=== PATIENT | female | born 1960 | race African-American/Black ===

== ENCOUNTER 2019-03-26 20:53 | Emergency (ER) | payer OTHER ==
[2019-03-26] MEDS ORDERED: Ketorolac Tromethamine 30 MG/ML VIAL ONE (22:38)
--- NOTE | 2019-03-26 23:10 | CT ---
CT head noncontrast HISTORY: Fall. Head injury. FINDINGS: There is no evidence of acute intracranial hemorrhage or infarct. The ventricles appear nor mal in size, shape and position. There is no mass effect or shift of midline structures. Visualized paranasal sinuses remain well-aerated. IMPRESSION: No acute intracranial abnormalities are demonstrated.
--- NOTE | 2019-03-26 23:12 | CT ---
CT cervical spine noncontrast HISTORY: Fall. Neck injury. FINDINGS: Reversal of the normal lordotic curvature. Disc space narrowing most pronounced at the C5-6 level. Osteophytosis throughout the vertebral bodies and facets. Cervicothoracic junction is intact. No acute fracture or dislocation. Thyroid gland is enlarged and very heterogeneous, including internal calcified patient with substernal extension of the enlarged left thyroid lobe. IMPRESSION: Degenerative changes of the cervical spine. No acute osseous abnormalities are demonstrat ed. Large thyroid goiter with substernal extension
--- NOTE | 2019-03-26 23:15 | CT ---
CT thoracic spine noncontrast HISTORY: Fall. Back injury. FINDINGS: There is minimal compression of the T5 superior endplate with some sclerotic component. No significant retropulsion. Other vertebral body heights and alignment are maintained. Mild osteophytosis. IMPRESSION: Minimal T5 superior endplate compression. Probably chronic. If needed, MRI could be used to evaluate for bone marrow edema. No unstable thoracic spine injury is apparent on CT.
--- NOTE | 2019-03-26 23:24 | RAD ---
Chest one view HISTORY: Fall. Chest injury. COMPARISON: 03/08/2009. FINDINGS: Cardiac silhouette is magnified and enlarged. Pulmonary vasculature remains slightly engorg ed. Mediastinum is midline. Rightward deviation of the upper trachea related to a large thyroid goiter. IMPRESSION: Borderline cardiomegaly. Chronic pulmonary vascular congestion.
--- NOTE | 2019-03-26 23:27 | RAD ---
Left elbow 4 views HISTORY: Left elbow injury. FINDINGS: Radiocapitellar alignment is maintained. Moderate osteophytosis. No acute fracture, disloca tion, or fluid distention of the joint capsule. IMPRESSION: Degenerative changes left elbow. No acute osseous abnormalities are demonstrated.
--- NOTE | 2019-03-26 23:28 | RAD ---
Left shoulder 3 views HISTORY: Fall. Left shoulder injury. FINDINGS: Acromioclavicular and glenohumeral alignment are maintained. No acute fracture, dislocation , or aggressive osseous erosions. IMPRESSION: No acute osseous abnormalities are demonstrated.
== END 2019-03-26 23:42 | disposition home or self-care (01) ==
LOC: ERS 20:53
DX: S06.9X9A Unspecified intracranial injury with loss of consciousness of unspecified duration, initial encounter (principal); M54.2 Cervicalgia; I11.0 Hypertensive heart disease with heart failure; I50.9 Heart failure, unspecified; E11.9 Type 2 diabetes mellitus without complications; E78.5 Hyperlipidemia, unspecified; F41.9 Anxiety disorder, unspecified; F32.9 Major depressive disorder, single episode, unspecified; F17.210 Nicotine dependence, cigarettes, uncomplicated; Z79.82 Long term (current) use of aspirin; Z79.899 Other long term (current) drug therapy; W17.89XA Other fall from one level to another, initial encounter
CPT/HCPCS: 70450; 71045; 72125; 72128; 96372; J1885

== ENCOUNTER 2019-07-29 23:58 | Emergency (ER) | payer OTHER ==
[2019-07-30 01:34] LABS: #Eosinphils 0.2 thou/uL (0.0-0.7); #Lymphocytes 2.2 thou/uL (1.20-3.40); #Monocytes 1.1 thou/uL (0.11-0.59); #Neutrophils 5.3 thou/uL (1.40-6.50); %Basophils 0.5 % (0.0-1.0); %Monocytes 12.5 % (0.0-10.0); Hemoglobin 12.5 g/dL (12.0-16.0); Mean Corpuscular Hemoglobin 28.6 pg (27.0-31.0); Mean Corpuscular Volume 92.2 fL (78.0-98.0); Mean Platelet Volume 8.5 fL (7.4-10.4); Platelet Count 170 thou/uL (130-400); RBC Distribution Width 14.3 % (11.5-14.5); Red Blood Cell (RBC) Count 4.38 mill/uL (4.20-5.40); White Blood Cell (WBC) Count 8.9 thou/uL (4.8-10.8)
[2019-07-30 01:54] LABS: Acetaminophen Less than 6.0 mcg/mL (10.0-30.0); Alcohol Less than 10 mg/dL (Less than 10); Salicylate Less than 8.0 mg/dL (15.0-30.0)
[2019-07-30 01:55] LABS: ALT (SGPT) 15 U/L (8-55); AST (SGOT) 16 U/L (5-34); Albumin 3.7 g/dL (3.5-5.0); Alkaline Phosphatase 114 U/L (40-110); Anion Gap 13 mmol/L (10-20); BUN (Urea Nitrogen) 20 mg/dL (9.8-20.1); Bilirubin, Total 0.3 mg/dL (0.2-1.2); Calc. Creatinine Clearance 0 mL/min (70-130); Calcium 9.8 mg/dL (7.8-10.44); Carbon Dioxide 27 mmol/L (22-29); Chloride 101 mmol/L (98-107); Estimated GFR-MDRD 76; Globulin 4.2 g/dL (2.4-3.5); Glucose 301 mg/dL (70-105); Protein, Total 7.9 g/dL (6.0-8.3); Sodium 137 mmol/L (136-145)
[2019-07-30] MEDS ORDERED: risperiDONE 1 MG TAB ONE (03:49)
[2019-07-30] MEDS ORDERED: Divalproex Sodium 250 MG (DR) TAB ONE (03:49)
[2019-07-30] MEDS ORDERED: Carvedilol 6.25 MG TAB PO SCH ×2 (04:00→17:00)
[2019-07-30 05:08] LABS: Amphetamine Not Detected (NotDetected); Barbiturates Screen Not Detected (NotDetected); Benzodiazepine Screen Not Detected (NotDetected); Cocaine Metabolite Screen Not Detected (NotDetected); Medtox Control Line Valid? VALID (VALID); Medtox Reader # READER 4; Methadone Not Detected (NotDetected); Methamphetamine Not Detected (NotDetected); Opiate Screen Not Detected (NotDetected); Oxycodone Screen Not Detected (NotDetected); Phencyclidine (PCP) Not Detected (NotDetected); THC/Cannabinoid Screen Not Detected (NotDetected); Tricyclic Screen Detected (NotDetected)
[2019-07-30] MEDS ORDERED: Haloperidol 5 MG TAB PO SCH (06:00)
== END 2019-07-30 14:30 ==
LOC: ERS 23:58
DX: F29 Unspecified psychosis not due to a substance or known physiological condition (principal); E11.9 Type 2 diabetes mellitus without complications; E78.5 Hyperlipidemia, unspecified; I11.0 Hypertensive heart disease with heart failure; I50.9 Heart failure, unspecified; F17.210 Nicotine dependence, cigarettes, uncomplicated; F41.9 Anxiety disorder, unspecified; F32.9 Major depressive disorder, single episode, unspecified; Z79.899 Other long term (current) drug therapy; Z79.891 Long term (current) use of opiate analgesic; Z79.51 Long term (current) use of inhaled steroids
CPT/HCPCS: 36415; 80053; 80306; 80307; 84443; 85025; 99285

== ENCOUNTER 2019-08-11 22:12 | Emergency (ER) | payer OTHER ==
[2019-08-11 23:39] LABS: #Basophils 0.1 thou/uL (0.0-0.2); #Eosinphils 0.1 thou/uL (0.0-0.7); #Lymphocytes 2.4 thou/uL (1.20-3.40); #Monocytes 1.2 thou/uL (0.11-0.59); %Basophils 0.9 % (0.0-1.0); %Eosinophils 0.8 % (0.0-10.0); %Lymphocytes 24.3 % (21.0-51.0); %Monocytes 12.2 % (0.0-10.0); %Neutrophils 61.8 % (42.0-75.0); Hemoglobin 13.4 g/dL (12.0-16.0); Mean Corpuscular Hemoglobin 30.7 pg (27.0-31.0); Mean Platelet Volume 7.5 fL (7.4-10.4); Platelet Count 249 thou/uL (130-400); Red Blood Cell (RBC) Count 4.38 mill/uL (4.20-5.40); White Blood Cell (WBC) Count 9.7 thou/uL (4.8-10.8)
[2019-08-11 23:46] LABS: BHCG - Serum Negative (NEGATIVE); Pregs Control Background? CLEAR/WHITE (CLR/WHITE); Pregs Control Bar Appear? YES (CONTROL BAR)
[2019-08-11 23:58] LABS: Acetaminophen Less than 6.0 mcg/mL (10.0-30.0); Alcohol Less than 10 mg/dL (Less than 10); Salicylate Less than 8.0 mg/dL (15.0-30.0)
[2019-08-12 00:01] LABS: ALT (SGPT) 10 U/L (8-55); AST (SGOT) 11 U/L (5-34); Albumin 3.6 g/dL (3.5-5.0); Alkaline Phosphatase 101 U/L (40-110); Anion Gap 15 mmol/L (10-20); BUN (Urea Nitrogen) 15 mg/dL (9.8-20.1); Bilirubin, Total 0.3 mg/dL (0.2-1.2); Calc. Creatinine Clearance 0 mL/min (70-130); Calcium 9.5 mg/dL (7.8-10.44); Carbon Dioxide 24 mmol/L (22-29); Chloride 103 mmol/L (98-107); Estimated GFR-MDRD 90; Globulin 4.4 g/dL (2.4-3.5); Glucose 313 mg/dL (70-105); Potassium 3.8 mmol/L (3.5-5.1); Sodium 138 mmol/L (136-145)
[2019-08-12] MEDS ORDERED: Acetaminophen 325 MG TAB ONE (01:59)
[2019-08-12] MEDS ORDERED: Acetaminophen 325 MG TAB PO SCH (02:00)
[2019-08-12] MEDS ORDERED: Insulin Glargine 15 UNITS in Pre-Filled Syringe 1 EACH SC SCH (02:00)
[2019-08-12 02:12] LABS: Bacteria/HPF None Seen HPF (None Seen); Bilirubin Negative (Negative); Blood, Urine Negative (Negative); Clarity Clear (Clear); Glucose, Urine (Dipstick) >=1000 mg/dL (Negative); Leukocyte 25 Leu/uL (Negative); Mucous/LPF Rare LPF (<2+); Nitrite Negative (Negative); Protein, Urine (Dipstick) 200 mg/dL (Neg-Trace); WBC/HPF 0-3 HPF (0-3)
[2019-08-12 02:15] LABS: Amphetamine Not Detected (NotDetected); Barbiturates Screen Not Detected (NotDetected); Benzodiazepine Screen Not Detected (NotDetected); Cocaine Metabolite Screen Not Detected (NotDetected); Medtox Control Line Valid? VALID (VALID); Medtox Reader # READER 1; Methadone Not Detected (NotDetected); Methamphetamine Not Detected (NotDetected); Opiate Screen Not Detected (NotDetected); Oxycodone Screen Not Detected (NotDetected); Phencyclidine (PCP) Not Detected (NotDetected); THC/Cannabinoid Screen Not Detected (NotDetected); Tricyclic Screen Not Detected (NotDetected)
[2019-08-12] MEDS ORDERED: Acetaminophen 500 MG TAB ONE (11:43)
== END 2019-08-12 13:58 ==
LOC: ERS 22:12
DX: R45.851 Suicidal ideations (principal); R44.1 Visual hallucinations; I11.0 Hypertensive heart disease with heart failure; I50.9 Heart failure, unspecified; E11.9 Type 2 diabetes mellitus without complications; F17.210 Nicotine dependence, cigarettes, uncomplicated
CPT/HCPCS: 36415; 36416; 80053; 80306; 80307; 81003; 81015; 84443; 84703; 85025; 99285; J1815

== ENCOUNTER 2019-08-28 20:53 | Emergency (ER) | payer OTHER ==
[2019-08-28 22:56] LABS: Hemoglobin 12.4 g/dL (12.0-16.0); Mean Corpuscular HGB CONC 33.2 g/dL (32.0-36.0); Mean Corpuscular Hemoglobin 31.9 pg (27.0-31.0); Mean Corpuscular Volume 96.1 fL (78.0-98.0); Mean Platelet Volume 8.4 fL (7.4-10.4); Platelet Count 148 thou/uL (130-400); RBC Distribution Width 15.3 % (11.5-14.5); Red Blood Cell (RBC) Count 3.87 mill/uL (4.20-5.40); White Blood Cell (WBC) Count 7.1 thou/uL (4.8-10.8)
[2019-08-28 23:14] LABS: ALT (SGPT) 9 U/L (8-55); AST (SGOT) 11 U/L (5-34); Albumin 3.2 g/dL (3.5-5.0); Alkaline Phosphatase 110 U/L (40-110); Anion Gap 11 mmol/L (10-20); BUN (Urea Nitrogen) 18 mg/dL (9.8-20.1); Band 3 % (5-11); Bilirubin, Total 0.2 mg/dL (0.2-1.2); Calc. Creatinine Clearance 0 mL/min (70-130); Calcium 9.1 mg/dL (7.8-10.44); Carbon Dioxide 27 mmol/L (22-29); Chloride 100 mmol/L (98-107); Eosinophils 2 % (0-10); Estimated GFR-MDRD 74; Globulin 3.9 g/dL (2.4-3.5); Glucose 495 mg/dL (70-105); Lymphocytes 33 % (21-51); MDiff Complete? YES; Monocytes 14 % (0-10); Neutrophil 48 % (42-75); Potassium 4.2 mmol/L (3.5-5.1); Protein, Total 7.1 g/dL (6.0-8.3); Sodium 134 mmol/L (136-145)
[2019-08-28 23:20] LABS: Acetaminophen Less than 6.0 mcg/mL (10.0-30.0); Alcohol Less than 10 mg/dL (Less than 10); Salicylate Less than 8.0 mg/dL (15.0-30.0)
[2019-08-29 01:08] LABS: Amphetamine Not Detected (NotDetected); Barbiturates Screen Not Detected (NotDetected); Benzodiazepine Screen Not Detected (NotDetected); Cocaine Metabolite Screen Not Detected (NotDetected); Medtox Control Line Valid? VALID (VALID); Medtox Reader # READER 1; Methadone Not Detected (NotDetected); Methamphetamine Not Detected (NotDetected); Opiate Screen Not Detected (NotDetected); Oxycodone Screen Not Detected (NotDetected); Phencyclidine (PCP) Not Detected (NotDetected); THC/Cannabinoid Screen Not Detected (NotDetected); Tricyclic Screen Not Detected (NotDetected)
[2019-08-29] MEDS ORDERED: Divalproex Sodium DR 500 MG TAB PO SCH (05:15)
[2019-08-29] MEDS ORDERED: Carvedilol 6.25 MG TAB PO SCH (05:30)
[2019-08-29] MEDS ORDERED: Insulin Glargine 15 UNITS in Pre-Filled Syringe 1 EACH SC SCH (05:30)
[2019-08-29] MEDS ORDERED: risperiDONE 3 MG TAB PO SCH (05:30)
[2019-08-29] MEDS ORDERED: Acetaminophen 325 MG TAB ONE (10:48)
[2019-08-29] MEDS ORDERED: Insulin Regular 300 UNITS/3 ML VIAL ONE (10:48)
== END 2019-08-29 14:50 ==
LOC: ERS 20:53
DX: F23 Brief psychotic disorder (principal); E11.9 Type 2 diabetes mellitus without complications; I11.0 Hypertensive heart disease with heart failure; I50.9 Heart failure, unspecified; F41.9 Anxiety disorder, unspecified; F32.9 Major depressive disorder, single episode, unspecified; F17.210 Nicotine dependence, cigarettes, uncomplicated; Z79.899 Other long term (current) drug therapy; Z79.4 Long term (current) use of insulin; Z79.51 Long term (current) use of inhaled steroids
CPT/HCPCS: 36415; 36416; 80053; 80306; 80307; 84443; 85025; 99285; J1815

== ENCOUNTER 2019-10-25 00:33 | Emergency (ER) | payer OTHER ==
[2019-10-25 01:20] LABS: #Lymphocytes 1.8 thou/uL (1.20-3.40); #Monocytes 0.5 thou/uL (0.11-0.59); #Neutrophils 4.3 thou/uL (1.40-6.50); %Basophils 0.5 % (0.0-1.0); %Eosinophils 0.7 % (0.0-10.0); %Lymphocytes 26.5 % (21.0-51.0); %Monocytes 7.9 % (0.0-10.0); %Neutrophils 64.5 % (42.0-75.0); Hemoglobin 13.1 g/dL (12.0-16.0); Mean Corpuscular HGB CONC 33.4 g/dL (32.0-36.0); Mean Corpuscular Hemoglobin 31.1 pg (27.0-31.0); Mean Corpuscular Volume 93.1 fL (78.0-98.0); Mean Platelet Volume 8.3 fL (7.4-10.4); Platelet Count 264 thou/uL (130-400); RBC Distribution Width 12.4 % (11.5-14.5); White Blood Cell (WBC) Count 6.7 thou/uL (4.8-10.8)
[2019-10-25 01:40] LABS: Acetaminophen Less than 6.0 mcg/mL (10.0-30.0); Alcohol Less than 10 mg/dL (Less than 10); Salicylate Less than 8.0 mg/dL (15.0-30.0)
[2019-10-25 01:41] LABS: ALT (SGPT) 24 U/L (8-55); AST (SGOT) 21 U/L (5-34); Albumin 3.9 g/dL (3.5-5.0); Alkaline Phosphatase 167 U/L (40-110); Anion Gap 14 mmol/L (10-20); BUN (Urea Nitrogen) 18 mg/dL (9.8-20.1); Bilirubin, Total 0.3 mg/dL (0.2-1.2); CK (CPK) 255 U/L (29-168); Calc. Creatinine Clearance 0 mL/min (70-130); Calcium 9.7 mg/dL (7.8-10.44); Carbon Dioxide 25 mmol/L (22-29); Chloride 102 mmol/L (98-107); Estimated GFR-MDRD 71; Globulin 4.1 g/dL (2.4-3.5); Glucose 342 mg/dL (70-105); Potassium 3.8 mmol/L (3.5-5.1); Sodium 137 mmol/L (136-145)
[2019-10-25 02:14] LABS: Bilirubin Negative (Negative); Blood, Urine Negative (Negative); Clarity Clear (Clear); Glucose, Urine (Dipstick) 200 mg/dL (Negative); Leukocyte Negative Leu/uL (Negative); Nitrite Negative (Negative); Protein, Urine (Dipstick) 20 mg/dL (Neg-Trace); Urobilinogen Normal mg/dL (Less than 2)
[2019-10-25 02:29] LABS: Amphetamine Not Detected (NotDetected); Barbiturates Screen Not Detected (NotDetected); Benzodiazepine Screen Not Detected (NotDetected); Cocaine Metabolite Screen Not Detected (NotDetected); Medtox Control Line Valid? VALID (VALID); Medtox Reader # READER 4; Methadone Not Detected (NotDetected); Methamphetamine Not Detected (NotDetected); Opiate Screen Not Detected (NotDetected); Oxycodone Screen Not Detected (NotDetected); Phencyclidine (PCP) Not Detected (NotDetected); THC/Cannabinoid Screen Not Detected (NotDetected); Tricyclic Screen Not Detected (NotDetected)
[2019-10-25] MEDS ORDERED: Acetaminophen 500 MG TAB ONE ×3 (04:18→22:02)
[2019-10-25] MEDS ORDERED: Nicotine 14 MG PATCH ONE (06:24)
[2019-10-25] MEDS ORDERED: chlorproMAZINE HCl 25 MG TAB PO SCH (07:30)
[2019-10-25] MEDS ORDERED: metFORMIN 500 MG TAB PO SCH (08:00)
--- NOTE | 2019-10-25 08:07 | RAD ---
EXAM: CHEST ONE VIEW HISTORY: Cough. COMPARISON: 03/26/2019 FINDINGS: Cardiac silhouette is magnified by projection but stable in size. Pulmonary vasculature is within nor mal limits. There is subsegmental atelectasis seen in the region of the lingula. No consolidation or pleural fluid is seen. Vascular calcifications are seen in the thoracic aorta. No other interval c hange. IMPRESSION: 1. No acute cardiopulmonary process. 2. Subsegmental atelectasis in the lingula.
[2019-10-25 08:17] LABS: CKMB 2.5 ng/mL (0-6.6)
[2019-10-25] MEDS ORDERED: Haloperidol 1 MG TAB ONE (08:49)
[2019-10-25] MEDS ORDERED: Furosemide 40 MG TAB ONE (08:49)
[2019-10-25] MEDS ORDERED: Benztropine 1 MG TAB PO SCH (09:00)
[2019-10-25] MEDS ORDERED: Haloperidol 5 MG TAB PO SCH (09:00)
[2019-10-25] MEDS ORDERED: Potassium Chloride 20 MEQ TAB PO SCH (09:00)
[2019-10-25] MEDS ORDERED: lamoTRIgine 100 MG TAB PO SCH (09:00)
[2019-10-25] MEDS ORDERED: Insulin Glargine 15 UNITS in Pre-Filled Syringe 1 EACH SC SCH (09:00)
[2019-10-25] MEDS ORDERED: Potassium Chloride 20 MEQ TAB ONE (10:31)
[2019-10-25 10:36] LABS: Troponin I 0.022 ng/mL (< 0.028)
[2019-10-25] MEDS ORDERED: Insulin Regular 300 UNITS/3 ML VIAL ONE (13:51)
[2019-10-25] MEDS ORDERED: Zolpidem Tartrate 5 MG TAB PO SCH (21:00)
[2019-10-26] MEDS ORDERED: Furosemide 20 MG TAB PO SCH (09:00)
== END 2019-10-25 02:05 ==
LOC: ERS 00:33
DX: R45.850 Homicidal ideations (principal); F41.9 Anxiety disorder, unspecified; F32.9 Major depressive disorder, single episode, unspecified; F17.210 Nicotine dependence, cigarettes, uncomplicated; I11.0 Hypertensive heart disease with heart failure; I50.9 Heart failure, unspecified; E78.5 Hyperlipidemia, unspecified; E11.9 Type 2 diabetes mellitus without complications; Z79.899 Other long term (current) drug therapy; Z79.4 Long term (current) use of insulin
CPT/HCPCS: 36415; 36416; 71045; 80053; 80306; 80307; 81003; 82550; 82553; 84443; 84484; 85025; 93005; J1815; Q0161

== ENCOUNTER 2020-03-10 09:37 | Outpatient (CLI) | payer OTHER ==
--- NOTE | 2020-03-10 10:38 | MMO ---
Bilateral MAMMO Bilat Screen DDI. CLINICAL HISTORY: Patient is 59 years old and is seen for screening. The patient has no family history of breast cancer. The patient has no personal history of cancer. VIEWS: The views performed were: bilateral craniocaudal and bilateral mediolateral oblique. FILMS COMPARED: The present examination has been compared to prior imaging studies performed at [facility] on 05/19/2000 and 01/30/2007, and at [facility] on 04/16/2008. This study has been interpreted with the assistance of computer-aided detection. MAMMOGRAM FINDINGS: The breasts are heterogeneously dense, which could obscure a lesion on mammography. There are no suspicious masses, suspicious calcifications, or new areas of architectural distortion. IMPRESSION: THERE IS NO MAMMOGRAPHIC EVIDENCE OF MALIGNANCY. A ROUTINE FOLLOW-UP MAMMOGRAM IN 1 YEAR IS RECOMMENDED. ACR BI-RADS Category 1 - Negative MAMMOGRAPHY NOTE: 1. A negative mammogram report should not delay a biopsy if a dominant of clinically suspicious mass is present. 2. Approximately 10% to 15% of breast cancers are not detected by mammography. 3. Adenosis and dense breasts may obscure an underlying neoplasm. Reported by: CORY CRAFT MD Electonically Signed: [id number]
== END 2020-03-10 09:38 | disposition home or self-care (01) ==
LOC: BICMAMMO 09:37
PROVIDERS: ATTEND Family Medicine
DX: Z12.31 Encounter for screening mammogram for malignant neoplasm of breast (principal)
CPT/HCPCS: 77067

== ENCOUNTER 2020-04-27 01:08 | Emergency (ER) | payer OTHER ==
[2020-04-27 01:49] LABS: #Lymphocytes 1.6 thou/uL (1.20-3.40); #Monocytes 0.7 thou/uL (0.11-0.59); #Neutrophils 2.5 thou/uL (1.40-6.50); %Basophils 0.7 % (0.0-1.0); %Eosinophils 0.7 % (0.0-10.0); %Lymphocytes 33.2 % (21.0-51.0); %Monocytes 14.5 % (0.0-10.0); %Neutrophils 50.9 % (42.0-75.0); Hemoglobin 10.3 g/dL (12.0-16.0); Mean Corpuscular HGB CONC 33.8 g/dL (32.0-36.0); Mean Corpuscular Hemoglobin 31.9 pg (27.0-31.0); Mean Corpuscular Volume 94.6 fL (78.0-98.0); Mean Platelet Volume 5.8 fL (7.4-10.4); Platelet Count 497 thou/uL (130-400); RBC Distribution Width 12.9 % (11.5-14.5); Red Blood Cell (RBC) Count 3.23 mill/uL (4.20-5.40); White Blood Cell (WBC) Count 4.9 thou/uL (4.8-10.8)
[2020-04-27] MEDS ORDERED: Haloperidol Lactate 5 MG/ML VIAL ONE (01:54)
[2020-04-27 02:11] LABS: ALT (SGPT) 22 U/L (8-55); AST (SGOT) 24 U/L (5-34); Acetaminophen Less than 6.0 mcg/mL (10.0-30.0); Albumin 3.3 g/dL (3.5-5.0); Alcohol Less than 10 mg/dL (Less than 10); Alkaline Phosphatase 126 U/L (40-110); Anion Gap 13 mmol/L (10-20); BUN (Urea Nitrogen) 17 mg/dL (9.8-20.1); Bilirubin, Total Less than 0.2 mg/dL (0.2-1.2); Calc. Creatinine Clearance 0 mL/min (70-130); Calcium 9.4 mg/dL (7.8-10.44); Carbon Dioxide 25 mmol/L (22-29); Chloride 96 mmol/L (98-107); Estimated GFR-MDRD Greater than 90; Globulin 3.8 g/dL (2.4-3.5); Glucose 108 mg/dL (70-105); Potassium 4.6 mmol/L (3.5-5.1); Protein, Total 7.1 g/dL (6.0-8.3); Salicylate Less than 8.0 mg/dL (15.0-30.0); Sodium 129 mmol/L (136-145)
[2020-04-27 03:01] LABS: Bacteria/HPF None Seen HPF (None Seen); Bilirubin Negative (Negative); Blood, Urine Negative (Negative); Clarity Clear (Clear); Glucose, Urine (Dipstick) Normal (Negative); Ketone, Urine Negative (Negative); Leukocyte 250 Leu/uL (Negative); Nitrite Negative (Negative); Protein, Urine (Dipstick) 50 mg/dL (Neg-Trace); RBC/HPF 0-3 HPF (0-3); Specific Gravity, Urine 1.012 (1.002-1.036); Urobilinogen Normal mg/dL (Less than 2); WBC/HPF 0-3 HPF (0-3); pH, Urine 6.5 (5.0-9.0)
[2020-04-27 03:02] LABS: Amphetamine Not Detected (NotDetected); Barbiturates Screen Not Detected (NotDetected); Benzodiazepine Screen Not Detected (NotDetected); Cocaine Metabolite Screen Not Detected (NotDetected); Medtox Control Line Valid? VALID (VALID); Medtox Reader # READER 1; Methadone Not Detected (NotDetected); Methamphetamine Not Detected (NotDetected); Opiate Screen Not Detected (NotDetected); Oxycodone Screen Not Detected (NotDetected); Phencyclidine (PCP) Not Detected (NotDetected); THC/Cannabinoid Screen Not Detected (NotDetected); Tricyclic Screen Not Detected (NotDetected)
[2020-04-27] MEDS ORDERED: Furosemide 40 MG TAB ONE (14:00)
[2020-04-27] MEDS ORDERED: hydrOXYzine Pamoate 25 mg Capsule ONE (14:00)
[2020-04-27] MEDS ORDERED: Divalproex Sodium 250 MG (DR) TAB ONE (14:00)
== END 2020-04-27 14:21 ==
LOC: ERS 01:08
DX: F29 Unspecified psychosis not due to a substance or known physiological condition (principal); I11.0 Hypertensive heart disease with heart failure; I50.9 Heart failure, unspecified; E78.5 Hyperlipidemia, unspecified; E11.9 Type 2 diabetes mellitus without complications; F41.9 Anxiety disorder, unspecified; F32.9 Major depressive disorder, single episode, unspecified; F17.210 Nicotine dependence, cigarettes, uncomplicated; Z79.84 Long term (current) use of oral hypoglycemic drugs; Z79.899 Other long term (current) drug therapy
CPT/HCPCS: 36415; 80053; 80306; 80307; 81003; 81015; 85025; 99285; J1630; Q0177

== ENCOUNTER 2020-06-04 14:14 | Emergency (ER) | payer OTHER ==
[2020-06-04] MEDS ORDERED: Haloperidol Lactate 5 MG/ML VIAL ONE (14:24)
[2020-06-04] MEDS ORDERED: Lorazepam 2 MG/ML VIAL ONE (14:24)
[2020-06-04 15:20] LABS: #Eosinphils 0.1 thou/uL (0.0-0.7); #Lymphocytes 2.2 thou/uL (1.20-3.40); #Monocytes 0.5 thou/uL (0.11-0.59); #Neutrophils 2.3 thou/uL (1.40-6.50); %Basophils 0.1 % (0.0-1.0); %Eosinophils 2.1 % (0.0-10.0); %Neutrophils 44.8 % (42.0-75.0); Hemoglobin 11.3 g/dL (12.0-16.0); Mean Corpuscular HGB CONC 33.1 g/dL (32.0-36.0); Mean Corpuscular Hemoglobin 30.8 pg (27.0-31.0); Mean Platelet Volume 7.7 fL (7.4-10.4); Platelet Count 260 thou/uL (130-400); RBC Distribution Width 13.4 % (11.5-14.5); Red Blood Cell (RBC) Count 3.66 mill/uL (4.20-5.40); White Blood Cell (WBC) Count 5.1 thou/uL (4.8-10.8)
[2020-06-04 15:40] LABS: Acetaminophen Less than 6.0 mcg/mL (10.0-30.0); Alcohol Less than 10 mg/dL (Less than 10); Salicylate Less than 8.0 mg/dL (15.0-30.0)
[2020-06-04 15:41] LABS: ALT (SGPT) 12 U/L (8-55); AST (SGOT) 17 U/L (5-34); Albumin 3.6 g/dL (3.5-5.0); Alkaline Phosphatase 66 U/L (40-110); Anion Gap 10 mmol/L (10-20); BUN (Urea Nitrogen) 22 mg/dL (9.8-20.1); Bilirubin, Total 0.3 mg/dL (0.2-1.2); CK (CPK) 336 U/L (29-168); Calc. Creatinine Clearance 0 mL/min (70-130); Calcium 8.9 mg/dL (7.8-10.44); Carbon Dioxide 32 mmol/L (22-29); Chloride 95 mmol/L (98-107); Estimated GFR-MDRD 72; Globulin 3.9 g/dL (2.4-3.5); Glucose 164 mg/dL (70-105); Potassium 3.6 mmol/L (3.5-5.1); Protein, Total 7.5 g/dL (6.0-8.3); Sodium 133 mmol/L (136-145)
[2020-06-04 16:19] LABS: Bacteria/HPF None Seen HPF (None Seen); Bilirubin Negative (Negative); Blood, Urine Negative (Negative); Clarity Clear (Clear); Glucose, Urine (Dipstick) Normal (Negative); Ketone, Urine Negative (Negative); Leukocyte 25 Leu/uL (Negative); Nitrite Negative (Negative); Protein, Urine (Dipstick) Negative (Neg-Trace); RBC/HPF 0-3 HPF (0-3); Specific Gravity, Urine 1.009 (1.002-1.036); Squamous Epithelial 0-3 HPF (0-3); Urobilinogen Normal mg/dL (Less than 2); WBC/HPF 0-3 HPF (0-3)
[2020-06-04 16:26] LABS: Amphetamine Not Detected (NotDetected); Barbiturates Screen Not Detected (NotDetected); Benzodiazepine Screen Not Detected (NotDetected); Cocaine Metabolite Screen Not Detected (NotDetected); Medtox Control Line Valid? VALID (VALID); Medtox Reader # READER 1; Methadone Not Detected (NotDetected); Methamphetamine Not Detected (NotDetected); Opiate Screen Not Detected (NotDetected); Oxycodone Screen Not Detected (NotDetected); Phencyclidine (PCP) Not Detected (NotDetected); THC/Cannabinoid Screen Not Detected (NotDetected); Tricyclic Screen Not Detected (NotDetected)
[2020-06-04 23:38] LABS: SARS-CoV-2 NAA Rapid Test Not Detected (NotDetected)
[2020-06-05] MEDS ORDERED: Haloperidol Lactate 5 MG/ML VIAL ONE ×2 (05:40→06:09)
[2020-06-05] MEDS ORDERED: Haloperidol 1 MG TAB ONE (07:41)
[2020-06-05] MEDS ORDERED: Divalproex Sodium 250 MG (DR) TAB ONE (07:41)
[2020-06-05] MEDS ORDERED: Furosemide 40 MG TAB ONE (07:41)
[2020-06-05] MEDS ORDERED: Haloperidol 5 MG TAB PO SCH (09:00)
== END 2020-06-05 11:31 ==
LOC: ERS 14:14
DX: F29 Unspecified psychosis not due to a substance or known physiological condition (principal); I11.0 Hypertensive heart disease with heart failure; I50.9 Heart failure, unspecified; E11.9 Type 2 diabetes mellitus without complications; E78.5 Hyperlipidemia, unspecified; F41.9 Anxiety disorder, unspecified; F32.9 Major depressive disorder, single episode, unspecified; F20.9 Schizophrenia, unspecified; F17.210 Nicotine dependence, cigarettes, uncomplicated; Z79.84 Long term (current) use of oral hypoglycemic drugs; Z79.899 Other long term (current) drug therapy
CPT/HCPCS: 36415; 51701; 80053; 80306; 80307; 81003; 81015; 82550; 84443; 85025; 93005; 96372; J1630; J2060; U0002

== ENCOUNTER 2020-08-22 19:36 | Inpatient (IN) | payer OTHER ==
[~2020-08-22 19:36] MED LIST: Atropine Sulfate 1 mg/10 ml Syringe ONE; Calcium Chloride 1 GM/10 ML Abboject SYRINGE ONE; DOPamine/D5W 400 mg/250 ml PREMIX ONE; EPINEPHrine 1 MG/10 ML Abboject SYRINGE ONE; Naloxone HCl 0.4 mg/ml Vial ONE
[2020-08-22] MEDS ORDERED: Atropine Sulfate 1 mg/10 ml Syringe ONE (19:56)
[2020-08-22] MEDS ORDERED: EPINEPHrine 1 MG/ML AMP ONE (20:03)
[2020-08-22] MEDS ORDERED: Rocuronium Bromide 10 MG/ML (10ML VIAL) ONE (20:15)
[2020-08-22] MEDS ORDERED: Ketamine 50 MG/ML (10ML VIAL) ONE (20:16)
[2020-08-22] MEDS ORDERED: Fentanyl 100 MCG/2 ML VIAL ONE ×2 (20:25→20:35)
[2020-08-22] MEDS ORDERED: fentaNYL Citrate/PF 2,000 MCG in Sodium Chloride 0.9% 60 ML IV SCH (20:30)
[2020-08-22 20:38] LABS: #Eosinphils 0.1 thou/uL (0.0-0.7); #Lymphocytes 1.1 thou/uL (1.20-3.40); #Monocytes 0.6 thou/uL (0.11-0.59); #Neutrophils 6.7 thou/uL (1.40-6.50); %Basophils 0.1 % (0.0-1.0); %Eosinophils 1.1 % (0.0-10.0); %Lymphocytes 13.3 % (21.0-51.0); %Monocytes 7.1 % (0.0-10.0); %Neutrophils 78.4 % (42.0-75.0); Hemoglobin 9.6 g/dL (12.0-16.0); Mean Corpuscular HGB CONC 32.1 g/dL (32.0-36.0); Mean Corpuscular Hemoglobin 30.7 pg (27.0-31.0); Mean Corpuscular Volume 95.6 fL (78.0-98.0); Mean Platelet Volume 7.3 fL (7.4-10.4); Platelet Count 184 thou/uL (130-400); RBC Distribution Width 13.3 % (11.5-14.5); Red Blood Cell (RBC) Count 3.13 mill/uL (4.20-5.40); White Blood Cell (WBC) Count 8.5 thou/uL (4.8-10.8)
[2020-08-22 20:45] LABS: INR-International Normal Ratio 1.1; PTT 28.5 sec (22.9-36.1); Prothrombin Time 14.2 sec (12.0-14.7)
--- NOTE | 2020-08-22 20:48 | RAD ---
CHEST ONE VIEW: 08/22/20 COMPARISON: 10/25/19 HISTORY: Not provided. FINDINGS: Nasogastric rube extends beyond the diaphragm. Distal tip is not seen. Endotracheal tube terminates a t the right mainstem bronchus. There is cardiomegaly. Scattered interstitial and alveolar opacities. No pneumothorax on the supine projection. IMPRESSION: 1. Endotracheal tube as above. Repositioning is recommended. 2. Diffuse interstitial and alveolar opacities. Correlate for COVID pneumonia. Results of the study discussed with Dr. Mojica 08/22/20 at 8:35 p.m. Code CR POS: PPP
[2020-08-22 20:55] LABS: ALT (SGPT) 24 U/L (8-55); AST (SGOT) 20 U/L (5-34); Albumin 2.8 g/dL (3.5-5.0); Alkaline Phosphatase 142 U/L (40-110); Anion Gap 14 mmol/L (10-20); BUN (Urea Nitrogen) 46 mg/dL (9.8-20.1); Bilirubin, Total 0.2 mg/dL (0.2-1.2); Calc. Creatinine Clearance 0 mL/min (70-130); Calcium 8.9 mg/dL (7.8-10.44); Carbon Dioxide 24 mmol/L (22-29); Chloride 103 mmol/L (98-107); Globulin 4.5 g/dL (2.4-3.5); Glucose 184 mg/dL (70-105); Potassium 3.7 mmol/L (3.5-5.1); Protein, Total 7.3 g/dL (6.0-8.3); Sodium 137 mmol/L (136-145)
[2020-08-22 20:57] LABS: Acetaminophen Less than 6.0 mcg/mL (10.0-30.0); Alcohol Less than 10 mg/dL (Less than 10); Salicylate Less than 8.0 mg/dL (15.0-30.0)
[2020-08-22 21:18] LABS: CKMB 2.8 ng/mL (0-6.6)
[2020-08-22 22:22] LABS: Bacteria/HPF 4+ HPF (None Seen); Bilirubin Negative (Negative); Blood, Urine Trace (Negative); Clarity Turbid (Clear); Glucose, Urine (Dipstick) Normal (Negative); Ketone, Urine Negative (Negative); Leukocyte 500 Leu/uL (Negative); Nitrite Negative (Negative); Protein, Urine (Dipstick) 300 mg/dL (Neg-Trace); Specific Gravity, Urine 1.025 (1.002-1.036); Squamous Epithelial 21-50 HPF (0-3); Urobilinogen Normal mg/dL (Less than 2); WBC/HPF 21-50 HPF (0-3); pH, Urine 6.5 (5.0-9.0)
--- NOTE | 2020-08-22 22:24 | CT ---
Head CT without contrast 08/22/2020: COMPARISON: 03/26/2019 HISTORY: Altered mental status TECHNIQUE: Axial CT imaging at 5 mm intervals from vertex through skull base without contrast FINDINGS: The visualized paranasal sinuses and mastoid air cells appear well-aerated. No displaced ca lvarial fracture, intracranial hemorrhage, midline shift, or mass effect. IMPRESSION: No acute findings.
[2020-08-22 22:29] LABS: Amphetamine Not Detected (NotDetected); Barbiturates Screen Not Detected (NotDetected); Benzodiazepine Screen Detected (NotDetected); Cocaine Metabolite Screen Not Detected (NotDetected); Medtox Control Line Valid? VALID (VALID); Medtox Reader # READER 4; Methadone Not Detected (NotDetected); Methamphetamine Not Detected (NotDetected); Opiate Screen Not Detected (NotDetected); Oxycodone Screen Not Detected (NotDetected); Phencyclidine (PCP) Not Detected (NotDetected); THC/Cannabinoid Screen Not Detected (NotDetected); Tricyclic Screen Detected (NotDetected)
[2020-08-22 22:46] LABS: SARS-CoV-2 NAA Rapid Test DETECTED (NotDetected)
[2020-08-22] MEDS ORDERED: Acetaminophen 325 MG Suppository PR PRN (23:01)
[2020-08-22] MEDS ORDERED: Ventilator Sedation Protocol 1 EACH FS ONE (23:06)
[2020-08-22 23:39] LABS: #Eosinphils 0.1 thou/uL (0.0-0.7); #Neutrophils 8.9 thou/uL (1.40-6.50); %Basophils 0.2 % (0.0-1.0); %Eosinophils 0.7 % (0.0-10.0); %Lymphocytes 8.7 % (21.0-51.0); %Monocytes 8.7 % (0.0-10.0); %Neutrophils 81.7 % (42.0-75.0); Hemoglobin 9.9 g/dL (12.0-16.0); Mean Corpuscular HGB CONC 32.1 g/dL (32.0-36.0); Mean Corpuscular Hemoglobin 30.3 pg (27.0-31.0); Mean Corpuscular Volume 94.4 fL (78.0-98.0); Platelet Count 215 thou/uL (130-400); RBC Distribution Width 13.5 % (11.5-14.5); Red Blood Cell (RBC) Count 3.27 mill/uL (4.20-5.40); White Blood Cell (WBC) Count 10.9 thou/uL (4.8-10.8)
[2020-08-22] MEDS ORDERED: Propofol 1,000 MG/100 ML VIAL IV ONE (23:40)
--- NOTE | 2020-08-22 23:42 | RAD ---
Portable frontal chest radiograph: 08/22/2020 COMPARISON: 08/22/2020 HISTORY: Evaluate lines and tubes FINDINGS: The endotracheal tube has been retracted when compared to the prior exam. Nasogastric tube extends into the upper abdomen. The endotracheal tube is in proper position. Extensive interstitial and alveolar opacity noted bilaterally, left greater than right, not significa ntly changed. IMPRESSION: The endotracheal tube has been retracted, now terminating at the level the clavicular hea ds. There is extensive interstitial and alveolar opacity bilaterally, similar when compared to the prior examination, suspicious for possible Covid pneumonia. Pulmonary edema and aspiration are possib ilities as well.
[2020-08-22] MEDS ORDERED: Propofol BOLUS 1,000 MG/100 ML VIAL IV PRN (23:45)
[2020-08-22] MEDS ORDERED: Fentanyl BOLUS 250 ML IVPB PRN (23:45)
[2020-08-22] MEDS ORDERED: DISCONTINUE PREVIOUS NARCOTIC PAIN MEDICATIONS AND BENZODIAZEPINES FS SCH (23:45)
[2020-08-22] MEDS ORDERED: Morphine 2 MG/ML VIAL SLOW IVP PRN (23:45)
[2020-08-22 23:59] LABS: ALT (SGPT) 28 U/L (8-55); AST (SGOT) 28 U/L (5-34); Albumin 2.9 g/dL (3.5-5.0); Alkaline Phosphatase 159 U/L (40-110); Anion Gap 10 mmol/L (10-20); BUN (Urea Nitrogen) 46 mg/dL (9.8-20.1); Bilirubin, Total 0.3 mg/dL (0.2-1.2); Calc. Creatinine Clearance 0 mL/min (70-130); Calcium 9.7 mg/dL (7.8-10.44); Carbon Dioxide 27 mmol/L (22-29); Chloride 105 mmol/L (98-107); Globulin 4.9 g/dL (2.4-3.5); Glucose 120 mg/dL (70-105); Potassium 3.4 mmol/L (3.5-5.1); Protein, Total 7.8 g/dL (6.0-8.3); Sodium 139 mmol/L (136-145)
[2020-08-23 00:03] LABS: Troponin I 0.106 ng/mL (< 0.028)
--- NOTE | 2020-08-23 00:18 | PDOC.BPN ---
- Brief Progress Note [id number] HP dictated
--- NOTE | 2020-08-23 00:58 | HP ---
CHIEF COMPLAINT: Altered mental status. HISTORY OF PRESENT ILLNESS: Ms. Blount is a 59-year-old female with past medical history of congestive heart failure, , hypertension, diabetes, among others, was brought from a longterm for altered mental status and bradycardia. The patient was found to be bradycardic, heart rate in the 30s. Also, she was found to be hypotensive with blood pressure 60/30. Workup in the emergency room including chest x-ray showed extensive bilateral infiltrates/opacities. COVID-19 test positive. Her urine drug screen was positive for benzos and tricyclics. The patient remains hypotensive in spite of IV fluid boluses. Central venous catheter was inserted in the emergency room and started on IV dopamine. The blood pressure improved. The heart rate improved. The rest of the lab work, the patient has potassium 3.4, BUN is 46, creatinine 1.5, glucose 120, WBC 10.9, hemoglobin 9.9, and platelets 215. Urine drug screen, positive for wbc's, but there were a lot of squamous cells. CT of the brain, no acute findings. Troponin 0.037. The patient was intubated in the emergency room for decreased level of consciousness. The patient is being admitted to the CCU for further management. PAST MEDICAL HISTORY: As mentioned above in history of present illness. PAST SURGICAL HISTORY: Unknown. SOCIAL HISTORY: Lives in a longterm? HOME MEDICATIONS: Unknown. ALLERGIES: UNKNOWN. REVIEW OF SYSTEMS: Unable to obtain due to the patient's underlying medical condition. PHYSICAL EXAMINATION: GENERAL: The patient is intubated and sedated. VITAL SIGNS: Blood pressure 164/85, pulse is 85, respiratory rate is 14, and temperature 97.3. HEAD AND NECK: Normocephalic. Neck is supple. CHEST: Coarse bilateral breath sounds. HEART: S1 and S2. Regular. ABDOMEN: Soft. Bowel sounds present. : Intubated, sedated. Unable to assess. EXTREMITIES: No clubbing or cyanosis. LABORATORY DATA: As mentioned above in the history of present illness. IMAGING STUDIES: As mentioned above in the history of present illness. ASSESSMENT: 1. Acute encephalopathy, metabolic. 2. Acute respiratory failure. 3. Pneumonia secondary to COVID-19 virus infection. 4. COVID-19 virus infection. 5. Bradycardia. 6. Hypotension. 7. Congestive heart failure, history. 8. Schizophrenia. 9. Diabetes mellitus, type 2. 10. History of hypertension. PLAN: 1. Admit to CCU. 2. Continue full ventilator support. 3. Keep n.p.o. 4. Continue with dopamine drip for bradycardia and hypotension. 5. Fuel Truck Driver was consulted by ED physician for evaluation and further recommendations. 6. Start the patient on IV dexamethasone. 7. Consult Pulmonary in a.m. for evaluation and further management. 8. Isolation precautions. 9. DVT prophylaxis as appropriate. 10. GI prophylaxis. 11. Expected length of stay, 2 midnights or more. 12. The patient's condition is critical. Job ID: [id number]
[2020-08-23] MEDS ORDERED: Vancomycin HCl 1.75 GM in Sodium Chloride 0.9% 500 ML IVPB SCH (01:15)
[2020-08-23] MEDS: Cefepime 2 GM in Sodium Chloride 0.9% 100 ML IVPB SCH ×2 (01:40→13:01)
[2020-08-23] MEDS ORDERED: DOPamine 400 MG/D5W 250 ML 250 ML IVPB SCH (01:45)
[2020-08-23 03:12] LABS: Troponin I 0.101 ng/mL (< 0.028)
[2020-08-23 03:22] LABS: ALT (SGPT) 27 U/L (8-55); AST (SGOT) 24 U/L (5-34); Albumin 2.8 g/dL (3.5-5.0); Alkaline Phosphatase 153 U/L (40-110); Anion Gap 10 mmol/L (10-20); BUN (Urea Nitrogen) 46 mg/dL (9.8-20.1); Bilirubin, Total 0.3 mg/dL (0.2-1.2); Calc. Creatinine Clearance 47 mL/min (70-130); Calcium 9.3 mg/dL (7.8-10.44); Carbon Dioxide 29 mmol/L (22-29); Chloride 103 mmol/L (98-107); Globulin 4.8 g/dL (2.4-3.5); Glucose 113 mg/dL (70-105); Potassium 3.5 mmol/L (3.5-5.1); Protein, Total 7.6 g/dL (6.0-8.3); Sodium 138 mmol/L (136-145)
[2020-08-23] MEDS ORDERED: FLU VACC QS2020-21(6MOS UP)/PF 60 MCG/0.5 ML SYRINGE IM ONE (09:00)
[2020-08-23] MEDS ORDERED: Famotidine/PF 20 mg/2ml Vial SLOW IVP SCH (09:00)
[2020-08-23] MEDS ORDERED: Dexamethasone 6 MG in Sodium Chloride 0.9% 50 ML IVPB SCH (09:00)
[2020-08-23] MEDS: Enoxaparin Sodium 40 MG/0.4 ML SYRINGE SC SCH (09:28)
[2020-08-23] MEDS: Propofol 1,000 MG/100 ML VIAL IV PRN (09:30)
[2020-08-23 11:10] LABS: Actual Bicarbonate (HCO3a) 29.4 mEq/L (22-28); Base Excess (BEa) 5.4 mEq/L (-2.0 to +3.0); CO2 Tension 40.9 mmHg (35.0-45.0); Calcium, Ionized (arterial) 1.28 mmol/L (1.12-1.30); Hemoglobin (Hb) 10.5 g/dL (12.0-16.0); O2 Tension (PaO2), arterial 98.3 mmHg (80.0-100.0); Potassium - ABG Lab 3.24 mmol/L (3.70-5.30); pH, Arterial 7.48 (7.35-7.45)
[2020-08-23 11:13] LABS: ALV-art Gradient 207.075 mmHg (0-20); Puncture Site RRA
[2020-08-23] MEDS: fentaNYL Citrate/PF 2,000 MCG in Sodium Chloride 0.9% 60 ML IV SCH (13:46)
[2020-08-23] MEDS ORDERED: REMDESIVIR (EUA) 200 MG in Sodium Chloride 0.9% 250 ML 210 ML IV SCH (14:00)
[2020-08-23] MEDS ORDERED: Dextrose 5% in Water 1,000 ML IV PRN (14:21)
[2020-08-23] MEDS ORDERED: Dextrose 50% Abboject 50 ML SYRINGE SLOW IVP PRN (14:21)
[2020-08-23] MEDS: Sodium Chloride 0.9% 1,000 ML IV SCH (14:30)
--- NOTE | 2020-08-23 14:36 | PDOC.HOSPP ---
- Subjective Encounter Date: 08/23/20 (f/u resp failure) Encounter Time: 14:33 Subjective: Pt remains intubated and sedated, on pressor support with dopamine. no events through today. - Objective Vital Signs & Weight: Vital Signs (12 hours) Temp Pulse Resp BP Pulse Ox 08/23/20 14:00 11 L 08/23/20 13:28 63 148/70 H 08/23/20 12:00 10 L 08/23/20 10:35 67 167/72 H 08/23/20 10:00 14 08/23/20 08:00 99.7 F H 70 14 100 08/23/20 06:00 14 08/23/20 04:21 73 153/69 H 08/23/20 04:00 97.2 F L 14 Weight Admit Weight 156 lb 1.396 oz Weight 156 lb 1.396 oz Most Recent Monitor Data Heart Rate from ECG 61 NIBP 126/60 NIBP BP-Mean 82 Respiration from ECG 10 SpO2 100 I&O: 08/22/20 08/23/20 08/24/20 06:59 06:59 06:59 Intake Total 1242.1 200 Output Total 320 445 Balance 922.1 -245 Result Diagrams: 08/22/20 23:15 08/23/20 02:12 Additional Labs: Accuchecks 08/22/20 19:54 POC Glucose 190 H EKG Reviewed by me: Yes (tele - sinus 60s) Hospitalist ROS - Medication Medications: Active Medications Generic Name Dose Route Start Last Admin Trade Name Freq PRN Reason Stop Dose Admin Enoxaparin Sodium 40 mg 08/23/20 09:00 08/23/20 09:28 Enoxaparin Sodium 40 Mg/0.4 Ml Syringe SC 40 mg 0900 KRYSTAL Administration Cefepime HCl 2 gm/ Sodium 100 mls @ 200 mls/hr 08/23/20 01:00 08/23/20 13:01 Chloride IVPB 100 mls 0100,1300 KRYSTAL Administration Fentanyl Citrate 2,000 mcg/ 100 mls @ 0 mls/hr 08/22/20 23:45 08/23/20 13:46 Sodium Chloride IV 09/21/20 23:45 100 mls INF KRYSTAL Administration Protocol Per Protocol Dopamine HCl/Dextrose 250 mls @ 0 mls/hr 08/23/20 01:45 08/23/20 09:29 Dopamine 400 Mg/D5w 250 Ml IVPB 250 mls INF KRYSTAL Administration Protocol As Directed Remdesivir 200 mg/ Sodium 250 mls @ 250 mls/hr 08/23/20 14:00 08/23/20 14:22 Chloride IV 08/23/20 18:00 250 mls NOW KRYSTAL Administration Propofol 1,000 mg 08/22/20 23:45 08/23/20 09:30 Propofol 1,000 Mg/100 Ml Vial IV 09/21/20 23:45 1,000 mg INF PRN Administration TO ACHIEVE GOAL RASS Protocol - Exam General Appearance: NAD Heart: RRR, no murmur Respiratory: no wheezes, no rales, no ronchi Respiratory - other findings: on vent with good air movement Gastrointestinal: soft, non-tender, non-distended, normal bowel sounds Extremities: no cyanosis, no clubbing, no edema Neurological - other findings: unable to assess - on vent and sedated/intubated Musculoskeletal - other findings: unable to assess - on vent and sedated/intubated Hosp A/P (1) Acute respiratory failure Code(s): J96.00 - ACUTE RESPIRATORY FAILURE, UNSP W HYPOXIA OR HYPERCAPNIA Status: Acute Qualifiers: Respiratory failure complication: hypoxia Qualified Code(s): J96.01 - Acute respiratory failure with hypoxia (2) Pneumonia due to COVID-19 virus Code(s): U07.1 - COVID-19; J12.89 - OTHER VIRAL PNEUMONIA Status: Acute (3) Bradycardia Code(s): R00.1 - BRADYCARDIA, UNSPECIFIED Status: Acute (4) Hypotension Status: Acute Qualifiers: Hypotension type: other hypotension type Qualified Code(s): I95.89 - Other hypotension (5) Schizophrenia Code(s): F20.9 - SCHIZOPHRENIA, UNSPECIFIED Status: Chronic Qualifiers: Schizophrenia type: unspecified Qualified Code(s): F20.9 - Schizophrenia, unspecified (6) Diabetes mellitus Code(s): E11.9 - TYPE 2 DIABETES MELLITUS WITHOUT COMPLICATIONS Status: Chronic Qualifiers: Diabetes mellitus type: type 2 Diabetes mellitus intermediate teacher insulin use: with intermediate teacher use (7) Acute kidney injury Code(s): N17.9 - ACUTE KIDNEY FAILURE, UNSPECIFIED Status: Acute (8) Hypertension Code(s): I10 - ESSENTIAL (PRIMARY) HYPERTENSION Status: Chronic Qualifiers: Hypertension type: essential hypertension Qualified Code(s): I10 - Essential (primary) hypertension (9) History of heart failure Code(s): Z86.79 - PERSONAL HISTORY OF OTHER DISEASES OF THE CIRCULATORY SYSTEM Status: Chronic - Plan Acute respiratory failure secondary to covid pneumonia - appreciate Pulm consult - on steroids, antibiotics - order for convalescent plasma Hypotension/bradycardia - on dopamine, wean as able UTI - on cefepime, follow cultures MEETA - likely multifactorial from hypotension, COVID, on ARB at home - start IVF - hold home losartan - monitor renal function DM2 - hold long-acting insulin for now (on home list) and monitor blood sugars - q6h FSG and ISS - nutrition consult for tube feeds Schizophrenia - hold home meds for now dvt prophy - lovenox gi prophy - famotidine code status - full pt is in critical condition. Reviewed plan of care with nursing staff
[2020-08-23] MEDS: Mometasone 200 MCG/Formoterol 5 MCG 120 PUFF INHALER INH SCH (19:46)
--- NOTE | 2020-08-23 19:56 | CON ---
DATE OF CONSULTATION: 08/23/2020 REASON FOR CONSULTATION: COVID-19. HISTORY OF PRESENT ILLNESS: A 59-year-old, who has a history of type 2 diabetes, hyperlipidemia, hypertension, seizure disorder, and bipolar disorder with psychosis, multiple prior admissions for psychiatric decompensation, suicidal and homicidal ideation as well as congestive heart failure, whose last admission was in June of this year, when she presented after having been found wandering on the road crossing traffic. She was in the process of being placed in the facility and she had been on furosemide, benztropine, hydrochlorothiazide, losartan, divalproex, hydroxyzine, Haldol, oxcarbazepine, and insulin. At this time, she was brought from the senior care, which she had been placed since June. She was found bradycardic with altered mental state and not a lot of history from the senior care provided. On arrival BP 96/38, pulse 53, respiratory rate 26, and saturations were 100 after intubation and vent. She did have a fever while in the emergency room. On the exam, the patient was barely responsive to noxious stimuli. Very shallow respirations. She is severely bradycardic and other findings on admission included white cell count 8.5, hemoglobin 9.6, MCV 95, and platelets 184 with 78% neutrophils. INR was 1.1. A pH of 7.48, pCO2 of 40, pO2 of 98, and inspired FiO2 was 50%. Chemistry with a sodium 139 and creatinine 1.86, which is higher than her baseline. Liver profile normal. Alkaline phosphatase 142, albumin 2.8, and globulin 4.5. Urinalysis with 500 leukocyte esterase and wbc 21 to 50 and SARS- CoV was detected. Toxicology with tricyclics, benzodiazepinics only. Initial films included a chest x-ray, which demonstrated NG tube, ET tube terminating at the right mainstem bronchus, cardiomegaly, interstitial and alveolar opacities. Second x- ray done about 3 hours after the first with ET tube retracted, extensive interstitial alveolar opacities bilaterally. PAST MEDICAL HISTORY: Includes type 2 diabetes, seizure activity, bipolar disorder with psychotic features, multiple admissions for management of decompensation of her psychiatric diagnosis, hypertension, and cardiomyopathy some form on Coreg and Lasix, but no echocardiogram on file at least in this hospital. PAST SURGICAL HISTORY: Hysterectomy and here, it is stated that she has some form of brain surgery. ALLERGIES: NONE. MEDICATIONS: Had been on; 1. Furosemide. 2. Benztropine. 3. Hydrochlorothiazide. 4. Losartan. 5. Divalproex. 6. Haldol. 7. Atorvastatin. 8. Metformin. 9. Oxcarbazepine. 10. Insulin. Right now, she is receiving; 1. Cefepime. 2. Decadron. 3. Dopamine. 4. Enoxaparin. 5. Insulin. 6. Lorazepam. 7. Mometasone. 8. Remdesivir. 9. Vancomycin. FAMILY HISTORY: Not available. SOCIAL HISTORY: Current smoker. She lives in a senior care. PHYSICAL EXAMINATION: VITAL SIGNS: T-max 99.3, BP 120/60, respiratory rate 16, O2 saturation 100, and heart rate 59. SKIN: Peripheral IV access. Del Angel catheter. The patient is sedated. No lymphadenopathy. HEENT: I could not test ocular movements. Pupils are constricted. LUNGS: Coarse breath sounds, but no crackles or wheezing. Symmetric distribution right and left hemithorax. HEART: S1 and S2. Regular rate. ABDOMEN: Slightly distended, but no guarding. No ascites. No organomegaly. EXTREMITIES: No edema. Pulses 1+ in dorsalis pedis. No motion was listed. LABORATORY DATA: The latest chemistry; sodium 138, creatinine down to 1.43, alkaline phosphatase down to 153, albumin is 2.8, and globulin 4.8. Urinalysis with 21 to 50 wbc's. SARS-CoV-2 detected. The other findings as noted above. ASSESSMENT: 1. Severe psychiatric illness with bipolar disorder with psychotic features, multiple admissions for suicidal/homicidal ideation. 2. Cardiomyopathy of unclear type on Coreg and diuretics previously. I do not have any echocardiogram on file. 3. Recently admitted to senior care and now has developed COVID infection and presented with altered mental state and respiratory failure and is currently intubated in the ICU, diffuse bilateral infiltrates. DISCUSSION: It is unclear the duration of illness is, but she has been started on remdesivir and remdesivir use in this situation is somewhat controversial, but it is in the guidelines and has FDA approval, although the extent of the benefit is unclear due to the limited enrollment of patients with this stage of illness in the clinical trial. She is on Decadron and part of her presentation might be associated with cardiac related issues with pulmonary edema. Ideally, one would like to have an echocardiogram to evaluate cardiac function and could evaluate brain natriuretic peptide to see home much of the component of her heart failure versus COVID would be present. Will follow up inflammatory markers on daily basis. Job ID: [id number] MTDD
--- NOTE | 2020-08-23 19:58 | CON ---
DATE OF CONSULTATION: 08/23/2020 REASON FOR CONSULTATION: Bradycardia. HISTORY OF PRESENT ILLNESS: Ms. Roxanne Blount is a 59-year-old woman, brought to the hospital with altered mental status, but found to be hypotensive and bradycardic last night. The patient has also been found to have severe COVID pneumonia. The patient lives in a [place] [facility] [place]. She was taking medications including Coreg 6.25 mg twice a day and clonidine from what I can tell from the note, she takes 0.3 mg in the morning and 0.2 in the evening. The patient is currently intubated and ventilated, unable to give any history now. REVIEW OF SYSTEMS: Not obtainable. PHYSICAL EXAMINATION: Not done directly due to COVID outbreak in order to try to reduce contact with patients unless essential. VITAL SIGNS: Currently, her blood pressure is 120/60, pulse is 70 and sinus. LABORATORY DATA: Chest x-ray reveals diffuse infiltrates compatible with extensive COVID pneumonia. Serology positive for COVID. ASSESSMENT: Severe bradycardia, probably multifactorial including clonidine and carvedilol. Multiple other psychiatric medicines on board as well in addition to COVID pneumonia. PLAN: The patient was taken off clonidine and carvedilol obviously. Also, we will order BNP in the morning. Job ID: [id number]
[2020-08-23] MEDS: Dexamethasone 6 MG in Sodium Chloride 0.9% 50 ML IVPB SCH (20:33)
[2020-08-23] MEDS: Famotidine/PF 20 mg/2ml Vial SLOW IVP SCH (20:33)
[2020-08-24] MEDS: Cefepime 2 GM in Sodium Chloride 0.9% 100 ML IVPB SCH ×2 (01:01→12:55)
[2020-08-24] MEDS: Propofol 1,000 MG/100 ML VIAL IV PRN ×2 (01:02→22:08)
[2020-08-24] MEDS: Sodium Chloride 0.9% 1,000 ML IV SCH ×2 (01:02→10:20)
[2020-08-24] MEDS ORDERED: Vancomycin 1 GM in Premix Bag 1 BAG IVPB SCH (02:00)
[2020-08-24 03:57] LABS: #Monocytes 0.6 thou/uL (0.11-0.59); #Neutrophils 9.2 thou/uL (1.40-6.50); %Eosinophils 0.2 % (0.0-10.0); %Lymphocytes 9.1 % (21.0-51.0); %Monocytes 5.3 % (0.0-10.0); %Neutrophils 85.3 % (42.0-75.0); Hemoglobin 9.3 g/dL (12.0-16.0); Mean Corpuscular HGB CONC 31.8 g/dL (32.0-36.0); Mean Corpuscular Hemoglobin 30.9 pg (27.0-31.0); Mean Platelet Volume 7.3 fL (7.4-10.4); Platelet Count 180 thou/uL (130-400); RBC Distribution Width 13.3 % (11.5-14.5); Red Blood Cell (RBC) Count 3.01 mill/uL (4.20-5.40); White Blood Cell (WBC) Count 10.8 thou/uL (4.8-10.8)
[2020-08-24 04:22] LABS: ALT (SGPT) 20 U/L (8-55); AST (SGOT) 13 U/L (5-34); Albumin 2.7 g/dL (3.5-5.0); Alkaline Phosphatase 148 U/L (40-110); Anion Gap 11 mmol/L (10-20); BUN (Urea Nitrogen) 51 mg/dL (9.8-20.1); Bilirubin, Direct 0.2 mg/dL (0.1-0.3); Bilirubin, Total 0.3 mg/dL (0.2-1.2); Calc. Creatinine Clearance 51 mL/min (70-130); Calcium 8.7 mg/dL (7.8-10.44); Carbon Dioxide 26 mmol/L (22-29); Chloride 106 mmol/L (98-107); Glucose 143 mg/dL (70-105); Potassium 3.6 mmol/L (3.5-5.1); Protein, Total 7.7 g/dL (6.0-8.3); Sodium 139 mmol/L (136-145)
[2020-08-24] MEDS: HumaLOG 300 UNITS/3 ML VIAL SC PRN ×2 (05:59→13:32)
[2020-08-24] MEDS: fentaNYL Citrate/PF 2,000 MCG in Sodium Chloride 0.9% 60 ML IV SCH (06:00)
--- NOTE | 2020-08-24 07:40 | PDOC.HOSPP ---
- Subjective Encounter Date: 08/24/20 (f/u acute resp failure) Encounter Time: 07:38 Subjective: No overnight events, pt remains intubated/sedated and on low rate dopamine gtt. - Objective Vital Signs & Weight: Vital Signs (12 hours) Temp Pulse Resp BP Pulse Ox 08/24/20 06:00 11 L 08/24/20 04:00 98.3 F 13 08/24/20 03:26 70 147/69 H 08/24/20 02:00 11 L 08/24/20 00:00 99.3 F 15 08/23/20 22:43 67 148/69 H 08/23/20 22:00 10 L 08/23/20 20:00 99.4 F 10 L 100 08/23/20 19:48 63 139/69 Weight Admit Weight 156 lb 1.396 oz Weight 168 lb 13.985 oz Most Recent Monitor Data Heart Rate from ECG 67 NIBP 151/75 NIBP BP-Mean 100 Respiration from ECG 10 SpO2 100 I&O: 08/23/20 08/24/20 08/25/20 06:59 06:59 06:59 Intake Total 1242.1 2840.5 Output Total 320 1000 Balance 922.1 1840.5 Result Diagrams: 08/24/20 03:30 08/24/20 03:30 Additional Labs: Accuchecks 08/24/20 08/23/20 08/23/20 05:46 23:35 18:22 POC Glucose 151 H 113 H 105 H EKG Reviewed by me: Yes (tele - sinus 50-60's) Hospitalist ROS - Medication Medications: Active Medications Generic Name Dose Route Start Last Admin Trade Name Freq PRN Reason Stop Dose Admin Enoxaparin Sodium 40 mg 08/23/20 09:00 08/23/20 09:28 Enoxaparin Sodium 40 Mg/0.4 Ml Syringe SC 40 mg 0900 KRYSTAL Administration Famotidine 20 mg 08/23/20 21:00 08/23/20 20:33 Famotidine/Pf 20 Mg/2ml Vial SLOW IVP 20 mg BID KRYSTAL Administration Vancomycin HCl 1 gm/ Device 200 mls @ 200 mls/hr 08/24/20 02:00 08/24/20 01:01 IVPB 200 mls 0200 KRYSTAL Administration Cefepime HCl 2 gm/ Sodium 100 mls @ 200 mls/hr 08/23/20 01:00 08/24/20 01:01 Chloride IVPB 100 mls 0100,1300 KRYSTAL Administration Fentanyl Citrate 2,000 mcg/ 100 mls @ 0 mls/hr 08/22/20 23:45 08/24/20 06:00 Sodium Chloride IV 09/21/20 23:45 100 mls INF KRYSTAL Administration Protocol Per Protocol Dopamine HCl/Dextrose 250 mls @ 0 mls/hr 08/23/20 01:45 08/23/20 09:29 Dopamine 400 Mg/D5w 250 Ml IVPB 250 mls INF KRYSTAL Administration Protocol As Directed Dexamethasone 6 mg/ Sodium 50.6 mls @ 100 mls/hr 08/23/20 21:00 08/23/20 20:33 Chloride IVPB 50.6 mls BID KRYSTAL Administration Sodium Chloride 1,000 mls @ 75 mls/hr 08/23/20 14:30 08/24/20 01:02 Normal Saline 0.9% IV 1,000 mls .[id number] KRYSTAL Administration Insulin Human Lispro 0 units 08/23/20 14:21 08/24/20 05:59 Humalog 300 Units/3 Ml Vial SC 2 unit .MILD SLIDING SCALE PRN Administration Mild Correctional Scale Mometasone Furoate/Formoterol Fumar 2 puff 08/23/20 18:30 08/23/20 19:46 Mometasone 200 Mcg/Formoterol 5 Mcg 120 Puff Inhaler INH 2 puff BID-RT KRYSTAL Administration Propofol 1,000 mg 08/22/20 23:45 08/24/20 01:02 Propofol 1,000 Mg/100 Ml Vial IV 09/21/20 23:45 1,000 mg INF PRN Administration TO ACHIEVE GOAL RASS Protocol - Exam General Appearance: NAD Heart: RRR, no murmur Respiratory: no wheezes, no rales, no ronchi Respiratory - other findings: decreased breath sounds throughout Gastrointestinal: soft, non-tender, non-distended, normal bowel sounds Extremities: no cyanosis, no clubbing, no edema Neurological - other findings: unable to assess - intubated Psychiatric - other findings: unable to assess - intubated Hosp A/P (1) Acute respiratory failure Code(s): J96.00 - ACUTE RESPIRATORY FAILURE, UNSP W HYPOXIA OR HYPERCAPNIA Status: Acute Qualifiers: Respiratory failure complication: hypoxia Qualified Code(s): J96.01 - Acute respiratory failure with hypoxia (2) Pneumonia due to COVID-19 virus Code(s): U07.1 - COVID-19; J12.89 - OTHER VIRAL PNEUMONIA Status: Acute (3) Bradycardia Code(s): R00.1 - BRADYCARDIA, UNSPECIFIED Status: Acute (4) Hypotension Status: Resolved Qualifiers: Hypotension type: other hypotension type Qualified Code(s): I95.89 - Other hypotension (5) Schizophrenia Code(s): F20.9 - SCHIZOPHRENIA, UNSPECIFIED Status: Chronic Qualifiers: Schizophrenia type: unspecified Qualified Code(s): F20.9 - Schizophrenia, unspecified (6) Diabetes mellitus Code(s): E11.9 - TYPE 2 DIABETES MELLITUS WITHOUT COMPLICATIONS Status: Chronic Qualifiers: Diabetes mellitus type: type 2 Diabetes mellitus fdc insulin use: with fdc use (7) Acute kidney injury Code(s): N17.9 - ACUTE KIDNEY FAILURE, UNSPECIFIED Status: Acute (8) Hypertension Code(s): I10 - ESSENTIAL (PRIMARY) HYPERTENSION Status: Chronic Qualifiers: Hypertension type: essential hypertension Qualified Code(s): I10 - Essential (primary) hypertension (9) History of heart failure Code(s): Z86.79 - PERSONAL HISTORY OF OTHER DISEASES OF THE CIRCULATORY SYSTEM Status: Chronic - Plan Acute respiratory failure secondary to covid pneumonia - appreciate Pulm & ID consults - on steroids, antibiotics - has received convalescent plasma and is on remdesivir - daily inflammatory markers Hypotension resolved, bradycardia improved - appreciate Cardiology consult - wean dopamine off - Elevated BNP today - may be a component of pulmonary edema - echo ordered UTI - on cefepime - reviewed chart and do not see a culture was ordered. MEETA - likely multifactorial from hypotension, COVID, on ARB at home - improved today - continue IV fluids DM2 - controlled - continue holding long-acting insulin (on home list) and monitor blood sugars - q6h FSG and ISS - tube feeds are running Schizophrenia - hold home meds for now - pt is on multiple medications which can affect her heart dvt prophy - lovenox gi prophy - famotidine code status - full pt is in critical condition. Reviewed plan of care with nursing staff
[2020-08-24] MEDS: Mometasone 200 MCG/Formoterol 5 MCG 120 PUFF INHALER INH SCH ×2 (07:43→19:48)
--- NOTE | 2020-08-24 08:01 | RAD ---
Chest one view HISTORY: Dyspnea. Intubated. Pneumonia. COMPARISON: 08/22/2020. FINDINGS: Cardiac silhouette is magnified and enlarged. Pulmonary vasculature remains engorged. Mediastinum is shifted rightward with patient rotation. Tip of the endotracheal catheter projects jus t above the level of the bibiana. Nasogastric tube descends to the stomach. Widespread interstitial and airspace opacity, fairly diffuse throughout each lung, similar in appeara nce to the prior study. No evidence of pneumothorax. IMPRESSION : Diffuse widespread infiltrate and other findings are stable.
[2020-08-24 08:09] LABS: Actual Bicarbonate (HCO3a) 26.1 mEq/L (22-28); Base Excess (BEa) 0.8 mEq/L (-2.0 to +3.0); CO2 Tension 45.3 mmHg (35.0-45.0); Calcium, Ionized (arterial) 1.23 mmol/L (1.12-1.30); Carboxyhemoglobin (COHb) 0.4 gm% (0.0-3.0); O2 Tension (PaO2), arterial 97.3 mmHg (80.0-100.0); Potassium - ABG Lab 3.39 mmol/L (3.70-5.30); pH, Arterial 7.38 (7.35-7.45)
[2020-08-24 08:23] LABS: Puncture Site RRA
[2020-08-24 08:24] LABS: ALV-art Gradient 131.275 mmHg (0-20)
[2020-08-24] MEDS: Dexamethasone 6 MG in Sodium Chloride 0.9% 50 ML IVPB SCH ×2 (08:35→21:32)
[2020-08-24] MEDS: Enoxaparin Sodium 40 MG/0.4 ML SYRINGE SC SCH ×2 (08:35→21:37)
[2020-08-24] MEDS: Famotidine/PF 20 mg/2ml Vial SLOW IVP SCH (08:38)
[2020-08-24] MEDS ORDERED: Furosemide 40 MG/4 ML VIAL SLOW IVP SCH (09:45)
--- NOTE | 2020-08-24 10:14 | PRG ---
DATE OF SERVICE: 08/24/2020 SUBJECTIVE: Ms. Blount is off the dopamine now. OBJECTIVE: VITAL SIGNS: Her blood pressure is 124/62, pulse 66, it is sinus on the monitor. Physical examination not done on this patient with COVID per protocol trying to minimize patient contacts and to essential only. IMAGING STUDIES: On her chest x-ray, she has diffuse widespread infiltrates, pulmonary cardiac silhouette magnified enlarged pulmonary vascular engorged. LABORATORY DATA: BNP is high at 523.9. ASSESSMENT: 1. Coronavirus disease pneumonia. 2. Bradycardia probably multifactorial including clonidine, beta-preet, and respiratory insufficiency that has currently resolved. 3. Congestive heart failure, probably diastolic. No echocardiogram is being done at this time unless absolutely essential in coronavirus disease patient to try to minimize contact with echocardiogram techs. PLAN: The plan will be to give her intravenous diuretics, potassium. Continue to monitor with COVID pneumonia. I would increase the enoxaparin to 40 mg at least twice a date as there is high risk of embolic events with this disorder. Prognosis remains guarded in this patient. Job ID: [id number]
--- NOTE | 2020-08-24 10:42 | CON ---
DATE OF CONSULTATION: HISTORY OF PRESENT ILLNESS: Roxanne Blount is a 59-year-old mentally challenged patient, who was brought in from a retirement with marked respiratory distress, encephalopathic. She is intubated, hypotensive. She was bradycardic, started on dopamine, is now in the ICU, intubated on the vent. About 2 months ago, she was roaming the roads at nighttime. She is a patient of [facility]. I spoke to several different people by phone today including a son-in-law and a retirement furniture duster, who do not know much about her medical history, but son-in-law states that she sees a local physician over here. PAST MEDICAL HISTORY: Pertinent for; 1. Congestive heart failure. 2. Diabetes. 3. Bipolar disorder. 4. Generalized seizure disorder. PAST SURGICAL HISTORY: Include; 1. Some kind of brain surgery. 2. Hysterectomy. 3. Tubal ligation. 4. Colonoscopy. 5. She had previous necrotizing issues. SOCIAL HISTORY: She smokes. No history of alcohol abuse or drug abuse. Apparently, the son-in-law says he is unclear about the medication she is taking, but from the previous medical records, we have a list of medicine that she was supposed to be taking, which included Lasix 20, benztropine 1 mg, hydrochlorothiazide, losartan 50, divalproex 500 mg 2 a day, hydroxyzine 50, atorvastatin 10, Haldol 10 mg, metformin 500, oxcarbazepine, insulin, ferrous sulfate. We are in the process of trying to get medical history and medication from the family. ALLERGIES: OTHERWISE UNKNOWN. PHYSICAL EXAMINATION: GENERAL: Intubated in the vent, sedated. VITAL SIGNS: Temperature was 99.7, pulse 67, blood pressure , on 30% sats are 100%, pulse 80. CHEST: Rhonchi and crackles. CARDIAC: Normal S1, S2. No gallops. ABDOMEN: No masses. LABORATORY DATA: White count 10,000, H and H of 9 and 30, platelet count 215. No gases are seen. One is being ordered. Creatinine 1.43, BUN 46. Her ammonia level . Thyroid function is normal. Liver function is normal. Drug screen shows tricyclics and benzos. Coronavirus test is positive, two months ago was negative. X-ray, diffuse respiratory failure combination of CHF and possibly imke positive pneumonia. ASSESSMENT: Bipolar disorder, renal failure, congestive heart failure, azotemia. PLAN: We will try and give convalescent plasma, remdesivir as per protocol. Continue steroids. Continue empiric antibiotics. Input from Cardiology. Prognosis is guarded. I spoke to the son-in-law, he wants everything to be done. We will notify Palliative Care in next 24 to 48 hours for further input from family members. This is a 45-minute critical care time. Job ID: [id number]
--- NOTE | 2020-08-24 11:18 | PRG ---
DATE OF SERVICE: SUBJECTIVE: Roxanne Blount remains intubated in the vent, sedated. OBJECTIVE: VITAL SIGNS: Pulse 56, sats 100%, blood pressure 140/80, respirations set at 10. Maximum temperature is 97.8. CHEST: No wheezing. No crackles. CARDIAC: Normal S1, S2. No gallops. ABDOMEN: No masses. LABORATORY DATA: White count 10,000, hemoglobin and hematocrit 9 and 29, platelet count 180. PO2 of 97, pCO2 of 40, pH 7.38, rate of 10, 40%, PEEP of 5. Creatinine is 1.34, BUN is 51, glucose is elevated. ASSESSMENT: Bipolar schizophrenic with mike positive pneumonia, respiratory failure. PLAN: She is polypharmacy for her bipolar disorder. We are unable to get any additional information. I called several people to assess list of medication, which she was started, most of it for a schizophrenic problem. At this stage, she is not weanable though her saturations are much improved. We will continue broad-spectrum antibiotics, remdesivir, convalescent plasma. One-half hour of critical care time. Job ID: [id number]
[2020-08-24] MEDS ORDERED: Potassium Chloride 40 MEQ in Premix Bag 1 BAG IVPB SCH (12:00)
[2020-08-24] MEDS ORDERED: Aripiprazole 10 MG TAB PO SCH (12:15)
[2020-08-24] MEDS ORDERED: Benztropine 1 MG TAB PO SCH (12:15)
[2020-08-24] MEDS ORDERED: risperiDONE 1 MG TAB PO SCH (12:15)
[2020-08-24] MEDS ORDERED: Divalproex Sodium DR 500 MG TAB PO SCH ×2 (12:15→21:00)
[2020-08-24] MEDS ORDERED: Valproate Sodium 250 mg/5 ml UD Cup PO SCH (12:30)
[2020-08-24] MEDS ORDERED: Lithium Carbonate 150 MG CAP PO SCH (12:45)
[2020-08-24] MEDS: REMDESIVIR (EUA) 100 MG in Sodium Chloride 0.9% 250 ML 230 ML IV SCH (14:27)
[2020-08-24] MEDS ORDERED: Haloperidol 5 MG TAB PO SCH (21:00)
[2020-08-24] MEDS: Aripiprazole 10 MG TAB PO SCH (21:31)
[2020-08-24] MEDS: Benztropine 1 MG TAB PO SCH (21:32)
[2020-08-24] MEDS: Lithium Carbonate 150 MG CAP PER TUBE SCH (21:37)
[2020-08-24] MEDS: risperiDONE 1 MG TAB PO SCH (21:38)
[2020-08-24] MEDS: Valproate Sodium 250 mg/5 ml UD Cup PO SCH (22:02)
[2020-08-25] MEDS: Cefepime 2 GM in Sodium Chloride 0.9% 100 ML IVPB SCH ×2 (01:02→20:21)
[2020-08-25] MEDS: Sodium Chloride 0.9% 1,000 ML IV SCH ×2 (04:10→22:41)
[2020-08-25 05:18] LABS: #Basophils 0.1 thou/uL (0.0-0.2); #Lymphocytes 0.9 thou/uL (1.20-3.40); #Monocytes 0.5 thou/uL (0.11-0.59); #Neutrophils 7.5 thou/uL (1.40-6.50); %Basophils 0.8 % (0.0-1.0); %Eosinophils 0.5 % (0.0-10.0); %Lymphocytes 9.6 % (21.0-51.0); %Monocytes 5.1 % (0.0-10.0); %Neutrophils 84.1 % (42.0-75.0); Hemoglobin 8.7 g/dL (12.0-16.0); Mean Corpuscular HGB CONC 30.8 g/dL (32.0-36.0); Mean Corpuscular Hemoglobin 29.7 pg (27.0-31.0); Mean Corpuscular Volume 96.3 fL (78.0-98.0); Mean Platelet Volume 7.5 fL (7.4-10.4); Platelet Count 177 thou/uL (130-400); RBC Distribution Width 13.5 % (11.5-14.5); Red Blood Cell (RBC) Count 2.94 mill/uL (4.20-5.40); White Blood Cell (WBC) Count 8.9 thou/uL (4.8-10.8)
[2020-08-25 05:47] LABS: ALT (SGPT) 18 U/L (8-55); AST (SGOT) 16 U/L (5-34); Albumin 2.4 g/dL (3.5-5.0); Alkaline Phosphatase 147 U/L (40-110); Anion Gap 6 mmol/L (10-20); BUN (Urea Nitrogen) 52 mg/dL (9.8-20.1); Bilirubin, Direct 0.1 mg/dL (0.1-0.3); Bilirubin, Total 0.2 mg/dL (0.2-1.2); Calc. Creatinine Clearance 61 mL/min (70-130); Calcium 8.6 mg/dL (7.8-10.44); Carbon Dioxide 29 mmol/L (22-29); Chloride 107 mmol/L (98-107); Glucose 200 mg/dL (70-105); Potassium 4.2 mmol/L (3.5-5.1); Protein, Total 7.2 g/dL (6.0-8.3); Sodium 138 mmol/L (136-145)
[2020-08-25] MEDS: HumaLOG 300 UNITS/3 ML VIAL SC PRN (06:33)
--- NOTE | 2020-08-25 07:27 | PDOC.HOSPP ---
- Subjective Encounter Date: 08/25/20 (f/u acute respiratory failure) Encounter Time: 07:25 Subjective: Pt remains intubated/sedated - she was admitted for acute resp failure secondary to covid, hypotension, bradycardia likely secondary to outpatient medications. no overnight events. tube feeds on hold as the recommended type is not available right now. - Objective Vital Signs & Weight: Vital Signs (12 hours) Temp Pulse Resp BP Pulse Ox 08/25/20 06:00 18 08/25/20 04:00 16 08/25/20 03:09 70 08/25/20 03:00 98.2 F 08/25/20 02:00 16 08/25/20 00:00 14 08/24/20 23:00 98.4 F 08/24/20 22:40 66 142/75 H 08/24/20 22:00 13 08/24/20 20:00 13 100 Weight Admit Weight 156 lb 1.396 oz Weight 170 lb 6.677 oz Most Recent Monitor Data Heart Rate from ECG 62 NIBP 133/72 NIBP BP-Mean 92 Respiration from ECG 11 SpO2 100 I&O: 08/24/20 08/25/20 08/26/20 06:59 06:59 06:59 Intake Total 2840.5 3494 Output Total 1000 1225 Balance 1840.5 2269 Result Diagrams: 08/25/20 04:30 08/25/20 04:30 Additional Labs: Accuchecks 08/24/20 08/24/20 22:12 18:00 POC Glucose 118 H 153 H EKG Reviewed by me: Yes (tele - sinus 60's, no alarms) Hospitalist ROS - Medication Medications: Active Medications Generic Name Dose Route Start Last Admin Trade Name Freq PRN Reason Stop Dose Admin Aripiprazole 10 mg 08/24/20 21:00 08/24/20 21:31 Aripiprazole 10 Mg Tab PO 10 mg BID KRYSTAL Administration Benztropine Mesylate 0.5 mg 08/24/20 21:00 08/24/20 21:32 Benztropine 1 Mg Tab PO 0.5 mg BID KRYSTAL Administration Enoxaparin Sodium 40 mg 08/24/20 21:00 08/24/20 21:37 Enoxaparin Sodium 40 Mg/0.4 Ml Syringe SC 40 mg 0900,2100 KRYSTAL Administration Cefepime HCl 2 gm/ Sodium 100 mls @ 200 mls/hr 08/23/20 01:00 08/25/20 01:02 Chloride IVPB 100 mls 0100,1300 KRYSTAL Administration Fentanyl Citrate 2,000 mcg/ 100 mls @ 0 mls/hr 08/22/20 23:45 08/24/20 06:00 Sodium Chloride IV 09/21/20 23:45 100 mls INF KRYSTAL Administration Protocol Per Protocol Dopamine HCl/Dextrose 250 mls @ 0 mls/hr 08/23/20 01:45 08/23/20 09:29 Dopamine 400 Mg/D5w 250 Ml IVPB 250 mls INF KRYSTAL Administration Protocol As Directed Dexamethasone 6 mg/ Sodium 50.6 mls @ 100 mls/hr 08/23/20 21:00 08/24/20 21:32 Chloride IVPB 50.6 mls BID KRYSTAL Administration Remdesivir 100 mg/ Sodium 250 mls @ 250 mls/hr 08/24/20 14:00 08/24/20 14:27 Chloride IV 08/27/20 14:59 250 mls Q24H KRYSTAL Administration Sodium Chloride 1,000 mls @ 50 mls/hr 08/24/20 09:43 08/25/20 04:10 Normal Saline 0.9% IV 1,000 mls .Q20H KRYSTAL Administration Insulin Human Lispro 0 units 08/23/20 14:21 08/25/20 06:33 Humalog 300 Units/3 Ml Vial SC 2 unit .MILD SLIDING SCALE PRN Administration Mild Correctional Scale [place] Carbonate 600 mg 08/24/20 21:00 08/24/20 21:37 [place] Carbonate 150 Mg Cap PER TUBE 600 mg TID KRYSTAL Administration Mometasone Furoate/Formoterol Fumar 2 puff 08/23/20 18:30 08/24/20 19:48 Mometasone 200 Mcg/Formoterol 5 Mcg 120 Puff Inhaler INH 2 puff BID-RT KRYSTAL Administration Propofol 1,000 mg 08/22/20 23:45 08/24/20 22:08 Propofol 1,000 Mg/100 Ml Vial IV 09/21/20 23:45 1,000 mg INF PRN Administration TO ACHIEVE GOAL RASS Protocol Quetiapine Fumarate 200 mg 08/24/20 21:00 08/24/20 22:01 Quetiapine Fumarate 200 Mg Tab PO 200 mg BID KRYSTAL Administration Risperidone 4 mg 08/24/20 21:00 08/24/20 21:38 Risperidone 1 Mg Tab PO 4 mg BID KRYSTAL Administration Valproic Acid 500 mg 08/24/20 21:00 08/24/20 22:02 Valproate Sodium 250 Mg/5 Ml Ud Cup PO 500 mg BID KRYSTAL Administration - Exam General Appearance: NAD Heart: RRR, no murmur Respiratory: no wheezes, no rales, no ronchi Gastrointestinal: soft, non-tender, non-distended Extremities: no cyanosis, no clubbing, no edema Neurological - other findings: unable to assess - intubated Psychiatric - other findings: unable to assess - intubated Hosp A/P (1) Acute respiratory failure Code(s): J96.00 - ACUTE RESPIRATORY FAILURE, UNSP W HYPOXIA OR HYPERCAPNIA Status: Acute Qualifiers: Respiratory failure complication: hypoxia Qualified Code(s): J96.01 - Acute respiratory failure with hypoxia (2) Pneumonia due to COVID-19 virus Code(s): U07.1 - COVID-19; J12.89 - OTHER VIRAL PNEUMONIA Status: Acute (3) Bradycardia Code(s): R00.1 - BRADYCARDIA, UNSPECIFIED Status: Acute (4) Hypotension Status: Resolved Qualifiers: Hypotension type: other hypotension type Qualified Code(s): I95.89 - Other hypotension (5) Schizophrenia Code(s): F20.9 - SCHIZOPHRENIA, UNSPECIFIED Status: Chronic Qualifiers: Schizophrenia type: unspecified Qualified Code(s): F20.9 - Schizophrenia, unspecified (6) Diabetes mellitus Code(s): E11.9 - TYPE 2 DIABETES MELLITUS WITHOUT COMPLICATIONS Status: Chronic Qualifiers: Diabetes mellitus type: type 2 Diabetes mellitus group home insulin use: with 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 terminal 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 (7) Acute kidney injury Code(s): N17.9 - ACUTE KIDNEY FAILURE, UNSPECIFIED Status: Acute (8) Hypertension Code(s): I10 - ESSENTIAL (PRIMARY) HYPERTENSION Status: Chronic Qualifiers: Hypertension type: essential hypertension Qualified Code(s): I10 - Essential (primary) hypertension (9) History of heart failure Code(s): Z86.79 - PERSONAL HISTORY OF OTHER DISEASES OF THE CIRCULATORY SYSTEM Status: Chronic - Plan Acute respiratory failure secondary to covid pneumonia - remains stable on ventilator - appreciate Pulm & ID consults - on steroids, antibiotics - has received convalescent plasma and is on remdesivir - daily inflammatory markers - resp cx shows MSSA - pt is on cefepime Hypotension resolved, bradycardia improved - appreciate Cardiology consult - dopamine weaned off yesterday - echo not available due to covid-positive status UTI - on cefepime - no culture Heart failure - appreciate Cardiology consult - on IV lasix. - given significant bradycardia and current pulse inthe 60's, no beta-preet. - due to MEETA, hold on hugo-i and arb MEETA - likely multifactorial from hypotension, COVID, on ARB at home - continues to improve. She is on low rate IVF and lasix DM2 - controlled - continue holding long-acting insulin (on home list) and monitor blood sugars - q6h FSG and ISS - tube feeds on hold Schizophrenia - some home meds resumed yesterday dvt prophy - lovenox gi prophy - famotidine code status - full
[2020-08-25] MEDS: Mometasone 200 MCG/Formoterol 5 MCG 120 PUFF INHALER INH SCH ×2 (07:52→19:21)
--- NOTE | 2020-08-25 08:14 | RAD ---
PORTABLE CHEST: INDICATION: CCU followup on ventilator. COMPARISON: 08/24/2020. FINDINGS: The patient is rotated, similar to yesterday. ET tube and NG tube unchanged. Bilateral effusions and hazy lower lung infiltrates and atelectasis s imilar to yesterday. No acute interval change. POS: AGW
[2020-08-25] MEDS: Enoxaparin Sodium 40 MG/0.4 ML SYRINGE SC SCH ×2 (09:11→20:22)
[2020-08-25] MEDS: Aripiprazole 10 MG TAB PO SCH ×2 (09:14→20:23)
[2020-08-25] MEDS: Benztropine 1 MG TAB PO SCH ×2 (09:14→20:23)
[2020-08-25] MEDS: Famotidine/PF 20 mg/2ml Vial SLOW IVP SCH (09:14)
[2020-08-25] MEDS: Furosemide 40 MG/4 ML VIAL SLOW IVP SCH (09:14)
[2020-08-25] MEDS: risperiDONE 1 MG TAB PO SCH ×2 (09:16→20:23)
[2020-08-25] MEDS: Valproate Sodium 250 mg/5 ml UD Cup PO SCH ×2 (09:17→20:21)
[2020-08-25] MEDS: Lithium Carbonate 150 MG CAP PER TUBE SCH ×3 (09:24→20:22)
[2020-08-25] MEDS: Dexamethasone 6 MG in Sodium Chloride 0.9% 50 ML IVPB SCH ×2 (09:42→22:36)
--- NOTE | 2020-08-25 09:50 | PRG ---
DATE OF SERVICE: 08/25/2020 SUBJECTIVE: Roxanne Blount remains intubated in the vent, sedated. She is schizophrenic with polypharmacy. OBJECTIVE: VITAL SIGNS: Temperature 97, pulse 61, blood pressure 143/70 on 40%, sats 100%, respiratory rate 18. I's and O's good. CHEST: Rhonchi, crackles. CARDIAC: Normal S1 and S2. No gallops. ABDOMEN: No masses. LABORATORY DATA: White count 8000, , platelet count is good. Electrolytes are normal. Creatinine is 1.22, BUN 52. ASSESSMENT AND PLAN: Respiratory failure, mike positive pneumonia, bipolar schizophrenic disorder, apparently congestive heart failure. It appears she maybe slightly on the dry side since her BUN and creatinine have been going up gradually. We will try and decrease sedation. Assess neurological status in the next 24 hours. She is no longer bradycardic. Continue remdesivir, convalescent plasma, Decadron, empiric antibiotics, which will be adjusted once we get all the sputum cultures back. One-half hour of critical time. Job ID: [id number]
[2020-08-25] MEDS: Propofol 1,000 MG/100 ML VIAL IV PRN ×2 (11:10→22:36)
--- NOTE | 2020-08-25 11:35 | PRG ---
DATE OF SERVICE: 08/25/2020 SUBJECTIVE: Ms. Blount remains intubated on the ventilator. OBJECTIVE: Blood pressure 140/70, pulse 62 with sinus on the monitor. Physical examination not performed today due to COVID protocols. Trying to reduce the contact as much as possible. LABORATORY DATA: Her creatinine at laboratory is 1.22, potassium is 4.2. Her response to the Lasix has been modest. ASSESSMENT: 1. COVID pneumonia. 2. Probably some element of diastolic heart failure. PLAN: 1. She is on a few daily furosemide. 2. Continue supportive care for COVID pneumonia. Job ID: [id number]
[2020-08-25] MEDS: REMDESIVIR (EUA) 100 MG in Sodium Chloride 0.9% 250 ML 230 ML IV SCH (14:50)
[2020-08-25] MEDS: Lorazepam 2 MG/ML VIAL SLOW IVP PRN (18:09)
[2020-08-26 04:29] LABS: #Lymphocytes 1.4 thou/uL (1.20-3.40); #Monocytes 0.7 thou/uL (0.11-0.59); #Neutrophils 10.9 thou/uL (1.40-6.50); %Basophils 0.1 % (0.0-1.0); %Eosinophils 0.3 % (0.0-10.0); %Lymphocytes 10.8 % (21.0-51.0); %Monocytes 5.6 % (0.0-10.0); %Neutrophils 83.3 % (42.0-75.0); Hemoglobin 9.7 g/dL (12.0-16.0); Mean Corpuscular HGB CONC 31.1 g/dL (32.0-36.0); Mean Corpuscular Hemoglobin 29.8 pg (27.0-31.0); Mean Platelet Volume 7.4 fL (7.4-10.4); Platelet Count 209 thou/uL (130-400); RBC Distribution Width 13.6 % (11.5-14.5); Red Blood Cell (RBC) Count 3.24 mill/uL (4.20-5.40); White Blood Cell (WBC) Count 13.1 thou/uL (4.8-10.8)
[2020-08-26 04:53] LABS: ALT (SGPT) 16 U/L (8-55); AST (SGOT) 11 U/L (5-34); Albumin 2.5 g/dL (3.5-5.0); Alkaline Phosphatase 150 U/L (40-110); Anion Gap 10 mmol/L (10-20); BUN (Urea Nitrogen) 52 mg/dL (9.8-20.1); Bilirubin, Direct 0.1 mg/dL (0.1-0.3); Bilirubin, Total Less than 0.2 mg/dL (0.2-1.2); Calc. Creatinine Clearance 69 mL/min (70-130); Calcium 8.8 mg/dL (7.8-10.44); Carbon Dioxide 27 mmol/L (22-29); Chloride 108 mmol/L (98-107); Glucose 178 mg/dL (70-105); Protein, Total 7.5 g/dL (6.0-8.3); Sodium 141 mmol/L (136-145)
[2020-08-26] MEDS: Mometasone 200 MCG/Formoterol 5 MCG 120 PUFF INHALER INH SCH ×2 (07:42→18:58)
--- NOTE | 2020-08-26 08:02 | RAD ---
EXAM: Portable chest PROVIDED CLINICAL HISTORY: Respiratory insufficiency COMPARISON: 08/25/2020 FINDINGS: Significant interval change with respect to the prior examination is not apparent. IMPRESSION: As above.
[2020-08-26] MEDS: Dexamethasone 6 MG in Sodium Chloride 0.9% 50 ML IVPB SCH ×2 (08:17→19:40)
[2020-08-26] MEDS: Propofol 1,000 MG/100 ML VIAL IV PRN (08:17)
[2020-08-26] MEDS: Valproate Sodium 250 mg/5 ml UD Cup PO SCH ×2 (08:17→19:40)
[2020-08-26] MEDS: Enoxaparin Sodium 40 MG/0.4 ML SYRINGE SC SCH ×2 (08:18→19:39)
[2020-08-26] MEDS: Furosemide 40 MG/4 ML VIAL SLOW IVP SCH (08:18)
[2020-08-26] MEDS: Famotidine/PF 20 mg/2ml Vial SLOW IVP SCH (08:18)
[2020-08-26] MEDS: Cefepime 2 GM in Sodium Chloride 0.9% 100 ML IVPB SCH ×2 (08:18→19:39)
[2020-08-26] MEDS: Aripiprazole 10 MG TAB PO SCH ×2 (08:19→19:40)
[2020-08-26] MEDS: Benztropine 1 MG TAB PO SCH ×2 (08:19→19:40)
[2020-08-26] MEDS: risperiDONE 1 MG TAB PO SCH ×2 (08:19→19:41)
[2020-08-26] MEDS: Lithium Carbonate 150 MG CAP PER TUBE SCH ×2 (08:20→15:10)
[2020-08-26 08:21] LABS: Actual Bicarbonate (HCO3a) 25.9 mEq/L (22-28); Base Excess (BEa) 1.3 mEq/L (-2.0 to +3.0); CO2 Tension 40.9 mmHg (35.0-45.0); Carboxyhemoglobin (COHb) 0.5 gm% (0.0-3.0); Hemoglobin (Hb) 12.7 g/dL (12.0-16.0); O2 Tension (PaO2), arterial 152.9 mmHg (80.0-100.0); Potassium - ABG Lab 4.04 mmol/L (3.70-5.30); pH, Arterial 7.42 (7.35-7.45)
[2020-08-26 08:34] LABS: Puncture Site LRA
[2020-08-26 08:35] LABS: ALV-art Gradient 81.175 mmHg (0-20)
--- NOTE | 2020-08-26 09:13 | PRG ---
DATE OF SERVICE: SUBJECTIVE: Roxanne Blount is a 59-year-old female, bipolar schizophrenic, who is oxygenating much better. She is sedated on Diprivan which she is going to withhold this morning. OBJECTIVE: VITAL SIGNS: Temperature 98, pulse 68, blood pressure 134/69, sats 100%, PEEP of 5, 40%. Is and Os are good. CHEST: No anterior rhonchi. CARDIAC: Normal S1, S2. No gallops. LABORATORY DATA: White count 13,000. Lytes are normal. BUN is 52, elevated. Creatinine is normal. pO2 was 152, pCO2 . ASSESSMENT: Respiratory failure, Smith positive pneumonia, congestive heart failure. PLAN: Continue antibiotics. Continue Decadron. Decrease sedation, try and wean as possible. She is on remdesivir, plasma. We will follow. One-half hour of critical time. Job ID: [id number]
[2020-08-26] MEDS: HumaLOG 300 UNITS/3 ML VIAL SC PRN (10:32)
--- NOTE | 2020-08-26 13:37 | PDOC.HOSPP ---
- Subjective Encounter Date: 08/26/20 Encounter Time: 11:00 Subjective: Patient currently intubated. - Objective Vital Signs & Weight: Vital Signs (12 hours) Temp Pulse Resp BP Pulse Ox 08/26/20 13:21 82 170/91 H 08/26/20 10:57 77 08/26/20 10:00 14 08/26/20 08:00 97.6 F 13 08/26/20 07:56 100 08/26/20 07:43 68 134/69 08/26/20 06:00 10 L 08/26/20 04:00 98.1 F 10 L 08/26/20 02:00 10 L Weight Admit Weight 156 lb 1.396 oz Weight 170 lb 6.677 oz Most Recent Monitor Data Heart Rate from ECG 84 NIBP 168/115 NIBP BP-Mean 132 Respiration from ECG 14 SpO2 100 I&O: 08/25/20 08/26/20 08/27/20 06:59 06:59 06:59 Intake Total 3494 2736.8 240 Output Total 1225 1410 710 Balance 2269 1326.8 -470 Result Diagrams: 08/26/20 03:40 08/26/20 03:40 Additional Labs: Accuchecks 08/26/20 08/25/20 08/25/20 10:26 23:13 17:07 POC Glucose 153 H 115 H 146 H 08/25/20 10:15 POC Glucose 122 H Hospitalist ROS - Review of Systems Other: Patient intubated - Medication Medications: Active Medications Generic Name Dose Route Start Last Admin Trade Name Freq PRN Reason Stop Dose Admin Aripiprazole 10 mg 08/24/20 21:00 08/26/20 08:19 Aripiprazole 10 Mg Tab PO 10 mg BID KRYSTAL Administration Benztropine Mesylate 0.5 mg 08/24/20 21:00 08/26/20 08:19 Benztropine 1 Mg Tab PO 0.5 mg BID KRYSTAL Administration Enoxaparin Sodium 40 mg 08/24/20 21:00 08/26/20 08:18 Enoxaparin Sodium 40 Mg/0.4 Ml Syringe SC 40 mg 0900,2100 KRYSTAL Administration Furosemide 40 mg 08/25/20 09:00 08/26/20 08:18 Furosemide 40 Mg/4 Ml Vial SLOW IVP 40 mg DAILY KRYSTAL Administration Fentanyl Citrate 2,000 mcg/ 100 mls @ 0 mls/hr 08/22/20 23:45 08/24/20 06:00 Sodium Chloride IV 09/21/20 23:45 100 mls INF KRYSTAL Administration Protocol Per Protocol Dopamine HCl/Dextrose 250 mls @ 0 mls/hr 08/23/20 01:45 08/23/20 09:29 Dopamine 400 Mg/D5w 250 Ml IVPB 250 mls INF KRYSTAL Administration Protocol As Directed Dexamethasone 6 mg/ Sodium 50.6 mls @ 100 mls/hr 08/23/20 21:00 08/26/20 0 8:17 Chloride IVPB 50.6 mls BID KRYSTAL Administration Remdesivir 100 mg/ Sodium 250 mls @ 250 mls/hr 08/24/20 14:00 08/25/20 14:50 Chloride IV 08/27/20 14:59 250 mls Q24H KRYSTAL Administration Sodium Chloride 1,000 mls @ 50 mls/hr 08/24/20 09:43 08/25/20 22:41 Normal Saline 0.9% IV 1,000 mls .Q20H KRYSTAL Administration Cefepime HCl 2 gm/ Sodium 100 mls @ 200 mls/hr 08/25/20 21:00 08/26/20 08:18 Chloride IVPB 100 mls 0900,2100 KRYSTAL Administration Insulin Human Lispro 0 units 08/23/20 14:21 08/26/20 10:32 Humalog 300 Units/3 Ml Vial SC 2 unit .MILD SLIDING SCALE PRN Administration Mild Correctional Scale [place] Carbonate 600 mg 08/24/20 21:00 08/26/20 08:20 [place] Carbonate 150 Mg Cap PER TUBE 600 mg TID KRYSTAL Administration Lorazepam 2 mg 08/22/20 23:45 08/25/20 18:09 Lorazepam 2 Mg/Ml Vial SLOW IVP 09/21/20 23:45 2 mg Q1H PRN Administration Breakthrough agitation Mometasone Furoate/Formoterol Fumar 2 puff 08/23/20 18:30 08/26/20 07:42 Mometasone 200 Mcg/Formoterol 5 Mcg 120 Puff Inhaler INH 2 puff BID-RT KRYSTAL Administration Propofol 1,000 mg 08/22/20 23:45 08/26/20 08:17 Propofol 1,000 Mg/100 Ml Vial IV 09/21/20 23:45 1,000 mg INF PRN Administration TO ACHIEVE GOAL RASS Protocol Quetiapine Fumarate 200 mg 08/24/20 21:00 08/26/20 08:20 Quetiapine Fumarate 200 Mg Tab PO 200 mg BID KRYSTAL Administration Risperidone 4 mg 08/24/20 21:00 08/26/20 08:19 Risperidone 1 Mg Tab PO 4 mg BID KRYSTAL Administration Valproic Acid 500 mg 08/24/20 21:00 08/26/20 08:17 Valproate Sodium 250 Mg/5 Ml Ud Cup PO 500 mg BID KRYSTAL Administration - Exam Neck: negative: supple, symmetric, no JVD, no thyromegaly, no lymphadenopathy, no carotid bruit, JVD Heart: negative: RRR, no murmur, no gallops, no rubs, normal peripheral pulses, irregular, diminshed peripheral pulses, murmur present, II/IV, III/IV Respiratory: negative: CTAB, no wheezes, no rales, no ronchi, normal chest expansion, no tachypnea, normal percussion, rales, rhonchi, tachypneic, wheezes Gastrointestinal: negative: soft, non-tender, non-distended, normal bowel sounds, no palpable masses, no hepatomegaly, no splenomegaly, no bruit, no guarding, no rigidity, tender to palpation, distended, diminished bowl sounds, voluntary guarding Hosp A/P (1) Acute respiratory failure Code(s): J96.00 - ACUTE RESPIRATORY FAILURE, UNSP W HYPOXIA OR HYPERCAPNIA Status: Acute Qualifiers: Respiratory failure complication: hypoxia Qualified Code(s): J96.01 - Acute respiratory failure with hypoxia (2) Bradycardia Code(s): R00.1 - BRADYCARDIA, UNSPECIFIED Status: Acute (3) Pneumonia due to COVID-19 virus Code(s): U07.1 - COVID-19; J12.89 - OTHER VIRAL PNEUMONIA Status: Acute (4) Diabetes mellitus Code(s): E11.9 - TYPE 2 DIABETES MELLITUS WITHOUT COMPLICATIONS Status: Chronic Qualifiers: Diabetes mellitus type: type 2 Diabetes mellitus terminal 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 insulin use: with fci use (5) Hypertension Code(s): I10 - ESSENTIAL (PRIMARY) HYPERTENSION Status: Chronic Qualifiers: Hypertension type: essential hypertension Qualified Code(s): I10 - Essential (primary) hypertension (6) Schizophrenia Code(s): F20.9 - SCHIZOPHRENIA, UNSPECIFIED Status: Chronic Qualifiers: Schizophrenia type: unspecified Qualified Code(s): F20.9 - Schizophrenia, unspecified (7) Hypotension Status: Resolved Qualifiers: Hypotension type: other hypotension type Qualified Code(s): I95.89 - Other hypotension - Plan Patient is a 59-year-old female past medical history of hypertension diabetes heart failure presents to the hospital with change in mental status. On admiss ion patient was noted to be bradycardic and hypotensive. Patient had bilateral infiltrates consistent with COVID-19 and the test was also positive. Patient was intubated and was transferred to the CCU for further management. Patient was noted to take carvedilol and clonidine which have been stopped. Her blood pressure and her heart rate currently are stabilized. Patient received remdesivir and convalescent plasma. She currently is on steroids. Patient has been taken off of sedation today. 08/26 patient currently off sedation we will continue to monitor we will add as needed blood pressure medications. Patient on steroids, antibiotics and Lasix. Patient also on DVT prophylaxis.
[2020-08-26] MEDS: REMDESIVIR (EUA) 100 MG in Sodium Chloride 0.9% 250 ML 230 ML IV SCH (14:48)
--- NOTE | 2020-08-26 16:49 | PRG ---
DATE OF SERVICE: 08/26/2020 SUBJECTIVE: The patient is intubated. Her vent settings are about the same. She is at 40% FiO2, same PEEP, O2 saturations are 100. Blood pressure and other vital signs are fairly stable. OBJECTIVE: LUNGS: With symmetric air entry. No crackles or wheezing. HEART: Not remarkable. ABDOMEN: Not distended. LABORATORY DATA: White cell count 13,000, hemoglobin 9.7, platelets 209. Creatinine 1.07. She had a repeat chest x-ray today and no significant changes were noted. She still has diffuse bilateral infiltrates, hazy lower lung infiltrates, atelectasis, bilateral effusions. She never had a CT of chest. It is hard to tell how much of this is the infiltrates or how much is the effusion. Transaminases normal. Ferritin 233. The CRP was 15 two days ago. Currently on cefepime, Decadron, and remdesivir. ASSESSMENT AND DISCUSSION: Severe psychiatric illness, bipolar disorder with psychotic features, multiple admissions with suicidal and homicidal ideation, cardiomyopathy of unclear etiology, COVID infection with altered mental state, respiratory failure, diffuse bilateral infiltrates. It is unclear how much of this presentation is due to cardiomyopathy, how much due to the pneumonia from SARS-CoV-2. The BNP was not very elevated, so there is a quite significant element of the diffuse alveolar damage caused by the virus. Job ID: [id number] MTDD
[2020-08-26] MEDS: Sodium Chloride 0.9% 1,000 ML IV SCH (18:11)
--- NOTE | 2020-08-26 21:55 | CON ---
DATE OF CONSULTATION: CONSULTING PHYSICIAN: Karishma Giron MD REQUESTING PHYSICIAN: Dr. Berry. REASON FOR CONSULTATION: [place] toxicity. IMPRESSION: 1. [place] toxicity. This is likely due to reduced GFR in the context of acute kidney injury hemodynamically mediated. 2. Cardiopulmonary failure in the context of COVID pneumonitis. 3. Cardiomyopathy. PLAN: 1. Gentle rehydration. 2. Hold diuretics. 3. Recheck the lithium level. If level continues to rise and the patient is not having significant urinary output, extracorporeal treatment in the of hemodialysis might become indicated. 4. Avoid potentially nephrotoxic agents. HISTORY: A 59-year-old female patient with significant psychiatric history, who presented here with altered mental status, hemodynamically unstable, noted to be hypotensive, got diagnosed with COVID pneumonitis, now intubated with cardiopulmonary failure. This is of an acute kidney injury as evidenced by elevated creatinine likely hemodynamically mediated. At this time of dictation, creatinine seems to be improving. However, evaluation of the patient's lithium level came back today at 2.9. The patient is on 600 mg of lithium b.i.d. As a result of this level, decision has been taken to involve Renal in the management of this case. The patient is intubated. Symptoms of lithium toxicity could not be elicited to confirm if this level is real. This level is going to be repeated. PAST MEDICAL HISTORY: Significant for bipolar disorder, hypertension, diabetes, congestive heart failure. MEDICATIONS: Reviewed and as documented on [facility]. SOCIAL HISTORY: The patient lives in a retirement. ALLERGIES: NONE KNOWN. REVIEW OF SYSTEMS: Could not be obtained given the fact this patient is intubated. LABORATORY INVESTIGATION: Significant for lithium of 2.956. White count of 13,000. Chemistry showed creatinine 1.07, BUN of 52. PHYSICAL EXAMINATION: GENERAL: The patient is found to be sedated and intubated. Noted with the following vital signs. VITAL SIGNS: Blood pressure 162/77, pulse of 88, respiratory rate of 17, O2 saturation of 100%. HEENT: Unremarkable. CARDIOVASCULAR SYSTEM: First and second heart sounds were heard. RESPIRATORY SYSTEM: Revealed vented sounds. DIGESTIVE SYSTEM: Revealed a benign abdomen. EXTREMITIES: No peripheral edema. SKIN: No new gross rash. LYMPHATICS: No peripheral lymphadenopathy. SUMMARY: A 59-year-old female patient with significant psychiatric history who is here on life support in the context of COVID pneumonitis, now with elevated lithium under therapeutic range. Thank you for this consultation. We will follow with you. Job ID: [id number]
[2020-08-26] MEDS ORDERED: hydrALAZINE 20 MG/ML VIAL SLOW IVP PRN (23:07)
[2020-08-27] MEDS: Lorazepam 2 MG/ML VIAL SLOW IVP PRN (01:50)
[2020-08-27 05:05] LABS: #Lymphocytes 1.2 thou/uL (1.20-3.40); #Monocytes 0.8 thou/uL (0.11-0.59); #Neutrophils 10.5 thou/uL (1.40-6.50); %Basophils 0.1 % (0.0-1.0); %Eosinophils 0.2 % (0.0-10.0); %Lymphocytes 9.9 % (21.0-51.0); %Monocytes 6.3 % (0.0-10.0); %Neutrophils 83.4 % (42.0-75.0); Hemoglobin 8.7 g/dL (12.0-16.0); Mean Corpuscular HGB CONC 31.3 g/dL (32.0-36.0); Mean Corpuscular Hemoglobin 30.1 pg (27.0-31.0); Mean Corpuscular Volume 96.2 fL (78.0-98.0); Mean Platelet Volume 7.3 fL (7.4-10.4); Platelet Count 208 thou/uL (130-400); RBC Distribution Width 13.6 % (11.5-14.5); Red Blood Cell (RBC) Count 2.89 mill/uL (4.20-5.40); White Blood Cell (WBC) Count 12.5 thou/uL (4.8-10.8)
[2020-08-27 05:31] LABS: ALT (SGPT) 11 U/L (8-55); AST (SGOT) 9 U/L (5-34); Albumin 2.2 g/dL (3.5-5.0); Alkaline Phosphatase 123 U/L (40-110); Anion Gap 6 mmol/L (10-20); BUN (Urea Nitrogen) 53 mg/dL (9.8-20.1); Bilirubin, Direct 0.1 mg/dL (0.1-0.3); Bilirubin, Total Less than 0.2 mg/dL (0.2-1.2); Calc. Creatinine Clearance 68 mL/min (70-130); Calcium 8.6 mg/dL (7.8-10.44); Carbon Dioxide 29 mmol/L (22-29); Chloride 110 mmol/L (98-107); Glucose 178 mg/dL (70-105); Potassium 3.7 mmol/L (3.5-5.1); Protein, Total 6.6 g/dL (6.0-8.3); Sodium 141 mmol/L (136-145)
[2020-08-27] MEDS: Mometasone 200 MCG/Formoterol 5 MCG 120 PUFF INHALER INH SCH ×2 (07:33→18:41)
--- NOTE | 2020-08-27 08:25 | PRG ---
DATE OF SERVICE: 08/27/2020 SUBJECTIVE: Ms. Blount remains intubated and ventilated. OBJECTIVE: Her blood pressure 140/70 and pulse is 80. Physical exam not done. The patient is COVID positive. LABORATORY DATA: Hemoglobin is 8.7. BUN is 53, creatinine 1.08. ASSESSMENT: 1. Bradycardia, resolved, probably mostly related to medications. 2. Congestive heart failure, unknown if systolic or diastolic right now due to COVID protocol, cannot have echocardiogram done. PLAN: 1. Repeat BNP tomorrow. 2. Start daily Lasix tomorrow. 3. Dr. Bone will be seeing the patient in the next few days. Job ID: [id number]
[2020-08-27] MEDS: Sodium Chloride 0.9% 1,000 ML IV SCH (08:31)
[2020-08-27] MEDS: risperiDONE 1 MG TAB PO SCH ×2 (08:34→22:47)
[2020-08-27] MEDS: Benztropine 1 MG TAB PO SCH ×2 (08:34→22:47)
[2020-08-27] MEDS: Aripiprazole 10 MG TAB PO SCH ×2 (08:34→22:47)
[2020-08-27] MEDS: Enoxaparin Sodium 40 MG/0.4 ML SYRINGE SC SCH (08:35)
[2020-08-27] MEDS: Furosemide 20 MG/2 ML VIAL SLOW IVP SCH (08:35)
[2020-08-27] MEDS: Cefepime 2 GM in Sodium Chloride 0.9% 100 ML IVPB SCH ×2 (08:35→20:02)
[2020-08-27] MEDS: Valproate Sodium 250 mg/5 ml UD Cup PO SCH (08:36)
[2020-08-27] MEDS ORDERED: Lithium Carbonate 150 MG CAP PER TUBE SCH (08:37)
[2020-08-27] MEDS ORDERED: DC Sedation Protocol FS ONE (08:51)
[2020-08-27] MEDS ORDERED: Famotidine 20 MG TAB PER TUBE SCH (09:00)
[2020-08-27] MEDS: Dexamethasone 6 MG in Sodium Chloride 0.9% 50 ML IVPB SCH ×2 (09:01→20:03)
[2020-08-27] MEDS: HumaLOG 300 UNITS/3 ML VIAL SC PRN ×2 (09:30→16:00)
--- NOTE | 2020-08-27 09:47 | PRG ---
DATE OF SERVICE: 08/27/2020 SUBJECTIVE: This morning, she is on no sedation, less agitated. OBJECTIVE: VITAL SIGNS: Pulse 67, saturations 100% on 40% , blood pressure 133/70. I's and O's have been positive. CHEST: No wheezing. No crackles. CARDIAC: Normal S1 and S2. ABDOMEN: No masses. LABORATORY DATA: D-dimer is 0.6. GFR is 63. Apparently, lithium level is slightly elevated. . X-ray still shows bilateral pulmonary infiltrates. ASSESSMENT AND PLAN: Respiratory failure, congestive heart failure, mike positive pneumonia, bipolar schizophrenia. She appears to be doing somewhat better. I am going to probably extubate today. Cut the dose of lithium down. Continue otherwise home medicine Decadron, empiric antibiotics, Pepcid, Lasix, remdesivir. One-half hour of critical care time. Job ID: [id number]
[2020-08-27] MEDS ORDERED: Heparin 10,000 UNITS/ 10 ML VIAL ONE (12:33)
--- NOTE | 2020-08-27 14:41 | PDOC.HOSPP ---
- Subjective Encounter Date: 08/27/20 Encounter Time: 10:30 Subjective: Patient extubated. - Objective Vital Signs & Weight: Vital Signs (12 hours) Temp Pulse Resp BP 08/27/20 08:00 16 08/27/20 07:33 67 08/27/20 06:00 15 08/27/20 05:00 98.1 F 08/27/20 04:00 14 08/27/20 02:59 74 132/63 Weight Admit Weight 156 lb 1.396 oz Weight 170 lb 6.677 oz Most Recent Monitor Data Heart Rate from ECG 85 NIBP 183/78 NIBP BP-Mean 113 Respiration from ECG 22 SpO2 100 I&O: 08/26/20 08/27/20 08/28/20 06:59 06:59 06:59 Intake Total 2736.8 2387.4 Output Total 1410 1322 Balance 1326.8 1065.4 Result Diagrams: 08/27/20 04:20 08/27/20 04:20 Additional Labs: Accuchecks 08/27/20 08/26/20 08/26/20 09:25 22:18 16:42 POC Glucose 163 H 142 H 140 H Hospitalist ROS - Review of Systems Other: pt extubated but does not follow commands - Medication Medications: Active Medications Generic Name Dose Route Start Last Admin Trade Name Juvenalq PRN Reason Stop Dose Admin Aripiprazole 10 mg 08/24/20 21:00 08/27/20 08:34 Aripiprazole 10 Mg Tab PO 10 mg BID KRYSTAL Administration Benztropine Mesylate 0.5 mg 08/24/20 21:00 08/27/20 08:34 Benztropine 1 Mg Tab PO 0.5 mg BID KRYSTAL Administration Enoxaparin Sodium 40 mg 08/24/20 21:00 08/27/20 08:35 Enoxaparin Sodium 40 Mg/0.4 Ml Syringe SC 40 mg 0900,2100 KRYSTAL Administration Famotidine 20 mg 08/27/20 09:00 08/27/20 08:35 Famotidine 20 Mg Tab PER TUBE 20 mg DAILY KRYSTAL Administration Furosemide 20 mg 08/27/20 09:00 08/27/20 08:35 Furosemide 20 Mg/2 Ml Vial SLOW IVP 20 mg DAILY KRYSTAL Administration Hydralazine HCl 10 mg 08/26/20 23:07 08/26/20 23:49 Hydralazine 20 Mg/Ml Vial SLOW IVP 10 mg Q4H PRN Administration SBP >=180 Dexamethasone 6 mg/ Sodium 50.6 mls @ 100 mls/hr 08/23/20 21:00 08/27/20 09:01 Chloride IVPB 50.6 mls BID KRYSTAL Administration Remdesivir 100 mg/ Sodium 250 mls @ 250 mls/hr 08/24/20 14:00 08/26/20 14:48 Chloride IV 08/27/20 14:59 250 mls Q24H KRYSTAL Administration Cefepime HCl 2 gm/ Sodium 100 mls @ 200 mls/hr 08/25/20 21:00 08/27/20 08:35 Chloride IVPB 100 mls 0900,2100 KRYSTAL Administration Sodium Chloride 1,000 mls @ 75 mls/hr 08/26/20 18:00 08/27/20 08:31 Normal Saline 0.9% IV 1,000 mls .[id number] KRYSTAL Administration Insulin Human Lispro 0 units 08/23/20 14:21 08/27/20 09:30 Humalog 300 Units/3 Ml Vial SC 2 unit .MILD SLIDING SCALE PRN Administration Mild Correctional Scale Mometasone Furoate/Formoterol Fumar 2 puff 08/23/20 18:30 08/27/20 07:33 Mometasone 200 Mcg/Formoterol 5 Mcg 120 Puff Inhaler INH 2 puff BID-RT KRYSTAL Administration Quetiapine Fumarate 200 mg 08/24/20 21:00 08/27/20 08:36 Quetiapine Fumarate 200 Mg Tab PO 200 mg BID KRYSTAL Administration Risperidone 4 mg 08/24/20 21:00 08/27/20 08:34 Risperidone 1 Mg Tab PO 4 mg BID KRYSTAL Administration Valproic Acid 500 mg 08/24/20 21:00 08/27/20 08:36 Valproate Sodium 250 Mg/5 Ml Ud Cup PO 500 mg BID KRYSTAL Administration - Exam General - other findings: pt not awake Heart: negative: RRR, no murmur, no gallops, no rubs, normal peripheral pulses, irregular, diminshed peripheral pulses, murmur present, II/IV, III/IV Respiratory: negative: CTAB, no wheezes, no rales, no ronchi, normal chest expansion, no tachypnea, normal percussion, rales, rhonchi, tachypneic, wheezes Gastrointestinal: negative: soft, non-tender, non-distended, normal bowel sounds, no palpable masses, no hepatomegaly, no splenomegaly, no bruit, no guarding, no rigidity, tender to palpation, distended, diminished bowl sounds, voluntary guarding Hosp A/P (1) Acute respiratory failure Code(s): J96.00 - ACUTE RESPIRATORY FAILURE, UNSP W HYPOXIA OR HYPERCAPNIA Status: Acute Qualifiers: Respiratory failure complication: hypoxia Qualified Code(s): J96.01 - Acute respiratory failure with hypoxia (2) Bradycardia Code(s): R00.1 - BRADYCARDIA, UNSPECIFIED Status: Acute (3) Pneumonia due to COVID-19 virus Code(s): U07.1 - COVID-19; J12.89 - OTHER VIRAL PNEUMONIA Status: Acute (4) Diabetes mellitus Code(s): E11.9 - TYPE 2 DIABETES MELLITUS WITHOUT COMPLICATIONS Status: Chronic Qualifiers: Diabetes mellitus type: type 2 Diabetes mellitus 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 continuous churn insulin use: with buttermaker continuous churn use (5) Hypertension Code(s): I10 - ESSENTIAL (PRIMARY) HYPERTENSION Status: Chronic Qualifiers: Hypertension type: essential hypertension Qualified Code(s): I10 - Essential (primary) hypertension (6) Schizophrenia Code(s): F20.9 - SCHIZOPHRENIA, UNSPECIFIED Status: Chronic Qualifiers: Schizophrenia type: unspecified Qualified Code(s): F20.9 - Schizophrenia, unspecified (7) Hypotension Status: Resolved Qualifiers: Hypotension type: other hypotension type Qualified Code(s): I95.89 - Other hypotension (8) [place] toxicity Code(s): T56.891A - TOXIC EFFECT OF OTH METALS, ACCIDENTAL (UNINTENTIONAL), INIT Status: Acute - Plan Patient is a 59-year-old female past medical history of hypertension diabetes heart failure presents to the hospital with change in mental status. On admission patient was noted to be bradycardic and hypotensive. Patient had bilateral infiltrates consistent with COVID-19 and the test was also positive. Patient was intubated and was transferred to the CCU for further management. Patient was noted to take carvedilol and clonidine which have been stopped. Her blood pressure and her heart rate currently are stabilized. Patient received remdesivir and convalescent plasma. She currently is on steroids. Patient has been taken off of sedation today. 08/26 patient currently off sedation we will continue to monitor we will add as needed blood pressure medications. Patient on steroids, antibiotics and Lasix. Patient also on DVT prophylaxis. 08/27 patient's lithium level significantly elevated will hold lithium for now spoke with nephrology for possible dialysis. Patient really not awake after extubation she has been off sedation last dose of benzodiazepine was at 2 AM on August 27. Spoke with the supervisor toy assembly who states that patient normally ambulates and talks however at times does not make sense. Patient recently got out of [facility] in [employer] she was there for 45 days. She has been in and out of multiple psych facilities. She is on multiple psych medications. The blood bank supervisor at the longterm stated that she just moved in to the longterm on August 20 she was doing well until August 30 when patient started acting strange staring and at this time patient was brought into the hospital and was found to be hypotensive and bradycardic. Patient is also on carvedilol and clonidine which have been discontinued however high doses of lithium can cause bradycardia, encephalopathy, seizure. I also spoke with neuro logy for possible EEG however given the fact that she has Covid and given the limitation of one machine and one tech no EEG will be performed secondary to patient being Covid positive. We will hold her Depakote for now since that can also cause SENIOR PROPERTY MANAGER depression. We will check a Depakote level. Her initially CT head was negative. Spoke with patient's daughter who has agreed for patient to get dialysis. Patient's daughter's name is Mar Blount phone number is [phone]. We will start patient on some prophylactic Keppra. Unclear if patient's change in mental status is due to underlying psych illness versus seizure versus lithium toxicity versus other.
[2020-08-27] MEDS: REMDESIVIR (EUA) 100 MG in Sodium Chloride 0.9% 250 ML 230 ML IV SCH (15:27)
[2020-08-27] MEDS ORDERED: levETIRAcetam in NS 1,500 MG in Premix Bag 1 BAG IVPB SCH (16:15)
--- NOTE | 2020-08-27 17:37 | PRG ---
DATE OF SERVICE: 08/27/2020 SUBJECTIVE: The patient was extubated. She is on 4 L, saturating at 100%. She is still obtunded and does not follow commands. OBJECTIVE: VITAL SIGNS: Afebrile, BP 160/80, heart rate 83, respiratory rate 22, and O2 saturation 100. LUNGS: Symmetric air entry. Somewhat coarse breath sounds. HEART: S1 and S2. Regular rate. ABDOMEN: Soft, not distended. Indwelling [place] catheter. I's and O's have been positive anywhere from a 1000 to 2200 over the past 3 days. LABORATORY DATA: Sodium 141 and creatinine 1.08. CRP is down to 4.78. Ferritin is down to 173. Last chest x-ray from yesterday shows hazy infiltrates bilaterally, no change. ASSESSMENT AND DISCUSSION: Severe psychiatric illness, bipolar disorder, multiple admissions, suicidal and homicidal ideation, cardiomyopathy of unclear etiology, COVID infection, altered mental state, respiratory failure, diffuse infiltrates with improvement sooner than what I expected. BNP in variable phase. On Decadron and cefepime. Job ID: [id number]
--- NOTE | 2020-08-27 18:06 | PRG ---
DATE OF SERVICE: 08/27/2020 SUBJECTIVE: The patient is seen and examined, status post extubation. Still very much out of it, not interacting, very somnolent, but responsive to pain. Noted with the following vital signs. OBJECTIVE: VITAL SIGNS: Blood pressure 168/86 with a pulse of 83, respiratory rate of 22, and O2 saturation of 100%. HEENT: Unremarkable. CARDIOVASCULAR SYSTEM: First and second heart sounds were heard. RESPIRATORY SYSTEM: Revealed some rales. DIGESTIVE SYSTEM: Revealed obese abdomen. EXTREMITIES: Showed some peripheral edema. SKIN: No new gross rash. LYMPHATICS: No peripheral lymphadenopathy. LABORATORY INVESTIGATION: Showed a hemoglobin of 8.7 with a white count of 2500. Chemistry showed a creatinine of 1.0 with BUN of 53. Toxicology revealed lithium level of 2.691. IMPRESSION: 1. Acute renal failure transient seems to be improving. 2. Cardiopulmonary failure status post extubation. 3. Congestive heart failure. 4. Hypervolemia. 5. [place] toxicity with possible neurologic consequences. PLAN: 1. The patient to continue with current renal supportive measures. 2. We will initiate dialysis at least long one station of dialysis to drop the level of the lithium and re-evaluate the mental status of this patient. We will also attempt to ultrafiltrate in this patient. 3. Discontinue current IV fluid. Job ID: [id number]
[2020-08-27] MEDS: Heparin 5,000 UNITS/ML VIAL SC SCH (20:02)
[2020-08-27] MEDS ORDERED: Lorazepam 2 MG/ML VIAL SLOW IVP PRN (23:23)
[2020-08-27 23:40] LABS: HBSAg Index 0.24 S/CO (0-0.99); Hep B Surf Ag Non-Reactive S/CO (NonReactive)
[2020-08-28 03:46] LABS: Actual Bicarbonate (HCO3a) 29.9 mEq/L (22-28); Base Excess (BEa) 5.5 mEq/L (-2.0 to +3.0); Calcium, Ionized (arterial) 1.13 mmol/L (1.12-1.30); Carboxyhemoglobin (COHb) 0.2 gm% (0.0-3.0); Hemoglobin (Hb) 10.3 g/dL (12.0-16.0); O2 Tension (PaO2), arterial 93.8 mmHg (80.0-100.0); Potassium - ABG Lab 3.68 mmol/L (3.70-5.30); pH, Arterial 7.46 (7.35-7.45)
[2020-08-28 03:49] LABS: Puncture Site RRA
[2020-08-28 04:08] LABS: #Lymphocytes 1.4 thou/uL (1.20-3.40); %Basophils 0.3 % (0.0-1.0); %Eosinophils 0.3 % (0.0-10.0); %Lymphocytes 8.7 % (21.0-51.0); %Monocytes 6.5 % (0.0-10.0); %Neutrophils 84.2 % (42.0-75.0); Hemoglobin 9.3 g/dL (12.0-16.0); Mean Corpuscular HGB CONC 30.8 g/dL (32.0-36.0); Mean Corpuscular Hemoglobin 29.6 pg (27.0-31.0); Mean Corpuscular Volume 96.1 fL (78.0-98.0); Platelet Count 235 thou/uL (130-400); RBC Distribution Width 13.5 % (11.5-14.5); Red Blood Cell (RBC) Count 3.13 mill/uL (4.20-5.40); White Blood Cell (WBC) Count 15.4 thou/uL (4.8-10.8)
[2020-08-28 04:52] LABS: ALT (SGPT) 11 U/L (8-55); AST (SGOT) 12 U/L (5-34); Albumin 2.4 g/dL (3.5-5.0); Alkaline Phosphatase 161 U/L (40-110); Anion Gap 12 mmol/L (10-20); BUN (Urea Nitrogen) 27 mg/dL (9.8-20.1); Bilirubin, Direct 0.2 mg/dL (0.1-0.3); Bilirubin, Total 0.3 mg/dL (0.2-1.2); Calc. Creatinine Clearance 92 mL/min (70-130); Carbon Dioxide 31 mmol/L (22-29); Chloride 99 mmol/L (98-107); Glucose 188 mg/dL (70-105); Potassium 3.6 mmol/L (3.5-5.1); Protein, Total 7.4 g/dL (6.0-8.3); Sodium 138 mmol/L (136-145)
[2020-08-28] MEDS: Cefepime 2 GM in Sodium Chloride 0.9% 100 ML IVPB SCH ×2 (08:04→21:38)
[2020-08-28] MEDS: Heparin 5,000 UNITS/ML VIAL SC SCH ×3 (08:04→21:37)
[2020-08-28] MEDS: Furosemide 20 MG/2 ML VIAL SLOW IVP SCH (08:05)
[2020-08-28] MEDS: Dexamethasone 6 MG in Sodium Chloride 0.9% 50 ML IVPB SCH ×2 (08:54→21:37)
[2020-08-28] MEDS ORDERED: levETIRAcetam in NS 1,000 MG in Premix Bag 1 BAG IVPB SCH (09:00)
[2020-08-28] MEDS: Famotidine 20 MG TAB PER TUBE SCH ×2 (09:10→21:37)
[2020-08-28] MEDS: Aripiprazole 10 MG TAB PO SCH ×2 (09:10→21:50)
[2020-08-28] MEDS: Benztropine 1 MG TAB PO SCH ×2 (09:10→21:50)
[2020-08-28] MEDS: risperiDONE 1 MG TAB PO SCH ×2 (09:10→21:50)
--- NOTE | 2020-08-28 09:51 | PRG ---
DATE OF SERVICE: 08/28/2020 SUBJECTIVE: This morning, she is in no distress, but clearly encephalopathic. OBJECTIVE: VITAL SIGNS: Temperature 97, saturations are 90% on 4 L, blood pressure 130/80, respirations 18. I's and O's have been positive. CHEST: Rhonchi, crackles. CARDIAC: Normal S1, S2. No gallops. ABDOMEN: No masses. LABORATORY DATA: PO2 is 98, pCO2 of 40, pH 7.46 on 3 L nasal O2. Creatinine and BUN normal. Bicarb is normal. White count 15,000, H and H 9 and 30. ASSESSMENT: Metabolic encephalopathy, severe bipolar disorder, mike positive pneumonia. PLAN: She is clearly not able to swallow. I think at this stage, try and put an NG tube down and to see if we can start some home medicine. She probably needs to stay in the ICU another 24 hours until she is more responsive. She is apparently dialyzed, it appears for elevated lithium levels. Avoid any sedation. Job ID: [id number]
--- NOTE | 2020-08-28 10:22 | RAD ---
PORTABLE CHEST 1 VIEW: DATE: 08/28/2020. TIME: 9:21 AM. HISTORY: Respiratory failure. FINDINGS/IMPRESSION: There has been interval removal of endotracheal and nasogastric tubes since the exam of 08/26/2020. The heart size is stable. There is consolidation in the right mid lung. NO pneumothoraces or large effusions are seen. POS: [facility]
[2020-08-28] MEDS: Mometasone 200 MCG/Formoterol 5 MCG 120 PUFF INHALER INH SCH ×2 (14:25→18:27)
--- NOTE | 2020-08-28 15:37 | PDOC.HOSPP ---
- Subjective Encounter Date: 08/28/20 Encounter Time: 09:45 Subjective: Patient still on nasal cannula does withdraw from pain. - Objective Vital Signs & Weight: Vital Signs (12 hours) Temp Pulse Pulse BP BP Pulse Ox Pulse Ox 08/28/20 12:00 97.8 F 08/28/20 11:31 76 88 168/85 H 163/81 H 78 L 08/28/20 08:00 97.6 F 100 08/28/20 04:00 97.2 F L 100 Weight Admit Weight 156 lb 1.396 oz Weight 173 lb 11.588 oz Most Recent Monitor Data Heart Rate from ECG 79 NIBP 160/70 NIBP BP-Mean 100 Respiration from ECG 20 SpO2 100 I&O: 08/27/20 08/28/20 08/29/20 06:59 06:59 06:59 Intake Total 2387.4 1211 250 Output Total 1322 1107 170 Balance 1065.4 104 80 Result Diagrams: 08/28/20 03:36 08/28/20 03:36 Additional Labs: Accuchecks 08/28/20 08/27/20 08/27/20 11:43 23:40 15:53 POC Glucose 128 H 136 H 153 H Hospitalist ROS - Review of Systems Other: Unable to obtain - Medication Medications: Active Medications Generic Name Dose Route Start Last Admin Trade Name Jonny PRN Reason Stop Dose Admin Aripiprazole 10 mg 08/24/20 21:00 08/28/20 09:10 Aripiprazole 10 Mg Tab PO Not Given BID KRYSTAL Benztropine Mesylate 0.5 mg 08/24/20 21:00 08/28/20 09:10 Benztropine 1 Mg Tab PO Not Given BID KRYSTAL Famotidine 20 mg 08/28/20 09:00 08/28/20 09:10 Famotidine 20 Mg Tab PER TUBE Not Given BID KRYSTAL Furosemide 20 mg 08/27/20 09:00 08/28/20 08:05 Furosemide 20 Mg/2 Ml Vial SLOW IVP 20 mg DAILY KRYSTAL Administration Heparin Sodium (Porcine) 5,000 units 08/27/20 21:00 08/28/20 08:04 Heparin 5,000 Units/Ml Vial SC 5,000 units TID KRYSTAL Administration Hydralazine HCl 10 mg 08/26/20 23:07 08/26/20 23:49 Hydralazine 20 Mg/Ml Vial SLOW IVP 10 mg Q4H PRN Administration SBP >=180 Dexamethasone 6 mg/ Sodium 50.6 mls @ 100 mls/hr 08/23/20 21:00 08/28/20 08:54 Chloride IVPB 50.6 mls BID KRYSTAL Administration Cefepime HCl 2 gm/ Sodium 100 mls @ 200 mls/hr 08/25/20 21:00 08/28/20 08:04 Chloride IVPB 100 mls 0900,2100 KRYSTAL Administration Levetiracetam 1,000 mg/ Device 100 mls @ 200 mls/hr 08/28/20 09:00 08/28/20 08:54 IVPB 100 mls BID KRYSTAL Administration Insulin Human Lispro 0 units 08/23/20 14:21 08/27/20 16:00 Humalog 300 Units/3 Ml Vial SC 2 unit .MILD SLIDING SCALE PRN Administration Mild Correctional Scale Mometasone Furoate/Formoterol Fumar 2 puff 08/23/20 18:30 08/28/20 14:25 Mometasone 200 Mcg/Formoterol 5 Mcg 120 Puff Inhaler INH Not Given BID-RT KRYSTAL Quetiapine Fumarate 200 mg 08/24/20 21:00 08/28/20 09:10 Quetiapine Fumarate 200 Mg Tab PO Not Given BID RKYSTAL Risperidone 4 mg 08/24/20 21:00 08/28/20 09:10 Risperidone 1 Mg Tab PO Not Given BID KRYSTAL Valproic Acid 500 mg 08/24/20 21:00 08/27/20 08:36 Valproate Sodium 250 Mg/5 Ml Ud Cup PO 500 mg BID KRYSTAL Administration - Exam Neck: negative: supple, symmetric, no JVD, no thyromegaly, no lymphadenopathy, no carotid bruit, JVD Heart: negative: RRR, no murmur, no gallops, no rubs, normal peripheral pulses, irregular, diminshed peripheral pulses, murmur present, II/IV, III/IV Respiratory: rhonchi Gastrointestinal: negative: soft, non-tender, non-distended, normal bowel sounds, no palpable masses, no hepatomegaly, no splenomegaly, no bruit, no guarding, no rigidity, tender to palpation, distended, diminished bowl sounds, voluntary guarding Extremities: 1+ LE edema Hosp A/P (1) Acute respiratory failure Code(s): J96.00 - ACUTE RESPIRATORY FAILURE, UNSP W HYPOXIA OR HYPERCAPNIA Status: Acute Qualifiers: Respiratory failure complication: hypoxia Qualified Code(s): J96.01 - Acute respiratory failure with hypoxia (2) Bradycardia Code(s): R00.1 - BRADYCARDIA, UNSPECIFIED Status: Acute (3) Pneumonia due to COVID-19 virus Code(s): U07.1 - COVID-19; J12.89 - OTHER VIRAL PNEUMONIA Status: Acute (4) Diabetes mellitus Code(s): E11.9 - TYPE 2 DIABETES MELLITUS WITHOUT COMPLICATIONS Status: Chronic Qualifiers: Diabetes mellitus type: type 2 Diabetes mellitus terminal operator insulin use: with terminal 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 (5) Hypertension Code(s): I10 - ESSENTIAL (PRIMARY) HYPERTENSION Status: Chronic Qualifiers: Hypertension type: essential hypertension Qualified Code(s): I10 - Essential (primary) hypertension (6) Schizophrenia Code(s): F20.9 - SCHIZOPHRENIA, UNSPECIFIED Status: Chronic Qualifiers: Schizophrenia type: unspecified Qualified Code(s): F20.9 - Schizophrenia, unspecified (7) Hypotension Status: Resolved Qualifiers: Hypotension type: other hypotension type Qualified Code(s): I95.89 - Other hypotension (8) [place] toxicity Code(s): T56.891A - TOXIC EFFECT OF OTH METALS, ACCIDENTAL (UNINTENTIONAL), INIT Status: Acute - Plan Patient is a 59-year-old female past medical history of hypertension diabetes heart failure presents to the hospital with change in mental status. On admission patient was noted to be bradycardic and hypotensive. Patient had bilateral infiltrates consistent with COVID-19 and the test was also positive. Patient was intubated and was transferred to the CCU for further management. Patient was noted to take carvedilol and clonidine which have been stopped. Her blood pressure and her heart rate currently are stabilized. Patient received remdesivir and convalescent plasma. She currently is on steroids. Patient has been taken off of sedation today. 08/26 patient currently off sedation we will continue to monitor we will add as needed blood pressure medications. Patient on steroids, antibiotics and Lasix. Patient also on DVT prophylaxis. 08/27 patient's lithium level significantly elevated will hold lithium for now spoke with nephrology for possible dialysis. Patient really not awake after extubation she has been off sedation last dose of benzodiazepine was at 2 AM on August 27. Spoke with the ranch hand supervisor who states that patient normally ambulates and talks however at times does not make sense. Patient recently got out of [facility] in [place] she was there for 45 days. She has been in and out of multiple psych facilities. She is on multiple psych medications. The supervisor kosher dietary service at the sn[facility] stated that she just moved in to the [facility] on August 20 she was doing well until August 30 when patient started acting strange staring and at this time patient was brought into the hospital and was found to be hypotensive and bradycardic. Patient is also on carvedilol and clonidine which have been discontinued however high doses of lithium can cause bradycardia, encephalopathy, seizure. I also spoke with neurology for possible EEG however given the fact that she has Covid and given the limitation of one machine and one tech no EEG will be performed secondary to patient being Covid positive. We will hold her Depakote for now since that can also cause DIRECTOR BIOSTATISTICS depression. We will check a Depakote level. Her initially CT head was negative. Spoke with patient's daughter who has agreed for patient to get dialysis. Patient's daughter's name is Mar Blount phone number is [phone]. We will start patient on some prophylactic Keppra. Unclear if patient's change in mental status is due to underlying psych illness versus seizure versus lithium toxicity versus other. 08/28 patient was dialyzed yesterday x1. [place] level improved today. Compared to yesterday she does withdraw on pain stimulation which is better than yesterday. She still does not follow commands. NG tube placed for feedings. Significant rhonchi noted however her sats are 100%. I will also continue the Keppra for now. We will hold her psych medications for now.
--- NOTE | 2020-08-28 19:23 | PRG ---
DATE OF SERVICE: 08/28/2020 SUBJECTIVE: The patient is seen, still somewhat somnolent, but is responsive to pain with the following vital signs. OBJECTIVE: VITAL SIGNS: Heart rate of 75, blood pressure 160/71, respiratory rate of 21, and O2 saturation of 100%. HEENT: Unremarkable. CARDIOVASCULAR SYSTEM: First and second heart sounds were heard. RESPIRATORY SYSTEM: Clear to auscultation. DIGESTIVE SYSTEM: Revealed an obese abdomen. EXTREMITIES: No significant peripheral edema. LABORATORY INVESTIGATION: Significant for lithium level down to 1.36. IMPRESSION: 1. [place] toxicity, status post hemodialysis last night. 2. Mental status change, query cause. This is possible toxic metabolic encephalopathy plus or minus COVID encephalopathy. 3. Cardiopulmonary failure, status post mechanical ventilation. PLAN: 1. There is no indication for renal replacement therapy in terms of hemodialysis today. 2. Continue to monitor this patient. 3. Further management to be dependent on the clinical course. Job ID: [id number]
[2020-08-28] MEDS: levETIRAcetam in NS 500 MG in Premix Bag 1 BAG IVPB SCH (21:39)
[2020-08-28] MEDS ORDERED: cloNIDine 0.1 MG TAB PO SCH (23:30)
[2020-08-29 04:34] LABS: #Eosinphils 0.1 thou/uL (0.0-0.7); #Lymphocytes 1.1 thou/uL (1.20-3.40); #Monocytes 0.8 thou/uL (0.11-0.59); #Neutrophils 9.2 thou/uL (1.40-6.50); %Basophils 0.1 % (0.0-1.0); %Eosinophils 0.9 % (0.0-10.0); %Lymphocytes 9.8 % (21.0-51.0); %Monocytes 6.9 % (0.0-10.0); %Neutrophils 82.2 % (42.0-75.0); Mean Corpuscular HGB CONC 31.9 g/dL (32.0-36.0); Mean Corpuscular Hemoglobin 29.8 pg (27.0-31.0); Mean Corpuscular Volume 93.6 fL (78.0-98.0); Mean Platelet Volume 6.8 fL (7.4-10.4); Platelet Count 251 thou/uL (130-400); RBC Distribution Width 13.4 % (11.5-14.5); Red Blood Cell (RBC) Count 3.01 mill/uL (4.20-5.40); White Blood Cell (WBC) Count 11.2 thou/uL (4.8-10.8)
[2020-08-29 05:04] LABS: ALT (SGPT) 13 U/L (8-55); AST (SGOT) 12 U/L (5-34); Albumin 2.5 g/dL (3.5-5.0); Alkaline Phosphatase 141 U/L (40-110); Anion Gap 9 mmol/L (10-20); BUN (Urea Nitrogen) 54 mg/dL (9.8-20.1); Bilirubin, Direct 0.2 mg/dL (0.1-0.3); Bilirubin, Total 0.2 mg/dL (0.2-1.2); Calc. Creatinine Clearance 53 mL/min (70-130); Carbon Dioxide 32 mmol/L (22-29); Chloride 101 mmol/L (98-107); Glucose 206 mg/dL (70-105); Potassium 3.8 mmol/L (3.5-5.1); Protein, Total 7.3 g/dL (6.0-8.3); Sodium 138 mmol/L (136-145)
[2020-08-29] MEDS: Heparin 5,000 UNITS/ML VIAL SC SCH ×3 (07:46→20:49)
[2020-08-29] MEDS: Furosemide 20 MG/2 ML VIAL SLOW IVP SCH (07:46)
[2020-08-29] MEDS: Aripiprazole 10 MG TAB PO SCH ×2 (07:47→20:50)
[2020-08-29] MEDS: Benztropine 1 MG TAB PO SCH ×2 (07:47→20:50)
[2020-08-29] MEDS: Famotidine 20 MG TAB PER TUBE SCH ×2 (07:47→20:50)
[2020-08-29] MEDS: risperiDONE 1 MG TAB PO SCH ×2 (07:47→20:50)
[2020-08-29] MEDS: levETIRAcetam in NS 500 MG in Premix Bag 1 BAG IVPB SCH ×2 (07:48→22:24)
[2020-08-29] MEDS: Cefepime 2 GM in Sodium Chloride 0.9% 100 ML IVPB SCH ×2 (07:48→20:52)
[2020-08-29] MEDS: Mometasone 200 MCG/Formoterol 5 MCG 120 PUFF INHALER INH SCH ×2 (08:16→18:27)
[2020-08-29] MEDS: Dexamethasone 6 MG in Sodium Chloride 0.9% 50 ML IVPB SCH ×2 (08:42→23:53)
--- NOTE | 2020-08-29 12:04 | PRG ---
DATE OF SERVICE: 08/29/2020 SUBJECTIVE: This patient remains encephalopathic on nasal cannula. OBJECTIVE: VITAL SIGNS: Temperature is 98.0, pulse 71, blood pressure 139/70, O2 saturation 99%. NEUROLOGICAL: She is obtunded, but moves all extremities when stimulated. HEENT: Unremarkable. NECK: No adenopathy or JVD. LUNGS: Clear. CARDIAC: S1 and S2. Regular. ABDOMEN: Soft. EXTREMITIES: No clubbing, cyanosis, but trace edema. LABORATORY DATA: Sodium 138, potassium 3.8, chloride 101, CO2 of 32, BUN 54, creatinine 1.4, glucose 206. White blood cell count 11.2, hematocrit 28.2, and platelet count 251. ASSESSMENT: 1. Coronavirus disease 2019 infection. 2. [place] toxicity. 3. Bipolar disorder. 4. Metabolic encephalopathy. PLAN: In my opinion, she can be transferred over to the [facility] for continue monitoring. She needs to start on tube feeds. Her lithium continues to be held. Job ID: [id number]
[2020-08-29] MEDS: Carvedilol 3.125 MG TAB PO SCH (16:27)
--- NOTE | 2020-08-29 16:52 | PDOC.HOSPP ---
- Subjective Encounter Date: 08/29/20 Encounter Time: 11:15 Subjective: Patient did partially open her eyes on sternal rub. - Objective Vital Signs & Weight: Vital Signs (12 hours) Pulse Ox 08/29/20 07:30 99 Weight Admit Weight 156 lb 1.396 oz Weight 171 lb 1.259 oz Most Recent Monitor Data Heart Rate from ECG 77 NIBP 170/74 NIBP BP-Mean 106 Respiration from ECG 18 SpO2 99 I&O: 08/28/20 08/29/20 08/30/20 06:59 06:59 06:59 Intake Total 1211 705 126 Output Total 1107 530 270 Balance 104 175 -144 Result Diagrams: 08/29/20 04:10 08/29/20 04:10 Additional Labs: Accuchecks 08/29/20 08/28/20 08/28/20 06:20 21:57 17:43 POC Glucose 190 H 144 H 167 H Hospitalist ROS - Review of Systems Other: Unable to obtain - Medication Medications: Active Medications Generic Name Dose Route Start Last Admin Trade Name Juvenalq PRN Reason Stop Dose Admin Aripiprazole 10 mg 08/24/20 21:00 08/29/20 07:47 Aripiprazole 10 Mg Tab PO 10 mg BID KRYSTAL Administration Benztropine Mesylate 0.5 mg 08/24/20 21:00 08/29/20 07:47 Benztropine 1 Mg Tab PO 0.5 mg BID KRYSTAL Administration Carvedilol 3.125 mg 08/29/20 17:00 08/29/20 16:27 Carvedilol 3.125 Mg Tab PO 3.125 mg BID- KRYSTAL Administration Famotidine 20 mg 08/28/20 09:00 08/29/20 07:47 Famotidine 20 Mg Tab PER TUBE 20 mg BID KRYSTAL Administration Heparin Sodium (Porcine) 5,000 units 08/27/20 21:00 08/29/20 16:26 Heparin 5,000 Units/Ml Vial SC 5,000 units TID KRYSTAL Administration Hydralazine HCl 10 mg 08/26/20 23:07 08/26/20 23:49 Hydralazine 20 Mg/Ml Vial SLOW IVP 10 mg Q4H PRN Administration SBP >=180 Dexamethasone 6 mg/ Sodium 50.6 mls @ 100 mls/hr 08/23/20 21:00 08/29/20 08:4 2 Chloride IVPB 50.6 mls BID KRYSTAL Administration Cefepime HCl 2 gm/ Sodium 100 mls @ 200 mls/hr 08/25/20 21:00 08/29/20 07:48 Chloride IVPB 100 mls 0900,2100 KRYSTAL Administration Levetiracetam 500 mg/ Device 100 mls @ 200 mls/hr 08/28/20 21:00 08/29/20 07:48 IVPB 100 mls BID KRYSTAL Administration Insulin Human Lispro 0 units 08/23/20 14:21 08/27/20 16:00 Humalog 300 Units/3 Ml Vial SC 2 unit .MILD SLIDING SCALE PRN Administration Mild Correctional Scale Mometasone Furoate/Formoterol Fumar 2 puff 08/23/20 18:30 08/29/20 08:16 Mometasone 200 Mcg/Formoterol 5 Mcg 120 Puff Inhaler INH Not Given BID-RT KRYSTAL Quetiapine Fumarate 200 mg 08/24/20 21:00 08/29/20 07:48 Quetiapine Fumarate 200 Mg Tab PO 200 mg BID KRYSTAL Administration Risperidone 4 mg 08/24/20 21:00 08/29/20 07:47 Risperidone 1 Mg Tab PO 4 mg BID KRYSTAL Administration Valproic Acid 500 mg 08/24/20 21:00 08/27/20 08:36 Valproate Sodium 250 Mg/5 Ml Ud Cup PO 500 mg BID KRYSTAL Administration - Exam Neck: negative: supple, symmetric, no JVD, no thyromegaly, no lymphadenopathy, no carotid bruit, JVD Heart: negative: RRR, no murmur, no gallops, no rubs, normal peripheral pulses, irregular, diminshed peripheral pulses, murmur present, II/IV, III/IV Respiratory: rhonchi Gastrointestinal: negative: soft, non-tender, non-distended, normal bowel sounds, no palpable masses, no hepatomegaly, no splenomegaly, no bruit, no guarding, no rigidity, tender to palpation, distended, diminished bowl sounds, voluntary guarding Hosp A/P (1) Acute respiratory failure Code(s): J96.00 - ACUTE RESPIRATORY FAILURE, UNSP W HYPOXIA OR HYPERCAPNIA Status: Acute Qualifiers: Respiratory failure complication: hypoxia Qualified Code(s): J96.01 - Acute respiratory failure with hypoxia (2) Bradycardia Code(s): R00.1 - BRADYCARDIA, UNSPECIFIED Status: Acute (3) Pneumonia due to COVID-19 virus Code(s): U07.1 - COVID-19; J12.89 - OTHER VIRAL PNEUMONIA Status: Acute (4) Diabetes mellitus Code(s): E11.9 - TYPE 2 DIABETES MELLITUS WITHOUT COMPLICATIONS Status: Chronic Qualifiers: Diabetes mellitus type: type 2 Diabetes mellitus custodial insulin use: with custodial use (5) Hypertension Code(s): I10 - ESSENTIAL (PRIMARY) HYPERTENSION Status: Chronic Qualifiers: Hypertension type: essential hypertension Qualified Code(s): I10 - Essential (primary) hypertension (6) Schizophrenia Code(s): F20.9 - SCHIZOPHRENIA, UNSPECIFIED Status: Chronic Qualifiers: Schizophrenia type: unspecified Qualified Code(s): F20.9 - Schizophrenia, unspecified (7) Hypotension Status: Resolved Qualifiers: Hypotension type: other hypotension type Qualified Code(s): I95.89 - Other hypotension (8) [place] toxicity Code(s): T56.891A - TOXIC EFFECT OF OTH METALS, ACCIDENTAL (UNINTENTIONAL), INIT Status: Acute - Plan Patient is a 59-year-old female past medical history of hypertension diabetes heart failure presents to the hospital with change in mental status. On admission patient was noted to be bradycardic and hypotensive. Patient had bilateral infiltrates consistent with COVID-19 and the test was also positive. Patient was intubated and was transferred to the CCU for further management. Patient was noted to take carvedilol and clonidine which have been stopped. Her blood pressure and her heart rate currently are stabilized. Patient received remdesivir and convalescent plasma. She currently is on steroids. Patient has been taken off of sedation today. 08/26 patient currently off sedation we will continue to monitor we will add as needed blood pressure medications. Patient on steroids, antibiotics and Lasix. Patient also on DVT prophylaxis. 08/27 patient's lithium level significantly elevated will hold lithium for now spoke with nephrology for possible dialysis. Patient really not awake after extubation she has been off sedation last dose of benzodiazepine was at 2 AM on August 27. Spoke with the group social worker who states that patient normally ambulates and talks however at times does not make sense. Patient recently got out of [facility] in [place] she was there for 45 days. She has been in and out of multiple psych facilities. She is on multiple psych medications. The supervisor seaming at the assisted stated that she just moved in to the assisted on August 20 she was doing well until August 30 when patient started acting strange staring and at this time patient was brought into the hospital and was found to be hypotensive and bradycardic. Patient is also on carvedilol and clonidine which have been discontinued however high doses of lithium can cause bradycardia, encephalopathy, seizure. I also spoke with neurology for possible EEG however given the fact that she has Covid and given the limitation of one machine and one tech no EEG will be performed secondary to patient being Covid positive. We will hold her Depakote for now since that can also cause INSPECTOR CANNED FOOD RECONDITIONING depression. We will check a Depakote level. Her initially CT head was negative. Spoke with patient's daughter who has agreed for patient to get dialysis. Patient's daughter's name is Mar Blount phone number is [phone]. We will start patient on some prophylactic Keppra. Unclear if patient's change in mental status is due to underlying psych illness versus seizure versus lithium toxicity versus other. 08/28 patient was dialyzed yesterday x1. [place] level improved today. Compared to yesterday she does withdraw on pain stimulation which is better than yesterday. She still does not follow commands. NG tube placed for feedings. Significant rhonchi noted however her sats are 100%. I will also continue the Keppra for now. We will hold her psych medications for now. 08/29 patient currently off sedation. Does move extremities on painful stimuli she did open her eyes [facility] on sternal rubbing. Currently has an NG tube for tube feedings. We will continue with Keppra. [place] level still high however better than before.
--- NOTE | 2020-08-29 17:21 | PRG ---
DATE OF SERVICE: 08/29/2020 SUBJECTIVE: The patient noted with the following vital signs. OBJECTIVE: VITAL SIGNS: Afebrile, pulse 71, blood pressure 139/70, respiratory rate 19, O2 saturation 99%. HEENT: Unremarkable. CARDIOVASCULAR SYSTEM: First and second heart sounds were heard. RESPIRATORY SYSTEM: Clear to auscultation. DIGESTIVE SYSTEM: Revealed an obese abdomen. EXTREMITIES: Showed no significant peripheral edema. SKIN: No new gross rash. LYMPHATICS: No peripheral lymphadenopathy IMPRESSION: 1. [place] toxicity, status post one session of dialysis. 2. Toxic metabolic encephalopathy. 3. Bipolar disorder. PLAN: 1. Re-evaluation of the patient's lithium level today showed slight rise over yesterday's lithium level signaling redistribution of the lithium. There is no emergent indication for dialysis today. We will likely give this patient one more session of dialysis, after which the patient will not require any further dialytic intervention in the management of this lithium toxicity. 2. The patient's lithium dosage is just being held. Job ID: [id number]
[2020-08-30 05:10] LABS: #Basophils 0.1 thou/uL (0.0-0.2); #Eosinphils 0.1 thou/uL (0.0-0.7); #Lymphocytes 1.1 thou/uL (1.20-3.40); %Basophils 0.8 % (0.0-1.0); %Eosinophils 0.6 % (0.0-10.0); %Lymphocytes 8.6 % (21.0-51.0); %Monocytes 8.2 % (0.0-10.0); %Neutrophils 81.8 % (42.0-75.0); Mean Corpuscular HGB CONC 31.6 g/dL (32.0-36.0); Mean Corpuscular Hemoglobin 29.7 pg (27.0-31.0); Mean Corpuscular Volume 93.9 fL (78.0-98.0); Mean Platelet Volume 7.1 fL (7.4-10.4); Platelet Count 285 thou/uL (130-400); RBC Distribution Width 13.2 % (11.5-14.5); Red Blood Cell (RBC) Count 3.03 mill/uL (4.20-5.40); White Blood Cell (WBC) Count 12.2 thou/uL (4.8-10.8)
[2020-08-30 05:38] LABS: Anion Gap 10 mmol/L (10-20); BUN (Urea Nitrogen) 69 mg/dL (9.8-20.1); Calc. Creatinine Clearance 48 mL/min (70-130); Calcium 9.1 mg/dL (7.8-10.44); Carbon Dioxide 30 mmol/L (22-29); Chloride 103 mmol/L (98-107); Glucose 211 mg/dL (70-105); Potassium 3.9 mmol/L (3.5-5.1); Sodium 139 mmol/L (136-145)
[2020-08-30 05:39] LABS: ALT (SGPT) 11 U/L (8-55); AST (SGOT) 14 U/L (5-34); Albumin 2.6 g/dL (3.5-5.0); Alkaline Phosphatase 130 U/L (40-110); Bilirubin, Direct 0.2 mg/dL (0.1-0.3); Bilirubin, Total 0.3 mg/dL (0.2-1.2); CRP (Inflammatory) 1.77 mg/dL (= or < 0.5); Protein, Total 7.6 g/dL (6.0-8.3)
--- NOTE | 2020-08-30 05:45 | OP ---
DATE OF PROCEDURE: 08/27/2020 PROCEDURE PERFORMED: Right femoral dialysis catheter placement. INDICATION: [place] toxicity. MEDICATION: 1% lidocaine. DETAILS OF PROCEDURE: After informed consent was obtained, patient was prepped and draped in a sterile fashion. The right Trialysis catheter was placed by replacing the right femoral central line over wire. After serial dilatation, catheter was secured and all the ports flushed very well. Insignificant blood loss, and no immediate postop complication. Line is ready for use for dialysis. Job ID: [id number]
[2020-08-30] MEDS: Mometasone 200 MCG/Formoterol 5 MCG 120 PUFF INHALER INH SCH ×2 (06:52→19:31)
[2020-08-30] MEDS: Carvedilol 3.125 MG TAB PO SCH ×2 (08:35→17:33)
[2020-08-30] MEDS: Aripiprazole 10 MG TAB PO SCH ×2 (08:35→21:00)
[2020-08-30] MEDS: Dexamethasone 6 MG in Sodium Chloride 0.9% 50 ML IVPB SCH ×2 (08:36→20:59)
[2020-08-30] MEDS: Famotidine 20 MG TAB PER TUBE SCH ×2 (08:36→21:01)
[2020-08-30] MEDS: risperiDONE 1 MG TAB PO SCH ×2 (08:36→21:00)
[2020-08-30] MEDS: levETIRAcetam in NS 500 MG in Premix Bag 1 BAG IVPB SCH ×2 (08:37→21:00)
[2020-08-30] MEDS: Heparin 5,000 UNITS/ML VIAL SC SCH ×3 (08:37→20:58)
[2020-08-30] MEDS: Cefepime 2 GM in Sodium Chloride 0.9% 100 ML IVPB SCH ×2 (08:37→20:59)
[2020-08-30] MEDS ORDERED: Heparin 10,000 UNITS/ 10 ML VIAL ONE (12:31)
--- NOTE | 2020-08-30 16:29 | PDOC.HOSPP ---
- Subjective Encounter Date: 08/30/20 Encounter Time: 11:55 Subjective: Patient up in bed more awake. - Objective Vital Signs & Weight: Vital Signs (12 hours) Temp Pulse Ox 08/30/20 11:30 97.8 F 08/30/20 08:45 100 08/30/20 08:40 97.5 F L Weight Admit Weight 156 lb 1.396 oz Weight 173 lb Most Recent Monitor Data Heart Rate from ECG 74 NIBP 179/88 NIBP BP-Mean 118 Respiration from ECG 23 SpO2 98 I&O: 08/29/20 08/30/20 08/31/20 06:59 06:59 06:59 Intake Total 705 661 Output Total 530 695 Balance 175 -34 Result Diagrams: 08/30/20 04:30 08/30/20 04:30 Additional Labs: Accuchecks 08/30/20 08/30/20 08/30/20 12:08 05:37 01:08 POC Glucose 151 H 204 H 170 H 08/29/20 18:21 POC Glucose 179 H Hospitalist ROS - Review of Systems Other: Unable to obtain - Medication Medications: Active Medications Generic Name Dose Route Start Last Admin Trade Name Freq PRN Reason Stop Dose Admin Aripiprazole 10 mg 08/24/20 21:00 08/30/20 08:35 Aripiprazole 10 Mg Tab PO 10 mg BID KRYSTAL Administration Benztropine Mesylate 0.5 mg 08/24/20 21:00 08/29/20 20:50 Benztropine 1 Mg Tab PO 0.5 mg BID KRYSTAL Administration Carvedilol 3.125 mg 08/29/20 17:00 08/30/20 08:35 Carvedilol 3.125 Mg Tab PO 3.125 mg BID- KRYSTAL Administration Famotidine 20 mg 08/28/20 09:00 08/30/20 08:36 Famotidine 20 Mg Tab PER TUBE 20 mg BID KRYSTAL Administration Heparin Sodium (Porcine) 5,000 units 08/27/20 21:00 08/30/20 16:05 Heparin 5,000 Units/Ml Vial SC Not Given TID KRYSTAL Hydralazine HCl 10 mg 08/26/20 23:07 08/26/20 23:49 Hydralazine 20 Mg/Ml Vial SLOW IVP 10 mg Q4H PRN Administration SBP >=180 Dexamethasone 6 mg/ Sodium 50.6 mls @ 100 mls/hr 08/23/20 21:00 08/30/20 08:36 Chloride IVPB 50.6 mls BID KRYSTAL Administration Cefepime HCl 2 gm/ Sodium 100 mls @ 200 mls/hr 08/25/20 21:00 08/30/20 08:37 Chloride IVPB 100 mls 0900,2100 KRYSTAL Administration Levetiracetam 500 mg/ Device 100 mls @ 200 mls/hr 08/28/20 21:00 08/30/20 08:37 IVPB 100 mls BID KRYSTAL Administration Insulin Human Lispro 0 units 08/23/20 14:21 08/27/20 16:00 Humalog 300 Units/3 Ml Vial SC 2 unit .MILD SLIDING SCALE PRN Administration Mild Correctional Scale Mometasone Furoate/Formoterol Fumar 2 puff 08/23/20 18:30 08/30/20 06:52 Mometasone 200 Mcg/Formoterol 5 Mcg 120 Puff Inhaler INH Not Given BID-RT KRYSTAL Quetiapine Fumarate 200 mg 08/24/20 21:00 08/30/20 09:29 Quetiapine Fumarate 200 Mg Tab PO 200 mg BID KRYSTAL Administration Risperidone 4 mg 08/24/20 21:00 08/30/20 08:36 Risperidone 1 Mg Tab PO 4 mg BID KRYTSAL Administration Valproic Acid 500 mg 08/24/20 21:00 08/27/20 08:36 Valproate Sodium 250 Mg/5 Ml Ud Cup PO 500 mg BID KRYSTAL Administration - Exam Heart: negative: RRR, no murmur, no gallops, no rubs, normal peripheral pulses, irregular, diminshed peripheral pulses, murmur present, II/IV, III/IV Respiratory: negative: CTAB, no wheezes, no rales, no ronchi, normal chest expansion, no tachypnea, normal percussion, rales, rhonchi, tachypneic, wheezes Gastrointestinal: negative: soft, non-tender, non-distended, normal bowel soun ds, no palpable masses, no hepatomegaly, no splenomegaly, no bruit, no guarding, no rigidity, tender to palpation, distended, diminished bowl sounds, voluntary guarding Extremities: 2+ LE edema Hosp A/P (1) Acute respiratory failure Code(s): J96.00 - ACUTE RESPIRATORY FAILURE, UNSP W HYPOXIA OR HYPERCAPNIA Status: Acute Qualifiers: Respiratory failure complication: hypoxia Qualified Code(s): J96.01 - Acute respiratory failure with hypoxia (2) Bradycardia Code(s): R00.1 - BRADYCARDIA, UNSPECIFIED Status: Acute (3) Pneumonia due to COVID-19 virus Code(s): U07.1 - COVID-19; J12.89 - OTHER VIRAL PNEUMONIA Status: Acute (4) Diabetes mellitus Code(s): E11.9 - TYPE 2 DIABETES MELLITUS WITHOUT COMPLICATIONS Status: Chronic Qualifiers: Diabetes mellitus type: type 2 Diabetes mellitus custodial insulin use: with supervisor intermediates use (5) Hypertension Code(s): I10 - ESSENTIAL (PRIMARY) HYPERTENSION Status: Chronic Qualifiers: Hypertension type: essential hypertension Qualified Code(s): I10 - Essential (primary) hypertension (6) Schizophrenia Code(s): F20.9 - SCHIZOPHRENIA, UNSPECIFIED Status: Chronic Qualifiers: Schizophrenia type: unspecified Qualified Code(s): F20.9 - Schizophrenia, unspecified (7) Hypotension Status: Resolved Qualifiers: Hypotension type: other hypotension type Qualified Code(s): I95.89 - Other hypotension (8) [place] toxicity Code(s): T56.891A - TOXIC EFFECT OF OTH METALS, ACCIDENTAL (UNINTENTIONAL), INIT Status: Acute - Plan Patient is a 59-year-old female past medical history of hypertension diabetes heart failure presents to the hospital with change in mental status. On admission patient was noted to be bradycardic and hypotensive. Patient had bilateral infiltrates consistent with COVID-19 and the test was also positive. Patient was intubated and was transferred to the CCU for further management. Patient was noted to take carvedilol and clonidine which have been stopped. Her blood pressure and her heart rate currently are stabilized. Patient received remdesivir and convalescent plasma. She currently is on steroids. Patient has been taken off of sedation today. 08/26 patient currently off sedation we will continue to monitor we will add as needed blood pressure medications. Patient on steroids, antibiotics and Lasix. Patient also on DVT prophylaxis. 08/27 patient's lithium level significantly elevated will hold lithium for now spoke with nephrology for possible dialysis. Patient really not awake after extubation she has been off sedation last dose of benzodiazepine was at 2 AM on August 27. Spoke with the [employer] soundings group leader who states that patient normally ambulates and talks however at times does not make sense. Patient recently got out of [facility] in [place] she was there for 45 days. She has been in and out of multiple psych facilities. She is on multiple psych medications. The supervisor coke handling at the shelter stated that she just moved in to the shelter on August 20 she was doing well until August 30 when patient started acting strange staring and at this time patient was brought into the hospital and was found to be hypotensive and bradycardic. Patient is also on carvedilol and clonidine which have been discontinued however high doses of lithium can cause bradycardia, encephalopathy, seizure. I also spoke with neurology for possible EEG however given the fact that she has Covid and given the limitation of one machine and one tech no EEG will be performed secondary to patient being Covid positive. We will hold her Depakote for now since that can also cause VICE PRESIDENT OF NEWS depression. We will check a Depakote level. Her initially CT head was negative. Spoke with patient's daughter who has agreed for patient to get dialysis. Patient's daughter's name is Mar Blount phone number is [phone]. We will start patient on some prophylactic Keppra. Unclear if patient's change in mental status is due to underlying psych illness versus seizure versus lithium toxicity versus other. 08/28 patient was dialyzed yesterday x1. [place] level improved today. Compared to yesterday she does withdraw on pain stimulation which is better than yesterday. She still does not follow commands. NG tube placed for feedings. Significant rhonchi noted however her sats are 100%. I will also continue the Keppra for now. We will hold her psych medications for now. 08/29 patient currently off sedation. Does move extremities on painful stimuli she did open her eyes senior care on sternal rubbing. Currently has an NG tube for tube feedings. We will continue with Keppra. [place] level still high however better than before. 08/30 patient to get 1 more dialysis session. She is more awake and tracking. We will start some of her antipsychotic medications. We will continue current antibiotics. Patient on DVT prophylaxis. Have asked the nurse to see if she can swallow.
--- NOTE | 2020-08-30 17:49 | PRG ---
DATE OF SERVICE: 08/30/2020 SUBJECTIVE: The patient was seen. Still very somnolent, noted with the following vital signs. OBJECTIVE: VITAL SIGNS: Blood pressure 178/71, pulse 74, respiratory rate 22, saturations of 100%. HEENT: Unremarkable. CARDIOVASCULAR: First and second heart sounds were heard. RESPIRATORY: Clear to auscultation. DIGESTIVE: Revealed a benign abdomen. Positive bowel sounds. EXTREMITIES: No peripheral edema. SKIN: No new gross rash. LABORATORY INVESTIGATION: Showed a creatinine of 1.56, BUN of 69. IMPRESSION: 1. Acute kidney injury. 2. [place] toxicity. 3. Significant psychiatric problems. PLAN: 1. The patient to be given a second session of dialysis today. Most likely this will be the last session of dialysis to address this patient's lithium toxicity as the to be fluctuating. 2. Renally dose all medications. 3. Further management will be dependent on the clinical course. Job ID: [id number]
[2020-08-30] MEDS: Valproate Sodium 250 mg/5 ml UD Cup PO SCH (21:00)
[2020-08-31 04:03] LABS: #Lymphocytes 1.7 thou/uL (1.20-3.40); #Neutrophils 10.4 thou/uL (1.40-6.50); %Basophils 0.1 % (0.0-1.0); %Eosinophils 0.4 % (0.0-10.0); %Lymphocytes 12.5 % (21.0-51.0); %Monocytes 7.9 % (0.0-10.0); %Neutrophils 79.2 % (42.0-75.0); Hemoglobin 9.4 g/dL (12.0-16.0); Mean Corpuscular HGB CONC 32.2 g/dL (32.0-36.0); Mean Corpuscular Hemoglobin 29.9 pg (27.0-31.0); Mean Corpuscular Volume 92.7 fL (78.0-98.0); Mean Platelet Volume 7.2 fL (7.4-10.4); Platelet Count 324 thou/uL (130-400); RBC Distribution Width 13.2 % (11.5-14.5); Red Blood Cell (RBC) Count 3.13 mill/uL (4.20-5.40); White Blood Cell (WBC) Count 13.2 thou/uL (4.8-10.8)
[2020-08-31 04:24] LABS: ALT (SGPT) 15 U/L (8-55); AST (SGOT) 18 U/L (5-34); Albumin 2.7 g/dL (3.5-5.0); Alkaline Phosphatase 144 U/L (40-110); Anion Gap 12 mmol/L (10-20); BUN (Urea Nitrogen) 40 mg/dL (9.8-20.1); Bilirubin, Direct 0.2 mg/dL (0.1-0.3); Bilirubin, Total 0.4 mg/dL (0.2-1.2); CRP (Inflammatory) 1.49 mg/dL (= or < 0.5); Calc. Creatinine Clearance 56 mL/min (70-130); Calcium 8.7 mg/dL (7.8-10.44); Carbon Dioxide 29 mmol/L (22-29); Chloride 99 mmol/L (98-107); Glucose 246 mg/dL (70-105); Potassium 3.9 mmol/L (3.5-5.1); Protein, Total 7.4 g/dL (6.0-8.3); Sodium 136 mmol/L (136-145)
[2020-08-31] MEDS: HumaLOG 300 UNITS/3 ML VIAL SC PRN (05:59)
[2020-08-31] MEDS: Mometasone 200 MCG/Formoterol 5 MCG 120 PUFF INHALER INH SCH ×2 (08:42→20:15)
[2020-08-31] MEDS: Carvedilol 3.125 MG TAB PO SCH ×2 (09:15→16:13)
[2020-08-31] MEDS: Dexamethasone 6 MG in Sodium Chloride 0.9% 50 ML IVPB SCH ×2 (09:15→20:25)
[2020-08-31] MEDS: Cefepime 2 GM in Sodium Chloride 0.9% 100 ML IVPB SCH ×2 (09:15→20:24)
[2020-08-31] MEDS: Aripiprazole 10 MG TAB PO SCH ×2 (09:15→20:23)
[2020-08-31] MEDS: Valproate Sodium 250 mg/5 ml UD Cup PO SCH ×2 (09:16→20:43)
[2020-08-31] MEDS: levETIRAcetam in NS 500 MG in Premix Bag 1 BAG IVPB SCH ×2 (09:16→20:26)
[2020-08-31] MEDS: risperiDONE 1 MG TAB PO SCH ×2 (09:16→20:24)
[2020-08-31] MEDS: Heparin 5,000 UNITS/ML VIAL SC SCH ×3 (09:16→20:26)
[2020-08-31] MEDS: Famotidine 20 MG TAB PER TUBE SCH ×2 (09:16→20:24)
--- NOTE | 2020-08-31 16:15 | PDOC.HOSPP ---
- Subjective Encounter Date: 08/31/20 Encounter Time: 17:05 Subjective: Patient up in bed more awake however cannot conversation. Patient does say few words at times. - Objective Vital Signs & Weight: Vital Signs (12 hours) Pulse Ox 08/31/20 04:29 100 Weight Admit Weight 156 lb 1.396 oz Weight 173 lb 11.588 oz Most Recent Monitor Data Heart Rate from ECG 70 NIBP 124/61 NIBP BP-Mean 82 Respiration from ECG 17 SpO2 100 I&O: 08/30/20 08/31/20 09/01/20 06:59 06:59 06:59 Intake Total 661 1020 90 Output Total 695 600 Balance -34 420 90 Result Diagrams: 08/31/20 03:30 08/31/20 03:30 Additional Labs: Accuchecks 08/31/20 08/30/20 00:16 17:56 POC Glucose 199 H 162 H Hospitalist ROS - Review of Systems Other: Unable to obtain - Medication Medications: Active Medications Generic Name Dose Route Start Last Admin Trade Name Freq PRN Reason Stop Dose Admin Aripiprazole 10 mg 08/24/20 21:00 08/31/20 09:15 Aripiprazole 10 Mg Tab PO 10 mg BID KRYSTAL Administration Benztropine Mesylate 0.5 mg 08/24/20 21:00 08/29/20 20:50 Benztropine 1 Mg Tab PO 0.5 mg BID KRYSTAL Administration Carvedilol 3.125 mg 08/29/20 17:00 08/31/20 16:13 Carvedilol 3.125 Mg Tab PO 3.125 mg BID-WM KRYSTAL Administration Famotidine 20 mg 08/28/20 09:00 08/31/20 09:16 Famotidine 20 Mg Tab PER TUBE 20 mg BID KRYSTAL Administration Heparin Sodium (Porcine) 5,000 units 08/27/20 21:00 08/31/20 15:16 Heparin 5,000 Units/Ml Vial SC 5,000 units TID KRYSTAL Administration Hydralazine HCl 10 mg 08/26/20 23:07 08/26/20 23:49 Hydralazine 20 Mg/Ml Vial SLOW IVP 10 mg Q4H PRN Administration SBP >=180 Dexamethasone 6 mg/ Sodium 50.6 mls @ 100 mls/hr 08/23/20 21:00 11/29/20 09:15 Chloride IVPB 50.6 mls BID KRYSTAL Administration Cefepime HCl 2 gm/ Sodium 100 mls @ 200 mls/hr 08/25/20 21:00 08/31/20 09:15 Chloride IVPB 100 mls 0900,2100 KRYSTAL Administration Levetiracetam 500 mg/ Device 100 mls @ 200 mls/hr 08/28/20 21:00 08/31/20 0 9:16 IVPB 100 mls BID KRYSTAL Administration Insulin Human Lispro 0 units 08/23/20 14:21 08/31/20 05:59 Humalog 300 Units/3 Ml Vial SC 3 unit .MILD SLIDING SCALE PRN Administration Mild Correctional Scale Mometasone Furoate/Formoterol Fumar 2 puff 08/23/20 18:30 08/31/20 08:42 Mometasone 200 Mcg/Formoterol 5 Mcg 120 Puff Inhaler INH Not Given BID-RT KRYSTAL Quetiapine Fumarate 200 mg 08/24/20 21:00 08/31/20 09:18 Quetiapine Fumarate 200 Mg Tab PO 200 mg BID KRYTSAL Administration Risperidone 4 mg 08/24/20 21:00 08/31/20 09:16 Risperidone 1 Mg Tab PO 4 mg BID KRYSTAL Administration Valproic Acid 500 mg 08/24/20 21:00 08/31/20 09:16 Valproate Sodium 250 Mg/5 Ml Ud Cup PO 500 mg BID KRYSTAL Administration - Exam Neck: negative: supple, symmetric, no JVD, no thyromegaly, no lymphadenopathy, no carotid bruit, JVD Heart: negative: RRR, no murmur, no gallops, no rubs, normal peripheral pulses, irregular, diminshed peripheral pulses, murmur present, II/IV, III/IV Respiratory: negative: CTAB, no wheezes, no rales, no ronchi, normal chest expansion, no tachypnea, normal percussion, rales, rhonchi, tachypneic, wheezes Gastrointestinal: negative: soft, non-tender, non-distended, normal bowel sounds, no palpable masses, no hepatomegaly, no splenomegaly, no bruit, no guarding, no rigidity, tender to palpation, distended, diminished bowl sounds, voluntary guarding Hosp A/P (1) Acute respiratory failure Code(s): J96.00 - ACUTE RESPIRATORY FAILURE, UNSP W HYPOXIA OR HYPERCAPNIA Status: Acute Qualifiers: Respiratory failure complication: hypoxia Qualified Code(s): J96.01 - Acute respiratory failure with hypoxia (2) Bradycardia Code(s): R00.1 - BRADYCARDIA, UNSPECIFIED Status: Acute (3) Pneumonia due to COVID-19 virus Code(s): U07.1 - COVID-19; J12.89 - OTHER VIRAL PNEUMONIA Status: Acute (4) Diabetes mellitus Code(s): E11.9 - TYPE 2 DIABETES MELLITUS WITHOUT COMPLICATIONS Status: Chronic Qualifiers: Diabetes mellitus type: type 2 Diabetes mellitus intermediate manager insulin use: with residential use (5) Hypertension Code(s): I10 - ESSENTIAL (PRIMARY) HYPERTENSION Status: Chronic Qualifiers: Hypertension type: essential hypertension Qualified Code(s): I10 - Essential (primary) hypertension (6) Schizophrenia Code(s): F20.9 - SCHIZOPHRENIA, UNSPECIFIED Status: Chronic Qualifiers: Schizophrenia type: unspecified Qualified Code(s): F20.9 - Schizophrenia, unspecified (7) Hypotension Status: Resolved Qualifiers: Hypotension type: other hypotension type Qualified Code(s): I95.89 - Other hypotension (8) [place] toxicity Code(s): T56.891A - TOXIC EFFECT OF OTH METALS, ACCIDENTAL (UNINTENTIONAL), INIT Status: Acute - Plan Patient is a 59-year-old female past medical history of hypertension diabetes heart failure presents to the hospital with change in mental status. On admission patient was noted to be bradycardic and hypotensive. Patient had bilateral infiltrates consistent with COVID-19 and the test was also positive. Patient was intubated and was transferred to the CCU for further management. Patient was noted to take carvedilol and clonidine which have been stopped. Her blood pressure and her heart rate currently are stabilized. Patient received remdesivir and convalescent plasma. She currently is on steroids. Patient has been taken off of sedation today. 08/26 patient currently off sedation we will continue to monitor we will add as needed blood pressure medications. Patient on steroids, antibiotics and Lasix. Patient also on DVT prophylaxis. 08/27 patient's lithium level significantly elevated will hold lithium for now spoke with nephrology for possible dialysis. Patient really not awake after extubation she has been off sedation last dose of benzodiazepine was at 2 AM on August 27. Spoke with the aquatics group fitness instructor who states that patient normally ambulates and talks however at times does not make sense. Patient recently got out of [facility] in [place] she was there for 45 days. She has been in and out of multiple psych facilities. She is on multiple psych medications. The sawing and assembly supervisor at the shelter stated that she just moved in to the shelter on August 20 she was doing well until August 30 when patient started acting strange staring and at this time patient was brought into the hospital and was found to be hypotensive and bradycardic. Patient is also on carvedilol and clonidine which have been discontinued however high doses of lithium can cause bradycardia, encephalopathy, seizure. I also spoke with neurology for possible EEG however given the fact that she has Covid and given the limitation of one machine and one tech no EEG will be performed secondary to patient being Covid positive. 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 We will check a Depakote level. Her initially CT head was negative. Spoke with patient's daughter who has agreed for patient to get dialysis. Patient's daughter's name is Mar Blount phone number is [phone]. We will start patient on some prophylactic Keppra. Unclear if patient's change in mental status is due to underlying psych illness versus seizure versus lithium toxicity versus other. 08/28 patient was dialyzed yesterday x1. [place] level improved today. C ompared to yesterday she does withdraw on pain stimulation which is better than yesterday. She still does not follow commands. NG tube placed for feedings. Significant rhonchi noted however her sats are 100%. I will also continue the Keppra for now. We will hold her psych medications for now. 08/29 patient currently off sedation. Does move extremities on painful stimuli she did open her eyes group home on sternal rubbing. Currently has an NG tube for tube feedings. We will continue with Keppra. [place] level still high however better than before. 08/30 patient to get 1 more dialysis session. She is more awake and tracking. We will start some of her antipsychotic medications. We will continue current antibiotics. Patient on DVT prophylaxis. Have asked the nurse to see if she ca n swallow. 08/31 patient more awake today. We will continue current antibiotics. Some of her antipsychotics have been started. We will continue DVT prophylaxis. Speech evaluated the patient put on the pured diet will reevaluate again tomorrow. Hopefully will be able to take the NG tube out soon.
--- NOTE | 2020-08-31 23:27 | PRG ---
DATE OF SERVICE: 08/31/2020 SUBJECTIVE: The patient is seen and examined, seems to be much more alert. Noted with the following vital signs. OBJECTIVE: VITAL SIGNS: Blood pressure 157/76, pulse of 80, respiratory rate of 26, O2 saturations 100%. HEENT: Unremarkable. CARDIOVASCULAR SYSTEM: First and second heart sounds are heard. RESPIRATORY SYSTEM: Clear to auscultation. DIGESTIVE SYSTEM: Revealed a benign abdomen with positive bowel sounds. EXTREMITIES: No peripheral edema. SKIN: No new gross rash. LYMPHATICS: No peripheral lymphadenopathy. IMPRESSION: 1. [place] toxicity. 2. Acute kidney injury. PLAN: 1. We will dialyze this patient . 2. Further management will be dependent on the clinical course. Job ID: [id number]
[2020-09-01] MEDS: HumaLOG 300 UNITS/3 ML VIAL SC PRN ×2 (00:18→05:43)
[2020-09-01 05:02] LABS: #Eosinphils 0.1 thou/uL (0.0-0.7); #Monocytes 1.6 thou/uL (0.11-0.59); #Neutrophils 9.6 thou/uL (1.40-6.50); %Basophils 0.3 % (0.0-1.0); %Eosinophils 0.4 % (0.0-10.0); %Lymphocytes 14.8 % (21.0-51.0); %Monocytes 12.2 % (0.0-10.0); %Neutrophils 72.2 % (42.0-75.0); Hemoglobin 9.2 g/dL (12.0-16.0); Mean Corpuscular HGB CONC 32.3 g/dL (32.0-36.0); Platelet Count 351 thou/uL (130-400); RBC Distribution Width 13.5 % (11.5-14.5); Red Blood Cell (RBC) Count 3.06 mill/uL (4.20-5.40); White Blood Cell (WBC) Count 13.3 thou/uL (4.8-10.8)
[2020-09-01 05:21] LABS: Anion Gap 10 mmol/L (10-20); BUN (Urea Nitrogen) 55 mg/dL (9.8-20.1); Calc. Creatinine Clearance 47 mL/min (70-130); Calcium 8.8 mg/dL (7.8-10.44); Carbon Dioxide 29 mmol/L (22-29); Chloride 102 mmol/L (98-107); Glucose 286 mg/dL (70-105); Sodium 137 mmol/L (136-145)
[2020-09-01] MEDS: Mometasone 200 MCG/Formoterol 5 MCG 120 PUFF INHALER INH SCH ×2 (05:54→20:03)
[2020-09-01 07:09] LABS: ALT (SGPT) 12 U/L (8-55); AST (SGOT) 14 U/L (5-34); Albumin 2.7 g/dL (3.5-5.0); Alkaline Phosphatase 156 U/L (40-110); Bilirubin, Direct 0.1 mg/dL (0.1-0.3); Bilirubin, Total 0.3 mg/dL (0.2-1.2); CRP (Inflammatory) 0.87 mg/dL (= or < 0.5); Protein, Total 7.4 g/dL (6.0-8.3)
[2020-09-01] MEDS: Aripiprazole 10 MG TAB PO SCH ×2 (08:58→21:43)
[2020-09-01] MEDS: Carvedilol 3.125 MG TAB PO SCH ×2 (08:58→18:26)
[2020-09-01] MEDS: risperiDONE 1 MG TAB PO SCH ×2 (08:58→21:43)
[2020-09-01] MEDS: Cefepime 2 GM in Sodium Chloride 0.9% 100 ML IVPB SCH ×2 (08:58→21:44)
[2020-09-01] MEDS: Famotidine 20 MG TAB PER TUBE SCH ×2 (08:58→21:43)
[2020-09-01] MEDS: levETIRAcetam in NS 500 MG in Premix Bag 1 BAG IVPB SCH ×2 (08:58→21:43)
[2020-09-01] MEDS: Dexamethasone 6 MG in Sodium Chloride 0.9% 50 ML IVPB SCH ×2 (08:59→21:44)
[2020-09-01] MEDS: Valproate Sodium 250 mg/5 ml UD Cup PO SCH ×2 (08:59→21:42)
[2020-09-01] MEDS: Heparin 5,000 UNITS/ML VIAL SC SCH ×3 (08:59→21:43)
--- NOTE | 2020-09-01 17:45 | PDOC.HOSPP ---
- Subjective Encounter Date: 09/01/20 Encounter Time: 11:15 Subjective: Patient up in bed more awake. However per nursing staff she is not swallowing pured food. She is able to tolerate pudding. Mentation continues to improve. Patient follows commands. - Objective Vital Signs & Weight: Vital Signs (12 hours) Temp Pulse Pulse BP BP Pulse Ox Pulse Ox 09/01/20 15:02 80 81 164/81 H 166/85 H 99 09/01/20 12:17 97 09/01/20 08:12 99.4 F Pulse Ox 09/01/20 15:02 98 09/01/20 12:17 09/01/20 08:12 Weight Admit Weight 156 lb 1.396 oz Weight 173 lb 11.588 oz Most Recent Monitor Data Heart Rate from ECG 78 NIBP 172/87 NIBP BP-Mean 115 Respiration from ECG 19 SpO2 97 I&O: 08/31/20 09/01/20 09/02/20 06:59 06:59 06:59 Intake Total 1020 1135 90 Output Total 600 850 Balance 420 285 90 Result Diagrams: 09/01/20 04:45 09/01/20 04:45 Additional Labs: Accuchecks 09/01/20 09/01/20 09/01/20 14:47 05:48 00:17 POC Glucose 262 H 291 H 323 H 08/31/20 08/31/20 08/29/20 17:56 05:54 12:39 POC Glucose 275 H 223 H 146 H Hospitalist ROS - Review of Systems Other: Unable to obtain - Medication Medications: Active Medications Generic Name Dose Route Start Last Admin Trade Name Jonny PRN Reason Stop Dose Admin Aripiprazole 10 mg 08/24/20 21:00 09/01/20 08:58 Aripiprazole 10 Mg Tab PO 10 mg BID KRYSTAL Administration Benztropine Mesylate 0.5 mg 08/24/20 21:00 08/29/20 20:50 Benztropine 1 Mg Tab PO 0.5 mg BID KRYSTAL Administration Carvedilol 3.125 mg 08/29/20 17:00 09/01/20 08:58 Carvedilol 3.125 Mg Tab PO 3.125 mg BID-WM KRYSTAL Administration Famotidine 20 mg 08/28/20 09:00 09/01/20 08:58 Famotidine 20 Mg Tab PER TUBE 20 mg BID KRYSTAL Administration Heparin Sodium (Porcine) 5,000 units 08/27/20 21:00 09/01/20 08:59 Heparin 5,000 Units/Ml Vial SC 5,000 units TID KRYSTAL Administration Hydralazine HCl 10 mg 08/26/20 23:07 08/26/20 23:49 Hydralazine 20 Mg/Ml Vial SLOW IVP 10 mg Q4H PRN Administration SBP >=180 Dexamethasone 6 mg/ Sodium 50.6 mls @ 100 mls/hr 08/23/20 21:00 09/01/20 08:59 Chloride IVPB 50.6 mls BID KRYSTAL Administration Cefepime HCl 2 gm/ Sodium 100 mls @ 200 mls/hr 08/25/20 21:00 09/01/20 08:58 Chloride IVPB 100 mls 0900,2100 KRYSTAL Administration Levetiracetam 500 mg/ Device 100 mls @ 200 mls/hr 08/28/20 21:00 09/01/20 08: 58 IVPB 100 mls BID KRYSTAL Administration Insulin Human Lispro 0 units 08/23/20 14:21 09/01/20 05:43 Humalog 300 Units/3 Ml Vial SC 4 unit .MILD SLIDING SCALE PRN Administration Mild Correctional Scale Mometasone Furoate/Formoterol Fumar 2 puff 08/23/20 18:30 09/01/20 05:54 Mometasone 200 Mcg/Formoterol 5 Mcg 120 Puff Inhaler INH Not Given BID-RT KRYSTAL Quetiapine Fumarate 200 mg 08/24/20 21:00 09/01/20 08:58 Quetiapine Fumarate 200 Mg Tab PO 200 mg BID KRYSTAL Administration Risperidone 4 mg 08/24/20 21:00 09/01/20 08:58 Risperidone 1 Mg Tab PO 4 mg BID KRYSTAL Administration Valproic Acid 500 mg 08/24/20 21:00 09/01/20 08:59 Valproate Sodium 250 Mg/5 Ml Ud Cup PO 500 mg BID KRYSTAL Administration - Exam Neck: negative: supple, symmetric, no JVD, no thyromegaly, no lymphadenopathy, no carotid bruit, JVD Heart: negative: RRR, no murmur, no gallops, no rubs, normal peripheral pulses, irregular, diminshed peripheral pulses, murmur present, II/IV, III/IV Respiratory: negative: CTAB, no wheezes, no rales, no ronchi, normal chest expansion, no tachypnea, normal percussion, rales, rhonchi, tachypneic, wheezes Gastrointestinal: negative: soft, non-tender, non-distended, normal bowel sounds, no palpable masses, no hepatomegaly, no splenomegaly, no bruit, no guarding, no rigidity, tender to palpation, distended, diminished bowl sounds, voluntary guarding Hosp A/P (1) Acute respiratory failure Code(s): J96.00 - ACUTE RESPIRATORY FAILURE, UNSP W HYPOXIA OR HYPERCAPNIA Status: Acute Qualifiers: Respiratory failure complication: hypoxia Qualified Code(s): J96.01 - Acute respiratory failure with hypoxia (2) Bradycardia Code(s): R00.1 - BRADYCARDIA, UNSPECIFIED Status: Acute (3) Pneumonia due to COVID-19 virus Code(s): U07.1 - COVID-19; J12.89 - OTHER VIRAL PNEUMONIA Status: Acute (4) Diabetes mellitus Code(s): E11.9 - TYPE 2 DIABETES MELLITUS WITHOUT COMPLICATIONS Status: Chronic Qualifiers: Diabetes mellitus type: type 2 Diabetes mellitus terminal make up operator insulin use: with intermediate use (5) Hypertension Code(s): I10 - ESSENTIAL (PRIMARY) HYPERTENSION Status: Chronic Qualifiers: Hypertension type: essential hypertension Qualified Code(s): I10 - Essential (primary) hypertension (6) Schizophrenia Code(s): F20.9 - SCHIZOPHRENIA, UNSPECIFIED Status: Chronic Qualifiers: Schizophrenia type: unspecified Qualified Code(s): F20.9 - Schizophrenia, unspecified (7) Hypotension Status: Resolved Qualifiers: Hypotension type: other hypotension type Qualified Code(s): I95.89 - Other hypotension (8) [place] toxicity Code(s): T56.891A - TOXIC EFFECT OF OTH METALS, ACCIDENTAL (UNINTENTIONAL), INIT Status: Acute - Plan Patient is a 59-year-old female past medical history of hypertension diabetes heart failure presents to the hospital with change in mental status. On admission patient was noted to be bradycardic and hypotensive. Patient had bilateral infiltrates consistent with COVID-19 and the test was also positive. Patient was intubated and was transferred to the CCU for further management. Patient was noted to take carvedilol and clonidine which have been stopped. Her blood pressure and her heart rate currently are stabilized. Patient received remdesivir and convalescent plasma. She currently is on steroids. Patient has been taken off of sedation today. 08/26 patient currently off sedation we will continue to monitor we will add as needed blood pressure medications. Patient on steroids, antibiotics and Lasix. Patient also on DVT prophylaxis. 08/27 patient's lithium level significantly elevated will hold lithium for now spoke with nephrology for possible dialysis. Patient really not awake after extubation she has been off sedation last dose of benzodiazepine was at 2 AM on August 27. Spoke with the district supervisor who states that patient normally ambulates and talks however at times does not make sense. Patient recently got out of [facility] in [place] she was there for 45 days. She has been in and out of multiple psych facilities. She is on multiple psych medications. The materials supervisor at the intermediate stated that she just moved in to the intermediate on August 20 she was doing well until August 30 when patient started acting strange staring and at this time patient was brought into the hospital and was found to be hypotensive and bradycardic. Patient is also on ca rvedilol and clonidine which have been discontinued however high doses of lithium can cause bradycardia, encephalopathy, seizure. I also spoke with neurology for possible EEG however given the fact that she has Covid and given the limitation of one machine and one tech no EEG will be performed secondary to patient being Covid positive. We will hold her Depakote for now since that can also cause HEAD OF HISTORY depression. We will check a Depakote level. Her initially CT head was negative. Spoke with patient's daughter who has agreed for patient to get dialysis. Patient's daughter's name is Mar Blount phone number is [phone]. We will start patient on some prophylactic Keppra. Unclear if patient's change in mental status is due to underlying psych illness versus seizure versus lithium toxicity versus other. 08/28 patient was dialyzed yesterday x1. [place] level improved today. Com pared to yesterday she does withdraw on pain stimulation which is better than yesterday. She still does not follow commands. NG tube placed for feedings. Significant rhonchi noted however her sats are 100%. I will also continue the Keppra for now. We will hold her psych medications for now. 08/29 patient currently off sedation. Does move extremities on painful stimuli she did open her eyes half-way on sternal rubbing. Currently has an NG tube for tube feedings. We will continue with Rohit. [place] level still high however better than before. 08/30 patient to get 1 more dialysis session. She is more awake and tracking. We will start some of her antipsychotic medications. We will continue current antibiotics. Patient on DVT prophylaxis. Have asked the nurse to see if she can swallow. 08/31 patient more awake today. We will continue current antibiotics. Some of her antipsychotics have been started. We will continue DVT prophylaxis. Speech evaluated the patient put on the pured diet will reevaluate again tomorrow. Hopefully will be able to take the NG tube out soon. 09/01 patient's mentation continues to improve. We will continue current antibiotics. Her lithium level has improved. We will continue DVT prophylaxis. Hopefully in the next 2448 hrs. patient will be able to tolerate oral and will remove the NG feeding. She is able to eat pudding. She did try to converse with me today.
--- NOTE | 2020-09-01 19:37 | PRG ---
DATE OF SERVICE: 09/01/2020 SUBJECTIVE: The patient noted with the following vital signs. OBJECTIVE: VITAL SIGNS: Blood pressure 161/87, pulse of 77, respiratory rate of 17, and O2 saturation of 97%. HEENT: Unremarkable. CARDIOVASCULAR SYSTEM: First and second heart sounds were heard. RESPIRATORY SYSTEM: Clear to auscultation. DIGESTIVE SYSTEM: Revealed a benign abdomen. EXTREMITIES: No peripheral edema. SKIN: No new gross rash. LYMPHATICS: No peripheral lymphadenopathy. LABORATORY INVESTIGATION: Showed a creatinine of 1.62 and BUN of 55. IMPRESSION: 1. [place] toxicity, which seems to have improved, status post initiation of some dialysis. 2. Acute kidney injury. PLAN: 1. No further indication for dialysis, therefore we will discontinue and remove this patient's dialysis catheter. 2. Further management to be dependent on the clinical course. Job ID: [id number]
[2020-09-02] MEDS: HumaLOG 300 UNITS/3 ML VIAL SC PRN ×3 (01:39→12:45)
[2020-09-02 03:59] LABS: #Basophils 0.1 thou/uL (0.0-0.2); #Lymphocytes 1.5 thou/uL (1.20-3.40); #Neutrophils 9.3 thou/uL (1.40-6.50); %Basophils 0.6 % (0.0-1.0); %Eosinophils 0.4 % (0.0-10.0); %Lymphocytes 12.8 % (21.0-51.0); %Monocytes 8.6 % (0.0-10.0); %Neutrophils 77.7 % (42.0-75.0); Hemoglobin 8.3 g/dL (12.0-16.0); Mean Corpuscular HGB CONC 31.7 g/dL (32.0-36.0); Mean Corpuscular Hemoglobin 29.4 pg (27.0-31.0); Mean Corpuscular Volume 92.7 fL (78.0-98.0); Mean Platelet Volume 7.4 fL (7.4-10.4); Platelet Count 311 thou/uL (130-400); RBC Distribution Width 13.7 % (11.5-14.5); Red Blood Cell (RBC) Count 2.83 mill/uL (4.20-5.40)
[2020-09-02 04:21] LABS: ALT (SGPT) 9 U/L (8-55); AST (SGOT) 11 U/L (5-34); Albumin 2.5 g/dL (3.5-5.0); Alkaline Phosphatase 138 U/L (40-110); Bilirubin, Direct 0.1 mg/dL (0.1-0.3); Bilirubin, Total 0.2 mg/dL (0.2-1.2); CRP (Inflammatory) Less than 0.50 mg/dL (= or < 0.5); Protein, Total 6.7 g/dL (6.0-8.3)
[2020-09-02 04:26] LABS: Anion Gap 11 mmol/L (10-20); BUN (Urea Nitrogen) 64 mg/dL (9.8-20.1); Calc. Creatinine Clearance 47 mL/min (70-130); Calcium 8.6 mg/dL (7.8-10.44); Carbon Dioxide 27 mmol/L (22-29); Chloride 105 mmol/L (98-107); Glucose 354 mg/dL (70-105); Potassium 4.1 mmol/L (3.5-5.1); Sodium 139 mmol/L (136-145)
[2020-09-02] MEDS: Mometasone 200 MCG/Formoterol 5 MCG 120 PUFF INHALER INH SCH ×2 (08:57→21:23)
[2020-09-02] MEDS: Carvedilol 3.125 MG TAB PO SCH ×2 (09:24→17:06)
[2020-09-02] MEDS: risperiDONE 1 MG TAB PO SCH ×2 (09:24→20:33)
[2020-09-02] MEDS: Benztropine 1 MG TAB PO SCH ×2 (09:24→20:34)
[2020-09-02] MEDS: Cefepime 2 GM in Sodium Chloride 0.9% 100 ML IVPB SCH ×2 (09:24→20:35)
[2020-09-02] MEDS: Valproate Sodium 250 mg/5 ml UD Cup PO SCH ×2 (09:24→20:36)
[2020-09-02] MEDS: Aripiprazole 10 MG TAB PO SCH ×2 (09:24→20:34)
[2020-09-02] MEDS: Dexamethasone 6 MG in Sodium Chloride 0.9% 50 ML IVPB SCH ×2 (09:24→20:35)
[2020-09-02] MEDS: Heparin 5,000 UNITS/ML VIAL SC SCH ×3 (09:25→20:37)
[2020-09-02] MEDS: Famotidine 20 MG TAB PER TUBE SCH (09:25)
[2020-09-02] MEDS: levETIRAcetam in NS 500 MG in Premix Bag 1 BAG IVPB SCH (11:20)
--- NOTE | 2020-09-02 15:00 | PDOC.HOSPP ---
- Subjective Encounter Date: 09/02/20 Encounter Time: 11:45 Subjective: Patient up in bed more awake follows commands - Objective Vital Signs & Weight: Vital Signs (12 hours) Temp Pulse Ox 09/02/20 10:56 100 09/02/20 08:00 97.9 F Weight Admit Weight 156 lb 1.396 oz Weight 167 lb 8.821 oz Most Recent Monitor Data Heart Rate from ECG 74 NIBP 155/86 NIBP BP-Mean 109 Respiration from ECG 16 SpO2 100 I&O: 09/01/20 09/02/20 09/03/20 06:59 06:59 06:59 Intake Total 1135 960 60 Output Total 850 1050 Balance 285 -90 60 Result Diagrams: 09/02/20 03:42 09/02/20 03:42 Additional Labs: Accuchecks 09/02/20 09/02/20 09/02/20 12:40 05:49 00:37 POC Glucose 275 H 339 H 301 H 09/01/20 14:47 POC Glucose 262 H Hospitalist ROS - Review of Systems Other: Unable to comprehend enough to tell me review of systems. - Medication Medications: Active Medications Generic Name Dose Route Start Last Admin Trade Name Freq PRN Reason Stop Dose Admin Aripiprazole 10 mg 08/24/20 21:00 09/02/20 09:24 Aripiprazole 10 Mg Tab PO 10 mg BID KRYSTAL Administration Benztropine Mesylate 0.5 mg 08/24/20 21:00 09/02/20 09:24 Benztropine 1 Mg Tab PO 0.5 mg BID KRYSTAL Administration Carvedilol 3.125 mg 08/29/20 17:00 09/02/20 09:24 Carvedilol 3.125 Mg Tab PO 3.125 mg BID-WM KRYSTAL Administration Heparin Sodium (Porcine) 5,000 units 08/27/20 21:00 09/02/20 09:25 Heparin 5,000 Units/Ml Vial SC 5,000 units TID KRYSTAL Administration Hydralazine HCl 10 mg 08/26/20 23:07 08/26/20 23:49 Hydralazine 20 Mg/Ml Vial SLOW IVP 10 mg Q4H PRN Administration SBP >=180 Dexamethasone 6 mg/ Sodium 50.6 mls @ 100 mls/hr 08/23/20 21:00 09/02/20 09:24 Chloride IVPB 50.6 mls BID KRYSTAL Administration Cefepime HCl 2 gm/ Sodium 100 mls @ 200 mls/hr 08/25/20 21:00 09/02/20 09:24 Chloride IVPB 100 mls 0900,2100 KRYSTAL Administration Levetiracetam 500 mg/ Device 100 mls @ 200 mls/hr 08/28/20 21:00 09/02/20 11:20 IVPB Not Given BID KRYSTAL Insulin Human Lispro 0 units 08/23/20 14:21 09/02/20 12:45 Humalog 300 Units/3 Ml Vial SC 4 unit .MILD SLIDING SCALE PRN Administration Mild Correctional Scale Insulin Human Lispro 0 units 08/23/20 14:21 09/02/20 01:39 Humalog 300 Units/3 Ml Vial SC 4 units .BEDTIME SLIDING SC PRN Administration Bedtime Correctional Scale Mometasone Furoate/Formoterol Fumar 2 puff 08/23/20 18:30 09/02/20 08:57 Mometasone 200 Mcg/Formoterol 5 Mcg 120 Puff Inhaler INH Not Given BID-RT KRYSTAL Quetiapine Fumarate 200 mg 08/24/20 21:00 09/02/20 09:25 Quetiapine Fumarate 200 Mg Tab PO 200 mg BID KRYSTAL Administration Risperidone 4 mg 08/24/20 21:00 09/02/20 09:24 Risperidone 1 Mg Tab PO 4 mg BID KRYSTAL Administration Valproic Acid 500 mg 08/24/20 21:00 09/02/20 09:24 Valproate Sodium 250 Mg/5 Ml Ud Cup PO 500 mg BID KRYSTAL Administration - Exam Neck: negative: supple, symmetric, no JVD, no thyromegaly, no lymphadenopathy, no carotid bruit, JVD Heart: negative: RRR, no murmur, no gallops, no rubs, normal peripheral pulses, irregular, diminshed peripheral pulses, murmur present, II/IV, III/IV Respiratory: rhonchi Gastrointestinal: negative: soft, non-tender, non-distended, normal bowel s ounds, no palpable masses, no hepatomegaly, no splenomegaly, no bruit, no guarding, no rigidity, tender to palpation, distended, diminished bowl sounds, voluntary guarding Hosp A/P (1) Acute respiratory failure Code(s): J96.00 - ACUTE RESPIRATORY FAILURE, UNSP W HYPOXIA OR HYPERCAPNIA Status: Acute Qualifiers: Respiratory failure complication: hypoxia Qualified Code(s): J96.01 - Acute respiratory failure with hypoxia (2) Bradycardia Code(s): R00.1 - BRADYCARDIA, UNSPECIFIED Status: Acute (3) Pneumonia due to COVID-19 virus Code(s): U07.1 - COVID-19; J12.89 - OTHER VIRAL PNEUMONIA Status: Acute (4) Diabetes mellitus Code(s): E11.9 - TYPE 2 DIABETES MELLITUS WITHOUT COMPLICATIONS Status: Chronic Qualifiers: Diabetes mellitus type: type 2 Diabetes mellitus snf insulin use: with exterminator helper termite use (5) Hypertension Code(s): I10 - ESSENTIAL (PRIMARY) HYPERTENSION Status: Chronic Qualifiers: Hypertension type: essential hypertension Qualified Code(s): I10 - Ess ential (primary) hypertension (6) Schizophrenia Code(s): F20.9 - SCHIZOPHRENIA, UNSPECIFIED Status: Chronic Qualifiers: Schizophrenia type: unspecified Qualified Code(s): F20.9 - Schizophrenia, unspecified (7) Hypotension Status: Resolved Qualifiers: Hypotension type: other hypotension type Qualified Code(s): I95.89 - Other hypotension (8) [place] toxicity Code(s): T56.891A - TOXIC EFFECT OF OTH METALS, ACCIDENTAL (UNINTENTIONAL), INIT Status: Acute - Plan Patient is a 59-year-old female past medical history of hypertension diabetes heart failure presents to the hospital with change in mental status. On admission patient was noted to be bradycardic and hypotensive. Patient had bilateral infiltrates consistent with COVID-19 and the test was also positive. Patient was intubated and was transferred to the CCU for further management. Patient was noted to take carvedilol and clonidine which have been stopped. Her blood pressure and her heart rate currently are stabilized. Patient received remdesivir and convalescent plasma. She currently is on steroids. Patient has been taken off of sedation today. 08/26 patient currently off sedation we will continue to monitor we will add as needed blood pressure medications. Patient on steroids, antibiotics and Lasix. Patient also on DVT prophylaxis. 08/27 patient's lithium level significantly elevated will hold lithium for now spoke with nephrology for possible dialysis. Patient really not awake after ex tubation she has been off sedation last dose of benzodiazepine was at 2 AM on August 27. Spoke with the engineering group manager who states that patient normally ambulates and talks however at times does not make sense. Patient recently got out of [facility] in [place] she was there for 45 days. She has been in and out of multiple psych facilities. She is on multiple psych medications. The tumbling and rolling supervisor at the skilled nursing stated that she just moved in to the skilled nursing on August 20 she was doing well until August 30 when patient started acting strange staring and at this time patient was brought into the hospital and was found to be hypotensive and bradycardic. Patient is also on carvedilol and clonidine which have been discontinued however high doses of lithium can cause bradycardia, encephalopathy, seizure. I also spoke with neurology for possible EEG however given the fact that she has Covid and given the limitation of one machine and one tech no EEG will be performed secondary to patient being Covid positive. We will hold her Depakote for now since that can also cause AEROSPACE STRESS ENGINEER depression. We will check a Depakote level. Her initially CT head was negative. Spoke with patient's daughter who has agreed for patient to get dialysis. Patient's daughter's name is Mar Blount phone number is [phone]. We will start patient on some prophylactic Keppra. Unclear if patient's change in mental status is due to underlying psych illness versus seizure versus lithium toxicity versus other. 08/28 patient was dialyzed yesterday x1. [place] level improved today. Compared to yesterday she does withdraw on pain stimulation which is better than yesterday. She still does not follow commands. NG tube placed for feedings. Significant rhonchi noted however her sats are 100%. I will also continue the Keppra for now. We will hold her psych medications for now. 08/29 patient currently off sedation. Does move extremities on painful stimuli she did open her eyes m[facility]p on sternal rubbing. Currently has an NG tube for tube feedings. We will continue with Keppra. [place] level still high however better than before. 08/30 patient to get 1 more dialysis session. She is more awake and tracking. We will start some of her antipsychotic medications. We will continue current antibiotics. Patient on DVT prophylaxis. Have asked the nurse to see if she can swallow. 08/31 patient more awake today. We will continue current antibiotics. Some of her antipsychotics have been started. We will continue DVT prophylaxis. Speech evaluated the patient put on the pured diet will reevaluate again tomorrow. Hopefully will be able to take the NG tube out soon. 09/01 patient's mentation continues to improve. We will continue current antibiotics. Her lithium level has improved. We will continue DVT prophylaxis. Hopefully in the next 2448 hrs. patient will be able to tolerate oral and will remove the NG feeding. She is able to eat pudding. She did try to converse with me today. 09/02 patient more awake we will start her on a pured diet will get up with physical therapy if she tolerates her dinner well will remove her NG tube. Mild MEETA we will continue to monitor. Patient started on antibiotics 1123 we will stop tomorrow. Culture from bronchoscopy indicated MSSA.
--- NOTE | 2020-09-02 17:02 | PRG ---
DATE OF SERVICE: 09/02/2020 OBJECTIVE: VITAL SIGNS: The patient noted with the following vital signs. Blood pressure 154/72, pulse of 83, respiratory rate of 18, O2 saturation 100%. HEENT: Unremarkable. CARDIOVASCULAR SYSTEM: First and second heart sounds were heard. RESPIRATORY SYSTEM: Clear to auscultation. DIGESTIVE SYSTEM: Revealed a benign abdomen. Positive bowel sounds. EXTREMITIES: No peripheral edema. SKIN: No new gross rash. LYMPHATICS: No peripheral lymphadenopathy. LABORATORY INVESTIGATION: Showed a hemoglobin of 8.3. Chemistry showed a creatinine of 1.61, BUN of 64. IMPRESSION: 1. [place] toxicity much improved, status post dialysis. 2. Acute kidney injury. PLAN: 1. Continue current renal supportive measures. 2. Further management to be dependent on the clinical course. Job ID: [id number]
[2020-09-03] MEDS: HumaLOG 300 UNITS/3 ML VIAL SC PRN ×4 (00:57→23:32)
[2020-09-03 04:08] LABS: #Lymphocytes 1.6 thou/uL (1.20-3.40); #Monocytes 0.9 thou/uL (0.11-0.59); #Neutrophils 9.4 thou/uL (1.40-6.50); %Basophils 0.2 % (0.0-1.0); %Eosinophils 0.4 % (0.0-10.0); %Lymphocytes 13.4 % (21.0-51.0); %Monocytes 7.4 % (0.0-10.0); %Neutrophils 78.6 % (42.0-75.0); Hemoglobin 7.4 g/dL (12.0-16.0); Mean Corpuscular HGB CONC 32.4 g/dL (32.0-36.0); Mean Corpuscular Hemoglobin 30.4 pg (27.0-31.0); Mean Corpuscular Volume 93.8 fL (78.0-98.0); Mean Platelet Volume 7.8 fL (7.4-10.4); Platelet Count 299 thou/uL (130-400); RBC Distribution Width 13.7 % (11.5-14.5); Red Blood Cell (RBC) Count 2.44 mill/uL (4.20-5.40)
[2020-09-03 04:30] LABS: ALT (SGPT) 9 U/L (8-55); AST (SGOT) 11 U/L (5-34); Albumin 2.5 g/dL (3.5-5.0); Alkaline Phosphatase 124 U/L (40-110); Anion Gap 9 mmol/L (10-20); BUN (Urea Nitrogen) 68 mg/dL (9.8-20.1); Bilirubin, Direct 0.1 mg/dL (0.1-0.3); Bilirubin, Total 0.2 mg/dL (0.2-1.2); CRP (Inflammatory) Less than 0.50 mg/dL (= or < 0.5); Calc. Creatinine Clearance 49 mL/min (70-130); Calcium 8.9 mg/dL (7.8-10.44); Carbon Dioxide 28 mmol/L (22-29); Chloride 109 mmol/L (98-107); Glucose 330 mg/dL (70-105); Potassium 4.4 mmol/L (3.5-5.1); Protein, Total 6.3 g/dL (6.0-8.3); Sodium 142 mmol/L (136-145)
[2020-09-03] MEDS: Mometasone 200 MCG/Formoterol 5 MCG 120 PUFF INHALER INH SCH ×2 (05:40→20:12)
[2020-09-03] MEDS: Aripiprazole 10 MG TAB PO SCH ×2 (09:06→20:15)
[2020-09-03] MEDS: Benztropine 1 MG TAB PO SCH ×2 (09:06→20:14)
[2020-09-03] MEDS: risperiDONE 1 MG TAB PO SCH ×2 (09:07→20:15)
[2020-09-03] MEDS: Carvedilol 3.125 MG TAB PO SCH ×2 (09:08→16:49)
[2020-09-03] MEDS: Famotidine 20 MG TAB PER TUBE SCH (09:08)
[2020-09-03] MEDS: Valproate Sodium 250 mg/5 ml UD Cup PO SCH ×2 (09:08→20:15)
[2020-09-03] MEDS: Dexamethasone 6 MG in Sodium Chloride 0.9% 50 ML IVPB SCH (09:08)
[2020-09-03] MEDS: Cefepime 2 GM in Sodium Chloride 0.9% 100 ML IVPB SCH (09:09)
[2020-09-03] MEDS: Heparin 5,000 UNITS/ML VIAL SC SCH ×3 (09:09→20:16)
[2020-09-03] MEDS ORDERED: Furosemide 20 MG/2 ML VIAL SLOW IVP SCH (09:30)
--- NOTE | 2020-09-03 09:40 | PRG ---
DATE OF SERVICE: SUBJECTIVE: Ms. Blount is resting comfortably. Her blood pressure is high, 165/70 and pulse is 62, is in the 50s earlier, the nurse tells me. OBJECTIVE: Physical examination not done. The patient is COVID positive. In an attempt to reduce contacts, the patient was not examined today. LABORATORY DATA: Hemoglobin is 7.4, hematocrit 22.9. Creatinine is stable at 1.48. ASSESSMENT: 1. COVID pneumonia. 2. Bradycardia, resolved. 3. Probably diastolic heart failure. Unfortunately, cannot get an echocardiogram. Currently, the protocol is not to do echos on COVID positive patients. PLAN: 1. We will give her single dose of furosemide 20 mg IV x1. 2. Consideration for chest x-ray tomorrow. Job ID: [id number]
--- NOTE | 2020-09-03 15:30 | PDOC.HOSPP ---
- Subjective Encounter Date: 09/03/20 Encounter Time: 11:15 Subjective: Patient up in bed more awake. We will also nurse to remove her NG tube. - Objective Vital Signs & Weight: Vital Signs (12 hours) Temp Pulse Ox 09/03/20 11:03 97.3 F L 09/03/20 08:00 97 F L 98 09/03/20 03:31 96 Weight Admit Weight 156 lb 1.396 oz Weight 171 lb 15.369 oz Most Recent Monitor Data Heart Rate from ECG 77 NIBP 170/79 NIBP BP-Mean 109 Respiration from ECG 15 SpO2 99 I&O: 09/02/20 09/03/20 09/04/20 06:59 06:59 06:59 Intake Total 960 290 Output Total 1050 1250 Balance -90 -960 Result Diagrams: 09/03/20 03:42 09/03/20 03:42 Additional Labs: Accuchecks 09/03/20 09/03/20 09/03/20 10:17 05:45 00:55 POC Glucose 158 H 226 H 332 H Hospitalist ROS - Review of Systems Respiratory: denies: cough, dry, shortness of breath, hemoptysis, SOB with excertion, pleuritic pain, sputum, wheezing, other Cardiovascular: denies: chest pain, palpitations, orthopnea, paroxysmal noc. dyspnea, edema, light headedness, other Gastrointestinal: denies: nausea, vomiting, abdominal pain, diarrhea, constipation, melena, hematochezia, other Genitourinary: denies: dysuria, frequency, incontinence, hematuria, retention, other - Medication Medications: Active Medications Generic Name Dose Route Start Last Admin Trade Name Juvenalq PRN Reason Stop Dose Admin Aripiprazole 10 mg 08/24/20 21:00 09/03/20 09:06 Aripiprazole 10 Mg Tab PO 10 mg BID KRYSTAL Administration Benztropine Mesylate 0.5 mg 08/24/20 21:00 09/03/20 09:06 Benztropine 1 Mg Tab PO 0.5 mg BID KRYSTAL Administration Carvedilol 3.125 mg 08/29/20 17:00 09/03/20 09:08 Carvedilol 3.125 Mg Tab PO 3.125 mg BID- KRYSTAL Administration Famotidine 20 mg 09/03/20 09:00 09/03/20 09:08 Famotidine 20 Mg Tab PER TUBE 20 mg DAILY KRYSTAL Administration Heparin Sodium (Porcine) 5,000 units 08/27/20 21:00 09/03/20 09:09 Heparin 5,000 Units/Ml Vial SC 5,000 units TID KRYSTAL Administration Hydralazine HCl 10 mg 08/26/20 23:07 08/26/20 23:49 Hydralazine 20 Mg/Ml Vial SLOW IVP 10 mg Q4H PRN Administration SBP >=180 Insulin Human Lispro 0 units 08/23/20 14:21 09/03/20 05:47 Humalog 300 Units/3 Ml Vial SC 3 unit .MILD SLIDING SCALE PRN Administration Mild Correctional Scale Insulin Human Lispro 0 units 08/23/20 14:21 09/03/20 00:57 Humalog 300 Units/3 Ml Vial SC 4 units .BEDTIME SLIDING SC PRN Administration Bedtime Correctional Scale Mometasone Furoate/Formoterol Fumar 2 puff 08/23/20 18:30 09/03/20 05:40 Mometasone 200 Mcg/Formoterol 5 Mcg 120 Puff Inhaler INH Not Given BID-RT KRYSTAL Quetiapine Fumarate 200 mg 08/24/20 21:00 09/03/20 09:08 Quetiapine Fumarate 200 Mg Tab PO 200 mg BID KRYSTAL Administration Risperidone 4 mg 08/24/20 21:00 09/03/20 09:07 Risperidone 1 Mg Tab PO 4 mg BID KRYSTAL Administration Valproic Acid 500 mg 08/24/20 21:00 09/03/20 09:08 Valproate Sodium 250 Mg/5 Ml Ud Cup PO 500 mg BID KRYSTAL Administration - Exam Neck: negative: supple, symmetric, no JVD, no thyromegaly, no lymphadenopathy, no carotid bruit, JVD Heart: negative: RRR, no murmur, no gallops, no rubs, normal peripheral pulses, irregular, diminshed peripheral pulses, murmur present, II/IV, III/IV Respiratory: rhonchi Gastrointestinal: negative: soft, non-tender, non-distended, normal bowel sounds, no palpable masses, no hepatomegaly, no splenomegaly, no bruit, no guarding, no rigidity, tender to palpation, distended, diminished bowl sounds, voluntary guarding Hosp A/P (1) Acute respiratory failure Code(s): J96.00 - ACUTE RESPIRATORY FAILURE, UNSP W HYPOXIA OR HYPERCAPNIA Status: Acute Qualifiers: Respiratory failure complication: hypoxia Qualified Code(s): J96.01 - Acute respiratory failure with hypoxia (2) Bradycardia Code(s): R00.1 - BRADYCARDIA, UNSPECIFIED Status: Acute (3) Pneumonia due to COVID-19 virus Code(s): U07.1 - COVID-19; J12.89 - OTHER VIRAL PNEUMONIA Status: Acute (4) Diabetes mellitus Code(s): E11.9 - TYPE 2 DIABETES MELLITUS WITHOUT COMPLICATIONS Status: Chronic Qualifiers: Diabetes mellitus type: type 2 Diabetes mellitus senior care insulin use: with ferry terminal agent use (5) Hypertension Code(s): I10 - ESSENTIAL (PRIMARY) HYPERTENSION Status: Chronic Qualifiers: Hypertension type: essential hypertension Qualified Code(s): I10 - Essential (primary) hypertension (6) Schizophrenia Code(s): F20.9 - SCHIZOPHRENIA, UNSPECIFIED Status: Chronic Qualifiers: Schizophrenia type: unspecified Qualified Code(s): F20.9 - Schizophrenia, unspecified (7) Hypotension Status: Resolved Qualifiers: Hypotension type: other hypotension type Qualified Code(s): I95.89 - Other hypotension (8) [place] toxicity Code(s): T56.891A - TOXIC EFFECT OF OTH METALS, ACCIDENTAL (UNINTENTIONAL), INIT Status: Acute - Plan Patient is a 59-year-old female past medical history of hypertension diabetes heart failure presents to the hospital with change in mental status. On admission patient was noted to be bradycardic and hypotensive. Patient had bilateral infiltrates consistent with COVID-19 and the test was also positive. Patient was intubated and was transferred to the CCU for further management. Patient was noted to take carvedilol and clonidine which have been stopped. Her blood pressure and her heart rate currently are stabilized. Patient received remdesivir and convalescent plasma. She currently is on steroids. Patient has been taken off of sedation today. 08/26 patient currently off sedation we will continue to monitor we will add as needed blood pressure medications. Patient on steroids, antibiotics and Lasix. Patient also on DVT prophylaxis. 08/27 patient's lithium level significantly elevated will hold lithium for now spoke with nephrology for possible dialysis. Patient really not awake after extubation she has been off sedation last dose of benzodiazepine was at 2 AM on August 27. Spoke with the social group worker who states that patient normally ambulates and talks however at times does not make sense. Patient recently got out of [facility] in [place] she was there for 45 days. She has been in and out of multiple psych facilities. She is on multiple psych medications. The computer analyst supervisor at the long-term stated that she just moved in to the long-term on August 20 she was doing well until August 30 when patient started acting strange staring and at this time patient was brought into the hospital and was found to be hypotensive and bradycardic. Patient is also on carvedilol and clonidine which have been discontinued however high doses of lithium can cause bradycardia, encephalopathy, seizure. I also spoke with neurology for possible EEG however given the fact that she has Covid and given the limitation of one machine and one tech no EEG will be performed secondary to patient being Covid positive. 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 We will check a Depakote level. Her initially CT head was negative. Spoke with patient's daughter who has agreed for patient to get dialysis. Patient's daughter's name is Mar Blount phone number is [phone]. We will start patient on some prophylactic Keppra. Unclear if patient's change in mental status is due to underlying psych illness versus seizure versus lithium toxicity versus other. 08/28 patient was dialyzed yesterday x1. [place] level improved today. Compared to yesterday she does withdraw on pain stimulation which is better than yesterday. She still does not follow commands. NG tube placed for feedings. Significant rhonchi noted however her sats are 100%. I will also continue the Keppra for now. We will hold her psych medications for now. 08/29 patient currently off sedation. Does move extremities on painful stimuli she did open her eyes nursing home on sternal rubbing. Currently has an NG tube for tube feedings. We will continue with Keppra. [place] level still high however better than before. 08/30 patient to get 1 more dialysis session. She is more awake and tracking. We will start some of her antipsychotic medications. We will continue current antibiotics. Patient on DVT prophylaxis. Have asked the nurse to see if she can swallow. 08/31 patient more awake today. We will continue current antibiotics. Some of her antipsychotics have been started. We will continue DVT prophylaxis. Speech evaluated the patient put on the pured diet will reevaluate again tomorrow. Hopefully will be able to take the NG tube out soon. 09/01 patient's mentation continues to improve. We will continue current antibiotics. Her lithium level has improved. We will continue DVT prophylaxis. Hopefully in the next 2448 hrs. patient will be able to tolerate oral and will remove the NG feeding. She is able to eat pudding. She did try to converse with me today. 09/02 patient more awake we will start her on a pured diet will get up with phys ical therapy if she tolerates her dinner well will remove her NG tube. Mild MEETA we will continue to monitor. Patient started on antibiotics 1123 we will stop tomorrow. Culture from bronchoscopy indicated MSSA. 09/03 patient tolerating her oral diet well will go ahead and remove the NG tube. Asked nursing staff to get her up in chair. Family updated on the phone. Antibiotics and steroids discontinued spent 10 days.
--- NOTE | 2020-09-03 18:32 | PRG ---
DATE OF SERVICE: 09/03/2020 OBJECTIVE: VITAL SIGNS: The patient noted with the following vital signs; blood pressure 172/92, pulse 87, respiratory rate 19, and O2 sat is 100%. HEENT: Unremarkable. CARDIOVASCULAR SYSTEM: First and second heart sounds were heard. RESPIRATORY SYSTEM: Clear to auscultation. DIGESTIVE SYSTEM: Revealed a benign abdomen. Positive bowel sounds. LABORATORY INVESTIGATION: Showed hemoglobin of 7.4. Chemistry showed a creatinine of 1.48, BUN of 68. IMPRESSION: 1. [place] toxicity, which has not improved, status post hemodialysis. 2. Acute kidney injury. PLAN: Continue current renal supportive measures. Job ID: [id number]
[2020-09-04 04:22] LABS: #Eosinphils 0.1 thou/uL (0.0-0.7); #Lymphocytes 2.8 thou/uL (1.20-3.40); #Monocytes 1.1 thou/uL (0.11-0.59); #Neutrophils 7.1 thou/uL (1.40-6.50); %Basophils 0.3 % (0.0-1.0); %Eosinophils 1.2 % (0.0-10.0); %Lymphocytes 24.9 % (21.0-51.0); %Monocytes 9.9 % (0.0-10.0); %Neutrophils 63.7 % (42.0-75.0); Hemoglobin 7.1 g/dL (12.0-16.0); Mean Corpuscular HGB CONC 32.9 g/dL (32.0-36.0); Mean Corpuscular Hemoglobin 30.8 pg (27.0-31.0); Mean Corpuscular Volume 93.5 fL (78.0-98.0); Mean Platelet Volume 8.2 fL (7.4-10.4); Platelet Count 297 thou/uL (130-400); RBC Distribution Width 14.2 % (11.5-14.5); White Blood Cell (WBC) Count 11.1 thou/uL (4.8-10.8)
[2020-09-04 04:42] LABS: ALT (SGPT) 10 U/L (8-55); AST (SGOT) 11 U/L (5-34); Albumin 2.5 g/dL (3.5-5.0); Alkaline Phosphatase 116 U/L (40-110); Anion Gap 8 mmol/L (10-20); BUN (Urea Nitrogen) 68 mg/dL (9.8-20.1); Bilirubin, Direct 0.1 mg/dL (0.1-0.3); Bilirubin, Total 0.2 mg/dL (0.2-1.2); CRP (Inflammatory) Less than 0.50 mg/dL (= or < 0.5); Calc. Creatinine Clearance 56 mL/min (70-130); Calcium 8.8 mg/dL (7.8-10.44); Carbon Dioxide 30 mmol/L (22-29); Chloride 110 mmol/L (98-107); Glucose 195 mg/dL (70-105); Potassium 4.2 mmol/L (3.5-5.1); Protein, Total 6.3 g/dL (6.0-8.3); Sodium 144 mmol/L (136-145)
[2020-09-04] MEDS: HumaLOG 300 UNITS/3 ML VIAL SC PRN ×3 (05:42→21:02)
[2020-09-04] MEDS: Mometasone 200 MCG/Formoterol 5 MCG 120 PUFF INHALER INH SCH ×2 (06:36→17:53)
--- NOTE | 2020-09-04 08:44 | RAD ---
PORTABLE CHEST: HISTORY: COVID pneumonia. COMPARISON: 08/28/2020. FINDINGS/IMPRESSION: Confluent consolidation in the right mid lung noted on the prior exam has significantly improved. Th ere is cardiomegaly and vascular congestion seen today. Some hazy interstitial densities are seen bi laterally which could represent hazy [id number] infiltrates and/or edema. No confluent consol idation or infiltrate seen on today's exam. POS: AGW
[2020-09-04] MEDS: Famotidine 20 MG TAB PER TUBE SCH (09:20)
[2020-09-04] MEDS: Benztropine 1 MG TAB PO SCH ×2 (09:20→20:31)
[2020-09-04] MEDS: Valproate Sodium 250 mg/5 ml UD Cup PO SCH ×2 (09:20→20:32)
[2020-09-04] MEDS: risperiDONE 1 MG TAB PO SCH ×2 (09:21→20:31)
[2020-09-04] MEDS: Carvedilol 3.125 MG TAB PO SCH ×2 (09:22→17:52)
[2020-09-04] MEDS: Aripiprazole 10 MG TAB PO SCH ×2 (09:22→20:31)
[2020-09-04] MEDS: Heparin 5,000 UNITS/ML VIAL SC SCH ×3 (09:22→20:31)
--- NOTE | 2020-09-04 16:02 | PDOC.HOSPP ---
- Subjective Encounter Date: 09/04/20 Encounter Time: 10:45 Subjective: Patient up in chair doing well no complaints. Able to answer questions. - Objective Vital Signs & Weight: Vital Signs (12 hours) Temp Pulse Ox 09/04/20 15:00 98.0 F 09/04/20 11:40 100 09/04/20 08:00 97.1 F L 98 Weight Admit Weight 156 lb 1.396 oz Weight 169 lb 12.095 oz Most Recent Monitor Data Heart Rate from ECG 90 NIBP 170/77 NIBP BP-Mean 108 Respiration from ECG 23 SpO2 100 I&O: 09/03/20 09/04/20 09/05/20 06:59 06:59 06:59 Intake Total 290 1040 750 Output Total 1250 1450 Balance -960 -410 750 Result Diagrams: 09/04/20 03:30 09/04/20 03:30 Additional Labs: Accuchecks 09/04/20 09/04/20 09/03/20 10:31 05:40 23:30 POC Glucose 147 H 169 H 241 H 09/03/20 16:59 POC Glucose 312 H Hospitalist ROS - Review of Systems Cardiovascular: denies: chest pain, palpitations, orthopnea, paroxysmal noc. dyspnea, edema, light headedness, other Gastrointestinal: denies: nausea, vomiting, abdominal pain, diarrhea, constipation, melena, hematochezia, other Genitourinary: denies: dysuria, frequency, incontinence, hematuria, retention, other - Medication Medications: Active Medications Generic Name Dose Route Start Last Admin Trade Name Freq PRN Reason Stop Dose Admin Aripiprazole 10 mg 08/24/20 21:00 09/04/20 09:22 Aripiprazole 10 Mg Tab PO 10 mg BID KRYSTAL Administration Benztropine Mesylate 0.5 mg 08/24/20 21:00 09/04/20 09:20 Benztropine 1 Mg Tab PO 0.5 mg BID KRYSTAL Administration Carvedilol 3.125 mg 08/29/20 17:00 09/04/20 09:22 Carvedilol 3.125 Mg Tab PO 3.125 mg BID-WM KRYSTAL Administration Famotidine 20 mg 09/03/20 09:00 09/04/20 09:20 Famotidine 20 Mg Tab PER TUBE 20 mg DAILY KRYSTAL Administration Heparin Sodium (Porcine) 5,000 units 08/27/20 21:00 09/04/20 14:21 Heparin 5,000 Units/Ml Vial SC 5,000 units TID KRYSTAL Administration Hydralazine HCl 10 mg 08/26/20 23:07 08/26/20 23:49 Hydralazine 20 Mg/Ml Vial SLOW IVP 10 mg Q4H PRN Administration SBP >=180 Insulin Human Lispro 0 units 08/23/20 14:21 09/04/20 05:42 Humalog 300 Units/3 Ml Vial SC 2 unit .MILD SLIDING SCALE PRN Administration Mild Correctional Scale Insulin Human Lispro 0 units 08/23/20 14:21 09/03/20 23:32 Humalog 300 Units/3 Ml Vial SC 2 units .BEDTIME SLIDING SC PRN Administration Bedtime Correctional Scale Mometasone Furoate/Formoterol Fumar 2 puff 08/23/20 18:30 09/04/20 06:36 Mometasone 200 Mcg/Formoterol 5 Mcg 120 Puff Inhaler INH Not Given BID-RT KRYSTAL Quetiapine Fumarate 200 mg 08/24/20 21:00 09/04/20 09:20 Quetiapine Fumarate 200 Mg Tab PO 200 mg BID KRYSTAL Administration Risperidone 4 mg 08/24/20 21:00 09/04/20 09:21 Risperidone 1 Mg Tab PO 4 mg BID KRYSTAL Administration Valproic Acid 500 mg 08/24/20 21:00 09/04/20 09:20 Valproate Sodium 250 Mg/5 Ml Ud Cup PO 500 mg BID KRYSTAL Administration - Exam Heart: negative: RRR, no murmur, no gallops, no rubs, normal peripheral pulses, irregular, diminshed peripheral pulses, murmur present, II/IV, III/IV Respiratory: negative: CTAB, no wheezes, no rales, no ronchi, normal chest expansion, no tachypnea, normal percussion, rales, rhonchi, tachypneic, wheezes Gastrointestinal: negative: soft, non-tender, non-distended, normal bowel sounds, no palpable masses, no hepatomegaly, no splenomegaly, no bruit, no guarding, no rigidity, tender to palpation, distended, diminished bowl sounds, voluntary guarding Extremities: 1+ LE edema Hosp A/P (1) Acute respiratory failure Code(s): J96.00 - ACUTE RESPIRATORY FAILURE, UNSP W HYPOXIA OR HYPERCAPNIA Status: Acute Qualifiers: Respiratory failure complication: hypoxia Qualified Code(s): J96.01 - Acute respiratory failure with hypoxia (2) Bradycardia Code(s): R00.1 - BRADYCARDIA, UNSPECIFIED Status: Acute (3) Pneumonia due to COVID-19 virus Code(s): U07.1 - COVID-19; J12.89 - OTHER VIRAL PNEUMONIA Status: Acute (4) Diabetes mellitus Code(s): E11.9 - TYPE 2 DIABETES MELLITUS WITHOUT COMPLICATIONS Status: Chronic Qualifiers: Diabetes mellitus type: type 2 Diabetes mellitus custodial insulin use: with custodial use (5) Hypertension Code(s): I10 - ESSENTIAL (PRIMARY) HYPERTENSION Status: Chronic Qualifiers: Hypertension type: essential hypertension Qualified Code(s): I10 - Essential (primary) hypertension (6) Schizophrenia Code(s): F20.9 - SCHIZOPHRENIA, UNSPECIFIED Status: Chronic Qualifiers: Schizophrenia type: unspecified Qualified Code(s): F20.9 - Schizophrenia, unspecified (7) Hypotension Status: Resolved Qualifiers: Hypotension type: other hypotension type Qualified Code(s): I95.89 - Other hypotension (8) [place] toxicity Code(s): T56.891A - TOXIC EFFECT OF OTH METALS, ACCIDENTAL (UNINTENTIONAL), INIT Status: Acute - Plan Patient is a 59-year-old female past medical history of hypertension diabetes heart failure presents to the hospital with change in mental status. On admission patient was noted to be bradycardic and hypotensive. Patient had bilateral infiltrates consistent with COVID-19 and the test was also positive. Patient was intubated and was transferred to the CCU for further management. Patient was noted to take carvedilol and clonidine which have been stopped. Her blood pressure and her heart rate currently are stabilized. Patient received remdesivir and convalescent plasma. She currently is on steroids. Patient has been taken off of sedation today. 08/26 patient currently off sedation we will continue to monitor we will add as needed blood pressure medications. Patient on steroids, antibiotics and Lasix. Patient also on DVT prophylaxis. 08/27 patient's lithium level significantly elevated will hold lithium for now spoke with nephrology for possible dialysis. Patient really not awake after extubation she has been off sedation last dose of benzodiazepine was at 2 AM on August 27. Spoke with the supervisor sandblaster who states that patient normally ambulates and talks however at times does not make sense. Patient recently got out of [facility] in [place] she was there for 45 days. She has been in and out of multiple psych facilities. She is on multiple psych medications. The shrink pit supervisor at the custodial stated that she just moved in to the custodial on August 20 she was doing well until August 30 when patient started acting strange staring and at this time patient was brought into the hospital and was found to be hypotensive and bradycardic. Patient is also on carvedilol and clonidine which have been discontinued however high doses of lithium can cause bradycardia, encephalopathy, seizure. I also spoke with neurology for possible EEG however given the fact that she has Covid and given the limitation of one machine and one tech no EEG will be performed secondary to patient being Covid positive. 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 We will check a Depakote level. Her initially CT head was negative. Spoke with patient's daughter who has agreed for patient to get dialysis. Patient's daughter's name is Mar Blount phone number is [phone]. We will start patient on some prophylactic Keppra. Unclear if patient's change in mental status is due to underlying psych illness versus seizure versus lithium toxicity versus other. 08/28 patient was dialyzed yesterday x1. [place] level improved today. Compared to yesterday she does withdraw on pain stimulation which is better than yesterday. She still does not follow commands. NG tube placed for feedings. Significant rhonchi noted however her sats are 100%. I will also continue the Keppra for now. We will hold her psych medications for now. 08/29 patient currently off sedation. Does move extremities on painful stimuli she did open her eyes fpc on sternal rubbing. Currently has an NG tube for tube feedings. We will continue with Keppra. [place] level still high however better than before. 08/30 patient to get 1 more dialysis session. She is more awake and tracking. We will start some of her antipsychotic medications. We will continue current antibiotics. Patient on DVT prophylaxis. Have asked the nurse to see if she can swallow. 08/31 patient more awake today. We will continue current antibiotics. Some of her antipsychotics have been started. We will continue DVT prophylaxis. Speech evaluated the patient put on the pured diet will reevaluate again tomorrow. Hopefully will be able to take the NG tube out soon. 09/01 patient's mentation continues to improve. We will continue current antibiotics. Her lithium level has improved. We will continue DVT prophylaxis. Hopefully in the next 2448 hrs. patient will be able to tolerate oral and will remove the NG feeding. She is able to eat pudding. She did try to converse with me today. 09/02 patient more awake we will start her on a pured diet will get up with physical therapy if she tolerates her dinner well will remove her NG tube. Mild MEETA we will continue to monitor. Patient started on antibiotics 1123 we will stop tomorrow. Culture from bronchoscopy indicated MSSA. 09/03 patient tolerating her oral diet well will go ahead and remove the NG tube. Asked nursing staff to get her up in chair. Family updated on the phone. Antibiotics and steroids discontinued spent 10 days. 09/04 patient up in chair eating today NG tube is out. Patient had a bowel movement yesterday. We will get case management consultation for placement.
--- NOTE | 2020-09-04 17:26 | PRG ---
DATE OF SERVICE: 09/04/2020 OBJECTIVE: VITAL SIGNS: The patient was noted with following vital signs; afebrile, temperature 98, blood pressure 170/77, pulse of 90, respiratory rate of 23, O2 saturation 100%. HEENT: Unremarkable. CARDIOVASCULAR SYSTEM: First and second heart sounds were heard. RESPIRATORY SYSTEM: Clear to auscultation. DIGESTIVE SYSTEM: Revealed a benign abdomen. EXTREMITIES: No peripheral edema. SKIN: No new gross rash. LYMPHATICS: No peripheral lymphadenopathy. LABORATORY INVESTIGATION: Showed a hemoglobin of 7.1. Chemistry showed a creatinine of 1.34, BUN of 68. IMPRESSION: 1. [place] toxicity, much improved status post hemodialysis. 2. Mental status change, seems to have improved. 3. Acute kidney injury. PLAN: Continue current renal supportive measures. Job ID: [id number]
[2020-09-05] MEDS: HumaLOG 300 UNITS/3 ML VIAL SC PRN ×3 (05:11→16:39)
[2020-09-05 06:36] LABS: #Basophils 0.1 thou/uL (0.0-0.2); #Eosinphils 0.2 thou/uL (0.0-0.7); #Lymphocytes 2.6 thou/uL (1.20-3.40); #Monocytes 0.9 thou/uL (0.11-0.59); #Neutrophils 6.3 thou/uL (1.40-6.50); %Basophils 0.6 % (0.0-1.0); %Lymphocytes 25.7 % (21.0-51.0); %Monocytes 9.3 % (0.0-10.0); %Neutrophils 62.5 % (42.0-75.0); Mean Corpuscular HGB CONC 31.4 g/dL (32.0-36.0); Mean Corpuscular Hemoglobin 29.8 pg (27.0-31.0); Mean Corpuscular Volume 94.9 fL (78.0-98.0); Platelet Count 369 thou/uL (130-400); RBC Distribution Width 14.2 % (11.5-14.5); Red Blood Cell (RBC) Count 2.68 mill/uL (4.20-5.40); White Blood Cell (WBC) Count 10.1 thou/uL (4.8-10.8)
[2020-09-05 06:55] LABS: ALT (SGPT) 12 U/L (8-55); AST (SGOT) 14 U/L (5-34); Albumin 2.6 g/dL (3.5-5.0); Alkaline Phosphatase 123 U/L (40-110); Anion Gap 12 mmol/L (10-20); BUN (Urea Nitrogen) 56 mg/dL (9.8-20.1); Bilirubin, Direct 0.1 mg/dL (0.1-0.3); Bilirubin, Total 0.3 mg/dL (0.2-1.2); CRP (Inflammatory) Less than 0.50 mg/dL (= or < 0.5); Calc. Creatinine Clearance 67 mL/min (70-130); Calcium 8.9 mg/dL (7.8-10.44); Carbon Dioxide 26 mmol/L (22-29); Chloride 108 mmol/L (98-107); Glucose 197 mg/dL (70-105); Protein, Total 6.7 g/dL (6.0-8.3); Sodium 142 mmol/L (136-145)
[2020-09-05] MEDS: Mometasone 200 MCG/Formoterol 5 MCG 120 PUFF INHALER INH SCH ×2 (07:20→16:16)
[2020-09-05] MEDS: Carvedilol 3.125 MG TAB PO SCH ×2 (08:45→16:15)
[2020-09-05] MEDS: Heparin 5,000 UNITS/ML VIAL SC SCH ×3 (08:45→20:08)
[2020-09-05] MEDS: Aripiprazole 10 MG TAB PO SCH ×2 (08:45→20:08)
[2020-09-05] MEDS: Famotidine 20 MG TAB PER TUBE SCH (08:45)
[2020-09-05] MEDS: risperiDONE 1 MG TAB PO SCH ×2 (08:45→20:09)
[2020-09-05] MEDS: Cholecalciferol (Vitamin D3) 400 UNITS TAB PO SCH (08:45)
[2020-09-05] MEDS: Valproate Sodium 250 mg/5 ml UD Cup PO SCH ×2 (08:45→20:07)
[2020-09-05] MEDS: Benztropine 1 MG TAB PO SCH ×2 (08:45→20:08)
[2020-09-05 13:27] VITALS: BMI 29.0
--- NOTE | 2020-09-05 17:33 | PRG ---
DATE OF SERVICE: 09/05/2020 OBJECTIVE: VITAL SIGNS: The patient, Roxanne Blount, noted with the following vital signs, afebrile, temperature 98.5, pulse 71, respiratory rate of 18, O2 saturation is 97%, and blood pressure . HEENT: Unremarkable. CARDIOVASCULAR SYSTEM: First and second heart sounds were heard. RESPIRATORY SYSTEM: Clear to auscultation. DIGESTIVE SYSTEM: Revealed a benign abdomen. EXTREMITIES: No peripheral edema. IMPRESSION: [place] toxicity, status post dialysis due to acute kidney injury. PLAN: 1. The patient seems to be doing well, status post being off lithium and hemodialyzed. 2. Renally dose all medications while avoiding potentially nephrotoxic agents. 3. Further management to be dependent on the clinical course. Job ID: [id number]
[2020-09-05] MEDS ORDERED: hydrALAZINE 20 MG/ML VIAL SLOW IVP SCH (21:45)
[2020-09-06] MEDS: Mometasone 200 MCG/Formoterol 5 MCG 120 PUFF INHALER INH SCH ×2 (05:49→16:55)
[2020-09-06 06:18] LABS: #Basophils 0.1 thou/uL (0.0-0.2); #Eosinphils 0.1 thou/uL (0.0-0.7); #Monocytes 0.9 thou/uL (0.11-0.59); #Neutrophils 6.3 thou/uL (1.40-6.50); %Basophils 0.9 % (0.0-1.0); %Eosinophils 1.3 % (0.0-10.0); %Lymphocytes 28.4 % (21.0-51.0); %Monocytes 8.6 % (0.0-10.0); %Neutrophils 60.8 % (42.0-75.0); Hemoglobin 8.1 g/dL (12.0-16.0); Mean Corpuscular HGB CONC 32.9 g/dL (32.0-36.0); Mean Corpuscular Volume 94.1 fL (78.0-98.0); Mean Platelet Volume 7.9 fL (7.4-10.4); Platelet Count 348 thou/uL (130-400); RBC Distribution Width 14.8 % (11.5-14.5); Red Blood Cell (RBC) Count 2.63 mill/uL (4.20-5.40); White Blood Cell (WBC) Count 10.4 thou/uL (4.8-10.8)
[2020-09-06 06:39] LABS: Anion Gap 11 mmol/L (10-20); BUN (Urea Nitrogen) 44 mg/dL (9.8-20.1); Calc. Creatinine Clearance 70 mL/min (70-130); Calcium 8.7 mg/dL (7.8-10.44); Carbon Dioxide 27 mmol/L (22-29); Chloride 106 mmol/L (98-107); Glucose 184 mg/dL (70-105); Potassium 3.8 mmol/L (3.5-5.1); Sodium 140 mmol/L (136-145)
[2020-09-06] MEDS: Valproate Sodium 250 mg/5 ml UD Cup PO SCH ×2 (09:18→21:11)
[2020-09-06] MEDS: Cholecalciferol (Vitamin D3) 400 UNITS TAB PO SCH (09:19)
[2020-09-06] MEDS: Benztropine 1 MG TAB PO SCH ×2 (09:19→21:10)
[2020-09-06] MEDS: risperiDONE 1 MG TAB PO SCH ×2 (09:19→21:10)
[2020-09-06] MEDS: Carvedilol 3.125 MG TAB PO SCH ×2 (09:19→15:57)
[2020-09-06] MEDS: Heparin 5,000 UNITS/ML VIAL SC SCH ×3 (09:20→21:10)
[2020-09-06] MEDS: Aripiprazole 10 MG TAB PO SCH ×2 (09:20→21:10)
[2020-09-06] MEDS: Famotidine 20 MG TAB PER TUBE SCH (09:20)
--- NOTE | 2020-09-06 09:21 | PDOC.HOSPP ---
- Subjective Encounter Date: 09/05/20 Encounter Time: 12:30 Subjective: pt up in chair more awake and follows commands. - Objective Vital Signs & Weight: Vital Signs (12 hours) Temp Pulse Resp BP BP Pulse Ox 09/06/20 07:59 99.0 F 82 20 171/68 H 99 09/06/20 04:21 97.8 F 78 18 166/69 H 95 09/06/20 00:40 98.6 F 83 18 135/76 95 09/05/20 22:04 58 L 174/130 H Weight Admit Weight 156 lb 1.396 oz Weight 177 lb 11.081 oz Most Recent Monitor Data Heart Rate from ECG 90 NIBP 170/77 NIBP BP-Mean 108 Respiration from ECG 23 SpO2 100 I&O: 09/05/20 09/06/20 09/07/20 06:59 06:59 06:59 Intake Total 1050 850 Output Total 850 900 Balance 200 -50 Result Diagrams: 09/06/20 06:07 09/06/20 06:07 Additional Labs: Accuchecks 09/06/20 09/05/20 09/05/20 03:52 20:21 16:24 POC Glucose 172 H 184 H 294 H 09/05/20 09/04/20 11:30 17:58 POC Glucose 227 H 280 H Hospitalist ROS - Review of Systems Cardiovascular: denies: chest pain, palpitations, orthopnea, paroxysmal noc. dyspnea, edema, light headedness, other Gastrointestinal: denies: nausea, vomiting, abdominal pain, diarrhea, constipation, melena, hematochezia, other Genitourinary: denies: dysuria, frequency, incontinence, hematuria, retention, other - Medication Medications: Active Medications Generic Name Dose Route Start Last Admin Trade Name Freq PRN Reason Stop Dose Admin Aripiprazole 10 mg 08/24/20 21:00 09/05/20 20:08 Aripiprazole 10 Mg Tab PO 10 mg BID KRYSTAL Administration Benztropine Mesylate 0.5 mg 08/24/20 21:00 09/05/20 20:08 Benztropine 1 Mg Tab PO 0.5 mg BID KRYSTAL Administration Carvedilol 3.125 mg 08/29/20 17:00 09/05/20 16:15 Carvedilol 3.125 Mg Tab PO 3.125 mg BID-WM KRYSTAL Administration Cholecalciferol 400 units 09/05/20 09:00 09/05/20 08:45 Cholecalciferol (Vitamin D3) 400 Units Tab PO 400 units DAILY KRYSTAL Administration Famotidine 20 mg 09/03/20 09:00 09/05/20 08:45 Famotidine 20 Mg Tab PER TUBE 20 mg DAILY KRYSTAL Administration Heparin Sodium (Porcine) 5,000 units 08/27/20 21:00 09/05/20 20:08 Heparin 5,000 Units/Ml Vial SC 5,000 units TID KRYSTAL Administration Hydralazine HCl 10 mg 08/26/20 23:07 08/26/20 23:49 Hydralazine 20 Mg/Ml Vial SLOW IVP 10 mg Q4H PRN Administration SBP >=180 Insulin Human Lispro 0 units 08/23/20 14:21 09/05/20 16:39 Humalog 300 Units/3 Ml Vial SC 4 unit .MILD SLIDING SCALE PRN Administration Mild Correctional Scale Insulin Human Lispro 0 units 08/23/20 14:21 09/04/20 21:02 Humalog 300 Units/3 Ml Vial SC 3 units .BEDTIME SLIDING SC PRN Administration Bedtime Correctional Scale Mometasone Furoate/Formoterol Fumar 2 puff 08/23/20 18:30 09/06/20 05:49 Mometasone 200 Mcg/Formoterol 5 Mcg 120 Puff Inhaler INH Not Given BID-RT KRYSTAL Quetiapine Fumarate 200 mg 08/24/20 21:00 09/05/20 20:09 Quetiapine Fumarate 200 Mg Tab PO 200 mg BID KRYSTAL Administration Risperidone 4 mg 08/24/20 21:00 09/05/20 20:09 Risperidone 1 Mg Tab PO 4 mg BID KRYSTAL Administration Valproic Acid 500 mg 08/24/20 21:00 09/05/20 20:07 Valproate Sodium 250 Mg/5 Ml Ud Cup PO 500 mg BID KRYSTAL Administration - Exam Neck: negative: supple, symmetric, no JVD, no thyromegaly, no lymphadenopathy, n o carotid bruit, JVD Heart: negative: RRR, no murmur, no gallops, no rubs, normal peripheral pulses, irregular, diminshed peripheral pulses, murmur present, II/IV, III/IV Respiratory: negative: CTAB, no wheezes, no rales, no ronchi, normal chest expa nsion, no tachypnea, normal percussion, rales, rhonchi, tachypneic, wheezes Gastrointestinal: negative: soft, non-tender, non-distended, normal bowel sounds, no palpable masses, no hepatomegaly, no splenomegaly, no bruit, no guarding, no rigidity, tender to palpation, distended, diminished bowl sounds, voluntary guarding Hosp A/P (1) Acute respiratory failure Code(s): J96.00 - ACUTE RESPIRATORY FAILURE, UNSP W HYPOXIA OR HYPERCAPNIA Status: Acute Qualifiers: Respiratory failure complication: hypoxia Qualified Code(s): J96.01 - Acute respiratory failure with hypoxia (2) Bradycardia Code(s): R00.1 - BRADYCARDIA, UNSPECIFIED Status: Acute (3) Pneumonia due to COVID-19 virus Code(s): U07.1 - COVID-19; J12.89 - OTHER VIRAL PNEUMONIA Status: Acute (4) Diabetes mellitus Code(s): E11.9 - TYPE 2 DIABETES MELLITUS WITHOUT COMPLICATIONS Status: Chronic Qualifiers: Diabetes mellitus type: type 2 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 insulin use: with penitentiary use (5) Hypertension Code(s): I10 - ESSENTIAL (PRIMARY) HYPERTENSION Status: Chronic Qualifiers: Hypertension type: essential hypertension Qualified Code(s): I10 - Essential (primary) hypertension (6) Schizophrenia Code(s): F20.9 - SCHIZOPHRENIA, UNSPECIFIED Status: Chronic Qualifiers: Schizophrenia type: unspecified Qualified Code(s): F20.9 - Schizophrenia, unspecified (7) Hypotension Status: Resolved Qualifiers: Hypotension type: other hypotension type Qualified Code(s): I95.89 - Other hypotension (8) [place] toxicity Code(s): T56.891A - TOXIC EFFECT OF OTH METALS, ACCIDENTAL (UNINTENTIONAL), INIT Status: Acute - Plan Patient is a 59-year-old female past medical history of hypertension diabetes heart failure presents to the hospital with change in mental status. On admission patient was noted to be bradycardic and hypotensive. Patient had bilateral infiltrates consistent with COVID-19 and the test was also positive. Patient was intubated and was transferred to the CCU for further management. Patient was noted to take carvedilol and clonidine which have been stopped. Her blood pressure and her heart rate currently are stabilized. Patient received remdesivir and convalescent plasma. She currently is on steroids. Patient has been taken off of sedation today. 08/26 patient currently off sedation we will continue to monitor we will add as needed blood pressure medications. Patient on steroids, antibiotics and Lasix. Patient also on DVT prophylaxis. 08/27 patient's lithium level significantly elevated will hold lithium for now spoke with nephrology for possible dialysis. Patient really not awake after extubation she has been off sedation last dose of benzodiazepine was at 2 AM on August 27. Spoke with the group exercise manager who states that patient normally ambulates and talks however at times does not make sense. Patient recently got out of [facility] in [place] she was there for 45 days. She has been in and out of multiple psych facilities. She is on multiple psych medications. The lift supervisor at the [facility] stated that she just moved in to the [facility] on August 20 she was doing well until August 30 when patient started acting strange staring and at this time patient was brought into the hospital and was found to be hypotensive and bradycardic. Patient is also on carvedilol and clonidine which have been discontinued however high doses of lithium can cause bradycardia, encephalopathy, seizure. I also spoke with neurology for possible EEG however given the fact that she has Covid and given the limitation of one machine and one tech no EEG will be performed secondary to patient being Covid positive. We will hold her Depakote for now since that can also cause [employer] depression. We will check a Depakote level. Her initially CT head was negative. Spoke with patient's daughter who has agreed for patient to get dialysis. Patient's daughter's name is Mar Blount phone number is [phone]. We will start patient on some prophylactic Keppra. Unclear if patient's change in mental status is due to underlying psych illness versus seizure versus lithium toxicity versus other. 08/28 patient was dialyzed yesterday x1. [place] level improved today. Compared to yesterday she does withdraw on pain stimulation which is better than yesterday. She still does not follow commands. NG tube placed for feedings. Significant rhonchi noted however her sats are 100%. I will also continue the Keppra for now. We will hold her psych medications for now. 08/29 patient currently off sedation. Does move extremities on painful stimuli she did open her eyes fpc on sternal rubbing. Currently has an NG tube for tube feedings. We will continue with Rohit. [place] level still high however better than before. 08/30 patient to get 1 more dialysis session. She is more awake and tracking. We will start some of her antipsychotic medications. We will continue current antibiotics. Patient on DVT prophylaxis. Have asked the nurse to see if she can swallow. 08/31 patient more awake today. We will continue current antibiotics. Some of her antipsychotics have been started. We will continue DVT prophylaxis. Speech evaluated the patient put on the pured diet will reevaluate again tomorrow. Hopefully will be able to take the NG tube out soon. 09/01 patient's mentation continues to improve. We will continue current antibiotics. Her lithium level has improved. We will continue DVT prophylaxis. Hopefully in the next 2448 hrs. patient will be able to tolerate oral and will remove the NG feeding. She is able to eat pudding. She did try to converse with me today. 09/02 patient more awake we will start her on a pured diet will get up with physical therapy if she tolerates her dinner well will remove her NG tube. Mild MEETA we will continue to monitor. Patient started on antibiotics 1123 we will stop tomorrow. Culture from bronchoscopy indicated MSSA. 09/03 patient tolerating her oral diet well will go ahead and remove the NG tube. Asked nursing staff to get her up in chair. Family updated on the phone. Antibiotics and steroids discontinued spent 10 days. 09/04 patient up in chair eating today NG tube is out. Patient had a bowel mov ement yesterday. We will get case management consultation for placement. 09/05 will discontinue cam cath. will ask nephro when to restart lithium. pt otherwise is doing well. possible discharge to snf.
[2020-09-06] MEDS: HumaLOG 300 UNITS/3 ML VIAL SC PRN ×3 (12:29→21:23)
--- NOTE | 2020-09-06 15:04 | EKG ---
Test Reason : Blood Pressure : / mmHG Vent. Rate : 041 BPM Atrial Rate : 041 BPM P-R Int : 000 ms QRS Dur : 094 ms QT Int : 528 ms P-R-T Axes : 000 023 025 degrees QTc Int : 435 ms Junctional bradycardia Abnormal ECG Confirmed by MARIELA ERVIN M.D. ([id number]), editorial writer JENNI SANTOS ([id number]) on 09/06/2020 3:03:47 PM Referred By: Confirmed By:MARIELA ERVIN M.D.
--- NOTE | 2020-09-06 16:44 | PDOC.HOSPP ---
- Subjective Encounter Date: 09/06/20 Encounter Time: 09:00 Subjective: F/u: COVID The patient is doing well. She has no cough or shortness of breath. SHe wants to go home, not to the skilled nursing. Per case management her benefits have been used up Patient states month is August, does not know the year or the president - Objective Vital Signs & Weight: Vital Signs (12 hours) Temp Pulse Resp BP Pulse Ox 09/06/20 16:00 98.5 F 67 20 147/58 H 100 09/06/20 11:57 98.5 F 67 20 151/64 H 91 L 09/06/20 07:59 99.0 F 82 20 171/68 H 99 Weight Admit Weight 156 lb 1.396 oz Weight 177 lb 11.081 oz Most Recent Monitor Data Heart Rate from ECG 90 NIBP 170/77 NIBP BP-Mean 108 Respiration from ECG 23 SpO2 100 I&O: 09/05/20 09/06/20 09/07/20 06:59 06:59 06:59 Intake Total 1050 850 Output Total 850 900 Balance 200 -50 Result Diagrams: 09/06/20 06:07 09/06/20 06:07 Additional Labs: Accuchecks 09/06/20 09/06/20 09/06/20 16:16 11:49 03:52 POC Glucose 186 H 259 H 172 H 09/05/20 20:21 POC Glucose 184 H Hospitalist ROS - Review of Systems Constitutional: denies: fever, chills - Medication Medications: Active Medications Generic Name Dose Route Start Last Admin Trade Name Freq PRN Reason Stop Dose Admin Aripiprazole 10 mg 08/24/20 21:00 09/06/20 09:20 Aripiprazole 10 Mg Tab PO 10 mg BID KRYSTAL Administration Benztropine Mesylate 0.5 mg 08/24/20 21:00 09/06/20 09:19 Benztropine 1 Mg Tab PO 0.5 mg BID KRYSTAL Administration Carvedilol 3.125 mg 08/29/20 17:00 09/06/20 15:57 Carvedilol 3.125 Mg Tab PO 3.125 mg BID-WM KRYSTAL Administration Cholecalciferol 400 units 09/05/20 09:00 09/06/20 09:19 Cholecalciferol (Vitamin D3) 400 Units Tab PO 400 units DAILY KRYSTAL Administration Famotidine 20 mg 09/03/20 09:00 09/06/20 09:20 Famotidine 20 Mg Tab PER TUBE 20 mg DAILY KRYSTAL Administration Heparin Sodium (Porcine) 5,000 units 08/27/20 21:00 09/06/20 15:57 Heparin 5,000 Units/Ml Vial SC 5,000 units TID KRYSTAL Administration Hydralazine HCl 10 mg 08/26/20 23:07 08/26/20 23:49 Hydralazine 20 Mg/Ml Vial SLOW IVP 10 mg Q4H PRN Administration SBP >=180 Insulin Human Lispro 0 units 08/23/20 14:21 09/06/20 12:29 Humalog 300 Units/3 Ml Vial SC 4 unit .MILD SLIDING SCALE PRN Administration Mild Correctional Scale Insulin Human Lispro 0 units 08/23/20 14:21 09/04/20 21:02 Humalog 300 Units/3 Ml Vial SC 3 units .BEDTIME SLIDING SC PRN Administration Bedtime Correctional Scale Mometasone Furoate/Formoterol Fumar 2 puff 08/23/20 18:30 09/06/20 05:49 Mometasone 200 Mcg/Formoterol 5 Mcg 120 Puff Inhaler INH Not Given BID-RT KRYSTAL Quetiapine Fumarate 200 mg 08/24/20 21:00 09/06/20 09:20 Quetiapine Fumarate 200 Mg Tab PO 200 mg BID KRYSTAL Administration Risperidone 4 mg 08/24/20 21:00 09/06/20 09:19 Risperidone 1 Mg Tab PO 4 mg BID KRYSTAL Administration Valproic Acid 500 mg 08/24/20 21:00 09/06/20 09:18 Valproate Sodium 250 Mg/5 Ml Ud Cup PO 500 mg BID KRYSTAL Administration - Exam General Appearance: NAD, awake alert Eye: PERRL, anicteric sclera ENT: normocephalic atraumatic, no oropharyngeal lesions Neck: no JVD Heart: RRR, no murmur, no gallops, no rubs Respiratory: CTAB, no wheezes, no rales, no ronchi Gastrointestinal: soft, non-tender, non-distended, normal bowel sounds Extremities: no cyanosis, no clubbing, no edema Skin: normal turgor, no lesions, no rashes Neurological: cranial nerve grossly intact, normal sensation to touch, no weakness Musculoskeletal: normal tone, normal strength, no muscle wasting Psychiatric: oriented to person Hosp A/P - Plan Chest X ray 09/04: confluent consolidation right lung significantly improved This is a 59 year old female with history of CHF< diabetes, hypertension who was brought in for bradycardia, hypotension and bilateral infiltrates. COVID pneumonia - on room air currently. Was intubated and now extubated - she is off steroids. Repeat chest X ray today shows mild bilateral infiltrates - will discontinue isolation - she is pending placement back to residential, but patient doesn't want to go home. Unable to get a hold of family. Case management consulted Bradycardia - resolved, off clonidine and coreg dose reduced Schizophrenia - continuea bilify Type II diabetes - continue sliding scale insulin, blood sugar 180 to 270 Acute metabolic encephalopathy - possibly from pneumonia versus bradycardiac - she is oriented to person only currently, this may be her baseline? Unable to get a hold of family
--- NOTE | 2020-09-06 17:05 | RAD ---
Exam: Chest one view HISTORY:COVID pneumonia Comparison: 09/04/2020 FINDINGS: Cardiac silhouette:Stable cardiac silhouette Aorta: Stable atherosclerosis Pulmonary vessels: Normal Costophrenic angles: Clear LUNGS: Stable interstitial and alveolar opacities Pneumothorax: None Osseous abnormalities: None IMPRESSION: No significant interval change.
[2020-09-07] MEDS: Mometasone 200 MCG/Formoterol 5 MCG 120 PUFF INHALER INH SCH ×2 (05:46→19:03)
[2020-09-07 06:25] LABS: #Basophils 0.1 thou/uL (0.0-0.2); #Eosinphils 0.1 thou/uL (0.0-0.7); #Lymphocytes 2.6 thou/uL (1.20-3.40); #Monocytes 0.7 thou/uL (0.11-0.59); #Neutrophils 5.2 thou/uL (1.40-6.50); %Basophils 0.6 % (0.0-1.0); %Eosinophils 1.7 % (0.0-10.0); %Lymphocytes 29.4 % (21.0-51.0); %Monocytes 7.9 % (0.0-10.0); %Neutrophils 60.3 % (42.0-75.0); Hemoglobin 7.7 g/dL (12.0-16.0); Mean Corpuscular HGB CONC 32.1 g/dL (32.0-36.0); Mean Corpuscular Hemoglobin 30.8 pg (27.0-31.0); Mean Platelet Volume 8.5 fL (7.4-10.4); Platelet Count 340 thou/uL (130-400); Red Blood Cell (RBC) Count 2.48 mill/uL (4.20-5.40); White Blood Cell (WBC) Count 8.7 thou/uL (4.8-10.8)
[2020-09-07] MEDS: HumaLOG 300 UNITS/3 ML VIAL SC PRN ×3 (06:25→16:14)
[2020-09-07 06:28] LABS: Anion Gap 12 mmol/L (10-20); BUN (Urea Nitrogen) 38 mg/dL (9.8-20.1); Calc. Creatinine Clearance 72 mL/min (70-130); Calcium 8.3 mg/dL (7.8-10.44); Carbon Dioxide 26 mmol/L (22-29); Chloride 106 mmol/L (98-107); Glucose 147 mg/dL (70-105); Potassium 3.9 mmol/L (3.5-5.1); Sodium 140 mmol/L (136-145)
[2020-09-07] MEDS: Famotidine 20 MG TAB PER TUBE SCH (09:57)
[2020-09-07] MEDS: Valproate Sodium 250 mg/5 ml UD Cup PO SCH ×2 (09:57→20:37)
[2020-09-07] MEDS: Carvedilol 3.125 MG TAB PO SCH ×2 (09:58→16:14)
[2020-09-07] MEDS: Benztropine 1 MG TAB PO SCH ×2 (09:58→20:36)
[2020-09-07] MEDS: Aripiprazole 10 MG TAB PO SCH ×2 (09:58→20:36)
[2020-09-07] MEDS: Heparin 5,000 UNITS/ML VIAL SC SCH ×3 (09:58→20:36)
[2020-09-07] MEDS: Cholecalciferol (Vitamin D3) 400 UNITS TAB PO SCH (09:58)
[2020-09-07] MEDS: risperiDONE 1 MG TAB PO SCH ×2 (09:58→20:36)
--- NOTE | 2020-09-07 14:36 | PDOC.HOSPP ---
- Subjective Encounter Date: 09/07/20 Encounter Time: 12:30 Subjective: F/u: COVID pneumonia The patient is doing well. She denies cough or shortness of breath. She is from a senior living. She states she wants to go home and asked me to call her son in law. Son in law states he wants her medicines sent to [facility], therefore prefers she be discharged tomorrow - Objective Vital Signs & Weight: Vital Signs (12 hours) Temp Pulse Resp BP Pulse Ox 09/07/20 10:50 97.3 F L 85 18 150/88 H 97 09/07/20 08:48 98.5 F 82 20 137/95 H 100 09/07/20 05:30 98.2 F 80 16 167/73 H Weight Admit Weight 156 lb 1.396 oz Weight 183 lb 11.2 oz Most Recent Monitor Data Heart Rate from ECG 90 NIBP 170/77 NIBP BP-Mean 108 Respiration from ECG 23 SpO2 100 I&O: 09/06/20 09/07/20 09/08/20 06:59 06:59 06:59 Intake Total 850 1160 Output Total 900 1280 Balance -50 -120 Result Diagrams: 09/07/20 05:24 09/07/20 05:24 Additional Labs: Accuchecks 09/07/20 09/07/20 09/06/20 10:44 06:16 21:21 POC Glucose 273 H 227 H 289 H 09/06/20 16:16 POC Glucose 186 H Hospitalist ROS - Review of Systems Constitutional: denies: fever, chills - Medication Medications: Active Medications Generic Name Dose Route Start Last Admin Trade Name Jonny PRN Reason Stop Dose Admin Aripiprazole 10 mg 08/24/20 21:00 09/07/20 09:58 Aripiprazole 10 Mg Tab PO 10 mg BID KRYSTAL Administration Benztropine Mesylate 0.5 mg 08/24/20 21:00 09/07/20 09:58 Benztropine 1 Mg Tab PO 0.5 mg BID KRYSTAL Administration Carvedilol 3.125 mg 08/29/20 17:00 09/07/20 09:58 Carvedilol 3.125 Mg Tab PO 3.125 mg BID- KRYSTAL Administration Cholecalciferol 400 units 09/05/20 09:00 12/06/20 09:58 Cholecalciferol (Vitamin D3) 400 Units Tab PO 400 units DAILY KRYSTAL Administration Famotidine 20 mg 09/03/20 09:00 09/07/20 09:57 Famotidine 20 Mg Tab PER TUBE 20 mg DAILY KRYSTAL Administration Heparin Sodium (Porcine) 5,000 units 08/27/20 21:00 09/07/20 09:58 Heparin 5,000 Units/Ml Vial SC 5,000 units TID KRYSTAL Administration Hydralazine HCl 10 mg 08/26/20 23:07 08/26/20 23:49 Hydralazine 20 Mg/Ml Vial SLOW IVP 10 mg Q4H PRN Administration SBP >=180 Insulin Human Lispro 0 units 08/23/20 14:21 09/07/20 12:48 Humalog 300 Units/3 Ml Vial SC 4 unit .MILD SLIDING SCALE PRN Administration Mild Correctional Scale Insulin Human Lispro 0 units 08/23/20 14:21 09/06/20 21:23 Humalog 300 Units/3 Ml Vial SC 3 units .BEDTIME SLIDING SC PRN Administration Bedtime Correctional Scale Mometasone Furoate/Formoterol Fumar 2 puff 08/23/20 18:30 09/07/20 05:46 Mometasone 200 Mcg/Formoterol 5 Mcg 120 Puff Inhaler INH Not Given BID-RT KRYSTAL Quetiapine Fumarate 200 mg 08/24/20 21:00 09/07/20 09:59 Quetiapine Fumarate 200 Mg Tab PO 200 mg BID KRYSTAL Administration Risperidone 4 mg 08/24/20 21:00 09/07/20 09:58 Risperidone 1 Mg Tab PO 4 mg BID KRYSTAL Administration Valproic Acid 500 mg 08/24/20 21:00 09/07/20 09:57 Valproate Sodium 250 Mg/5 Ml Ud Cup PO 500 mg BID KRYSTAL Administration - Exam General Appearance: NAD, awake alert Eye: PERRL, anicteric sclera ENT: normocephalic atraumatic, no oropharyngeal lesions Neck: no JVD Heart: RRR, no murmur, no gallops, no rubs Respiratory: CTAB, no wheezes, no rales, no ronchi Gastrointestinal: soft, non-tender, non-distended, normal bowel sounds Extremities: no cyanosis, no clubbing, no edema Skin: normal turgor, no lesions, no rashes Neurological: cranial nerve grossly intact, normal sensation to touch, no weakness Musculoskeletal: normal tone, normal strength, no muscle wasting Psychiatric: normal affect, normal behavior, A&O x 3 Hosp A/P - Plan Chest X ray 09/04: confluent consolidation right lung significantly improved This is a 59 year old female with history of CHF< diabetes, hypertension who was brought in for bradycardia, hypotension and bilateral infiltrates. COVID pneumonia - on room air currently. Was intubated and now extubated - she is off steroids. Repeat chest X ray 09/07 shows mild bilateral infiltrates. Isolation discontinued Bradycardia - resolved, off clonidine and coreg dose reduced Schizophrenia - continue abilify Type II diabetes - continue sliding scale insulin, blood sugar 180 to 270 - will resume home levemir 12 units qhs Acute metabolic encephalopathy - resolved, she is oriented times three Dispo: plan to d/c to senior living tomorrow
[2020-09-07] MEDS ORDERED: Aspirin 81 mg Enteric Coated Tablet PO SCH (14:45)
[2020-09-07] MEDS ORDERED: Losartan 25 MG TAB PO SCH (15:00)
[2020-09-07] MEDS: metFORMIN 500 MG TAB PO SCH (16:13)
--- NOTE | 2020-09-07 20:35 | PRG ---
DATE OF SERVICE: 09/07/2020 SUBJECTIVE: The patient noted with the following vital signs. OBJECTIVE: VITAL SIGNS: Afebrile, temperature 98.6, pulse 73, respiratory rate of 18, O2 saturation of 96%, and blood pressure 153/82. HEENT: Unremarkable. CARDIOVASCULAR SYSTEM: First and second heart sounds were heard. RESPIRATORY SYSTEM: Clear to auscultation. DIGESTIVE SYSTEM: Revealed a benign abdomen. Positive bowel sounds. EXTREMITIES: No peripheral edema. SKIN: No new gross rash. LYMPHATIC: No peripheral lymphadenopathy. LABORATORY INVESTIGATION: Showed hemoglobin of 7.7. Chemistry showed a creatinine 1.1 and BUN of 38. IMPRESSION: 1. [place] toxicity, status post hemodialysis. 2. Acute kidney injury, much improved. PLAN: 1. Continue current renal supportive measures. 2. Consider deescalating daily blood draws to avoid iatrogenic anemia and limit blood draws to as needed. 3. Further management to be dependent on the clinical course. Job ID: [id number]
[2020-09-07] MEDS ORDERED: Non-Formulary Item 1 EACH (Insulin Detemir [Levemir] 100 UNIT/ML Vial) SC SCH (21:00)
[2020-09-07] MEDS ORDERED: Insulin Glargine 12 UNITS in Pre-Filled Syringe 1 EACH SC SCH (21:00)
[2020-09-07] MEDS ORDERED: Atorvastatin Calcium 10 MG TAB PO SCH (21:00)
[2020-09-08 06:18] LABS: #Eosinphils 0.2 thou/uL (0.0-0.7); #Lymphocytes 2.3 thou/uL (1.20-3.40); #Monocytes 0.7 thou/uL (0.11-0.59); #Neutrophils 5.5 thou/uL (1.40-6.50); %Basophils 0.5 % (0.0-1.0); %Eosinophils 1.9 % (0.0-10.0); %Lymphocytes 26.4 % (21.0-51.0); %Monocytes 7.7 % (0.0-10.0); %Neutrophils 63.5 % (42.0-75.0); Mean Corpuscular HGB CONC 31.5 g/dL (32.0-36.0); Mean Corpuscular Hemoglobin 30.9 pg (27.0-31.0); Mean Platelet Volume 8.3 fL (7.4-10.4); Platelet Count 313 thou/uL (130-400); RBC Distribution Width 15.1 % (11.5-14.5); Red Blood Cell (RBC) Count 2.58 mill/uL (4.20-5.40); White Blood Cell (WBC) Count 8.7 thou/uL (4.8-10.8)
[2020-09-08 06:21] LABS: Anion Gap 12 mmol/L (10-20); BUN (Urea Nitrogen) 35 mg/dL (9.8-20.1); Calc. Creatinine Clearance 83 mL/min (70-130); Calcium 8.4 mg/dL (7.8-10.44); Carbon Dioxide 24 mmol/L (22-29); Chloride 107 mmol/L (98-107); Glucose 147 mg/dL (70-105); Potassium 4.1 mmol/L (3.5-5.1); Sodium 139 mmol/L (136-145)
[2020-09-08] MEDS: Mometasone 200 MCG/Formoterol 5 MCG 120 PUFF INHALER INH SCH (08:08)
[2020-09-08] MEDS ORDERED: Aspirin 81 mg Enteric Coated Tablet PO SCH (09:00)
[2020-09-08] MEDS: Famotidine 20 MG TAB PER TUBE SCH (09:00)
[2020-09-08] MEDS ORDERED: Losartan 25 MG TAB PO SCH (09:00)
[2020-09-08] MEDS: Benztropine 1 MG TAB PO SCH (09:00)
[2020-09-08] MEDS: Carvedilol 3.125 MG TAB PO SCH (09:01)
[2020-09-08] MEDS: Heparin 5,000 UNITS/ML VIAL SC SCH (09:01)
[2020-09-08] MEDS: Valproate Sodium 250 mg/5 ml UD Cup PO SCH (09:01)
[2020-09-08] MEDS: metFORMIN 500 MG TAB PO SCH (09:01)
[2020-09-08] MEDS: Aripiprazole 10 MG TAB PO SCH (09:01)
[2020-09-08] MEDS: Cholecalciferol (Vitamin D3) 400 UNITS TAB PO SCH (11:03)
[2020-09-08] MEDS: risperiDONE 1 MG TAB PO SCH (11:03)
[2020-09-08] MEDS: HumaLOG 300 UNITS/3 ML VIAL SC PRN (12:15)
[2020-09-08 12:24] VITALS: BP 162/70; TEMP 98.9
--- NOTE | 2020-09-08 19:28 | PDOC.DS.DS ---
Provider - Provider Date of Admission: 08/22/20 23:04 Date of Discharge: 09/08/20 Admitting Provider: Lizeth Lane MD Primary Care Physician: Unknown Course - Hospital Course Hospital Course: Discharge Diagnoses: 1. MEETA secondary to lithium toxicity 2. Hypotension/Bradycardia possibly secondary to clonidine versus lithium 3. Acute hypoxic respiratory failure secondary to COVID pneumonia 4. Acute metabolic encephalopathy secondary to lithium toxicity 5 . Schizophrenia Brief HPI: This is a 59 year old female with history of CHF, diabetes, hypertension who was brought in for bradycardia, hypotension. She was found to have a blood pressure of 60/30 and heart rate in the 30's. Her urine drug screen was positive for TCA and benzodiazepines . She was intubated in the ER due to depressed consciousness. Chest X ray showed bilateral infiltrates. She was admitted for further workup. HOSPITAL COURSE: 1. Acute kidney injury possibly secondary to lithium toxicity: the patient did present with creatinine of 1.86. THe patient did receive dialysis and her lithium levels were serially monitored. 2. Hypotension/bradycardia: the patient was originally in the ICU and required dopamine for bradycardia and hypotension. Her clonidine was discontinued and her coreg was decreased. She was weaned off pressors and transferred to the floor and did well. She had no further episodes of bradycardia or hypotension at the time of discharge. 3. Acute hypoxic respiratory failure possibly from COVID pneumonia: chest Xray on admission showed bilateral infiltrates and she was COVID + on 08/22. She was intubated 08/22 and extubated on 08/07. She did receive a course of remdesivir and convalescent plasma. She also received a course of steroids. Her isolation precautions were discontinued on 09/07. Her son was a four year old child and he was advised to not have the child visit until 09/12. She has been asymptomatic and has no cough, shortness of breath or chest pain and is on room air at the time of discharge. She should get a repeat chest Xray in 6 weeks. 4. Acute metabolic encephalopathy likely from lithium toxicity/benzo and TCA: the patient was confused initially after extubation. She was dialyzed when she was found to have lithium toxicity. Her mental status returned to normal at the time of discharge. CT scan of her head showed no acute abnormalities. 5. Schizophrenia: the patient was continued on abilify on discharge and depakote. Her lithium was discontinued. All of her medications were sent to [facility] pharmacy per request of son-in-law. Pertinent Studies: Chest X ray 08/22: diffuse interstitial and alveolar opacities Chest X ray 09/06: stable interstitial and alveolar opacities Resuscitation Status: 09/02/20 15:00 Resuscitation Status Routine Resuscitation Status: FULL: Full Resuscitation - Labs Lab Results: 09/08/20 05:43 09/08/20 05:43 Abnormal Lab Results - Last 48 hrs 09/07/20 05:24: BUN 38 H 09/07/20 05:24: RBC 2.48 L, Hgb 7.7 L, Hct 23.8 L, RDW 15.0 H, Monocytes # 0.7 H 09/08/20 05:43: BUN 35 H 09/08/20 05:43: RBC 2.58 L, Hgb 8.0 L, Hct 25.3 L, MCHC 31.5 L, RDW 15.1 H, Monocytes # 0.7 H Microbiology - Entire Visit 08/22/20 23:43 Venous blood - Left Arm Blood Culture - Final NO GROWTH IN 5 DAYS 08/22/20 23:15 Artery - Right Leg Blood Culture - Final NO GROWTH IN 5 DAYS 08/23/20 13:04 Sputum - Aspirate Respiratory Culture - Final Staphylococcus aureus - Physical Exam Vitals: Vital Signs (12 hours) Temp Pulse Resp BP Pulse Ox 09/08/20 12:24 98.9 F 81 16 162/70 H 98 09/08/20 11:46 179/79 H 09/08/20 10:58 185/83 H 09/08/20 09:25 95 09/08/20 07:29 98.6 F 92 22 H 165/83 H 97 Weight Admit Weight 156 lb 1.396 oz Weight 186 lb 8 oz Most Recent Monitor Data Heart Rate from ECG 90 NIBP 170/77 NIBP BP-Mean 108 Respiration from ECG 23 SpO2 100 Physical Exam: The patient was seen and examined on the day of discharge. General: patient alert, awake, oriented times three CV: RRR, no murmurs, rubs, gallops Lungs: CTAB Abdomen: +BS, soft, nontender, nondistended Extremities: no edema Psych: appears to have some tardive dyskinesia, mild speech impediment? Problem - Discharge Plan Plan of Treatment: Get a repeat chest Xray in 6 weeks to see if infiltrates have resolved. Consider an outpatient ECHO, which was not able to be done since the patient had COVID. [place] has been held on discharge, restart at psychiatry or PCP discretion . - Time spent with Patient (mins): 40 Plan - Discharge Medications Prescriptions: ARIPiprazole [Abilify] 10 mg PO BID #60 tablet Atorvastatin Calcium 10 mg PO QPM #30 tablet Benztropine [Cogentin] 0.5 mg PO BID #30 tab Carvedilol [Coreg] 3.125 mg PO BID-WM #60 tab metFORMIN [Glucophage] 500 mg PO BID-WM #60 tab Home Medications: Medication Instructions Recorded Confirmed Type ARIPiprazole [Abilify Maintena] 400 mg IM Q30D 08/23/20 08/23/20 History Aspirin [Ecotrin Low Strength] 81 mg PO DAILY 08/23/20 08/23/20 History Divalproex Sodium [Depakote] 500 mg PO BID 08/23/20 08/23/20 History Ferrous Sulfate 325 mg PO DAILY 08/23/20 08/23/20 History Haloperidol 15 mg PO BID 08/23/20 08/23/20 History HumaLOG [HumaLOG Vial] 2 - 10 units SC PRN PRN 08/23/20 08/23/20 History Insulin Detemir [Levemir] 12 unit SC HS 08/23/20 08/23/20 History Losartan [Cozaar] 50 mg PO DAILY 08/23/20 08/23/20 History Magnesium Oxide [Mag-Oxide] 400 mg PO DAILY 08/23/20 08/23/20 History Promethazine [Phenergan] 50 mg PO BID 08/23/20 08/23/20 History QUEtiapine Fumarate [SEROquel] 200 mg PO BID 08/23/20 08/23/20 History risperiDONE 4 mg PO BID 08/23/20 08/23/20 History ARIPiprazole [Abilify] 10 mg PO BID #60 tablet 09/07/20 Rx Atorvastatin Calcium 10 mg PO QPM #30 tablet 09/07/20 Rx Benztropine [Cogentin] 0.5 mg PO BID #30 tab 09/07/20 Rx Carvedilol [Coreg] 3.125 mg PO BID-WM #60 tab 09/07/20 Rx metFORMIN [Glucophage] 500 mg PO BID-WM #60 tab 09/07/20 Rx Allergies: No Known Drug Allergies Allergy (Unverified 07/30/19 03:54) - Discharge Instructions Discharge Instructions:: You were diagnosed with COVID. You were intubated and extubated. You had a low heart rate. Your clonidine was discontinued. Your coreg was reduced to 3.125 mg twice daily. Consider an outpatient ECHO. Follow up with your primary care doctor in a week. Activity:: Activity as Tolerated Nourishment:: Diabetic Diet - Follow up Plan Referrals: Karishma Giron MD [Active] - Magdiel Rebollar MD [Active] - Myles Paul MD [Active] - Unknown,Unknown [Primary Care Provider] - Jeffrey Reddy MD [Active] - Disposition: HOME Quality - Care Measures CORE MEASURES:: N/A
--- NOTE | 2020-09-10 03:28 | PQF ---
Dear : Chitra Díaz Date 09/10/2020 Please exercise your independent, professional judgment in responding to the clarification form. Clinical indicators are provided on the bottom of this form for your review Can you please further clarify the diagnosis of the patient? Please check appropriate box(es): [ ] Sepsis due to COVID Pneumonia [ ] Severe sepsis [ ] Septic shock [ X ] Localized infection without sepsis [ ] Other diagnosis please specify [ ] Unable to determine Physician Signature: Date/Time: For continuity of documentation, please document condition throughout progress notes and discharge summary. Thank You. To be completed by CDI/Coding staff for physician review: Present Clinical Indicators - Signs / Symptoms / Labs Results and Location in Medical Record [ x ] AMS ED Provider pg.1 [ x ] VS: BP 96/38, Pulse: 53, RR: 26, T: 97.5 ED Provider pg.1 [ x ] Encephalopathic ED Provider pg.2 [ x ] Hypotensive with BP of 60/30 H and P pg.1 [ x ] Acute respiratory failure, cardiogenic shock ED Provider pg.3 [ x ] Pneumonia 2/2 COVID 19 infection H and P pg.2 [ x ] Metabolic encephalopathy H and P pg.2 [ x ] Lactic acid: 2.9H Laboratory 08/22 [ x ] WBC: 8.5, 10.9HH, 10.8, 8.9, 13.1H, 12.5H, 15.4H, 11.2H, 12.H Laboratory [ x ] Respiratory culture: Staphylococcus aureus Microbiology 08/23 Present Risk Factors Results and Location in Medical Record [ x ] CHF H and P pg.1 [ x ] COVID Infection H and P pg.2 [ x ] 59 years oild H and P pg.1 [ x ] HTN H and P pg.1 [ x ] DM H and P pg.1 Present Treatments Results and Location in Medical Record [ x ] IV Fluids MAR [ x ] Vasopressors IV MAR [ x ] Infectious Consult 08/23 [ x ] Pulmonary Consult Dr. Chavez 08/24 [ x ] IV Antibiotics MAR [ x ] IV Remdesivir MAR [ x ] Mechanical ventilation ED Provider pg.3 CDS/Environmental Department Manager Signature: Peter Gamboa Phone #: ext [phone] Date 09/10/2020 This is a permanent part of the Medical Record [facility]
== END 2020-09-08 15:00 | disposition home or self-care (01) | DRG 207 ==
LOC: ERS 19:36 → CCU 23:04 → IMCU/EMU 08-29 13:11 → T4-A 09-04 14:43
PROVIDERS: ADMIT Internal Medicine; ATTEND Internal Medicine
PROC: 5A1955Z Respiratory Ventilation, Greater than 96 Consecutive Hours (ICD-10-PCS; principal; 2020-08-22)
PROC: 8E0ZXY6 Isolation (ICD-10-PCS; 2020-08-22)
PROC: 06HY33Z Insertion of Infusion Device into Lower Vein, Percutaneous Approach (ICD-10-PCS; 2020-08-22)
PROC: 0BH17EZ Insertion of Endotracheal Airway into Trachea, Via Natural or Artificial Opening (ICD-10-PCS; 2020-08-22)
PROC: 3E033XZ Introduction of Vasopressor into Peripheral Vein, Percutaneous Approach (ICD-10-PCS; 2020-08-22)
PROC: XW033E5 Introduction of Remdesivir Anti-infective into Peripheral Vein, Percutaneous Approach, New Technology Group 5 (ICD-10-PCS; 2020-08-23)
PROC: XW13325 Transfusion of Convalescent Plasma (Nonautologous) into Peripheral Vein, Percutaneous Approach, New Technology Group 5 (ICD-10-PCS; 2020-08-23)
PROC: 06HY33Z Insertion of Infusion Device into Lower Vein, Percutaneous Approach (ICD-10-PCS; 2020-08-27)
PROC: 5A1D70Z Performance of Urinary Filtration, Intermittent, Less than 6 Hours Per Day (ICD-10-PCS; 2020-08-27)
DX: U07.1 COVID-19 (principal); R57.0 Cardiogenic shock; J96.01 Acute respiratory failure with hypoxia; J12.89 Other viral pneumonia; G92 Toxic encephalopathy; N17.9 Acute kidney failure, unspecified; I42.9 Cardiomyopathy, unspecified; I50.32 Chronic diastolic (congestive) heart failure; N39.0 Urinary tract infection, site not specified; I11.0 Hypertensive heart disease with heart failure; E11.9 Type 2 diabetes mellitus without complications; F20.9 Schizophrenia, unspecified; R00.1 Bradycardia, unspecified; F31.9 Bipolar disorder, unspecified; F17.210 Nicotine dependence, cigarettes, uncomplicated; G40.909 Epilepsy, unspecified, not intractable, without status epilepticus; T43.595A Adverse effect of other antipsychotics and neuroleptics, initial encounter; Z78.1 Physical restraint status; Z90.710 Acquired absence of both cervix and uterus; Z79.4 Long term (current) use of insulin; Z98.51 Tubal ligation status; Z79.899 Other long term (current) drug therapy
CPT/HCPCS: 31500; 36415; 36416; 36430; 36556; 36600; 70450; 71045; 80048; 80053; 80076; 80164; 80178; 80306; 80307; 81003; 81015; 82140; 82553; 82728; 82805; 83605; 83880; 84443; 84484; 85025; 85379; 85610; 85730; 86140; 86141; 86850; 86900; 86901; 87040; 87070; 87077; 87186; 87205; 87340; 90935; 92953; 93005; 94002; 94003; 94760; 96365; 96366; 96367; 96368; 96375; 96376; 99292; G0257; J0171; J0360; J0461; J0692; J1100; J1265; J1644; J1650; J1815; J1940; J1953; J2060; J2310; J2704; J3010; J3370; J3480; J3490; J7030; J7050; P9017; S0028; U0002

== ENCOUNTER 2020-09-08 23:03 | Emergency (ER) | payer OTHER ==
[2020-09-08] MEDS ORDERED: Bacitracin 1 PK ONE (23:35)
== END 2020-09-08 23:50 | disposition home or self-care (01) ==
LOC: ERS 23:03
DX: S90.812A Abrasion, left foot, initial encounter (principal); S90.811A Abrasion, right foot, initial encounter; E11.9 Type 2 diabetes mellitus without complications; I10 Essential (primary) hypertension
CPT/HCPCS: 99281

== ENCOUNTER 2020-10-22 10:49 | Outpatient (CLI) | payer OTHER ==
--- NOTE | 2020-10-22 11:20 | RAD ---
EXAM: XR Chest Pa Lat STANDARD PROVIDED CLINICAL HISTORY: Covid pneumonia COMPARISON: 09/06/2020 FINDINGS: Cardiac silhouette remains enlarged. Atherosclerosis is noted involving the aortic arch. Prominence o f the pulmonary vasculature and pulmonary interstitium is redemonstrated. No focal consolidation, pleural fluid or pneumothorax apparent. IMPRESSION: Stable radiographic appearance of the chest.
== END 2020-10-22 10:50 | disposition home or self-care (01) ==
LOC: BICRAD 10:49
PROVIDERS: ATTEND Family Medicine
DX: U07.1 COVID-19 (principal)
CPT/HCPCS: 71046

== ENCOUNTER 2020-11-11 17:07 | Emergency (ER) | payer OTHER ==
[2020-11-11 17:45] LABS: Bilirubin Negative (Negative); Blood, Urine Trace (Negative); Clarity Clear (Clear); Glucose, Urine (Dipstick) Normal (Negative); Ketone, Urine Trace mg/dL (Negative); Leukocyte 500 Leu/uL (Negative); Nitrite Negative (Negative); Protein, Urine (Dipstick) 200 mg/dL (Neg-Trace); RBC/HPF 0-3 HPF (0-3); Specific Gravity, Urine 1.023 (1.002-1.036); Urobilinogen Normal mg/dL (Less than 2); pH, Urine 5.5 (5.0-9.0)
[2020-11-11 17:46] LABS: Bacteria/HPF 1+ HPF (None Seen)
[2020-11-11] MEDS ORDERED: Lorazepam 2 MG/ML VIAL ONE (18:08)
[2020-11-11 18:10] LABS: #Eosinphils 0.1 thou/uL (0.0-0.7); #Lymphocytes 2.2 thou/uL (1.20-3.40); #Monocytes 0.7 thou/uL (0.11-0.59); #Neutrophils 3.6 thou/uL (1.40-6.50); %Basophils 0.4 % (0.0-1.0); %Eosinophils 1.3 % (0.0-10.0); %Lymphocytes 33.6 % (21.0-51.0); %Monocytes 10.1 % (0.0-10.0); %Neutrophils 54.5 % (42.0-75.0); Hemoglobin 9.4 g/dL (12.0-16.0); Mean Corpuscular Hemoglobin 31.2 pg (27.0-31.0); Mean Corpuscular Volume 94.6 fL (78.0-98.0); Mean Platelet Volume 8.7 fL (7.4-10.4); Platelet Count 211 thou/uL (130-400); RBC Distribution Width 14.8 % (11.5-14.5); Red Blood Cell (RBC) Count 3.02 mill/uL (4.20-5.40); White Blood Cell (WBC) Count 6.6 thou/uL (4.8-10.8)
[2020-11-11 18:25] LABS: Amphetamine Not Detected (NotDetected); Barbiturates Screen Not Detected (NotDetected); Benzodiazepine Screen Not Detected (NotDetected); Cocaine Metabolite Screen Not Detected (NotDetected); Medtox Control Line Valid? VALID (VALID); Medtox Reader # READER 1; Methadone Not Detected (NotDetected); Methamphetamine Not Detected (NotDetected); Opiate Screen Not Detected (NotDetected); Oxycodone Screen Not Detected (NotDetected); Phencyclidine (PCP) Not Detected (NotDetected); THC/Cannabinoid Screen Not Detected (NotDetected); Tricyclic Screen Detected (NotDetected)
[2020-11-11 18:30] LABS: Acetaminophen Less than 6.0 mcg/mL (10.0-30.0); Alcohol Less than 10 mg/dL (Less than 10); CK (CPK) 88 U/L (29-168); Salicylate Less than 8.0 mg/dL (15.0-30.0)
[2020-11-11 18:31] LABS: ALT (SGPT) 21 U/L (8-55); AST (SGOT) 24 U/L (5-34); Albumin 3.6 g/dL (3.5-5.0); Alkaline Phosphatase 100 U/L (40-110); Anion Gap 12 mmol/L (10-20); BUN (Urea Nitrogen) 31 mg/dL (9.8-20.1); Bilirubin, Total 0.3 mg/dL (0.2-1.2); Calc. Creatinine Clearance 0 mL/min (70-130); Calcium 8.9 mg/dL (7.8-10.44); Carbon Dioxide 26 mmol/L (22-29); Chloride 104 mmol/L (98-107); Globulin 4.3 g/dL (2.4-3.5); Glucose 122 mg/dL (70-105); Protein, Total 7.9 g/dL (6.0-8.3); Sodium 138 mmol/L (136-145)
[2020-11-12] MEDS ORDERED: Cephalexin 250 MG CAP ONE (11:48)
== END 2020-11-12 12:30 ==
LOC: ERS 17:07
DX: R45.1 Restlessness and agitation (principal); N39.0 Urinary tract infection, site not specified; E11.9 Type 2 diabetes mellitus without complications; I10 Essential (primary) hypertension; E78.5 Hyperlipidemia, unspecified; Z79.899 Other long term (current) drug therapy
CPT/HCPCS: 36415; 36416; 80053; 80306; 80307; 81003; 81015; 82550; 84443; 85025; 93005; 96372; J2060

== ENCOUNTER 2020-11-16 20:45 | Inpatient (IN) | payer OTHER ==
[~2020-11-16 20:45] MED LIST changes: -Atropine Sulfate 1 mg/10 ml Syringe ONE; -Calcium Chloride 1 GM/10 ML Abboject SYRINGE ONE; -DOPamine/D5W 400 mg/250 ml PREMIX ONE; -EPINEPHrine 1 MG/10 ML Abboject SYRINGE ONE; +Iopamidol-370 76% 500 ML 1 ML ONE; -Naloxone HCl 0.4 mg/ml Vial ONE
[2020-11-16 21:25] LABS: #Monocytes 0.6 thou/uL (0.11-0.59); #Neutrophils 3.8 thou/uL (1.40-6.50); %Basophils 0.5 % (0.0-1.0); %Eosinophils 0.6 % (0.0-10.0); %Lymphocytes 31.5 % (21.0-51.0); %Monocytes 9.6 % (0.0-10.0); %Neutrophils 57.8 % (42.0-75.0); Hemoglobin 9.2 g/dL (12.0-16.0); Mean Corpuscular HGB CONC 34.1 g/dL (32.0-36.0); Mean Corpuscular Hemoglobin 32.7 pg (27.0-31.0); Mean Platelet Volume 7.7 fL (7.4-10.4); Platelet Count 229 thou/uL (130-400); RBC Distribution Width 15.2 % (11.5-14.5); Red Blood Cell (RBC) Count 2.82 mill/uL (4.20-5.40); White Blood Cell (WBC) Count 6.5 thou/uL (4.8-10.8)
--- NOTE | 2020-11-16 21:27 | RAD ---
SINGLE VIEW OF THE CHEST: Comparison: 09-06-2020 History: Unresponsive, altered mental status. FINDINGS: Single view of the chest shows an enlarged cardiomediastinal silhouette. Bilateral pulmonary vascular enlargement is seen. Fluffy opacities are seen in both hilar regions and lungs. No pleural effusion is seen. IMPRESSION: Findings are mostly consistent with congestive heart failure with volume overload. POS: EAA
[2020-11-16 21:44] LABS: Acetaminophen Less than 6.0 mcg/mL (10.0-30.0); Alcohol Less than 10 mg/dL (Less than 10); Salicylate Less than 8.0 mg/dL (15.0-30.0)
[2020-11-16 21:50] LABS: Albumin 3.3 g/dL (3.5-5.0)
[2020-11-16 21:51] LABS: Calcium 8.6 mg/dL (7.8-10.44); Chloride 102 mmol/L (98-107); Potassium 4.2 mmol/L (3.5-5.1); Sodium 137 mmol/L (136-145)
[2020-11-16 21:52] LABS: Glucose 160 mg/dL (70-105); Protein, Total 7.3 g/dL (6.0-8.3)
[2020-11-16 21:54] LABS: Anion Gap 12 mmol/L (10-20); Bilirubin, Total 0.3 mg/dL (0.2-1.2); Carbon Dioxide 27 mmol/L (22-29)
--- NOTE | 2020-11-16 21:54 | CT ---
CT BRAIN WITHOUT CONTRAST: Comparison: 08-22-2020 History: Loss of consciousness, altered mental status. Technique: Multiple contiguous axial images were obtained in a CT brain without contrast. FINDINGS: There are scattered hyperdensities in the subcortical and periventricular white matter, likely second hugo to small vessel ischemic disease. No large confluent infarction is seen. There is no evidence of hydrocephalus, intracranial hemorrhage or extraaxial fluid collections. The calvarium and overlying soft tissues are unremarkable. The visualized paranasal sinuses and masto id air cells are well aerated. IMPRESSION: No evidence of acute intracranial abnormality. POS: EAA
[2020-11-16 21:55] LABS: Alkaline Phosphatase 121 U/L (40-110); Calc. Creatinine Clearance 0 mL/min (70-130)
[2020-11-16 21:56] LABS: BUN (Urea Nitrogen) 31 mg/dL (9.8-20.1)
[2020-11-16 21:57] LABS: AST (SGOT) 27 U/L (5-34)
[2020-11-16 21:58] LABS: ALT (SGPT) 43 U/L (8-55); CK (CPK) 59 U/L (29-168); Lipase 19 U/L (8-78)
[2020-11-16] MEDS ORDERED: Aspirin Chewable 81 MG TAB ONE (22:22)
[2020-11-16] MEDS ORDERED: Furosemide 40 MG/4 ML VIAL ONE (22:22)
[2020-11-16] MEDS ORDERED: Nitroglycerin 2% Ointment 1 INCH/1 GM Packet ONE (22:22)
--- NOTE | 2020-11-16 22:28 | CT ---
CTA OF THE CHEST WITH CONTRAST: Date: 11/16/2020 COMPARISON: None. HISTORY: Elevated D-Dimer. Altered mental status and unresponsiveness. Hypoxia. TECHNIQUE: Multiple contiguous axial images were obtained in a CTA of the chest with contrast. 3D oblique MIP re formats and direct coronal reformats were performed. FINDINGS: Global cardiomegaly is seen. The pulmonary arteries are well opacified without filling defects to sug gest pulmonary emboli. There is a small pericardial effusion. Soft tissue density in a subcarinal loc ation could represent an enlarged subcarinal lymph node measuring 3.0 cm in size. Diffuse increased interstitial lung markings are present. These are more prominent in the upper lobes and are central. This may represent pulmonary edema. There are small bilateral pleural effusions. At electasis is seen in the lung bases. There is a calcified granuloma in the right upper lobe. The visualized subdiaphragmatic structures are unremarkable. Some of the contrast extends downward in to the liver suggesting right heart dysfunction. Diffuse soft tissue anasarca is seen in the chest wa ll soft tissues. Degenerative changes are seen in the spine. IMPRESSION: 1. Findings are most consistent with congestive heart failure with pulmonary edema and pleural effus ions. 2. No evidence of pulmonary thromboembolism. 3. Possible enlarged nonspecific subcarinal lymph node. POS: EAA
--- NOTE | 2020-11-16 22:49 | PDOC.HHP ---
Hospitalist KOBE AMS History of Present Illness: This is a 60-year-old female patient with a history of hypertension, diabetes bipolar disorder/schizophrenia and Covid pneumonia 2 months ago who was brought in to the ED on account of altered mental status. She was intubated on her last admission. Patient was noted to have become unresponsive by the family and EMS was activated. It appears she fell and hit her head. On arrival patient woke up after sternal rub however oxygen saturation was noted to be 82%. She was alert and oriented x4. She was started on 4 L oxygen which improved saturation to 94%When I talked to the patient he said she had a seizure but could not give any more details. She was still a bit confused. She denied any headache chest pain however had shortness of breath. On arrival she was alert with BP at 150/120, pulse 94, respiratory 20, temperature 98 and saturating 90% on room air. This improved to 95 on 2 L. Her labs showed hemoglobin of 9.2, WBC 6.5 and platelets 229. Sodium was 137, potassium 4.2 and creatinine 1.37 from a baseline of 1.21 5 days ago. Glucose was 160, alkaline phosphatase 121. Urinalysis showed elevated leukocyte esterases and few bacteria BNP was elevated at 2114 and troponin was 0.016. TSH was 0.53. Checks x-ray revealed congestive heart failure with volume overload, CT scan of the head showed no evidence of acute intracranial process and D-dimer was elevated at 1.92 and therefore had a CTA which showed pulmonary edema with no evidence of thromboembolism. Possibly enlarged nonspecific subcranial lymph node was noted. She received 40 mg Lasix, 324 mg aspirin and an inch of Nitro- Bid prior to hospitalist team been consulted for admission. Allergies/Adverse Reactions: Allergy/AdvReac Type Severity Reaction Status Date / Time No Known Drug Allergies Allergy Verified 11/17/20 17:58 Home Medications: Medication Instructions Recorded Confirmed Type ARIPiprazole [Abilify Maintena] 400 mg IM Q30D 08/23/20 08/23/20 History Aspirin [Ecotrin Low Strength] 81 mg PO DAILY 08/23/20 11/17/20 History Divalproex Sodium [Depakote] 500 mg PO BID 08/23/20 11/17/20 History Ferrous Sulfate 325 mg PO DAILY 08/23/20 11/17/20 History Haloperidol 10 mg PO BID 08/23/20 11/17/20 History HumaLOG [HumaLOG Vial] 2 - 10 units SC PRN PRN 08/23/20 08/23/20 History Insulin Detemir [Levemir] 12 unit SC HS 08/23/20 11/12/20 History Losartan [Cozaar] 50 mg PO DAILY 08/23/20 11/17/20 History Promethazine [Phenergan] 50 mg PO BID 08/23/20 11/17/20 History QUEtiapine Fumarate [SEROquel] 200 mg PO BID 08/23/20 11/17/20 History risperiDONE 4 mg PO BID 08/23/20 11/17/20 History ARIPiprazole [Abilify] 10 mg PO BID #60 tablet 09/07/20 11/17/20 Rx Atorvastatin Calcium 10 mg PO QPM #30 tablet 09/07/20 11/17/20 Rx Benztropine [Cogentin] 0.5 mg PO BID #30 tab 09/07/20 11/17/20 Rx Carvedilol [Coreg] 3.125 mg PO BID-WM #60 tab 09/07/20 11/17/20 Rx metFORMIN [Glucophage] 500 mg PO BID-WM #60 tab 09/07/20 11/17/20 Rx Past History: PMHx: PSHx: FHx: Social: Hospitalist HPI ROS Constitutional: reports: weakness, malaise. denies: fever, chills, sweats Respiratory: reports: shortness of breath, SOB with excertion. denies: cough, hemoptysis Cardiovascular: denies: chest pain, palpitations, orthopnea, paroxysmal noc. dyspnea Gastrointestinal: denies: nausea, vomiting, abdominal pain Musculoskeletal: denies: neck pain, shoulder pain, arm pain Neurological: denies: weakness, numbness, incoordination All other systems reviewed; all pertinent +/- noted in HPI/Subj Hospitalist Exam General Appearance: awake alert, ill appearing General - other findings: However slightly confused. Eye: PERRL, anicteric sclera ENT: normocephalic atraumatic Neck: supple, symmetric Heart: RRR, no murmur, no gallops, no rubs, normal peripheral pulses Respiratory: tachypneic Respiratory - other findings: Bilateral coarse breath sounds. Gastrointestinal: soft, non-distended, no palpable masses, no splenomegaly, tender to palpation (Mild generalized tenderness without rebound or guarding.) Extremities: no cyanosis, no clubbing, 1+ LE edema Neurological: cranial nerve grossly intact, no weakness Psychiatric: A&O x 3, flat affect Hospitalist Results Result Diagrams: 11/17/20 04:07 11/17/20 15:46 Lab results: Laboratory Last Values WBC 6.5 thou/uL (4.8-10.8) 11/16/20 21:16 RBC 2.82 mill/uL (4.20-5.40) L 11/16/20 21:16 Hgb 9.2 g/dL (12.0-16.0) L 11/16/20 21:16 Hct 27.1 % (36.0-47.0) L 11/16/20 21:16 MCV 96.0 fL (78.0-98.0) 11/16/20 21:16 MCH 32.7 pg (27.0-31.0) H 11/16/20 21:16 MCHC 34.1 g/dL (32.0-36.0) 11/16/20 21:16 RDW 15.2 % (11.5-14.5) H 11/16/20 21:16 Plt Count 229 thou/uL (130-400) 11/16/20 21:16 MPV 7.7 fL (7.4-10.4) 11/16/20 21:16 Neutrophils % 57.8 % (42.0-75.0) 11/16/20 21:16 Lymphocytes % 31.5 % (21.0-51.0) 11/16/20 21:16 Monocytes % 9.6 % (0.0-10.0) 11/16/20 21:16 Eosinophils % 0.6 % (0.0-10.0) 11/16/20 21:16 Basophils % 0.5 % (0.0-1.0) 11/16/20 21:16 Neutrophils # 3.8 thou/uL (1.40-6.50) 11/16/20 21:16 Lymphocytes # 2.0 thou/uL (1.20-3.40) 11/16/20 21:16 Monocytes # 0.6 thou/uL (0.11-0.59) H 11/16/20 21:16 Eosinophils # 0.0 thou/uL (0.0-0.7) 11/16/20 21:16 Basophils # 0.0 thou/uL (0.0-0.2) 11/16/20 21:16 D-Dimer 1.92 *mcg/mL (0.27-0.43) H 11/16/20 21:16 Sodium 137 mmol/L (136-145) 11/16/20 21:16 Potassium 4.2 mmol/L (3.5-5.1) 11/16/20 21:16 Chloride 102 mmol/L (98-107) 11/16/20 21:16 Carbon Dioxide 27 mmol/L (22-29) 11/16/20 21:16 Anion Gap 12 mmol/L (10-20) 11/16/20 21:16 BUN 31 mg/dL (9.8-20.1) H 11/16/20 21:16 Creatinine 1.37 mg/dL (0.6-1.1) H 11/16/20 21:16 Estimated GFR (MDRD) 48 11/16/20 21:16 Glucose 160 mg/dL (70-105) H 11/16/20 21:16 Calcium 8.6 mg/dL (7.8-10.44) 11/16/20 21:16 Total Bilirubin 0.3 mg/dL (0.2-1.2) 11/16/20 21:16 AST 27 U/L (5-34) 11/16/20 21:16 ALT 43 U/L (8-55) 11/16/20 21:16 Alkaline Phosphatase 121 U/L (40-110) H 11/16/20 21:16 Ammonia 45 umol/L (18-72) 11/16/20 21:16 Creatine Kinase 59 U/L (29-168) 11/16/20 21:16 Troponin I 0.016 ng/mL (< 0.028) 11/16/20 21:16 B-Natriuretic Peptide 2114.1 pg/mL (0-100) H 11/16/20 21:16 Serum Total Protein 7.3 g/dL (6.0-8.3) 11/16/20 21:16 Albumin 3.3 g/dL (3.5-5.0) L 11/16/20 21:16 Globulin 4.0 g/dL (2.4-3.5) H 11/16/20 21:16 Albumin/Globulin Ratio 0.8 g/dL (1.2-2.2) L 11/16/20 21:16 Lipase 19 U/L (8-78) 11/16/20 21:16 TSH 3rd Generation 0.5318 uIU/mL (0.35-4.94) 11/16/20 21:16 Salicylates Less than 8.0 mg/dL (15.0-30.0) L 11/16/20 21:16 Acetaminophen Less than 6.0 mcg/mL (10.0-30.0) L 11/16/20 21:16 Plasma Alcohol Less than 10 mg/dL (Less than 10) 11/16/20 21:16 Hospitalist H&P A/P Plan: This is a 60-year-old female patient with a history of bipolar disorder and schizophrenia, hypertension, diabetes mellitus and recent Covid infection presenting on account of altered mental status with volume overload concerning for acute heart failure exacerbation. CHF exacerbation. BNP is elevated and she has significant edema Does not appear to have a history of heart failure is not on diuretics This may be new onset We will check an echo in the morning Received diuresiswe will continue Input output monitoring Daily weights Low-sodium diet Possible cardiology consult in a.m. Acute encephalopathy Unclear etiologysepsis/seizures/possible intoxication. Urinalysis showed elevated leukocyte esterase however no leukocytosis Is unclear whether she has a history of seizure disordertried calling but could not get any family member to verify this. Monitor closely overnight Consider neuro evaluation in a.m for possible seizure Bipolar/schizophrenia Resume home meds once verified Urosepsis Elevated urine esterases. Possible cause of encephalopathy Follow-up on urine cultures Start on ceftriaxone Blood cultures. MEETA on CKD Possibly cardiorenal Diabetes Monitor BMP Normocytic anemia Unclear etiologyotherwise chronic Possible of renal origin Iron studies Monitor CBC Recent Covid infection We will continue monitoring. History of hypertension Monitor blood pressure Diabetes mellitus Correctional insulin Monitor glucose VT prophylaxisLovenox CODE STATUSfull code
[2020-11-16 23:10] LABS: Bilirubin Negative (Negative); Blood, Urine Negative (Negative); Clarity Clear (Clear); Glucose, Urine (Dipstick) Normal (Negative); Ketone, Urine Negative (Negative); Leukocyte 500 Leu/uL (Negative); Nitrite Negative (Negative); Protein, Urine (Dipstick) 70 mg/dL (Neg-Trace); Specific Gravity, Urine 1.025 (1.002-1.036); Squamous Epithelial 0-3 HPF (0-3); Urobilinogen Normal mg/dL (Less than 2); pH, Urine 5.5 (5.0-9.0)
[2020-11-16 23:12] LABS: Bacteria/HPF Rare-Few HPF (None Seen)
[2020-11-16 23:22] LABS: Amphetamine Not Detected (NotDetected); Barbiturates Screen Not Detected (NotDetected); Benzodiazepine Screen Not Detected (NotDetected); Cocaine Metabolite Screen Not Detected (NotDetected); Medtox Control Line Valid? VALID (VALID); Medtox Reader # READER 4; Methadone Not Detected (NotDetected); Methamphetamine Not Detected (NotDetected); Opiate Screen Not Detected (NotDetected); Oxycodone Screen Not Detected (NotDetected); Phencyclidine (PCP) Not Detected (NotDetected); THC/Cannabinoid Screen Not Detected (NotDetected); Tricyclic Screen Detected (NotDetected)
[2020-11-16] MEDS ORDERED: Ondansetron PF 4 MG/2 ML Vial IVP PRN (23:30)
[2020-11-16] MEDS ORDERED: Ondansetron ODT 4 MG TAB SL PRN (23:30)
[2020-11-16] MEDS ORDERED: cefTRIAXone\\ROCEPHIN 1 GM in Sodium Chloride 0.9% 100 ML IVPB SCH (23:45)
[2020-11-16] MEDS ORDERED: Dextrose 5% in Water 1,000 ML IV PRN (23:50)
[2020-11-16] MEDS ORDERED: Dextrose 50% Abboject 50 ML SYRINGE SLOW IVP PRN (23:50)
[2020-11-16] MEDS ORDERED: HumaLOG 300 UNITS/3 ML VIAL SC PRN (23:50)
[2020-11-17 01:14] VITALS: BMI 27.9
[2020-11-17 01:25] LABS: Troponin I 0.042 ng/mL (< 0.028)
[2020-11-17] MEDS ORDERED: Furosemide 40 MG/4 ML VIAL SLOW IVP SCH ×2 (06:00→09:45)
[2020-11-17] MEDS ORDERED: Nitroglycerin 2% Ointment 1 INCH/1 GM Packet TOP SCH (06:00)
[2020-11-17] MEDS ORDERED: Acetaminophen 325 MG TAB ONE (07:02)
[2020-11-17] MEDS ORDERED: Aspirin 325 MG TAB PO SCH (08:00)
[2020-11-17] MEDS ORDERED: Aspirin 325 MG TAB ONE (08:36)
[2020-11-17] MEDS ORDERED: Furosemide 40 MG/4 ML VIAL ONE ×2 (09:06→11:16)
[2020-11-17] MEDS ORDERED: Ondansetron PF 4 MG/2 ML Vial IVP PRN (09:40)
--- NOTE | 2020-11-17 10:00 | PDOC.HOSPP ---
- Subjective Encounter Date: 11/17/20 Encounter Time: 09:57 Subjective: No overnight events. Patient resting comfortably in chair. No respiratory distress. Reports nausea and abdominal pain. Denies vomiting, diarrhea, melena, hematochezia. Patient with flight of ideas during conversation. She is AOx3, but confused at times. She reports all over body pain. Denies SOB, chest pain. Chart and medications reviewed. - Objective Vital Signs & Weight: Vital Signs (12 hours) Temp Pulse Resp BP Pulse Ox 11/16/20 23:00 97.9 F 106 H 20 150/85 H 92 L Weight Weight 173 lb 1.6 oz Result Diagrams: 11/16/20 21:16 11/16/20 21:16 Hospitalist ROS - Review of Systems Constitutional: denies: fever, chills, sweats, weakness, malaise, other Eyes: denies: pain, vision change, conjunctivae inflammation, eyelid inflammation, redness, other ENT: denies: ear pain, ear discharge, nose pain, nose discharge, nose congestion, mouth pain, mouth swelling, throat pain, throat swelling, other Respiratory: denies: cough, dry, shortness of breath, hemoptysis, SOB with excertion, pleuritic pain, sputum, wheezing, other Cardiovascular: denies: chest pain, palpitations, orthopnea, paroxysmal noc. dy spnea, edema, light headedness, other Gastrointestinal: reports: nausea, abdominal pain. denies: vomiting, diarrhea, constipation, melena, hematochezia, other Genitourinary: denies: dysuria, frequency, incontinence, hematuria, retention, other Musculoskeletal: denies: neck pain, shoulder pain, arm pain, back pain, hand ivon n, leg pain, foot pain, other Skin: denies: rash, lesions, edgardo, bruising, other Neurological: denies: weakness, numbness, incoordination, change in speech, confusion, seizures, other Hospitalist Exam Vitals: Vital Signs (12 hours) Temp Pulse Resp BP Pulse Ox 11/16/20 23:00 97.9 F 106 H 20 150/85 H 92 L Weight Weight 173 lb 1.6 oz General Appearance: NAD, awake alert Eye: PERRL, anicteric sclera ENT: normocephalic atraumatic, no oropharyngeal lesions, moist mucosa Neck: supple, symmetric, no JVD, no thyromegaly, no lymphadenopathy, no carotid bruit Heart: RRR, no murmur, no gallops, no rubs, normal peripheral pulses Respiratory: CTAB, no wheezes, no rales, no ronchi, normal chest expansion, no tachypnea, normal percussion Gastrointestinal: soft, non-distended, normal bowel sounds, no palpable masses, no hepatomegaly, no splenomegaly, no bruit, tender to palpation Extremities: 2+ LE edema Skin: normal turgor, no lesions, no rashes Neurological: cranial nerve grossly intact, normal sensation to touch, no weakness, no focal deficits, no new deficit Musculoskeletal: normal tone, normal strength, no muscle wasting Psychiatric: normal affect, normal behavior, A&O x 3 Hosp A/P - Plan 60F with PMHx of T2DM, HTN, HLD, Bipolar disorder/Schizophrenia who was brought in by family for AMS after being found unresponsive to verbal stimuli found to have new onset CHF with exacerbation and AMS. Acute CHF exacerbation Pt p/w SOB requriring 2L NC. CXR showed pulmonary vascular congestion. BNP elevated to 2k. D-dimer elevated but CTA negative for PE but did also show vascular congestion. JVD on exam. No known hx of CHF, not on any home diuretic medications. Pt difficult historian. Plan -Continue IV lasix 40 mg BID -Echocardiogram -I/Os, daily weights -Heart failure consult Acute metabolic encephalopathy Pt pw AMS, unresponsive per family for unknown amount of time. Concern that she fell and hit her head. Records mention history of possible seizure disorder, but unable to confirm this. Tox screen negative. Hx of bipolar disorder/schizophrenia on multiple medications which is also likely contributing. Head CT negative. Neurologically intact on exam, but pt does endorse dizziness. Unable to assess cerebellar function since pt having difficulty following instructions. Pt AOx2 on exam this am with flight of ideas and confusion. Plan -MRI brain -q4h neuro checks -Echo, telemetry monitoring -TSH, Mg, Folate, Vitamin B12 -Neurology consult Abdominal Pain Pt reports nausea and abdominal pain. Difficult historian as patient reports pain all over her body. Her abdomen is TTP on exam, but she is TTP everywhere on her body. Will hold zofran given pt is on multiple QT prolonging medications and would want to avoid multiple seratonergic medications. Will obtain EKG to assess for QT interval. Will check KUB, lipase, and CMP. Plan -KUB -Lipase, CMP -Check EKG for QT interval Urinary tract infection UA with esterases. Started on ceftriaxone in ED. May be contributing to encephalopathic picture. Will continue and follow urine cx. Plan -Ceftriaxone -Follow urine culture Seizure disorder Records conflicting about hx of seizure disorder. Pt poor historian. On Depakote, but suspect likely for treatment of bipolar disorder. Plan -Check depakote level -Neurology consult for AMS as above Bipolar/Schizophrenia Resume home risperidone, seroquel, haldol, Depakote, and Abilify. Acute Kidney Injury BUN/Cr 31/1.37. Baseline Cr around 1. Likely component of cardiorenal. Will continue with diuresis and closely monitor kidney function. Type 2 Diabetes Mellitus Carb consistent diet. Hold home metformin in setting of MEETA. ISS, ACHS glucose checks. Hypertension Hold home Losartin in setting of MEETA. PRN hydralazine. Hyperlipidemia Continue home atorvastatin DVT prophylaxis- SQ heparin Full code
--- NOTE | 2020-11-17 11:40 | RAD ---
KUB: 11/17/2020 COMPARISON: None HISTORY: Pain FINDINGS: There is contrast media within the urinary bladder. Supine imaging limits assessment for fr ee intraperitoneal air and small bowel obstruction. There is lower lumbar spine degenerative change and there is bilateral sacroiliac joint degenerative change. There is patchy opacity in the lung bases, incompletely assessed on this exam. IMPRESSION: Nonobstructed bowel gas pattern.
[2020-11-17] MEDS ORDERED: Carvedilol 3.125 MG TAB ONE (13:54)
[2020-11-17] MEDS ORDERED: Heparin 5,000 UNITS/ML VIAL ONE (13:54)
[2020-11-17] MEDS ORDERED: Acetaminophen 325 MG TAB PO PRN (14:16)
[2020-11-17] MEDS: Cefepime 2 GM in Sodium Chloride 0.9% 100 ML IVPB SCH ×2 (14:53→14:55)
[2020-11-17] MEDS: Furosemide 40 MG/4 ML VIAL SLOW IVP SCH ×3 (14:53→14:54)
[2020-11-17] MEDS: Nitroglycerin 2% Ointment 1 INCH/1 GM Packet TOP SCH (14:53)
[2020-11-17] MEDS: Heparin 5,000 UNITS/ML VIAL SC SCH ×2 (14:54→21:03)
[2020-11-17 16:16] LABS: Anion Gap 15 mmol/L (10-20); BUN (Urea Nitrogen) 30 mg/dL (9.8-20.1); Calc. Creatinine Clearance 51 mL/min (70-130); Calcium 8.9 mg/dL (7.8-10.44); Carbon Dioxide 26 mmol/L (22-29); Chloride 99 mmol/L (98-107); Glucose 124 mg/dL (70-105); Magnesium 1.7 mg/dL (1.6-2.6); Potassium 4.1 mmol/L (3.5-5.1); Sodium 136 mmol/L (136-145)
[2020-11-17] MEDS ORDERED: Labetalol HCl 100 MG/20 ML VIAL SLOW IVP PRN (16:31)
--- NOTE | 2020-11-17 16:35 | CON ---
NEUROLOGY CONSULTATION DATE OF CONSULTATION: 11/17/2020 REASON FOR CONSULTATION: Altered mental status. HISTORY OF PRESENT ILLNESS: Ms. Blount is a 60-year-old female with medical history significant for hypertension, diabetes mellitus, bipolar disorder, schizophrenia, and COVID pneumonia 2 months ago, presented to the hospital with altered mental status. She was intubated during her last admission. The patient was noted to be unresponsive by family and they called EMS. It appears that she fell on the ground and hit her head and lost consciousness. She is at baseline alert and oriented x4. There was a concern about seizure, but no further details were available in the records. The patient is currently confused and is alert and oriented x1 and unable to provide the history. History is obtained from review of the medical records. Apparently, she is on Depakote but not sure for bipolar or seizure disorder.. ALLERGIES: NO KNOWN DRUG ALLERGIES HOME MEDICATIONS: 1. Abilify 400 mg IM q.30 days. 2. Aspirin 81 mg daily. 3. Depakote 500 mg p.o. b.i.d. 4. Ferrous sulfate 325 mg p.o. daily. 5. Haldol 10 mg p.o. b.i.d. 6. Humalog insulin 2 to 10 units subcutaneously p.r.n. 7. Insulin detemir 12 units subcutaneously at bedtime. 8. Cozaar 50 mg p.o. daily. 9. Magnesium oxide 10. Promethazine 50 mg p.o. b.i.d. 11. Seroquel 200 mg p.o. b.i.d. 12. Risperdal 4 mg p.o. b.i.d. 13. Abilify 10 mg p.o. b.i.d. 14. Atorvastatin calcium 10 mg p.o. q.p.m. 15. Cogentin 0.5 mg p.o. b.i.d. 16. Carvedilol (Coreg) 3.125 mg p.o. b.i.d. 17. Metformin 500 mg p.o. b.i.d. PAST MEDICAL HISTORY: Hypertension, diabetes, bipolar disorder, schizophrenia, COVID pneumonia 2 months ago, presumed seizure disorder. FAMILY HISTORY: No significant family history. PAST SURGICAL HISTORY: No significant past surgical history. SOCIAL HISTORY: The patient lives in a prison. There is no documented history of smoking, alcohol, or illegal drug use. REVIEW OF SYSTEMS: Unobtainable due to the patient's mental status. Vital Signs & Weight: Vital Signs (12 hours) Temp Pulse Resp BP Pulse Ox 11/16/20 23:00 97.9 F 106 H 20 150/85 H 92 L Weight Weight 173 lb 1.6 oz Vital Signs (12 hours) Temp Pulse Resp BP Pulse Ox 11/16/20 23:00 97.9 F 106 H 20 150/85 H 92 L Weight Weight 173 lb 1.6 oz PHYSICAL EXAMINATION: General Appearance: NAD, awake alert Eye: PERRL, anicteric sclera ENT: normocephalic atraumatic, no oropharyngeal lesions, moist mucosa Neck: supple, symmetric, no JVD, no thyromegaly, no lymphadenopathy, no carotid bruit Heart: RRR, no murmur, no gallops, no rubs, normal peripheral pulses Respiratory: CTAB, no wheezes, no rales, no ronchi, normal chest expansion, no tachypnea, normal percussion Gastrointestinal: soft, non-distended, normal bowel sounds, no palpable masses, no hepatomegaly, no splenomegaly, no bruit, tender to palpation Extremities: 2+ LE edema Skin: normal turgor, no lesions, no rashes Neurological: : Mental status, the patient is alert and oriented to person only. She follows commands appropriately. She is pleasantly confused. Cranial nerves 2 through 12 are intact. Motor, muscle tone and bulk are normal. Moving all 4 extremities equally and symmetrically. Sensory intact. Cerebellar, finger-nose testing intact. Gait deferred due to the patient's safety reasons. DATA REVIEWED: I reviewed the labs, which were significant for acute kidney injury with a BUN 31, creatinine of 1.37, and hyperglycemia of 160, and also anemia with hemoglobin of 9.2 and hematocrit of 27.1. ASSESSMENT AND PLAN: Ms. Roxanne Blount is a 60-year-old female with medical history significant for bipolar disorder, schizophrenia, hypertension, diabetes mellitus, and recent COVID infection, consulted for altered mental status. Altered mental status seem to be multifactorial secondary to metabolic/infectious etiology; However, intracranial process could not be completely ruled. There is also concern about seizure activity. Per nursing staff, there has been some mention of remote history of seizures. The patient is already on Depakote 500 mg p.o. b.i.d., not sure whether this is for mood stabilization or seizure disorder. Check Depakote level to see if she further needs adjustment of Depakote. MRI of the brain to rule out acute intracranial process and EEG to evaluate for seizure activity. Observe seizure precautions. Ativan 2 mg IV for seizure greater than 2 minutes. Neuro checks every 4 hours. Continue home medications. Continue medical management per primary team. We will continue to follow. Plan discussed with the nursing staff. Thank you for the consult. Job ID: [id number] MARIAH
[2020-11-17] MEDS ORDERED: metFORMIN 500 MG TAB PO SCH (17:00)
[2020-11-17] MEDS ORDERED: Carvedilol 3.125 MG TAB PO SCH (17:00)
[2020-11-17 17:01] LABS: Anion Gap 14 mmol/L (10-20); BUN (Urea Nitrogen) 32 mg/dL (9.8-20.1); Calc. Creatinine Clearance 56 mL/min (70-130); Calcium 8.7 mg/dL (7.8-10.44); Carbon Dioxide 25 mmol/L (22-29); Chloride 102 mmol/L (98-107); Glucose 87 mg/dL (70-105); Sodium 137 mmol/L (136-145)
[2020-11-17 17:37] LABS: #Basophils 0.1 thou/uL (0.0-0.2); #Eosinphils 0.1 thou/uL (0.0-0.7); #Lymphocytes 2.5 thou/uL (1.20-3.40); #Monocytes 0.8 thou/uL (0.11-0.59); #Neutrophils 2.5 thou/uL (1.40-6.50); %Basophils 0.9 % (0.0-1.0); %Eosinophils 1.8 % (0.0-10.0); %Monocytes 12.8 % (0.0-10.0); %Neutrophils 42.5 % (42.0-75.0); Hemoglobin 8.5 g/dL (12.0-16.0); Mean Corpuscular HGB CONC 31.4 g/dL (32.0-36.0); Mean Corpuscular Hemoglobin 29.9 pg (27.0-31.0); Mean Corpuscular Volume 95.3 fL (78.0-98.0); Mean Platelet Volume 7.8 fL (7.4-10.4); Platelet Count 231 thou/uL (130-400); RBC Distribution Width 15.4 % (11.5-14.5); Red Blood Cell (RBC) Count 2.85 mill/uL (4.20-5.40); White Blood Cell (WBC) Count 5.8 thou/uL (4.8-10.8)
--- NOTE | 2020-11-17 17:55 | CON ---
DATE OF CONSULTATION: HISTORY OF PRESENT ILLNESS: Roxanne Blount is a 60-year-old black female, who was initially evaluated by Dr. Reddy in August of 2020. She was brought to the hospital with altered mental status and found to be hypotensive and bradycardic. She also had severe COVID pneumonia and required intubation. She was on carvedilol 6.25 b.i.d. and clonidine 0.3 mg in the morning and 0.2 mg in the evening. Those medications were discontinued and apparently, her bradycardia resolved. She now is brought to the hospital by EMS after she was unresponsive to her family. Oxygen saturation was 82%. She denies any chest discomfort or shortness of breath. She does state that she has had peripheral edema for many years. The patient thinks that she had a seizure. PAST MEDICAL HISTORY: Hypertension, diabetes, bipolar disorder, schizophrenia COVID pneumonia 2 months ago. HOME MEDICATIONS: 1. Abilify 10 mg b.i.d. 2. Aspirin 81 daily. 3. Atorvastatin 10 mg q.p.m. 4. Cogentin 0.5 mg b.i.d. 5. Carvedilol 3.125 b.i.d. 6. Depakote 500 mg b.i.d. 7. Ferrous sulfate 325 daily. 8. Allopurinol 10 mg b.i.d. 9. Insulin. 10. Losartan 50 mg daily. 11. Metformin 500 mg b.i.d. 12. Phenergan p.r.n. 13. Risperidone 4 mg b.i.d. 14. Seroquel 200 mg b.i.d. ALLERGIES: NONE. PHYSICAL EXAMINATION: VITAL SIGNS: Blood pressure 165/101, pulse of 85. HEENT: PERRL. NECK: Supple. CHEST: Clear. CARDIAC: S1 and S2 normal without any S3, S4, or murmurs. ABDOMEN: Normal bowel sounds without tenderness or organomegaly. EXTREMITIES: Revealed 1+ pretibial edema. LABORATORY DATA: EKG revealed sinus tachycardia, nonspecific T wave changes. Brain CT revealed no acute abnormality. Chest CTA revealed no evidence of pulmonary thromboembolism. Cardiomegaly was present. Small pericardial effusion. There are increased interstitial lung markings which felt to possibly be due to pulmonary edema. Hemoglobin 9.2, hematocrit 27.1, white count 6500, platelets 229,000. Sodium 136, potassium 4.1, chloride 99, carbon dioxide 26, BUN 30, and creatinine 1.45. Troponin I 0.042. TSH is normal. BNP 2114.1. Urine drug screen was negative except for tricyclics. IMPRESSION: 1. Mental status changes of uncertain etiology. The patient thinks she may have had a seizure. 2. Some degree of congestive heart failure. During her previous admission, Dr. Reddy thought she may have had evidence for diastolic heart failure, although she has never had an echocardiogram because of COVID during the last admission. Her BNP is significantly elevated and she does have peripheral edema. 3. Bipolar disorder/schizophrenia. 4. Chronic kidney disease. 5. Hypertension. 6. Diabetes. PLAN: The patient continue to be diuresed. Echocardiogram has been performed, but at this time could not be reviewed due to the echo computer system malfunctioning. Job ID: [id number] MTDD
[2020-11-17 19:03] LABS: ALT (SGPT) 39 U/L (8-55); AST (SGOT) 28 U/L (5-34); Albumin 3.3 g/dL (3.5-5.0); Alkaline Phosphatase 116 U/L (40-110); Anion Gap 16 mmol/L (10-20); BUN (Urea Nitrogen) 31 mg/dL (9.8-20.1); Bilirubin, Total 0.3 mg/dL (0.2-1.2); Calc. Creatinine Clearance 51 mL/min (70-130); Calcium 8.8 mg/dL (7.8-10.44); Carbon Dioxide 24 mmol/L (22-29); Chloride 100 mmol/L (98-107); Globulin 4.5 g/dL (2.4-3.5); Glucose 136 mg/dL (70-105); Potassium 4.3 mmol/L (3.5-5.1); Protein, Total 7.8 g/dL (6.0-8.3); Sodium 136 mmol/L (136-145)
[2020-11-17 20:24] LABS: Troponin I 0.026 ng/mL (< 0.028)
[2020-11-17] MEDS: Benztropine 1 MG TAB PO SCH (20:59)
[2020-11-17] MEDS: Atorvastatin Calcium 10 MG TAB PO SCH (20:59)
[2020-11-17] MEDS ORDERED: Isosorbide Dinitrate 5 MG TAB PO SCH (21:00)
[2020-11-17] MEDS: Promethazine 25 MG TAB PO SCH (21:02)
[2020-11-17] MEDS: risperiDONE 1 MG TAB PO SCH (21:03)
[2020-11-17] MEDS: hydrALAZINE 25 MG TAB PO SCH (21:03)
[2020-11-17] MEDS: Haloperidol 5 MG TAB PO SCH (21:03)
[2020-11-17] MEDS: Aripiprazole 10 MG TAB PO SCH (21:05)
[2020-11-17] MEDS: Divalproex Sodium DR 500 MG TAB PO SCH (21:06)
[2020-11-18] MEDS: Cefepime 2 GM in Sodium Chloride 0.9% 100 ML IVPB SCH ×3 (00:48→23:49)
[2020-11-18] MEDS: hydrALAZINE 25 MG TAB PO SCH (05:54)
[2020-11-18] MEDS: Furosemide 40 MG/4 ML VIAL SLOW IVP SCH ×2 (05:55→06:11)
--- NOTE | 2020-11-18 06:40 | CON ---
DATE OF CONSULTATION: 11/17/2020 REASON FOR CONSULTATION: Management of acute on probably chronic heart failure. HISTORY OF PRESENT ILLNESS: Ms. Roxanne Blount is a 60-year-old lady with known schizophrenia and bipolar disorder, [facility]. She was discharged from psychiatric hospital early August 2020. After she returned to [facility], she had a bout of psychosis where she would pace back and forth, repeating the same phrases incessantly, hallucinate, and did not sleep. She was admitted to the hospital in late August 2020. At that time, she was found to have coronavirus. She was treated for coronavirus, was sent back to the [facility]. From that point on until recently, Ms. Roxanne Blount was doing well at the [facility]. She was able to follow direction, behave, and can take care of herself. About a week ago, she went into another episode of psychosis. She started to walking back and forth. She started to hallucinate. She was talking to people that were not there. Three days before the event, she was pacing back and forth, without sleep. It was reported that she was agitated for about 3 days. Then on the afternoon of November 16, she developed what the staff describe as seizure like events and then she seemed to be losing consciousness and then fell. It is unknown how long that she was down. From that point on, she was transported to [place] for care. CT scan of the head did not show any acute stroke or bleed. CT angiogram did not show pulmonary embolus, but rather is suggestive of finding consistent with congestive heart failure. Most of this history was given by her care provider at her [facility]. The care provider name is Ms. Marylu Ulloa, who can be reached at [phone]. It was reported that Ms. Blount has been difficult to deal with. At times, she has had altered mental status. It was also reported she has been throwing food. When I walked in the room, she was mildly agitated. She said she is hungry, but that we would not give her any food. She requests chicken soup and ice cream. She was semi-cooperative throughout most of my history and physical. She is not completely clear about the event that brought her here. She seemed to recall of falling down and staying on the floor. PAST MEDICAL HISTORY: 1. Hypertension. 2. Diabetes. 3. Coronavirus in August 2020. 4. Schizophrenia. 5. Bipolar disorder. 6. Looking at her serial chest x-rays since August, she has cardiomegaly back then. She likely had heart failure with reduced ejection fraction for a significant amount of time. SOCIAL HISTORY: She is active cigarette smoker. She does not use any alcohol. She does not use any illicit drugs. Currently, she is managed at a [facility] setting. FAMILY HISTORY: Was not be able to be obtained because the patient is uncooperative at this point. This will need to be re-asked with her daughter. Her daughter's name is Mar Blount. Her phone #[phone]. However, when I tried to call, there was no answer and the mailbox was full. REVIEW OF SYSTEMS: GENERAL: She says she is feeling fine currently. HEENT: She has not complained change in vision, hearing, or swallowing. PULMONARY: She is bit short of breath. CARDIAC: She does not have any complaints. GI: She says she is hungry, but then she says she has abdominal pain. : She seemed to be able to urinate on her own. MUSCULOSKELETAL: She is not complaining of muscle or joint pain. INTEGUMENT: She has not complained of new skin breakdown. NEUROLOGIC: There are no focal deficits or weaknesses. MEDICATIONS: 1. Aripiprazole, which is Abilify 10 mg b.i.d. 2. Aspirin 325 mg daily. 3. Aspirin 81 mg daily. 4. Atorvastatin 10 mg at night. 5. Cogentin 0.5 mg b.i.d. 6. Carvedilol 3.125 mg b.i.d. 7. Cefepime 2 g IV b.i.d. 8. Depakote 500 mg b.i.d. 9. Ferrous sulfate 325 mg daily. 10. Furosemide 40 mg IV b.i.d. 11. Haloperidol 10 mg p.o. b.i.d. 12. Heparin 5000 units subcutaneous three times a day. 13. Insulin sliding scale. 14. Phenergan 50 mg p.o. b.i.d. 15. Seroquel 200 mg p.o. b.i.d. 16. Risperidone 4 mg p.o. b.i.d. PHYSICAL EXAMINATION: Telemetry was reviewed. She is in sinus tachycardia. However, there is a significant amount of atrial arrhythmia. These arrhythmia being frequently occurring PACs and other times it looks like slight multifocal atrial tachycardia, but mostly in sinus tachycardia. She seems to have significant amount of hypertension and heart rate between 103 to 106. Her systolic blood pressure ranged between 150 to 182 with diastolic pressure between 70 and 85. GENERAL: She is agitated and non-focus, waving her arms sometimes. She will answer question somewhat and follow directions somewhat. HEENT: Show EOMI. Oropharynx has moist mucosa. NECK: Her JVP is about 13 cm. PULMONARY: She has bilateral crackles from lower half of the lungs. It sounds a combination of pulmonary edema. There is also fibrotic component consistent with past history of pneumonitis. CARDIAC: Tachycardic, sometimes slow down. It is irregular. There is 3/6 holosystolic murmur at the apex with radiation to the left axilla. There is also 2/6 holosystolic murmur at the left upper sternal border, so consequently she has tricuspid regurgitation and mitral regurgitation. ABDOMEN: Mildly distended and there is discomfort. EXTREMITIES: She has 0.5 cm pitting edema from feet on towards knee. LABORATORY DATA: White cell count 6.5, hemoglobin 9.2, platelet count 229. Her chemistry from last night was sodium 137, potassium 4.2, bicarb 27, BUN 31, creatinine 1.37. There is no magnesium. Her TSH is 0.5318. Her troponin I started at 0.016 with a slight elevation up to 0.042. An echocardiogram done on November 17, 2020. I saw it on the machine. 1. Her ventricle is dilated. LVIDD is 5.8 cm. 2. She had beat-to beat variations. Her LVEF ranged between 25% to 30% depending on a regular beat or a PAC beat, so I would say the average LVEF is about 30%. 3. She has moderate mitral regurgitation. 4. She has diastolic dysfunction as shown by slow E prime. 5. She has moderate to severely dilated right ventricle. 6. She has eccentric moderate tricuspid regurgitation. The tricuspid gradient is about 40 mmHg, so her PA pressure is between 50 to 55 mmHg. Consequently, she does have a right ventricular failure along with left ventricular failure. Her chest x-ray was also reviewed. It showed cardiomegaly and mild pulmonary edema. ASSESSMENT: 60-year-old lady has complex picture of her current status that is contributed by [id number] heart failure and her psychologic disorders. By looking at her past chest x-rays in 2020, the heart failure is not new. She has heart failure with reduced ejection fraction with combined systolic and diastolic dysfunctions. She also has right ventricular dysfunction. She likely to reside in [place] [employer] stage C and also [place] Heart Association class III heart failure with reduced ejection fraction. The cause of her heart failure is unclear at this point. It could be tachycardia this is given her relatively fast heart rate at admission and being on so many psychiatric medications that can cause arrhythmia. Coronary artery disease is possible given her diabetes and hypertension. However, she is not in any mental state to undergo coronary angiogram. Thus at this point, combination of rate and rhythm control should hep. Improving her severe hypertension should also improve her cardiac status. If that does not work well, we may have to go on to brief inotropic therapy. Given her mental status, I prefer not to start inotropic therapy if possible. Please see the following for my recommendations. RECOMMENDATIONS: 1. Discontinue carvedilol 3.125 mg bid. 2. Replace with Toprol-XL 12.5 mg p.o. q.12 hours; may titrate up in near future 3. Start hydralazine 25 mg p.o. q.8 hours. 4. Start isosorbide dinitrate 10 mg p.o. q.12 hours. 5. Agree with Lasix 40 mg IV b.i.d. for now. We will follow up the labs. 6. She will need to have a BMP and magnesium. We will also need to follow up labs daily. If her severe systolic blood pressure goes above 185, please use labetalol 20 mg IV q.4 hours p.r.n. It will be ideal to start Entresto on her. However, I will wait until the labs come back to ensure her renal function is intact before we start Entresto. It has been a pleasure taking care of Ms. Roxanne Blount. If you have any questions, please give me a call. The total visitation time is 80 minutes today. That included performing history and physical, calling multiple people including her salt maker at [facility] to obtain accurate history, reading echocardiogram and reading chest x-ray. Job ID: [id number] F [facility] [id number]
[2020-11-18] MEDS ORDERED: Losartan 25 MG TAB PO SCH (09:00)
[2020-11-18] MEDS: Benztropine 1 MG TAB PO SCH ×2 (09:16→20:58)
[2020-11-18] MEDS: risperiDONE 1 MG TAB PO SCH ×2 (09:17→20:55)
[2020-11-18] MEDS: Promethazine 25 MG TAB PO SCH ×2 (09:17→20:56)
[2020-11-18] MEDS: Haloperidol 5 MG TAB PO SCH ×2 (09:17→20:56)
[2020-11-18] MEDS: Aspirin 81 mg Enteric Coated Tablet PO SCH (09:17)
[2020-11-18] MEDS: Ferrous Sulfate 325 MG TAB PO SCH (09:18)
[2020-11-18] MEDS: Divalproex Sodium DR 500 MG TAB PO SCH ×2 (09:18→20:56)
[2020-11-18] MEDS: Aripiprazole 10 MG TAB PO SCH ×2 (09:18→20:56)
[2020-11-18] MEDS: Heparin 5,000 UNITS/ML VIAL SC SCH ×3 (09:19→20:57)
[2020-11-18] MEDS: Potassium Chloride 10 MEQ TAB PO SCH (09:23)
[2020-11-18] MEDS: Torsemide 20 MG TAB PO SCH (09:23)
--- NOTE | 2020-11-18 10:34 | PRG ---
DATE OF SERVICE: 11/18/2020 SERVICE: Advanced Heart Failure Transplant Cardiology Consult Service. SUBJECTIVE: Ms. Blount seems to be doing better today. She is more cooperative. She is attempting eating breakfast. She says she feels fine and wants to go home. She said that she does not have any breathing difficulties. REVIEW OF SYSTEMS: GENERAL: There is no fever, chills, or productive cough. PULMONARY: See HPI. CARDIAC: There is no chest pains, palpitations, or syncope. GI: She is hungry and eating. : She is able to urinate on her own. MUSCULOSKELETAL: She is not complaining of muscle or joint pains. INTEGUMENT: There is no new skin breakdown. NEUROLOGIC: There is no complaint of new focal deficits or weaknesses. CURRENT MEDICATIONS: Include: 1. Abilify 10 mg b.i.d. 2. Aspirin 81 mg daily. 3. Atorvastatin at 10 mg at bedtime. 4. Cogentin 0.5 mg b.i.d. 5. Cefepime is still being given at 2 g IV. 6. Divalproex 500 mg b.i.d. 7. Lasix 40 mg IV b.i.d. 8. Haloperidol 10 mg p.o. b.i.d. 9. Heparin 5000 units three times a day. 10. Hydralazine 25 mg q.8 hours. 11. Sliding-scale insulin. 12. Isosorbide dinitrate 10 mg q.12 hours. 13. Labetalol 10 mg IV q.4 hours p.r.n. for systolic blood pressure greater than 185. 14. Toprol-XL 12.5 mg p.o. q.12 hours. 15. Phenergan 50 mg b.i.d. Her telemetry is reviewed. With initiation of Toprol-XL 12.5 mg, it has slowed down her heart rate down to the mid to high 80s when she is keeping her monitor on. It shows she has more predominance of sinus rhythm, so this is helping. However, she still has atrial arrhythmias. OBJECTIVE: VITAL SIGNS: Her vital signs are better, but still a bit high. Her systolic blood pressure ranged between 143 to 165, her diastolic blood pressure ranged from 72 to 101. This is not ideal, but better than what it was. GENERAL: She is more cooperative today, will answer questions and follow directions but voicing that she wants to go home. HEENT: Show EOMI. Oropharynx is benign with moist mucosa. NECK: JVP is about 11 cm. PULMONARY: Her lungs are better sounding today. There are diminished breath sounds at bases. However, the distinct crackles are now gone. CARDIAC: Regular with some irregularities. There is 2/6 holosystolic murmur at the left upper sternal border and 2/6 holosystolic murmur at the apex. ABDOMEN: Soft, nontender. Positive bowel sounds. EXTREMITIES: There is 0.5 cm pitting edema from feet about a third of the way up to her knees, so her edema has significantly decreased. LABORATORY DATA: There are no new laboratory values. The last set of lab values was yesterday afternoon, it show white cell count 5.8, hemoglobin 8.5, platelets at 231. Chemistry; sodium 136, potassium 4.1, BUN of 30, and creatinine 1.45, so this is stable even with IV diuretics. ASSESSMENT: 60-year-old lady most likely has psychosis that caused the hospital admission. Three days of walking around, agitated, not sleeping triggered the eventual unresponsiveness. Echocardiogram showed EF about 30% and dilated heart. She does have cardiomyopathy, likely due to tachycardia, but she is not a candidate for any type of advanced heart failure therapy. With her mental status, she is not suitable for coronary angiogram nor a device. At this point, it is best that we provide her with a set of medications that will maximize her potential of regaining her heart function. It is not the principal cause of her admission. Please see the following for my recommendations. RECOMMENDATIONS: 1. Increase Toprol-XL to 25 mg p.o. q.12 hours. 2. Discontinue hydralazine. 3. Discontinue isosorbide dinitrate. 4. Start Entresto at 24/26 mg p.o. q.12 hours. In one day if her blood pressure is acceptable, we will go up to 49/51 combination. 5. Discontinue IV Lasix. 6. Start torsemide 20 mg p.o. daily. 7. Start K-Dur at 10 mEq p.o. daily. 8. Please do stat labs of BNP and magnesium. It is hoped twice a day regimen of Toprol-XL and Entresto, and once a day torsemide and possibly spironolactone in the future will improve her heart function. Such a regimen is easy to take in a [place] [facility] setting. It has been a pleasure taking care of Ms. Blount. If you have any questions, please give me a call. Total visitation time is 40 minutes today. Job ID: [id number] MTDD
[2020-11-18 11:02] LABS: Anion Gap 13 mmol/L (10-20); BUN (Urea Nitrogen) 30 mg/dL (9.8-20.1); Calc. Creatinine Clearance 52 mL/min (70-130); Calcium 8.1 mg/dL (7.8-10.44); Carbon Dioxide 28 mmol/L (22-29); Chloride 99 mmol/L (98-107); Glucose 142 mg/dL (70-105); Magnesium 1.8 mg/dL (1.6-2.6); Potassium 4.4 mmol/L (3.5-5.1); Sodium 136 mmol/L (136-145)
--- NOTE | 2020-11-18 14:48 | PDOC.HOSPP ---
- Subjective Encounter Date: 11/18/20 Encounter Time: 14:46 Subjective: Ms. Blount is a 60-year-old female who was apparently sent into the hospital due to altered mental status. She has a known underlying psychiatric history including bipolar and schizophrenia. She was diagnosed with congestive heart failure on admission. There is also a remote history of seizure and she was already seen by neurology on this admission. The patient takes Depakote. It is unclear if she takes Depakote due to her psychiatric illness above from prior seizure episode. Patient was unable to provide any meaningful history when I visited with her. - Objective Vital Signs & Weight: Vital Signs (12 hours) Temp Pulse Resp BP Pulse Ox 11/18/20 08:00 97.6 F 85 15 149/67 H 92 L 11/18/20 05:54 77 11/18/20 03:32 97.9 F 77 16 165/72 H 94 L Weight Weight 173 lb 1.6 oz Result Diagrams: 11/17/20 04:07 11/18/20 10:15 Additional Labs: Accuchecks 11/18/20 11/18/20 11/17/20 10:39 05:56 20:25 POC Glucose 143 H 113 H 196 H 11/17/20 16:54 POC Glucose 120 H Radiology Reviewed by me: Yes EKG Reviewed by me: Yes Hospitalist ROS - Review of Systems ROS unobtainable: due to mental status Constitutional: reports: weakness, malaise Gastrointestinal: reports: nausea Neurological: reports: weakness, confusion - Medication Medications: Active Medications Generic Name Dose Route Start Last Admin Trade Name Freq PRN Reason Stop Dose Admin Acetaminophen 650 mg 11/17/20 14:16 11/18/20 05:53 Acetaminophen 325 Mg Tab PO 650 mg Q6H PRN Administration Headache/Fever or Pain Aripiprazole 10 mg 11/17/20 21:00 11/18/20 09:18 Aripiprazole 10 Mg Tab PO 10 mg BID KRYSTAL Administration Aspirin 325 mg 11/17/20 08:00 11/17/20 14:54 Aspirin 325 Mg Tab PO 11/17/20 10:10 Not Given [facility] Aspirin 81 mg 11/18/20 09:00 11/18/20 09:17 Aspirin 81 Mg Enteric Coated Tablet PO 81 mg DAILY KRYSTAL Administration Atorvastatin Calcium 10 mg 11/17/20 21:00 11/17/20 20:59 Atorvastatin Calcium 10 Mg Tab PO 10 mg QPM KRYSTAL Administration Benztropine Mesylate 0.5 mg 11/17/20 21:00 11/18/20 09:16 Benztropine 1 Mg Tab PO 0.5 mg BID KRYSTAL Administration Divalproex Sodium 500 mg 11/17/20 21:00 11/18/20 09:[address] 500 Mg Tab PO 500 mg BID KRYSTAL Administration Ferrous Sulfate 325 mg 11/18/20 08:00 11/18/20 09:18 Ferrous Sulfate 325 Mg Tab PO 325 mg QAM-WM KRYSTAL Administration Haloperidol 10 mg 11/17/20 21:00 11/18/20 09:17 Haloperidol 5 Mg Tab PO 10 mg BID KRYSTAL Administration Heparin Sodium (Porcine) 5,000 units 11/17/20 15:00 11/18/20 09:19 Heparin 5,000 Units/Ml Vial SC 5,000 units TID KRYSTAL Administration Cefepime HCl 2 gm/ Sodium 100 mls @ 200 mls/hr 11/16/20 23:59 11/18/20 12:29 Chloride IVPB 100 mls 1200,2359 KRYSTAL Administration Metoprolol Succinate 25 mg 11/18/20 09:00 11/18/20 09:18 Metoprolol Succinate Xl 25 Mg Tab PO 25 mg Q12HR KRYSTAL Administration Nitroglycerin 1 inch 11/17/20 04:00 11/17/20 14:53 Nitroglycerin 2% Ointment 1 Inch/1 Gm Packet TOP 11/17/20 10:10 Not Given 0400,1000,1600,2200 [facility] Potassium Chloride 10 meq 11/18/20 09:00 11/18/20 09:23 Potassium Chloride 10 Meq Tab PO 10 meq DAILY KRYSTAL Administration Promethazine HCl 50 mg 11/17/20 21:00 11/18/20 09:17 Promethazine 25 Mg Tab PO 50 mg BID KRYSTAL Administration Quetiapine Fumarate 200 mg 11/17/20 21:00 11/18/20 09:19 Quetiapine Fumarate 200 Mg Tab PO 200 mg BID KRYSTAL Administration Risperidone 4 mg 11/17/20 21:00 11/18/20 09:17 Risperidone 1 Mg Tab PO 4 mg BID KRYSTAL Administration Sacubitril/Valsartan 1 tab 11/18/20 09:00 11/18/20 09:19 Sacubitril 24mg/Valsartan 26mg Tab PO 1 tab DAILY KRYSTAL Administration Torsemide 20 mg 11/18/20 09:00 11/18/20 09:23 Torsemide 20 Mg Tab PO 20 mg DAILY KRYSTAL Administration Hospitalist Exam Vitals: Vital Signs (12 hours) Temp Pulse Resp BP Pulse Ox 11/18/20 08:00 97.6 F 85 15 149/67 H 92 L 11/18/20 05:54 77 11/18/20 03:32 97.9 F 77 16 165/72 H 94 L Weight Weight 173 lb 1.6 oz General Appearance: ill appearing Eye: PERRL, anicteric sclera ENT: normocephalic atraumatic, no oropharyngeal lesions Neck: supple, symmetric, no JVD, no thyromegaly Heart: RRR, no murmur, no gallops Respiratory: CTAB, no wheezes, no rales, no ronchi Gastrointestinal: soft, non-tender, non-distended, normal bowel sounds Neurological: cranial nerve grossly intact Psychiatric: not oriented Psychiatric - other findings: agitated Hosp A/P - Plan #1. Acute metabolic encephalopathy. Concern for seizures. The patient is already on Depakote. We appreciate neurologist evaluation. 2. Acute combined systolic and diastolic congestive heart failure. She is responding to her diuretics. We will continue the rest of her medicines including torsemide and Entresto. Echocardiogram report reviewed. We appreciate cardiology's recommendations. 3. Schizophrenia/bipolar. Continue routine home medications.
--- NOTE | 2020-11-18 15:25 | PDOC.NEUPN ---
- Subjective Encounter Date: 11/18/20 Subjective: Patient is sitting up in bed and is oriented to person only. She is pleasantly confused at baseline - Objective Vital Signs & Weight: Vital Signs (12 hours) Temp Pulse Resp BP Pulse Ox 11/18/20 08:00 97.6 F 85 15 149/67 H 92 L 11/18/20 05:54 77 11/18/20 03:32 97.9 F 77 16 165/72 H 94 L Weight Weight 173 lb 1.6 oz Result Diagrams: 11/17/20 04:07 11/18/20 10:15 Additional Labs: Accuchecks 11/18/20 11/18/20 11/17/20 10:39 05:56 20:25 POC Glucose 143 H 113 H 196 H 11/17/20 16:54 POC Glucose 120 H Radiology Reviewed by me: Yes EKG Reviewed by me: Yes ROS - Review of Systems ROS unobtainable: due to mental status - Medication Medications: Active Medications Generic Name Dose Route Start Last Admin Trade Name Freq PRN Reason Stop Dose Admin Acetaminophen 650 mg 11/17/20 14:16 11/18/20 05:53 Acetaminophen 325 Mg Tab PO 650 mg Q6H PRN Administration Headache/Fever or Pain Aripiprazole 10 mg 11/17/20 21:00 11/18/20 09:18 Aripiprazole 10 Mg Tab PO 10 mg BID KRYSTAL Administration Aspirin 325 mg 11/17/20 08:00 11/17/20 14:54 Aspirin 325 Mg Tab PO 11/17/20 10:10 Not Given [facility] Aspirin 81 mg 11/18/20 09:00 11/18/20 09:17 Aspirin 81 Mg Enteric Coated Tablet PO 81 mg DAILY KRYSTAL Administration Atorvastatin Calcium 10 mg 11/17/20 21:00 11/17/20 20:59 Atorvastatin Calcium 10 Mg Tab PO 10 mg QPM KRYSTAL Administration Benztropine Mesylate 0.5 mg 11/17/20 21:00 11/18/20 09:16 Benztropine 1 Mg Tab PO 0.5 mg BID KRYSTAL Administration Divalproex Sodium 500 mg 11/17/20 21:00 11/18/20 09:[address] 500 Mg Tab PO 500 mg BID KRYSTAL Administration Ferrous Sulfate 325 mg 11/18/20 08:00 11/18/20 09:18 Ferrous Sulfate 325 Mg Tab PO 325 mg QAM-WM KRYSTAL Administration Haloperidol 10 mg 11/17/20 21:00 11/18/20 09:17 Haloperidol 5 Mg Tab PO 10 mg BID KYRSTAL Administration Heparin Sodium (Porcine) 5,000 units 11/17/20 15:00 11/18/20 15:21 Heparin 5,000 Units/Ml Vial SC 5,000 units TID KRYSTAL Administration Cefepime HCl 2 gm/ Sodium 100 mls @ 200 mls/hr 11/16/20 23:59 11/18/20 12:29 Chloride IVPB 100 mls 1200,2359 KRYSTAL Administration Metoprolol Succinate 25 mg 11/18/20 09:00 11/18/20 09:18 Metoprolol Succinate Xl 25 Mg Tab PO 25 mg Q12HR KRYSTAL Administration Nitroglycerin 1 inch 11/17/20 04:00 11/17/20 14:53 Nitroglycerin 2% Ointment 1 Inch/1 Gm Packet TOP 11/17/20 10:10 Not Given 0400,1000,1600,2200 [facility] Potassium Chloride 10 meq 11/18/20 09:00 11/18/20 09:23 Potassium Chloride 10 Meq Tab PO 10 meq DAILY KRYSTAL Administration Promethazine HCl 50 mg 11/17/20 21:00 11/18/20 09:17 Promethazine 25 Mg Tab PO 50 mg BID RKYSTAL Administration Quetiapine Fumarate 200 mg 11/17/20 21:00 11/18/20 09:19 Quetiapine Fumarate 200 Mg Tab PO 200 mg BID KRYSTAL Administration Risperidone 4 mg 11/17/20 21:00 11/18/20 09:17 Risperidone 1 Mg Tab PO 4 mg BID KRYSTAL Administration Sacubitril/Valsartan 1 tab 11/18/20 09:00 11/18/20 09:19 Sacubitril 24mg/Valsartan 26mg Tab PO 1 tab DAILY KRYSTAL Administration Torsemide 20 mg 11/18/20 09:00 11/18/20 09:23 Torsemide 20 Mg Tab PO 20 mg DAILY KRYSTAL Administration - Exam General Appearance: awake alert Eye: PERRL ENT: normocephalic atraumatic Neck: supple Respiratory: CTAB Cardiovascular: RRR Gastrointestinal: soft Extremities: no cyanosis Skin: normal turgor Neurological: no new deficit Musculoskeletal: normal tone, normal strength, no muscle wasting PSYCH: normal affect, oriented to person Results - Labs Result Diagrams: 11/17/20 04:07 11/18/20 10:15 Lab results: WBC 5.8 thou/uL (4.8-10.8) 11/17/20 04:07 Hgb 8.5 g/dL (12.0-16.0) L 11/17/20 04:07 Hct 27.2 % (36.0-47.0) L 11/17/20 04:07 MCV 95.3 fL (78.0-98.0) 11/17/20 04:07 Plt Count 231 thou/uL (130-400) 11/17/20 04:07 Neutrophils % 42.5 % (42.0-75.0) 11/17/20 04:07 Sodium 136 mmol/L (136-145) 11/18/20 10:15 Potassium 4.4 mmol/L (3.5-5.1) 11/18/20 10:15 Chloride 99 mmol/L (98-107) 11/18/20 10:15 Carbon Dioxide 28 mmol/L (22-29) 11/18/20 10:15 BUN 30 mg/dL (9.8-20.1) H 11/18/20 10:15 Creatinine 1.42 mg/dL (0.6-1.1) H 11/18/20 10:15 Glucose 142 mg/dL (70-105) H 11/18/20 10:15 Lactic Acid 1.3 mmol/L (0.5-2.2) 11/17/20 00:50 Calcium 8.1 mg/dL (7.8-10.44) 11/18/20 10:15 Total Bilirubin 0.3 mg/dL (0.2-1.2) 11/17/20 11:13 AST 28 U/L (5-34) 11/17/20 11:13 ALT 39 U/L (8-55) 11/17/20 11:13 Alkaline Phosphatase 116 U/L (40-110) H 11/17/20 11:13 Ammonia 45 umol/L (18-72) 11/16/20 21:16 Creatine Kinase 59 U/L (29-168) 11/16/20 21:16 Troponin I 0.026 ng/mL (< 0.028) 11/17/20 04:07 B-Natriuretic Peptide 1303.3 pg/mL (0-100) H 11/18/20 10:15 Serum Total Protein 7.8 g/dL (6.0-8.3) 11/17/20 11:13 Albumin 3.3 g/dL (3.5-5.0) L 11/17/20 11:13 Lipase 19 U/L (8-78) 11/16/20 21:16 Urine Ketones Negative mg/dL (Negative) 11/16/20 22:53 Urine Blood Negative (Negative) 11/16/20 22:53 Urine Nitrite Negative (Negative) 11/16/20 22:53 Ur Leukocyte Esterase 500 Neptali/uL (Negative) A 11/16/20 22:53 Urine RBC 4-6 HPF (0-3) A 11/16/20 22:53 Urine WBC 4-6 HPF (0-3) A 11/16/20 22:53 Ur Squamous Epith Cells 0-3 HPF (0-3) 11/16/20 22:53 Urine Bacteria Rare-Few HPF (None Seen) 11/16/20 22:53 - Radiology Interpretation CT scan - head Additional Comment: No acute intracranial pathology. PN A/P (1) Seizure Code(s): R56.9 - UNSPECIFIED CONVULSIONS Status: Acute (2) Bradycardia Code(s): R00.1 - BRADYCARDIA, UNSPECIFIED Status: Acute (3) Diabetes mellitus Code(s): E11.9 - TYPE 2 DIABETES MELLITUS WITHOUT COMPLICATIONS Status: Chronic Qualifiers: Diabetes mellitus type: type 2 Diabetes mellitus medical billing associate insulin use: w ith medical billing associate use (4) History of heart failure Code(s): Z86.79 - PERSONAL HISTORY OF OTHER DISEASES OF THE CIRCULATORY SYSTEM Status: Chronic (5) Hypertension Code(s): I10 - ESSENTIAL (PRIMARY) HYPERTENSION Status: Chronic Qualifiers: Hypertension type: essential hypertension Qualified Code(s): I10 - Ess ential (primary) hypertension (6) Schizophrenia Code(s): F20.9 - SCHIZOPHRENIA, UNSPECIFIED Status: Chronic Qualifiers: Schizophrenia type: unspecified Qualified Code(s): F20.9 - Schizophrenia, unspecified - Plan Daily Plan: PT/OT, speech therapy, out of bed/ambulate Mrs. Blount is a 60-year-old female with medical history significant for bipolar disorder, schizophrenia and congestive heart failure presented with altered mental status. The patient is currently oriented to person only and is confused at baseline. There was a concern about seizure activity. Altered mental status seems to be multifactorial secondary to metabolic, infectious and also due to her psychiatric issues. Intracranial process could not be completely ruled out. MRI of the brain is pending at this time. EEG reviewed which was negative for seizure activity. Continue Depakote 500 mg p.o. twice daily which is an anticonvulsant most probably in her case use for her psychiatric issues. MRI of the brain is pending at this time to evaluate for seizure focus. Will follow up on the results Neurochecks every 4 hours. Observe seizure precautions. Continue medical management per primary team. Continue home medications PT/OT/speech.
--- NOTE | 2020-11-18 15:37 | MRI ---
MRI BRAIN WITHOUT CONTRAST: Date: 11/18/2020 INDICATION: Loss of consciousness. Altered mental status. Correlation made to CT of 11/16/2020 which showed no acute abnormality. FINDINGS: Motion artifact degrades many of the sequences. Ventricles have normal size and position. Scattered white matter hyperintensities are seen in both ce rebral hemispheres on FLAIR sequence consistent with moderate chronic ischemic white matter change. There is no evidence of restricted diffusion. There is no evidence of mass or edema. Intracranial internal carotid arteries, cerebral arteries, basilar artery and dural venous sinuses sh ow flow-voids. Orbits unremarkable. Calvarium unremarkable. IMPRESSION: Mild to moderate chronic ischemic white matter change. No acute abnormality identified. POS: AGW
--- NOTE | 2020-11-18 15:41 | PDOC.EEG ---
Neurology EEG Report - Report Report: This EEG was performed using 24 channel [place] video digital EEG machine with 24 disc electrodes. This was an extended 2 hours 6 minutes of inpatient video EEG recording. Digital analysis of the EEG was done for Antony and seizure detection which revealed no abnormalities. Background: There is a nonsustained posterior background rhythm is 7.5 to 8.5 Hz. Minimal reactivity seen with eye opening and closure. Hyperventilation: Not performed Photic stimulation: No significant response Sleep: Drowsiness and sleep are observed EEG diagnosis: Intermittent irregular theta activity seen during the recording Nonsustained posterior background rhythm Clinical interpretation: This EEG is consistent with mild generalized nonspecific cerebral dysfunction.
[2020-11-18] MEDS: Atorvastatin Calcium 10 MG TAB PO SCH (20:56)
--- NOTE | 2020-11-18 21:05 | RAD ---
SUPINE ABDOMEN: History: Constipation. Abdominal pain. Comparison: 11-17-2020 FINDINGS: Moderate volume stool throughout the colon consistent with the history of constipation. Small bowel g as pattern unremarkable. Mild gaseous distention of the stomach. No mass effect or abnormal calcifica tion. IMPRESSION: Moderate volume stool throughout the colon. POS: AGW
[2020-11-18] MEDS ORDERED: Lorazepam 2 MG/ML VIAL ONE (21:25)
[2020-11-18] MEDS ORDERED: Lorazepam 2 MG/ML VIAL SLOW IVP PRN (21:27)
--- NOTE | 2020-11-18 23:48 | PDOC.BPN ---
- Brief Progress Note Encounter Date: 11/18/20 Code lon was called, patient fell. Fall was witnessed and necessary and she eased her to the ground and she did not hit her head. Patient had a bout of shaking however noted to have pseudoseizures. She was otherwise generally stable Plan to do CBC BMP and monitor her for now.
[2020-11-19] MEDS ORDERED: Bisacodyl 10 MG SUPP PR PRN (02:45)
[2020-11-19 05:33] LABS: Eosinophils 2 % (0-10); Hemoglobin 8.8 g/dL (12.0-16.0); Lymphocytes 51 % (21-51); MDiff Complete? YES; Mean Corpuscular HGB CONC 32.4 g/dL (32.0-36.0); Mean Corpuscular Hemoglobin 31.4 pg (27.0-31.0); Mean Corpuscular Volume 97.1 fL (78.0-98.0); Mean Platelet Volume 7.5 fL (7.4-10.4); Monocytes 12 % (0-10); Neutrophil 35 % (42-75); Platelet Count 217 thou/uL (130-400); RBC Distribution Width 15.3 % (11.5-14.5); Red Blood Cell (RBC) Count 2.81 mill/uL (4.20-5.40); White Blood Cell (WBC) Count 5.8 thou/uL (4.8-10.8)
--- NOTE | 2020-11-19 08:02 | CT ---
PRELIMINARY REPORT/[facility]/EMERGENCY AFTER HOURS PROCEDURE EXAM: CT Head Without Intravenous Contrast. CLINICAL HISTORY: SEIZURE TECHNIQUE: Axial computed tomography images of the head/brain without intravenous contrast. COMPARISON: None provided. FINDINGS: BRAIN: Mild periventricular white matter hypodensities. No acute intracranial hemorrhage, midline shift, or herniation. ORBITS: The orbits are unremarkable. SINUSES AND MASTOIDS: The paranasal sinuses and mastoid air cells are clear. SOFT TISSUES: No significant facial or scalp soft tissue swelling evident. No radiopaque foreign body is seen. BONES: No acute skull fracture. IMPRESSION: 1. No acute intracranial abnormality or mass. 2. Mild sequela of chronic small vessel ischemic disease. ELECTRONICALLY SIGNED BY: Jose Ibrahim DO Nov 18, 2020 11:34:40 PM SCIENCE TEACHER This report is intended for review by the ordering physician only, in accordance of law. If you recei ve this report in error, please call [facility] at [phone]. FINAL REPORT Final interpretation Head CT without contrast: 11/18/2020 COMPARISON: 11/16/2020. HISTORY: Seizures. FINDINGS: I agree with the preliminary report. The visualized paranasal sinuses/mastoid air cells are well-aerated. No displaced calvarial fracture, intracranial hemorrhage, midline shift, or mass effect. IMPRESSION: No acute findings. Code QA Transcribed Date/Time: 11/19/2020 8:48 AM
[2020-11-19 08:23] LABS: Anion Gap 12 mmol/L (10-20); BUN (Urea Nitrogen) 34 mg/dL (9.8-20.1); Calc. Creatinine Clearance 50 mL/min (70-130); Calcium 8.4 mg/dL (7.8-10.44); Carbon Dioxide 32 mmol/L (22-29); Chloride 99 mmol/L (98-107); Glucose 107 mg/dL (70-105); Magnesium 1.8 mg/dL (1.6-2.6); Sodium 139 mmol/L (136-145)
[2020-11-19] MEDS: Aspirin 81 mg Enteric Coated Tablet PO SCH (09:43)
[2020-11-19] MEDS: risperiDONE 1 MG TAB PO SCH ×2 (09:43→22:07)
[2020-11-19] MEDS: Aripiprazole 10 MG TAB PO SCH ×2 (09:44→22:07)
[2020-11-19] MEDS: Ferrous Sulfate 325 MG TAB PO SCH (09:44)
[2020-11-19] MEDS: Promethazine 25 MG TAB PO SCH ×2 (09:44→22:09)
[2020-11-19] MEDS: Divalproex Sodium DR 500 MG TAB PO SCH ×2 (09:44→22:07)
[2020-11-19] MEDS: Haloperidol 5 MG TAB PO SCH ×2 (09:44→22:08)
[2020-11-19] MEDS: Heparin 5,000 UNITS/ML VIAL SC SCH ×3 (09:45→22:10)
[2020-11-19] MEDS: Torsemide 20 MG TAB PO SCH (09:45)
[2020-11-19] MEDS: Potassium Chloride 10 MEQ TAB PO SCH (09:45)
[2020-11-19] MEDS: Benztropine 1 MG TAB PO SCH ×2 (09:45→22:08)
[2020-11-19] MEDS ORDERED: AcetaZOLAMIDE 250 MG TAB PO SCH (10:00)
[2020-11-19] MEDS ORDERED: Spironolactone 25 MG TAB PO SCH (10:00)
--- NOTE | 2020-11-19 10:16 | PRG ---
DATE OF SERVICE: 11/19/2020 SUBJECTIVE: Mrs. Blount had a difficult day. She became agitated in the afternoon, and overnight, it was reported she was pacing around her room. She would not wear her telemetry. It has been some time, it was reported that she fell with somewhat of a seizure-like event. I reviewed the telemetry, but there was no concerning arrhythmia and her blood pressure was within acceptable range. So, there is no cardiac reason for her to have such an event. Afterwards, she was reported to be more agitated. She required a sitter in the room. This morning the sitter played music and Ms. Blount leaned her head on the sitter's shoulder and went to sleep. Apparently, this is the first bout of sleep in about 48 hours. Because she was having her much needed sleep, I did not wake her up to do my exam. REVIEW OF SYSTEMS: Cannot be done because the patient needed her sleep because she has been staying up for almost 24 hours now. MEDICATIONS: 1. Abilify 10 mg twice a day. 2. Aspirin 81 mg daily. 3. Lipitor 10 mg at night. 4. Cogentin 0.5 mg b.i.d. 5. Cefepime 2 g daily. 6. Depakote 500 mg b.i.d. 7. Iron sulfate 325 mg daily. 8. Haloperidol 10 mg b.i.d. 9. Heparin 5000 units subcutaneous 3 times a day. 10. Sliding scale insulin. 11. Toprol-XL 25 mg q.12 hours. 12. Potassium chloride 10 mEq daily. 13. Phenergan 50 mg b.i.d. 14. Seroquel 200 mg b.i.d. 15. Risperidone 4 mg b.i.d. 16. Entresto combination 1 tab b.i.d. 17. Torsemide 20 mg daily. Telemetry was reviewed. She is in sinus rhythm. There are some PACs. Other than that, there are no concerning arrhythmias. PHYSICAL EXAMINATION: VITAL SIGNS: Her vital signs have improved with medications. Her systolic blood pressure ranged between 131-147, diastolic blood pressure ranged between 66 and 81. GENERAL: She is lying flat, asleep, snoring, apparently comfortably. NECK: Neck vein is not accurate because she is lying flat. LUNGS: She has loud breath sounds. Since lying flat, I did not detect any crackles. CARDIAC: Regular rate and rhythm with normal S1, S2. There is 2/6 holosystolic murmur at the apex corresponding to mitral regurgitation. ABDOMEN: Soft, nontender. Positive bowel sounds. EXTREMITIES: Lower extremities, she has minimum or no edema today. LABORATORY DATA: Her laboratory values today are white cell count 5.8, hemoglobin 8.8, and platelets 217. Chemistry shows sodium 138, potassium 4, chloride 99, bicarb is elevated at 32, BUN is 34, creatinine 1.47, magnesium is 1.8. ASSESSMENT AND PLAN: 60-year-old, -[place] lady had an event last night. This is most likely a neurologic event either from her basal disorder or from her combination of medications that are psychotropic. She does not have a cardiac reason for syncope at this point. She does reside in [place] Heart Association stage C, [place] Heart Association class 3 heart failure with reduced ejection fraction. Her LVEF is about 30%. We are currently trying to provide a stable, easy to take regimen at the retirement. She is not a candidate for advanced heart failure therapies. RECOMMENDATIONS: Please see the following for my recommendation. 1. Discontinue torsemide. 2. Replace with spironolactone 25 mg daily. 3. Please provide acetazolamide 250 mg daily for 2 days. 4. Please ensure her BMP and magnesium labs ae checked daily. 5. I will also correct the Entresto dosing. It has been a pleasure taking care of Ms. Blount. If you have any questions, please give me a call. The total visitation time today is 35 minutes. Job ID: [id number] MTDD
[2020-11-19] MEDS: Cefepime 2 GM in Sodium Chloride 0.9% 100 ML IVPB SCH ×2 (13:58→22:45)
--- NOTE | 2020-11-19 16:14 | PDOC.HOSPP ---
- Subjective Encounter Date: 11/19/20 Encounter Time: 16:12 Subjective: Events from last night reviewed. Ms. Blount was apparently agitated overnight and had a witnessed fall. There was some concerns for pseudoseizures. The plan will be to return her to her facility hopefully in the next day or 2. She was admitted with CHF exacerbation and is diuresing well. She does look euvolemic on exam. - Objective Vital Signs & Weight: Vital Signs (12 hours) Temp Pulse Resp BP Pulse Ox 11/19/20 13:16 62 14 126/70 92 L 11/19/20 09:38 97.6 F 16 177/74 H 92 L Weight Weight 170 lb 12.8 oz I&O: 11/18/20 11/19/20 11/20/20 06:59 06:59 06:59 Intake Total 1660 Output Total 1800 Balance -140 Result Diagrams: 11/19/20 04:01 11/19/20 07:43 Additional Labs: Accuchecks 11/19/20 11/18/20 11/18/20 05:31 21:27 20:21 POC Glucose 149 H 156 H 183 H 11/18/20 16:45 POC Glucose 132 H Radiology Reviewed by me: Yes EKG Reviewed by me: Yes Hospitalist ROS - Review of Systems ROS unobtainable: due to mental status Constitutional: reports: weakness Neurological: reports: confusion - Medication Medications: Active Medications Generic Name Dose Route Start Last Admin Trade Name Freq PRN Reason Stop Dose Admin Acetaminophen 650 mg 11/17/20 14:16 11/18/20 05:53 Acetaminophen 325 Mg Tab PO 650 mg Q6H PRN Administration Headache/Fever or Pain Aripiprazole 10 mg 11/17/20 21:00 11/19/20 09:44 Aripiprazole 10 Mg Tab PO 10 mg BID KRYSTAL Administration Aspirin 325 mg 11/17/20 08:00 11/17/20 14:54 Aspirin 325 Mg Tab PO 11/17/20 10:10 Not Given [facility] KRYSTAL Aspirin 81 mg 11/18/20 09:00 11/19/20 09:43 Aspirin 81 Mg Enteric Coated Tablet PO 81 mg DAILY KRYSTAL Administration Atorvastatin Calcium 10 mg 11/17/20 21:00 11/18/20 20:56 Atorvastatin Calcium 10 Mg Tab PO 10 mg QPM KRYSTAL Administration Benztropine Mesylate 0.5 mg 11/17/20 21:00 11/19/20 09:45 Benztropine 1 Mg Tab PO 0.5 mg BID KRYSTAL Administration Divalproex Sodium 500 mg 11/17/20 21:00 11/19/20 09:[address] 500 Mg Tab PO 500 mg BID KRYSTAL Administration Ferrous Sulfate 325 mg 11/18/20 08:00 11/19/20 09:44 Ferrous Sulfate 325 Mg Tab PO 325 mg QAM-WM [facility] Administration Haloperidol 10 mg 11/17/20 21:00 11/19/20 09:44 Haloperidol 5 Mg Tab PO 10 mg BID [facility] Administration Heparin Sodium (Porcine) 5,000 units 11/17/20 15:00 11/19/20 15:57 Heparin 5,000 Units/Ml Vial SC Not Given TID [facility] Cefepime HCl 2 gm/ Sodium 100 mls @ 200 mls/hr 11/16/20 23:59 11/19/20 13:58 Chloride IVPB Not Given 1200,2359 [facility] Metoprolol Succinate 25 mg 11/18/20 09:00 11/19/20 09:44 Metoprolol Succinate Xl 25 Mg Tab PO 25 mg Q12HR [facility] Administration Nitroglycerin 1 inch 11/17/20 04:00 11/17/20 14:53 Nitroglycerin 2% Ointment 1 Inch/1 Gm Packet TOP 11/17/20 10:10 Not Given 0400,1000,1600,2200 [facility] Potassium Chloride 10 meq 11/18/20 09:00 11/19/20 09:45 Potassium Chloride 10 Meq Tab PO 10 meq DAILY [facility] Administration Promethazine HCl 50 mg 11/17/20 21:00 11/19/20 09:44 Promethazine 25 Mg Tab PO 50 mg BID [facility] Administration Quetiapine Fumarate 200 mg 11/17/20 21:00 11/19/20 09:48 Quetiapine Fumarate 200 Mg Tab PO 200 mg BID [facility] Administration Risperidone 4 mg 11/17/20 21:00 11/19/20 09:43 Risperidone 1 Mg Tab PO 4 mg BID [facility] Administration Sacubitril/Valsartan 1 tab 11/18/20 09:00 11/19/20 09:45 Sacubitril 24mg/Valsartan 26mg Tab PO 1 tab DAILY [facility] Administration Hospitalist Exam Vitals: Vital Signs (12 hours) Temp Pulse Resp BP Pulse Ox 11/19/20 13:16 62 14 126/70 92 L 11/19/20 09:38 97.6 F 16 177/74 H 92 L Weight Weight 170 lb 12.8 oz General Appearance: NAD, ill appearing General - other findings: sleepy ENT: normocephalic atraumatic Heart: RRR, no murmur, no gallops Respiratory: CTAB, no wheezes, no rales Gastrointestinal: soft Neurological - other findings: unable to examine as she is sleepy and uncooperative. Psychiatric: somnolent Hosp A/P (1) Seizure Code(s): R56.9 - UNSPECIFIED CONVULSIONS Status: Acute (2) Diabetes mellitus Code(s): E11.9 - TYPE 2 DIABETES MELLITUS WITHOUT COMPLICATIONS Status: Chronic Qualifiers: Diabetes mellitus type: type 2 Diabetes mellitus manager intermediate insulin use: with group home use (3) Schizophrenia Code(s): F20.9 - SCHIZOPHRENIA, UNSPECIFIED Status: Chronic Qualifiers: Schizophrenia type: unspecified Qualified Code(s): F20.9 - Schizophrenia, unspecified - Plan #1. Acute metabolic encephalopathy. Concern for seizures. The patient is already on Depakote. We appreciate neurologist evaluation. 11/19/20 [place] to be secondary to seizure disorder. It is unclear if this is actual or pseudoseizures however. We appreciate neurologist recommendations. 2. Acute combined systolic and diastolic congestive heart failure. She is responding to her diuretics. We will continue the rest of her medicines including torsemide and Entresto. Echocardiogram report reviewed. We appreciate cardiology's recommendations. 3. Schizophrenia/bipolar. Continue routine home medications.
[2020-11-19] MEDS ORDERED: Magnesium Oxide 400 MG TAB PO SCH (21:00)
[2020-11-19] MEDS: Atorvastatin Calcium 10 MG TAB PO SCH (22:09)
[2020-11-20 04:48] LABS: #Eosinphils 0.1 thou/uL (0.0-0.7); #Lymphocytes 2.3 thou/uL (1.20-3.40); #Monocytes 0.8 thou/uL (0.11-0.59); #Neutrophils 2.4 thou/uL (1.40-6.50); %Basophils 0.6 % (0.0-1.0); %Eosinophils 2.5 % (0.0-10.0); %Lymphocytes 40.3 % (21.0-51.0); %Monocytes 14.2 % (0.0-10.0); %Neutrophils 42.3 % (42.0-75.0); Hemoglobin 8.7 g/dL (12.0-16.0); Mean Corpuscular HGB CONC 30.7 g/dL (32.0-36.0); Mean Corpuscular Hemoglobin 29.4 pg (27.0-31.0); Mean Corpuscular Volume 95.7 fL (78.0-98.0); Mean Platelet Volume 7.3 fL (7.4-10.4); Platelet Count 267 thou/uL (130-400); RBC Distribution Width 15.3 % (11.5-14.5); Red Blood Cell (RBC) Count 2.97 mill/uL (4.20-5.40); White Blood Cell (WBC) Count 5.6 thou/uL (4.8-10.8)
[2020-11-20 05:21] LABS: Anion Gap 12 mmol/L (10-20); BUN (Urea Nitrogen) 32 mg/dL (9.8-20.1); Calc. Creatinine Clearance 60 mL/min (70-130); Calcium 8.3 mg/dL (7.8-10.44); Carbon Dioxide 25 mmol/L (22-29); Chloride 102 mmol/L (98-107); Glucose 142 mg/dL (70-105); Magnesium 2.3 mg/dL (1.6-2.6); Potassium 4.5 mmol/L (3.5-5.1); Sodium 134 mmol/L (136-145)
[2020-11-20] MEDS ORDERED: Spironolactone 25 MG TAB PO SCH (08:00)
[2020-11-20] MEDS ORDERED: AcetaZOLAMIDE 250 MG TAB PO SCH (09:00)
[2020-11-20] MEDS ORDERED: Magnesium Oxide 400 MG TAB PO SCH (09:00)
[2020-11-20] MEDS: Ferrous Sulfate 325 MG TAB PO SCH (09:37)
[2020-11-20] MEDS: risperiDONE 1 MG TAB PO SCH (09:37)
[2020-11-20] MEDS: Aspirin 81 mg Enteric Coated Tablet PO SCH (09:38)
[2020-11-20] MEDS: Benztropine 1 MG TAB PO SCH (09:38)
--- NOTE | 2020-11-20 09:38 | PRG ---
DATE OF SERVICE: 11/20/2020 SERVICE: [facility] Cardiology Consulting Service. SUBJECTIVE: Ms. Blount had an excellent day. After sleeping, she appeared to be quite better. She is able to interact with staff and follow the direction today. This morning, she was pleasant and follows directions. She did not tell me there is anything that is wrong. She wants to go home. REVIEW OF SYSTEMS: As best I can gather: GENERAL: There is no fever, chills, cough. HEENT: There is no change in vision, hearing, or swallowing. RESPIRATORY: She is breathing easy. CARDIOVASCULAR: There is no chest pain, palpitations, or syncope. GI: There is no nausea or vomiting. : I think she is able to urinate on her own. MUSCULOSKELETAL is not complaining of any muscle joint pains. SKIN: She is not complaining any skin breakdown. NEUROLOGIC: She is not complaining of focal deficits or weaknesses. CURRENT MEDICATIONS: Include: 1. Acetazolamide 250 mg daily. 2. Abilify 10 mg b.i.d. 3. Aspirin 81 mg daily. 4. Atorvastatin 10 mg at bedtime. 5. Cogentin 0.5 mg b.i.d. 6. Cefepime 2 g IV b.i.d. 7. Depakote at 500 mg b.i.d. 8. Ferrous sulfate 325 mg daily. 9. Haloperidol 10 mg b.i.d. 10. Heparin 5000 units subcutaneous three times a day. 11. Lispro insulin sliding scale. 12. Magnesium oxide 400 mg b.i.d. 13. Toprol-XL 25 mg q.12 hours. 14. Potassium chloride 10 mEq daily. 15. Phenergan 50 mg b.i.d. 16. Seroquel 200 mg b.i.d. 17. Risperidone 4 mg b.i.d. 18. Entresto 24 daily. This should be b.i.d. 19. Spironolactone 25 mg daily. PHYSICAL EXAMINATION: VITAL SIGNS: Current vitals are heart rate 62, blood pressure 137/75. Input and outputs were not well recorded. GENERAL: She is alert and conversational, pleasant and responsive today. HEENT: Show EOMI. Oropharynx is benign with moist mucosa. NECK: JVP around 10 cm. LUNGS: There is good air movement in bilateral upper lung mandujano. She has diminished breath sounds at the lower lung mandujano; however, with her it is kind of difficult to listen. CARDIAC: Regular rate and rhythm with normal S1, S2. There is 2/6 holosystolic murmur at the apex. She has mitral regurgitation. ABDOMEN: Soft, nontender. Positive bowel sounds. EXTREMITIES: Her lower extremity has minimal edema. Thus, she seemed to be euvolemic. LABORATORY VALUES: White cell count 5.6, hemoglobin 8.7. Creatinine of 2.67. Her sodium is 134, potassium 4.5, chloride 102, bicarb 25, BUN is 32, creatinine 0.3, so her renal function has improved. ASSESSMENT: 60-year-old lady most likely had a psychosis episode that caused this admission. She may have underlying seizure disorder too. Currently, from a cardiac perspective, she resides [place] [employer] stage C, [place] Heart Association class 3 heart failure with reduced ejection fraction. She had pylp-[id number] variation. Her EF is about 30%. 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 Her cardiac dysfunction could be induced by a host of her psychotropic medications. So currently, a combination of Toprol-XL, Entresto, spironolactone, seemed to be working well for her. At times, she may need as needed doses of torsemide. She does not seem to be needing it everyday. Please see the following for my recommendations. RECOMMENDATIONS: 1. Ensure that Entresto 24/26 mg combination is given twice a day. 2. Continue Toprol-XL at 25 mg q.12 hours. 3. Continue spironolactone at 25 mg daily. 4. On an as needed basis torsemide 10 mg daily, so today she does not need it; alternatively torsemide 10 mg every other day can work. 5. Discontinue potassium supplement. 6. Reduce magnesium oxide to 400 mg this Tuesday. It has been a pleasure taking care of Ms. Blount. If you have any questions, please give me a call. Total visitation time today is 40 minutes. Job ID: [id number] MTDD
[2020-11-20] MEDS: Promethazine 25 MG TAB PO SCH (09:39)
[2020-11-20] MEDS: Aripiprazole 10 MG TAB PO SCH (09:39)
[2020-11-20] MEDS: Divalproex Sodium DR 500 MG TAB PO SCH (09:39)
[2020-11-20] MEDS: Haloperidol 5 MG TAB PO SCH (09:40)
[2020-11-20] MEDS: Heparin 5,000 UNITS/ML VIAL SC SCH ×2 (09:40→16:37)
[2020-11-20 13:43] VITALS: BP 133/70; TEMP 98.1
--- NOTE | 2020-11-20 14:03 | PDOC.DS.DS ---
Provider Date of Admission: 11/16/20 22:17 Date of Discharge: 11/20/20 Admitting Provider: Iron Garrison MD Consultations: Cardiology Primary Care Physician: Soni Hough Course Hospital Course: Roxanne Blount is a 60-year-old female who was admitted to the hospital after she had what was felt to be a seizure and was altered. She has a medical history significant for bipolar and schizophrenia. She was admitted for further evaluation of this altered mental status. She was seen in this visit by cardiology services and she also was diagnosed with congestive heart failure. She had an echocardiogram done that showed a severely decreased ejection fraction around 30% with dilated left atrium. During this hospital stay she was seen by neurology after she had 1 of those spells of pseudoseizures. The patient was already on Depakote likely for her psychiatric illness. Her Depakote level was slightly subtherapeutic. The patient was given empiric intravenous antibiotics but really her culture was negative. At any rate the patient was seen today at the bedside and she seemed to have reached optimal hospital benefit and will be discharged home today. Please refer to the medicat ion reconciliation for further information regarding her discharge medicines. Resuscitation Status: 11/16/20 22:49 Resuscitation Status Routine Resuscitation Status: FULL: Full Resuscitation Lab Results: 11/20/20 04:26 11/20/20 04:26 Abnormal Lab Results - Last 48 hrs 11/19/20 04:01: RBC 2.81 L, Hgb 8.8 L, Hct 27.3 L, MCH 31.4 H, RDW 15.3 H, Neutrophils % (Manual) 35 L, Monocytes % (Manual) 12 H 11/19/20 07:43: Carbon Dioxide 32 H, BUN 34 H, Creatinine 1.47 H 11/20/20 04:26: RBC 2.97 L, Hgb 8.7 L, Hct 28.5 L, MCHC 30.7 L, RDW 15.3 H, MPV 7.3 L, Monocytes % 14.2 H, Monocytes # 0.8 H 11/20/20 04:26: Sodium 134 L, BUN 32 H, Creatinine 1.30 H Microbiology - Entire Visit 11/17/20 00:50 Venous blood - Right Hand Blood Culture - Preliminary NO GROWTH AT 48 HOURS 11/17/20 00:49 Venous blood - Right Hand Blood Culture - Preliminary NO GROWTH AT 48 HOURS Vitals: Vital Signs (12 hours) Temp Pulse Resp BP BP BP Pulse Ox 11/20/20 12:10 98.1 F 64 15 133/70 96 11/20/20 11:15 130/81 150/69 H 11/20/20 07:24 97.5 F L 62 16 137/75 92 L 11/20/20 04:00 97.4 F L 68 18 138/79 97 Weight Weight 182 lb 3 oz Physical Exam: The patient was seen and examined on the day of discharge. General Appearance: NAD Eye: PERRL, anicteric sclera ENT: normocephalic atraumatic, no oropharyngeal lesions Neck: supple, symmetric, no JVD, no thyromegaly Respiratory: CTAB, no wheezes, no rales, no ronchi Cardiovascular: RRR, no murmur, no gallops Gastrointestinal: soft, non-tender, non-distended, normal bowel sounds Neurological: cranial nerve grossly intact, normal sensation to touch PSYCH: normal affect, normal behavior, A&O x 3 Problem (1) Seizure Code(s): R56.9 - UNSPECIFIED CONVULSIONS Status: Acute (2) Diabetes mellitus Code(s): E11.9 - TYPE 2 DIABETES MELLITUS WITHOUT COMPLICATIONS Status: Chronic Qualifiers: Diabetes mellitus type: type 2 Diabetes mellitus intermission coordinator insulin use: with intermission coordinator use (3) Schizophrenia Code(s): F20.9 - SCHIZOPHRENIA, UNSPECIFIED Status: Chronic Qualifiers: Schizophrenia type: unspecified Qualified Code(s): F20.9 - Schizophrenia, unspecified Time Spent in discharge related activities (mins): 30 Plan Prescriptions: Sacubitril/Valsartan [Entresto 24 mg-26 mg Tablet] 1 tab PO Q12HR #60 tab Metoprolol Succinate [Toprol XL] 25 mg PO Q12HR #60 tab Spironolactone [Aldactone] 25 mg PO QA- #30 tab Magnesium Oxide 400 mg PO DAILY #30 tab Torsemide 5 mg PO DAILY #30 tablet Home Medications: Medication Instructions Recorded Confirmed Type Aspirin [Ecotrin Low Strength] 81 mg PO DAILY 08/23/20 11/17/20 History Divalproex Sodium [Depakote] 500 mg PO BID 08/23/20 11/17/20 History Haloperidol 10 mg PO BID 08/23/20 11/17/20 History HumaLOG [HumaLOG Vial] 2 - 10 units SC PRN PRN 08/23/20 11/20/20 History Promethazine [Phenergan] 50 mg PO BID 08/23/20 11/17/20 History QUEtiapine Fumarate [SEROquel] 200 mg PO BID 08/23/20 11/17/20 History risperiDONE 4 mg PO BID 08/23/20 11/17/20 History ARIPiprazole [Abilify] 10 mg PO BID #60 tablet 09/07/20 11/17/20 Rx Atorvastatin Calcium 10 mg PO QPM #30 tablet 09/07/20 11/17/20 Rx Benztropine [Cogentin] 1 mg PO BID 11/20/20 11/20/20 History Insulin Glargine,Hum.Rec.Anlog 12 units SQ HS 11/20/20 11/20/20 History [Lantus] Magnesium Oxide 400 mg PO DAILY #30 tab 11/20/20 Rx Metoprolol Succinate [Toprol XL] 25 mg PO Q12HR #60 tab 11/20/20 Rx Sacubitril/Valsartan [Entresto 24 1 tab PO Q12HR #60 tab 11/20/20 Rx mg-26 mg Tablet] Spironolactone [Aldactone] 25 mg PO QAM-WM #30 tab 11/20/20 Rx Torsemide 5 mg PO DAILY #30 tablet 11/20/20 Rx Allergies: No Known Drug Allergies Allergy (Verified 11/17/20 17:58) Activity:: Activity as Tolerated Nourishment:: Regular Diet Referrals: [facility], [facility] [Other] (Patient to transfer back to [facility]. salesperson [employer] is Marylu Ulloa. [phone]. She will transport patient back today. ) Cardiac Rehab - [facility] [Outside] - 7 Days (Your doctor has ordered outpatient cardiac rehab for you to begin within 1-2 weeks after you go home from the hospital. The location nearest to you is the [facility].We will call you in 3-5 days to get you scheduled for your evaluation. If you do not receive a call, please reach out to us at [phone] and request an appointment.) Soni Hough [Primary Care Provider] - 7 Days (Call and schedule hospital follow up appt to see Dr Hough within 1 week. ) Adam Fiore MD [Active] - (Dr Fiore is the length control tester that followed patient while in the hospital. ) Disposition: [facility]SISTED LIVING Quality CORE MEASURES:: N/A
[2020-11-20] MEDS: Cefepime 2 GM in Sodium Chloride 0.9% 100 ML IVPB SCH (14:04)
== END 2020-11-20 16:00 | disposition short-term general hospital (02) | DRG 100 ==
LOC: ERS 20:45 → 2NO 22:17
PROVIDERS: ADMIT Student in an Organized Health Care Education/Training Program; ATTEND Hospitalist
DX: G40.909 Epilepsy, unspecified, not intractable, without status epilepticus (principal); I50.41 Acute combined systolic (congestive) and diastolic (congestive) heart failure; G93.41 Metabolic encephalopathy; N17.9 Acute kidney failure, unspecified; I13.0 Hypertensive heart and chronic kidney disease with heart failure and stage 1 through stage 4 chronic kidney disease, or unspecified chronic kidney disease; I42.9 Cardiomyopathy, unspecified; F20.9 Schizophrenia, unspecified; F31.9 Bipolar disorder, unspecified; N18.9 Chronic kidney disease, unspecified; R00.1 Bradycardia, unspecified; D64.9 Anemia, unspecified; E11.22 Type 2 diabetes mellitus with diabetic chronic kidney disease; Z79.82 Long term (current) use of aspirin; Z86.16 Personal history of COVID-19
CPT/HCPCS: 36415; 36416; 70450; 70551; 71045; 71275; 74018; 80048; 80053; 80164; 80306; 80307; 81003; 81015; 82140; 82550; 83605; 83690; 83735; 83880; 84443; 84484; 85025; 85379; 87040; 93005; 93306; 93798; 95712; 95819; 95957; 96374; J0692; J1644; J1940; J2060; J3490; Q0169; Q9967

== ENCOUNTER 2021-05-26 22:39 | Inpatient (IN) | payer OTHER ==
[2021-05-27 00:16] LABS: Hemoglobin 9.6 g/dL (12.0-16.0); Mean Corpuscular HGB CONC 33.2 g/dL (32.0-36.0); Mean Corpuscular Hemoglobin 31.7 pg (27.0-31.0); Mean Corpuscular Volume 95.5 fL (78.0-98.0); Platelet Count 165 thou/uL (130-400); RBC Distribution Width 16.3 % (11.5-14.5); Red Blood Cell (RBC) Count 3.04 mill/uL (4.20-5.40); White Blood Cell (WBC) Count 9.2 thou/uL (4.8-10.8)
[2021-05-27 00:30] LABS: Actual Bicarbonate (HCO3a) 29.7 mEq/L (22-28); Analyzer IN Cardio ER; Base Excess (BEa) 4.9 mEq/L (-2.0 to +3.0); CO2 Tension 44.2 mmHg (35.0-45.0); Calcium, Ionized (arterial) 1.22 mmol/L (1.12-1.30); Carboxyhemoglobin (COHb) 0.3 gm% (0.0-3.0); Hemoglobin (Hb) 10.1 g/dL (12.0-16.0); Potassium - ABG Lab 4.75 mmol/L (3.70-5.30); pH, Arterial 7.45 (7.35-7.45)
[2021-05-27 00:34] LABS: Eosinophils 1 % (0-10); Hypochromia SLIGHT = 6-15 cells (100X) (0-5/hpf); Lymphocytes 16 % (21-51); MDiff Complete? YES; Monocytes 13 % (0-10); Neutrophil 70 % (42-75); Platelet Morphology Comment Appears Adequate
[2021-05-27 00:35] LABS: ALT (SGPT) 29 U/L (8-55); AST (SGOT) 60 U/L (5-34); Albumin 3.3 g/dL (3.5-5.0); Alkaline Phosphatase 439 U/L (40-110); Anion Gap 13 mmol/L (10-20); BUN (Urea Nitrogen) 34 mg/dL (9.8-20.1); Bilirubin, Total 0.6 mg/dL (0.2-1.2); Calc. Creatinine Clearance 0 mL/min (70-130); Calcium 9.8 mg/dL (7.8-10.44); Carbon Dioxide 26 mmol/L (22-29); Chloride 102 mmol/L (98-107); Globulin 5.3 g/dL (2.4-3.5); Glucose 143 mg/dL (70-105); Potassium 4.2 mmol/L (3.5-5.1); Protein, Total 8.6 g/dL (6.0-8.3); Sodium 137 mmol/L (136-145)
[2021-05-27 00:36] LABS: O2 Tension (PaO2), arterial 55.9 mmHg (> 80.0)
[2021-05-27] MEDS ORDERED: Haloperidol Lactate 5 MG/ML VIAL ONE ×2 (00:52→01:33)
[2021-05-27 00:57] LABS: CKMB 1.3 ng/mL (0-6.6)
[2021-05-27] MEDS ORDERED: Furosemide 40 MG/4 ML VIAL ONE (00:57)
[2021-05-27] MEDS ORDERED: Nitroglycerin 2% Ointment 1 INCH/1 GM Packet ONE (01:10)
[2021-05-27] MEDS ORDERED: Lorazepam 2 MG/ML VIAL ONE (02:31)
[2021-05-27 04:52] LABS: Troponin I 0.041 ng/mL (< 0.028)
[2021-05-27 07:38] LABS: Troponin I 0.037 ng/mL (< 0.028)
[2021-05-27] MEDS ORDERED: Ondansetron PF 4 MG/2 ML Vial IVP PRN (07:56)
[2021-05-27] MEDS ORDERED: Cepastat Lozenges 1 LOZ PO PRN (07:56)
[2021-05-27] MEDS ORDERED: hydrALAZINE 20 MG/ML VIAL SLOW IVP PRN (07:56)
[2021-05-27] MEDS ORDERED: Sodium Chloride 0.65% Nasal 44 ML BOT EA NARE PRN (07:56)
[2021-05-27] MEDS ORDERED: Hydrocerin (Eucerin) Cream 120 gm Jar TOP PRN (07:56)
[2021-05-27] MEDS ORDERED: Nitroglycerin 0.4 MG TAB (25 Tab Bottle) SL PRN (07:56)
[2021-05-27] MEDS ORDERED: Loratadine 10 MG TAB PO PRN (07:56)
[2021-05-27] MEDS ORDERED: Senokot S 8.6-50 MG TAB PO PRN (07:56)
[2021-05-27] MEDS ORDERED: Artificial Tear Sol 15 ML BOT EA EYE PRN (07:56)
[2021-05-27] MEDS ORDERED: GUAIFENESIN SF SOLN 200 MG/10 ML UDCUP PO PRN (07:56)
[2021-05-27] MEDS ORDERED: Acetaminophen 650 MG Suppository PR PRN (07:56)
[2021-05-27] MEDS ORDERED: Benzonatate 100 MG CAP PO PRN (07:56)
[2021-05-27] MEDS ORDERED: Bisacodyl 10 MG SUPP PR PRN (07:56)
[2021-05-27] MEDS ORDERED: Loperamide HCl 2 MG CAP PO PRN (07:56)
[2021-05-27] MEDS ORDERED: Calcium Carbonate 500 MG ChewTAB PO PRN (07:56)
[2021-05-27] MEDS ORDERED: Ondansetron ODT 4 MG TAB PO PRN (07:56)
[2021-05-27] MEDS ORDERED: Guaifenesin DM 100-10/5 ML UDCUP PO PRN (07:56)
[2021-05-27] MEDS ORDERED: cefTRIAXone\\ROCEPHIN 2 GM VIAL ONE (09:23)
[2021-05-27] MEDS ORDERED: Famotidine 20 MG TAB ONE (09:23)
[2021-05-27] MEDS ORDERED: Aspirin Chewable 81 MG TAB ONE (09:23)
[2021-05-27] MEDS ORDERED: Enoxaparin Sodium 40 MG/0.4 ML SYRINGE ONE (09:23)
[2021-05-27] MEDS: Spironolactone 25 MG TAB PO SCH (09:35)
[2021-05-27] MEDS: cefTRIAXone\\ROCEPHIN 2 GM in Sodium Chloride 0.9% 100 ML IVPB SCH (09:36)
[2021-05-27] MEDS: Aspirin 81 mg Enteric Coated Tablet PO SCH (09:36)
[2021-05-27] MEDS: Aripiprazole 10 MG TAB PO SCH ×2 (09:36→20:06)
[2021-05-27] MEDS: Divalproex Sodium DR 500 MG TAB PO SCH ×2 (09:36→20:06)
[2021-05-27] MEDS: Doxycycline 100 MG CAP PO SCH ×2 (09:36→20:06)
[2021-05-27] MEDS: Benztropine 1 MG TAB PO SCH ×2 (09:36→20:06)
[2021-05-27] MEDS: Enoxaparin Sodium 40 MG/0.4 ML SYRINGE SC SCH (09:36)
[2021-05-27] MEDS: Famotidine 20 MG TAB PO SCH ×2 (09:37→20:06)
[2021-05-27] MEDS: Haloperidol 5 MG TAB PO SCH ×2 (09:37→20:06)
[2021-05-27] MEDS: Magnesium Oxide 400 MG TAB PO SCH (09:37)
[2021-05-27] MEDS: Furosemide 20 MG/2 ML VIAL SLOW IVP SCH (14:55)
[2021-05-27] MEDS: Atorvastatin Calcium 10 MG TAB PO SCH (20:06)
[2021-05-27] MEDS: Lantus 1000 UNITS/10 ML VIAL SC SCH (20:10)
[2021-05-27] MEDS: Lorazepam 2 MG/ML VIAL SLOW IVP PRN (23:50)
[2021-05-28 02:27] LABS: SARS-CoV-2 PCR by NAA Not Detected (NotDetected)
[2021-05-28 05:06] LABS: ALT (SGPT) 17 U/L (8-55); AST (SGOT) 31 U/L (5-34); Albumin 2.5 g/dL (3.5-5.0); Alkaline Phosphatase 327 U/L (40-110); Anion Gap 11 mmol/L (10-20); BUN (Urea Nitrogen) 35 mg/dL (9.8-20.1); Bilirubin, Total 0.4 mg/dL (0.2-1.2); Calc. Creatinine Clearance 69 mL/min (70-130); Calcium 8.8 mg/dL (7.8-10.44); Carbon Dioxide 29 mmol/L (22-29); Chloride 102 mmol/L (98-107); Globulin 4.1 g/dL (2.4-3.5); Glucose 127 mg/dL (70-105); Potassium 3.8 mmol/L (3.5-5.1); Protein, Total 6.6 g/dL (6.0-8.3); Sodium 138 mmol/L (136-145)
[2021-05-28 05:20] LABS: Hemoglobin 8.3 g/dL (12.0-16.0); Mean Corpuscular HGB CONC 32.4 g/dL (32.0-36.0); Mean Corpuscular Hemoglobin 31.2 pg (27.0-31.0); Mean Corpuscular Volume 96.4 fL (78.0-98.0); Mean Platelet Volume 8.4 fL (7.4-10.4); Platelet Count 182 thou/uL (130-400); RBC Distribution Width 16.3 % (11.5-14.5); Red Blood Cell (RBC) Count 2.66 mill/uL (4.20-5.40); White Blood Cell (WBC) Count 8.2 thou/uL (4.8-10.8)
[2021-05-28 05:21] LABS: Eosinophils 2 % (0-10); Lymphocytes 31 % (21-51); MDiff Complete? YES; Monocytes 22 % (0-10); Neutrophil 41 % (42-75); Platelet Morphology Comment Appears Adequate; Reactive Lymphocytes 4 % (0-10); Schistocytes SLIGHT = 2-5 cells (100X) (0-1/hpf)
[2021-05-28] MEDS: Furosemide 20 MG/2 ML VIAL SLOW IVP SCH (05:31)
[2021-05-28] MEDS ORDERED: Furosemide 20 MG/2 ML VIAL SLOW IVP SCH (07:25)
[2021-05-28] MEDS ORDERED: Furosemide 40 MG/4 ML VIAL SLOW IVP SCH (07:30)
[2021-05-28] MEDS: Enoxaparin Sodium 40 MG/0.4 ML SYRINGE SC SCH (08:38)
[2021-05-28] MEDS: cefTRIAXone\\ROCEPHIN 2 GM in Sodium Chloride 0.9% 100 ML IVPB SCH (08:38)
[2021-05-28] MEDS: Spironolactone 25 MG TAB PO SCH (09:32)
[2021-05-28] MEDS: Ferrous Sulfate 325 MG TAB PO SCH (09:32)
[2021-05-28] MEDS: Aspirin 81 mg Enteric Coated Tablet PO SCH (09:32)
[2021-05-28] MEDS: Divalproex Sodium DR 500 MG TAB PO SCH ×2 (09:32→21:21)
[2021-05-28] MEDS: Benztropine 1 MG TAB PO SCH ×2 (09:32→21:21)
[2021-05-28] MEDS: Aripiprazole 10 MG TAB PO SCH ×2 (09:32→21:21)
[2021-05-28] MEDS: Magnesium Oxide 400 MG TAB PO SCH (09:33)
[2021-05-28] MEDS: Doxycycline 100 MG CAP PO SCH ×2 (09:33→21:21)
[2021-05-28] MEDS: Famotidine 20 MG TAB PO SCH ×2 (09:33→21:21)
[2021-05-28] MEDS: Haloperidol 5 MG TAB PO SCH ×2 (09:33→21:21)
[2021-05-28] MEDS: HYDROcodone/Acetaminophen 5/325 mg Tablet PO PRN (14:37)
[2021-05-28] MEDS: Furosemide 40 MG/4 ML VIAL SLOW IVP SCH (14:38)
[2021-05-28] MEDS ORDERED: Divalproex Sodium DR 500 MG TAB PO SCH (16:15)
[2021-05-28] MEDS ORDERED: Doxycycline 100 MG CAP PO SCH (16:15)
[2021-05-28] MEDS ORDERED: Magnesium Oxide 400 MG TAB PO SCH (16:15)
[2021-05-28] MEDS ORDERED: Spironolactone 25 MG TAB PO SCH (16:15)
[2021-05-28] MEDS ORDERED: Aripiprazole 10 MG TAB PO SCH (16:15)
[2021-05-28] MEDS ORDERED: Ferrous Sulfate 325 MG TAB PO SCH (16:15)
[2021-05-28] MEDS ORDERED: Haloperidol 5 MG TAB PO SCH (16:15)
[2021-05-28] MEDS ORDERED: Benztropine 1 MG TAB PO SCH (16:15)
[2021-05-28] MEDS ORDERED: Aspirin 81 mg Enteric Coated Tablet PO SCH (16:15)
[2021-05-28] MEDS ORDERED: Famotidine 20 MG TAB PO SCH (16:15)
[2021-05-28] MEDS: Atorvastatin Calcium 10 MG TAB PO SCH (21:22)
[2021-05-28] MEDS: Lantus 1000 UNITS/10 ML VIAL SC SCH (21:23)
[2021-05-29 04:37] LABS: Anion Gap 10 mmol/L (10-20); BUN (Urea Nitrogen) 33 mg/dL (9.8-20.1); Calc. Creatinine Clearance 65 mL/min (70-130); Calcium 8.7 mg/dL (7.8-10.44); Carbon Dioxide 32 mmol/L (22-29); Chloride 97 mmol/L (98-107); Glucose 121 mg/dL (70-105); Magnesium 1.7 mg/dL (1.6-2.6); Phosphorus 3.6 mg/dL (2.3-4.7); Potassium 3.7 mmol/L (3.5-5.1); Sodium 135 mmol/L (136-145)
[2021-05-29 04:45] LABS: Hemoglobin 8.6 g/dL (12.0-16.0); Mean Corpuscular HGB CONC 31.3 g/dL (32.0-36.0); Mean Corpuscular Hemoglobin 30.1 pg (27.0-31.0); Mean Corpuscular Volume 96.1 fL (78.0-98.0); Mean Platelet Volume 7.8 fL (7.4-10.4); Platelet Count 248 thou/uL (130-400); RBC Distribution Width 16.4 % (11.5-14.5); Red Blood Cell (RBC) Count 2.84 mill/uL (4.20-5.40); White Blood Cell (WBC) Count 7.6 thou/uL (4.8-10.8)
[2021-05-29 05:34] LABS: Band 9 % (5-11); Eosinophils 2 % (0-10); Lymphocytes 27 % (21-51); MDiff Complete? YES; Monocytes 9 % (0-10); Neutrophil 53 % (42-75)
[2021-05-29] MEDS: Furosemide 40 MG/4 ML VIAL SLOW IVP SCH (06:22)
[2021-05-29] MEDS: Ferrous Sulfate 325 MG TAB PO SCH (07:56)
[2021-05-29] MEDS: Spironolactone 25 MG TAB PO SCH (07:57)
[2021-05-29] MEDS: Benztropine 1 MG TAB PO SCH ×2 (07:57→20:12)
[2021-05-29] MEDS: Aspirin 81 mg Enteric Coated Tablet PO SCH (07:57)
[2021-05-29] MEDS: cefTRIAXone\\ROCEPHIN 2 GM in Sodium Chloride 0.9% 100 ML IVPB SCH (07:57)
[2021-05-29] MEDS: Aripiprazole 10 MG TAB PO SCH ×2 (07:57→20:13)
[2021-05-29] MEDS: Divalproex Sodium DR 500 MG TAB PO SCH ×2 (07:57→20:14)
[2021-05-29] MEDS: Doxycycline 100 MG CAP PO SCH ×2 (07:57→20:14)
[2021-05-29] MEDS: Haloperidol 5 MG TAB PO SCH ×2 (07:57→20:13)
[2021-05-29] MEDS: Enoxaparin Sodium 40 MG/0.4 ML SYRINGE SC SCH (07:57)
[2021-05-29] MEDS: Magnesium Oxide 400 MG TAB PO SCH (07:57)
[2021-05-29] MEDS: Famotidine 20 MG TAB PO SCH ×2 (07:57→20:13)
[2021-05-29] MEDS: Furosemide 20 MG TAB PO SCH ×3 (08:07→14:09)
[2021-05-29] MEDS: Atorvastatin Calcium 10 MG TAB PO SCH (20:13)
[2021-05-29] MEDS: Lantus 1000 UNITS/10 ML VIAL SC SCH (20:15)
[2021-05-29] MEDS: Acetaminophen 325 MG TAB PO PRN (22:34)
[2021-05-30] MEDS: Acetaminophen 325 MG TAB PO PRN (03:09)
[2021-05-30] MEDS: Aspirin 81 mg Enteric Coated Tablet PO SCH (09:05)
[2021-05-30] MEDS: Benztropine 1 MG TAB PO SCH ×2 (09:05→21:25)
[2021-05-30] MEDS: Magnesium Oxide 400 MG TAB PO SCH (09:05)
[2021-05-30] MEDS: Doxycycline 100 MG CAP PO SCH ×2 (09:06→21:26)
[2021-05-30] MEDS: Furosemide 20 MG TAB PO SCH ×2 (09:06→15:56)
[2021-05-30] MEDS: Spironolactone 25 MG TAB PO SCH (09:06)
[2021-05-30] MEDS: Haloperidol 5 MG TAB PO SCH ×2 (09:06→21:26)
[2021-05-30] MEDS: Famotidine 20 MG TAB PO SCH ×2 (09:06→21:26)
[2021-05-30] MEDS: Enoxaparin Sodium 40 MG/0.4 ML SYRINGE SC SCH (09:07)
[2021-05-30] MEDS: Ferrous Sulfate 325 MG TAB PO SCH (09:07)
[2021-05-30] MEDS: Divalproex Sodium DR 500 MG TAB PO SCH ×2 (09:07→21:26)
[2021-05-30] MEDS: Aripiprazole 10 MG TAB PO SCH ×2 (09:12→21:26)
[2021-05-30] MEDS: cefTRIAXone\\ROCEPHIN 2 GM in Sodium Chloride 0.9% 100 ML IVPB SCH (09:24)
[2021-05-30] MEDS: Lorazepam 2 MG/ML VIAL SLOW IVP PRN (17:42)
[2021-05-30] MEDS: Atorvastatin Calcium 10 MG TAB PO SCH (21:26)
[2021-05-30] MEDS: Lantus 1000 UNITS/10 ML VIAL SC SCH ×2 (21:48→22:36)
[2021-05-31] MEDS: HYDROcodone/Acetaminophen 5/325 mg Tablet PO PRN ×2 (00:23→20:13)
[2021-05-31] MEDS: Lorazepam 2 MG/ML VIAL SLOW IVP PRN (01:11)
[2021-05-31 05:18] LABS: Hemoglobin 7.9 g/dL (12.0-16.0); Mean Corpuscular HGB CONC 32.5 g/dL (32.0-36.0); Mean Corpuscular Volume 95.6 fL (78.0-98.0); Mean Platelet Volume 8.3 fL (7.4-10.4); Platelet Count 192 thou/uL (130-400); RBC Distribution Width 16.6 % (11.5-14.5); Red Blood Cell (RBC) Count 2.55 mill/uL (4.20-5.40); White Blood Cell (WBC) Count 7.4 thou/uL (4.8-10.8)
[2021-05-31 05:37] LABS: Anion Gap 13 mmol/L (10-20); BUN (Urea Nitrogen) 33 mg/dL (9.8-20.1); Calc. Creatinine Clearance 74 mL/min (70-130); Calcium 8.9 mg/dL (7.8-10.44); Carbon Dioxide 27 mmol/L (22-29); Chloride 99 mmol/L (98-107); Glucose 123 mg/dL (70-105); Potassium 3.9 mmol/L (3.5-5.1); Sodium 135 mmol/L (136-145)
[2021-05-31 06:56] LABS: Band 12 % (5-11); Eosinophils 1 % (0-10); Lymphocytes 33 % (21-51); MDiff Complete? YES; Monocytes 16 % (0-10); Neutrophil 37 % (42-75)
[2021-05-31] MEDS: Ferrous Sulfate 325 MG TAB PO SCH (08:36)
[2021-05-31] MEDS: Spironolactone 25 MG TAB PO SCH (08:36)
[2021-05-31] MEDS: Divalproex Sodium DR 500 MG TAB PO SCH ×2 (08:36→20:12)
[2021-05-31] MEDS: Benztropine 1 MG TAB PO SCH ×2 (08:36→20:12)
[2021-05-31] MEDS: Aripiprazole 10 MG TAB PO SCH ×2 (08:36→20:12)
[2021-05-31] MEDS: Aspirin 81 mg Enteric Coated Tablet PO SCH (08:36)
[2021-05-31] MEDS: Doxycycline 100 MG CAP PO SCH ×2 (08:37→20:12)
[2021-05-31] MEDS: Magnesium Oxide 400 MG TAB PO SCH (08:37)
[2021-05-31] MEDS: Haloperidol 5 MG TAB PO SCH ×2 (08:37→20:13)
[2021-05-31] MEDS: Famotidine 20 MG TAB PO SCH ×2 (08:37→20:13)
[2021-05-31] MEDS: Enoxaparin Sodium 40 MG/0.4 ML SYRINGE SC SCH (08:37)
[2021-05-31] MEDS: Furosemide 20 MG TAB PO SCH ×2 (08:37→14:56)
[2021-05-31] MEDS: cefTRIAXone\\ROCEPHIN 2 GM in Sodium Chloride 0.9% 100 ML IVPB SCH (08:40)
[2021-05-31] MEDS: Acetaminophen 325 MG TAB PO PRN (08:51)
[2021-05-31] MEDS: Atorvastatin Calcium 10 MG TAB PO SCH (20:13)
[2021-05-31] MEDS: Lantus 1000 UNITS/10 ML VIAL SC SCH (20:14)
[2021-06-01] MEDS: HumaLOG 300 UNITS/3 ML VIAL SC PRN (05:19)
[2021-06-01] MEDS: Furosemide 20 MG TAB PO SCH ×2 (08:09→14:39)
[2021-06-01] MEDS: Spironolactone 25 MG TAB PO SCH (08:09)
[2021-06-01] MEDS: Magnesium Oxide 400 MG TAB PO SCH (08:09)
[2021-06-01] MEDS: Ferrous Sulfate 325 MG TAB PO SCH (08:09)
[2021-06-01] MEDS: Aspirin 81 mg Enteric Coated Tablet PO SCH (08:09)
[2021-06-01] MEDS: Famotidine 20 MG TAB PO SCH ×2 (08:10→21:02)
[2021-06-01] MEDS: Enoxaparin Sodium 40 MG/0.4 ML SYRINGE SC SCH (08:10)
[2021-06-01] MEDS: Benztropine 1 MG TAB PO SCH ×2 (08:10→21:02)
[2021-06-01] MEDS: Haloperidol 5 MG TAB PO SCH ×2 (08:10→21:03)
[2021-06-01] MEDS: Doxycycline 100 MG CAP PO SCH ×2 (08:10→21:02)
[2021-06-01] MEDS: Aripiprazole 10 MG TAB PO SCH ×2 (08:10→21:01)
[2021-06-01] MEDS: Divalproex Sodium DR 500 MG TAB PO SCH ×2 (08:10→21:02)
[2021-06-01] MEDS: cefTRIAXone\\ROCEPHIN 2 GM in Sodium Chloride 0.9% 100 ML IVPB SCH (08:17)
[2021-06-01] MEDS: Lorazepam 2 MG/ML VIAL SLOW IVP PRN ×2 (09:01→15:41)
[2021-06-01] MEDS: Atorvastatin Calcium 10 MG TAB PO SCH (21:03)
[2021-06-01] MEDS: Lantus 1000 UNITS/10 ML VIAL SC SCH (21:07)
[2021-06-02] MEDS: Lorazepam 2 MG/ML VIAL SLOW IVP PRN (02:32)
[2021-06-02] MEDS: Magnesium Oxide 400 MG TAB PO SCH (09:20)
[2021-06-02] MEDS: Doxycycline 100 MG CAP PO SCH ×2 (09:20→21:46)
[2021-06-02] MEDS: Haloperidol 5 MG TAB PO SCH ×2 (09:20→21:45)
[2021-06-02] MEDS: Enoxaparin Sodium 40 MG/0.4 ML SYRINGE SC SCH (09:20)
[2021-06-02] MEDS: Divalproex Sodium DR 500 MG TAB PO SCH ×2 (09:21→21:27)
[2021-06-02] MEDS: Aripiprazole 10 MG TAB PO SCH ×2 (09:21→21:24)
[2021-06-02] MEDS: Benztropine 1 MG TAB PO SCH ×2 (09:21→21:24)
[2021-06-02] MEDS: Famotidine 20 MG TAB PO SCH ×2 (09:21→21:27)
[2021-06-02] MEDS: Furosemide 20 MG TAB PO SCH ×2 (09:21→14:39)
[2021-06-02] MEDS: Ferrous Sulfate 325 MG TAB PO SCH (09:21)
[2021-06-02] MEDS: Spironolactone 25 MG TAB PO SCH (09:21)
[2021-06-02] MEDS: Aspirin 81 mg Enteric Coated Tablet PO SCH (09:21)
[2021-06-02] MEDS: cefTRIAXone\\ROCEPHIN 2 GM in Sodium Chloride 0.9% 100 ML IVPB SCH (09:43)
[2021-06-02] MEDS: Atorvastatin Calcium 10 MG TAB PO SCH (21:25)
[2021-06-02] MEDS: Lantus 1000 UNITS/10 ML VIAL SC SCH (21:46)
[2021-06-03] MEDS: Furosemide 20 MG TAB PO SCH ×2 (11:18→14:00)
[2021-06-03] MEDS: Spironolactone 25 MG TAB PO SCH (11:19)
[2021-06-03] MEDS: Ferrous Sulfate 325 MG TAB PO SCH (11:20)
[2021-06-03] MEDS: Famotidine 20 MG TAB PO SCH ×2 (11:20→21:16)
[2021-06-03] MEDS: Aspirin 81 mg Enteric Coated Tablet PO SCH (11:20)
[2021-06-03] MEDS: Aripiprazole 10 MG TAB PO SCH ×2 (11:20→21:16)
[2021-06-03] MEDS: Magnesium Oxide 400 MG TAB PO SCH (11:20)
[2021-06-03] MEDS: Divalproex Sodium DR 500 MG TAB PO SCH ×2 (11:22→21:17)
[2021-06-03] MEDS: Enoxaparin Sodium 40 MG/0.4 ML SYRINGE SC SCH (11:22)
[2021-06-03] MEDS: Doxycycline 100 MG CAP PO SCH ×2 (12:19→21:16)
[2021-06-03] MEDS: Benztropine 1 MG TAB PO SCH ×2 (12:20→21:16)
[2021-06-03] MEDS: Haloperidol 5 MG TAB PO SCH ×2 (12:20→21:18)
[2021-06-03] MEDS: Acetaminophen 325 MG TAB PO PRN (16:46)
[2021-06-03] MEDS: Atorvastatin Calcium 10 MG TAB PO SCH (21:16)
[2021-06-03] MEDS: Lantus 1000 UNITS/10 ML VIAL SC SCH (21:19)
[2021-06-03] MEDS: HYDROcodone/Acetaminophen 5/325 mg Tablet PO PRN (22:24)
[2021-06-04] MEDS: HumaLOG 300 UNITS/3 ML VIAL SC PRN (06:17)
[2021-06-04] MEDS: Haloperidol 5 MG TAB PO SCH ×2 (08:41→20:44)
[2021-06-04] MEDS: Aripiprazole 10 MG TAB PO SCH ×2 (08:42→20:43)
[2021-06-04] MEDS: Divalproex Sodium DR 500 MG TAB PO SCH ×2 (08:43→20:44)
[2021-06-04] MEDS: Ferrous Sulfate 325 MG TAB PO SCH (08:45)
[2021-06-04] MEDS: Spironolactone 25 MG TAB PO SCH (08:46)
[2021-06-04] MEDS: Aspirin 81 mg Enteric Coated Tablet PO SCH (08:46)
[2021-06-04] MEDS: Furosemide 20 MG TAB PO SCH ×2 (08:46→14:00)
[2021-06-04] MEDS: Famotidine 20 MG TAB PO SCH ×2 (08:46→20:43)
[2021-06-04] MEDS: Enoxaparin Sodium 40 MG/0.4 ML SYRINGE SC SCH (08:47)
[2021-06-04] MEDS: Magnesium Oxide 400 MG TAB PO SCH (08:47)
[2021-06-04] MEDS: Doxycycline 100 MG CAP PO SCH ×2 (08:47→20:44)
[2021-06-04] MEDS: Benztropine 1 MG TAB PO SCH ×2 (09:00→20:43)
[2021-06-04] MEDS: Haloperidol Lactate 5 MG/ML VIAL IM SCH (15:20)
[2021-06-04] MEDS ORDERED: Ziprasidone 20 MG VIAL IM SCH (15:57)
[2021-06-04] MEDS ORDERED: Sterile Water 10 ML VIAL FS SCH (15:57)
[2021-06-04 17:05] VITALS: BMI 35.8
[2021-06-04] MEDS: cefTRIAXone\\ROCEPHIN 2 GM in Sodium Chloride 0.9% 100 ML IVPB SCH (20:06)
[2021-06-04] MEDS: Atorvastatin Calcium 10 MG TAB PO SCH (20:43)
[2021-06-04] MEDS: Lantus 1000 UNITS/10 ML VIAL SC SCH (20:51)
[2021-06-05] MEDS: Famotidine 20 MG TAB PO SCH ×2 (09:19→22:05)
[2021-06-05] MEDS: Aripiprazole 10 MG TAB PO SCH ×2 (09:20→22:04)
[2021-06-05] MEDS: Spironolactone 25 MG TAB PO SCH (09:20)
[2021-06-05] MEDS: Aspirin 81 mg Enteric Coated Tablet PO SCH (09:20)
[2021-06-05] MEDS: Magnesium Oxide 400 MG TAB PO SCH (09:21)
[2021-06-05] MEDS: Divalproex Sodium DR 500 MG TAB PO SCH ×2 (09:21→22:04)
[2021-06-05] MEDS: Doxycycline 100 MG CAP PO SCH ×2 (09:22→22:05)
[2021-06-05] MEDS: Haloperidol 5 MG TAB PO SCH ×2 (09:23→22:05)
[2021-06-05] MEDS: Furosemide 20 MG TAB PO SCH ×2 (09:24→14:57)
[2021-06-05] MEDS: Enoxaparin Sodium 40 MG/0.4 ML SYRINGE SC SCH (09:27)
[2021-06-05] MEDS: Ferrous Sulfate 325 MG TAB PO SCH (09:36)
[2021-06-05] MEDS: Benztropine 1 MG TAB PO SCH ×2 (09:36→22:03)
[2021-06-05] MEDS ORDERED: Ziprasidone 20 MG VIAL IM SCH (14:45)
[2021-06-05] MEDS ORDERED: Sterile Water 10 ML VIAL FS PRN (19:15)
[2021-06-05] MEDS: Atorvastatin Calcium 10 MG TAB PO SCH (22:04)
[2021-06-05] MEDS: Lantus 1000 UNITS/10 ML VIAL SC SCH (22:09)
[2021-06-06] MEDS ORDERED: Ziprasidone 20 MG VIAL IM PRN (03:00)
[2021-06-06 06:39] LABS: Hemoglobin 8.1 g/dL (12.0-16.0); Mean Corpuscular HGB CONC 32.6 g/dL (32.0-36.0); Mean Corpuscular Hemoglobin 31.5 pg (27.0-31.0); Mean Corpuscular Volume 96.5 fL (78.0-98.0); Platelet Count 120 thou/uL (130-400); RBC Distribution Width 17.2 % (11.5-14.5); Red Blood Cell (RBC) Count 2.57 mill/uL (4.20-5.40); White Blood Cell (WBC) Count 6.7 thou/uL (4.8-10.8)
[2021-06-06 07:00] LABS: ALT (SGPT) 13 U/L (8-55); AST (SGOT) 25 U/L (5-34); Albumin 2.8 g/dL (3.5-5.0); Alkaline Phosphatase 367 U/L (40-110); Anion Gap 14 mmol/L (10-20); BUN (Urea Nitrogen) 48 mg/dL (9.8-20.1); Bilirubin, Total 0.9 mg/dL (0.2-1.2); Calc. Creatinine Clearance 65 mL/min (70-130); Calcium 9.2 mg/dL (7.8-10.44); Carbon Dioxide 28 mmol/L (22-29); Chloride 97 mmol/L (98-107); Globulin 4.3 g/dL (2.4-3.5); Glucose 117 mg/dL (70-105); Potassium 4.3 mmol/L (3.5-5.1); Protein, Total 7.1 g/dL (6.0-8.3); Sodium 135 mmol/L (136-145)
[2021-06-06] MEDS: Divalproex Sodium DR 500 MG TAB PO SCH ×2 (10:06→22:30)
[2021-06-06] MEDS: Haloperidol 5 MG TAB PO SCH ×2 (10:06→22:30)
[2021-06-06] MEDS: Furosemide 20 MG TAB PO SCH ×2 (10:07→14:47)
[2021-06-06] MEDS: Spironolactone 25 MG TAB PO SCH (10:07)
[2021-06-06] MEDS: Magnesium Oxide 400 MG TAB PO SCH (10:07)
[2021-06-06] MEDS: Doxycycline 100 MG CAP PO SCH (10:07)
[2021-06-06] MEDS: Aripiprazole 10 MG TAB PO SCH ×2 (10:07→22:30)
[2021-06-06] MEDS: Aspirin 81 mg Enteric Coated Tablet PO SCH (10:07)
[2021-06-06] MEDS: Ferrous Sulfate 325 MG TAB PO SCH (10:08)
[2021-06-06] MEDS: Famotidine 20 MG TAB PO SCH ×2 (10:08→22:30)
[2021-06-06] MEDS: Enoxaparin Sodium 40 MG/0.4 ML SYRINGE SC SCH (10:09)
[2021-06-06] MEDS: Benztropine 1 MG TAB PO SCH ×2 (10:14→22:30)
[2021-06-06] MEDS: Atorvastatin Calcium 10 MG TAB PO SCH (22:30)
[2021-06-06] MEDS: Lantus 1000 UNITS/10 ML VIAL SC SCH (22:30)
[2021-06-07] MEDS: Divalproex Sodium DR 500 MG TAB PO SCH ×2 (09:00→20:55)
[2021-06-07] MEDS: Magnesium Oxide 400 MG TAB PO SCH (09:00)
[2021-06-07] MEDS: Spironolactone 25 MG TAB PO SCH (09:00)
[2021-06-07] MEDS: Aripiprazole 10 MG TAB PO SCH ×2 (09:00→20:56)
[2021-06-07] MEDS: Famotidine 20 MG TAB PO SCH ×2 (09:00→20:56)
[2021-06-07] MEDS: Haloperidol 5 MG TAB PO SCH ×2 (09:00→20:54)
[2021-06-07] MEDS: Ferrous Sulfate 325 MG TAB PO SCH (09:00)
[2021-06-07] MEDS: Benztropine 1 MG TAB PO SCH ×2 (09:00→20:56)
[2021-06-07] MEDS: Furosemide 20 MG TAB PO SCH ×2 (09:00→14:11)
[2021-06-07] MEDS: Aspirin 81 mg Enteric Coated Tablet PO SCH (09:01)
[2021-06-07] MEDS: Enoxaparin Sodium 40 MG/0.4 ML SYRINGE SC SCH ×2 (09:01→09:08)
[2021-06-07] MEDS: Lantus 1000 UNITS/10 ML VIAL SC SCH (20:56)
[2021-06-07] MEDS: Atorvastatin Calcium 10 MG TAB PO SCH (20:56)
[2021-06-08] MEDS: Aripiprazole 10 MG TAB PO SCH ×2 (09:44→21:52)
[2021-06-08] MEDS: Haloperidol 5 MG TAB PO SCH ×2 (09:45→21:52)
[2021-06-08] MEDS: Magnesium Oxide 400 MG TAB PO SCH (09:45)
[2021-06-08] MEDS: Spironolactone 25 MG TAB PO SCH (09:45)
[2021-06-08] MEDS: Furosemide 20 MG TAB PO SCH ×2 (09:45→14:19)
[2021-06-08] MEDS: Aspirin 81 mg Enteric Coated Tablet PO SCH (09:45)
[2021-06-08] MEDS: Ferrous Sulfate 325 MG TAB PO SCH (09:46)
[2021-06-08] MEDS: Famotidine 20 MG TAB PO SCH ×2 (09:46→21:52)
[2021-06-08] MEDS: Enoxaparin Sodium 40 MG/0.4 ML SYRINGE SC SCH (09:46)
[2021-06-08] MEDS: Benztropine 1 MG TAB PO SCH ×2 (10:05→21:52)
[2021-06-08] MEDS: Divalproex Sodium DR 500 MG TAB PO SCH ×2 (10:05→21:52)
[2021-06-08] MEDS: Atorvastatin Calcium 10 MG TAB PO SCH (21:52)
[2021-06-08] MEDS: Lantus 1000 UNITS/10 ML VIAL SC SCH (21:53)
[2021-06-09] MEDS: Famotidine 20 MG TAB PO SCH ×2 (09:33→21:17)
[2021-06-09] MEDS: Haloperidol 5 MG TAB PO SCH ×2 (09:33→21:14)
[2021-06-09] MEDS: Aripiprazole 10 MG TAB PO SCH ×2 (09:33→21:13)
[2021-06-09] MEDS: Magnesium Oxide 400 MG TAB PO SCH (09:33)
[2021-06-09] MEDS: Benztropine 1 MG TAB PO SCH ×2 (09:33→21:13)
[2021-06-09] MEDS: Furosemide 20 MG TAB PO SCH ×2 (09:33→15:46)
[2021-06-09] MEDS: Aspirin 81 mg Enteric Coated Tablet PO SCH (09:33)
[2021-06-09] MEDS: Enoxaparin Sodium 40 MG/0.4 ML SYRINGE SC SCH (09:34)
[2021-06-09] MEDS: Divalproex Sodium DR 500 MG TAB PO SCH ×2 (09:34→21:13)
[2021-06-09] MEDS: Ferrous Sulfate 325 MG TAB PO SCH (09:34)
[2021-06-09] MEDS: Spironolactone 25 MG TAB PO SCH (09:34)
[2021-06-09] MEDS: Acetaminophen 325 MG TAB PO PRN (17:46)
[2021-06-09] MEDS: Atorvastatin Calcium 10 MG TAB PO SCH (21:14)
[2021-06-09] MEDS: Lantus 1000 UNITS/10 ML VIAL SC SCH (23:50)
[2021-06-10] MEDS: Famotidine 20 MG TAB PO SCH ×2 (08:46→23:05)
[2021-06-10] MEDS: Spironolactone 25 MG TAB PO SCH (08:46)
[2021-06-10] MEDS: Aripiprazole 10 MG TAB PO SCH ×2 (08:46→23:04)
[2021-06-10] MEDS: Magnesium Oxide 400 MG TAB PO SCH (08:46)
[2021-06-10] MEDS: Aspirin 81 mg Enteric Coated Tablet PO SCH (08:46)
[2021-06-10] MEDS: Haloperidol 5 MG TAB PO SCH ×2 (08:46→23:05)
[2021-06-10] MEDS: Ferrous Sulfate 325 MG TAB PO SCH (08:46)
[2021-06-10] MEDS: Benztropine 1 MG TAB PO SCH ×2 (08:46→23:05)
[2021-06-10] MEDS: Divalproex Sodium DR 500 MG TAB PO SCH ×2 (08:46→23:05)
[2021-06-10] MEDS: Furosemide 20 MG TAB PO SCH ×2 (08:46→14:03)
[2021-06-10] MEDS: Enoxaparin Sodium 40 MG/0.4 ML SYRINGE SC SCH (08:47)
[2021-06-10] MEDS: Acetaminophen 325 MG TAB PO PRN (10:25)
[2021-06-10] MEDS: Atorvastatin Calcium 10 MG TAB PO SCH (23:06)
[2021-06-10] MEDS: Lantus 1000 UNITS/10 ML VIAL SC SCH (23:53)
[2021-06-11] MEDS: Aspirin 81 mg Enteric Coated Tablet PO SCH (11:47)
[2021-06-11] MEDS: Aripiprazole 10 MG TAB PO SCH (11:48)
[2021-06-11] MEDS: Benztropine 1 MG TAB PO SCH (11:48)
[2021-06-11] MEDS: Magnesium Oxide 400 MG TAB PO SCH (11:48)
[2021-06-11] MEDS: Divalproex Sodium DR 500 MG TAB PO SCH (11:49)
[2021-06-11] MEDS: Famotidine 20 MG TAB PO SCH (11:49)
[2021-06-11] MEDS: Haloperidol 5 MG TAB PO SCH (11:50)
[2021-06-11] MEDS: Furosemide 20 MG TAB PO SCH ×2 (11:50→15:07)
[2021-06-11] MEDS: Ferrous Sulfate 325 MG TAB PO SCH (11:58)
[2021-06-11] MEDS: Spironolactone 25 MG TAB PO SCH (11:58)
[2021-06-11 12:09] LABS: SARS-CoV-2 PCR by NAA Not Detected (NotDetected)
[2021-06-11] MEDS: HumaLOG 300 UNITS/3 ML VIAL SC PRN (12:28)
[2021-06-11] MEDS: Enoxaparin Sodium 40 MG/0.4 ML SYRINGE SC SCH (12:34)
[2021-06-11 16:03] VITALS: BP 159/78; TEMP 97.4
== END 2021-06-11 15:33 | DRG 291 ==
LOC: ERS 22:39 → ERHOLD 05-27 01:36 → 2NO 05-27 13:22 → SJJU 06-02 17:11 → 2NO 06-02 17:14 → SJJU 06-02 17:54 → 2NO 06-02 18:02 → SJJU 06-02 19:27
PROVIDERS: ADMIT Internal Medicine; ATTEND Internal Medicine
DX: I13.0 Hypertensive heart and chronic kidney disease with heart failure and stage 1 through stage 4 chronic kidney disease, or unspecified chronic kidney disease (principal); G93.41 Metabolic encephalopathy; J18.9 Pneumonia, unspecified organism; I50.23 Acute on chronic systolic (congestive) heart failure; N17.9 Acute kidney failure, unspecified; F20.9 Schizophrenia, unspecified; R56.9 Unspecified convulsions; F41.9 Anxiety disorder, unspecified; F31.9 Bipolar disorder, unspecified; K74.60 Unspecified cirrhosis of liver; N18.9 Chronic kidney disease, unspecified; E11.22 Type 2 diabetes mellitus with diabetic chronic kidney disease; E78.5 Hyperlipidemia, unspecified; Z20.822 Contact with and (suspected) exposure to COVID-19; Z79.82 Long term (current) use of aspirin; Z79.4 Long term (current) use of insulin; Z79.899 Other long term (current) drug therapy
CPT/HCPCS: 36415; 36416; 71045; 80048; 80053; 82140; 82553; 82805; 83735; 83880; 84100; 84484; 85025; 85027; 93005; 95816; 95819; 95957; 96374; 96375; 96376; J0696; J1630; J1650; J1815; J1940; J2060; J3486; J3490; U0003; U0005

== ENCOUNTER 2021-06-23 11:32 | Inpatient (IN) | payer OTHER ==
[2021-06-23] MEDS ORDERED: Iopamidol-370 76% 500 ML 1 ML ONE (12:40)
[2021-06-23 14:08] LABS: Hemoglobin 10.3 g/dL (12.0-16.0); Mean Corpuscular HGB CONC 31.6 g/dL (32.0-36.0); Mean Corpuscular Hemoglobin 30.6 pg (27.0-31.0); Mean Corpuscular Volume 96.9 fL (78.0-98.0); Mean Platelet Volume 8.4 fL (7.4-10.4); Platelet Count 271 thou/uL (130-400); RBC Distribution Width 19.7 % (11.5-14.5); Red Blood Cell (RBC) Count 3.36 mill/uL (4.20-5.40); White Blood Cell (WBC) Count 7.1 thou/uL (4.8-10.8)
[2021-06-23 14:29] LABS: ALT (SGPT) 10 U/L (8-55); AST (SGOT) 24 U/L (5-34); Albumin 2.9 g/dL (3.5-5.0); Alkaline Phosphatase 323 U/L (40-110); Anion Gap 11 mmol/L (10-20); BUN (Urea Nitrogen) 34 mg/dL (9.8-20.1); Bilirubin, Total 1.2 mg/dL (0.2-1.2); Calc. Creatinine Clearance 0 mL/min (70-130); Calcium 9.2 mg/dL (7.8-10.44); Carbon Dioxide 31 mmol/L (22-29); Chloride 104 mmol/L (98-107); Globulin 4.9 g/dL (2.4-3.5); Glucose 150 mg/dL (70-105); Potassium 3.7 mmol/L (3.5-5.1); Protein, Total 7.8 g/dL (6.0-8.3); Sodium 142 mmol/L (136-145)
[2021-06-23 14:40] LABS: Anisocytosis SLIGHT = 6-15 cells (100X) (0-5/hpf); Band 2 % (5-11); Eosinophils 1 % (0-10); Lymphocytes 20 % (21-51); MDiff Complete? YES; Monocytes 18 % (0-10); Neutrophil 59 % (42-75); Platelet Morphology Comment Appears Adequate; Polychromasia SLIGHT = 2-3 cells (100X) (0-2/hpf); Target Cells SLIGHT = 2-5 cells (100X) (0-1/hpf)
[2021-06-23] MEDS ORDERED: Furosemide 40 MG/4 ML VIAL ONE (15:46)
[2021-06-23] MEDS ORDERED: Ondansetron PF 4 MG/2 ML Vial IVP PRN (16:22)
[2021-06-23 17:04] LABS: Lactic Acid 1.7 mmol/L (0.5-2.2)
[2021-06-23 17:11] LABS: Troponin I 0.013 ng/mL (< 0.028)
[2021-06-23] MEDS: hydrALAZINE 25 MG TAB PO SCH ×2 (18:19→21:09)
[2021-06-23 20:28] LABS: Troponin I 0.012 ng/mL (< 0.028)
[2021-06-23 23:09] LABS: SARS-CoV-2 NAA Rapid Test Not Detected (NotDetected)
[2021-06-24 04:39] LABS: ALT (SGPT) 9 U/L (8-55); AST (SGOT) 19 U/L (5-34); Albumin 2.8 g/dL (3.5-5.0); Alkaline Phosphatase 314 U/L (40-110); Anion Gap 11 mmol/L (10-20); BUN (Urea Nitrogen) 33 mg/dL (9.8-20.1); Calc. Creatinine Clearance 62 mL/min (70-130); Calcium 8.9 mg/dL (7.8-10.44); Carbon Dioxide 32 mmol/L (22-29); Chloride 102 mmol/L (98-107); Globulin 4.7 g/dL (2.4-3.5); Glucose 217 mg/dL (70-105); Potassium 3.9 mmol/L (3.5-5.1); Protein, Total 7.5 g/dL (6.0-8.3); Sodium 141 mmol/L (136-145)
[2021-06-24 04:47] LABS: Hemoglobin 9.6 g/dL (12.0-16.0); Hypochromia SLIGHT = 6-15 cells (100X) (0-5/hpf); Lymphocytes 9 % (21-51); MDiff Complete? YES; Mean Corpuscular HGB CONC 31.3 g/dL (32.0-36.0); Mean Corpuscular Hemoglobin 30.8 pg (27.0-31.0); Mean Corpuscular Volume 98.5 fL (78.0-98.0); Mean Platelet Volume 8.6 fL (7.4-10.4); Monocytes 19 % (0-10); Neutrophil 72 % (42-75); Platelet Count 276 thou/uL (130-400); Platelet Morphology Comment Appears Adequate; RBC Distribution Width 19.6 % (11.5-14.5); Red Blood Cell (RBC) Count 3.12 mill/uL (4.20-5.40); White Blood Cell (WBC) Count 5.6 thou/uL (4.8-10.8)
[2021-06-24] MEDS: Furosemide 40 MG/4 ML VIAL SLOW IVP SCH ×2 (05:06→13:11)
[2021-06-24] MEDS: HYDROcodone/Acetaminophen 5/325 mg Tablet PO PRN ×3 (06:24→17:23)
[2021-06-24] MEDS ORDERED: hydrALAZINE 20 MG/ML VIAL SLOW IVP PRN (08:05)
[2021-06-24] MEDS ORDERED: Dextrose 50% Abboject 50 ML SYRINGE IVP PRN (08:15)
[2021-06-24] MEDS ORDERED: Dextrose 5% in Water 1,000 ML IV PRN (08:15)
[2021-06-24] MEDS: hydrALAZINE 25 MG TAB PO SCH ×4 (08:33→20:21)
[2021-06-24] MEDS ORDERED: Spironolactone 25 MG TAB PO SCH (09:15)
[2021-06-24 10:08] VITALS: BMI 36.7
[2021-06-24] MEDS: HumaLOG 300 UNITS/3 ML VIAL SC PRN (11:36)
[2021-06-24] MEDS: Spironolactone 25 MG TAB PO SCH (17:23)
[2021-06-24] MEDS: Haloperidol 5 MG TAB PO SCH (20:20)
[2021-06-24] MEDS: Divalproex Sodium DR 500 MG TAB PO SCH (20:20)
[2021-06-24] MEDS: Aripiprazole 10 MG TAB PO SCH (20:20)
[2021-06-24] MEDS: Benztropine 1 MG TAB PO SCH (20:20)
[2021-06-24] MEDS: Lantus 1000 UNITS/10 ML VIAL SC SCH (21:26)
[2021-06-25] MEDS: Furosemide 40 MG/4 ML VIAL SLOW IVP SCH (05:25)
[2021-06-25] MEDS: Benztropine 1 MG TAB PO SCH ×2 (10:22→20:05)
[2021-06-25] MEDS: Haloperidol 5 MG TAB PO SCH ×2 (10:23→20:05)
[2021-06-25] MEDS: Spironolactone 25 MG TAB PO SCH ×2 (10:23→18:03)
[2021-06-25] MEDS: Magnesium Oxide 400 MG TAB PO SCH (10:24)
[2021-06-25] MEDS: Ferrous Sulfate 325 MG TAB PO SCH (10:24)
[2021-06-25] MEDS: Divalproex Sodium DR 500 MG TAB PO SCH ×2 (10:25→20:05)
[2021-06-25] MEDS: Aripiprazole 10 MG TAB PO SCH ×2 (10:25→20:05)
[2021-06-25] MEDS ORDERED: Haloperidol Lactate 5 MG/ML VIAL ONE (10:38)
[2021-06-25] MEDS ORDERED: Furosemide 20 MG TAB PO SCH (14:00)
[2021-06-25] MEDS ORDERED: Furosemide 40 MG TAB PO SCH (14:00)
[2021-06-25] MEDS: HumaLOG 300 UNITS/3 ML VIAL SC PRN (18:04)
[2021-06-25] MEDS: Lantus 1000 UNITS/10 ML VIAL SC SCH (21:06)
[2021-06-26 05:05] LABS: Anion Gap 10 mmol/L (10-20); BUN (Urea Nitrogen) 45 mg/dL (9.8-20.1); Calc. Creatinine Clearance 58 mL/min (70-130); Calcium 8.5 mg/dL (7.8-10.44); Carbon Dioxide 34 mmol/L (22-29); Chloride 101 mmol/L (98-107); Glucose 132 mg/dL (70-105); Potassium 4.4 mmol/L (3.5-5.1); Sodium 141 mmol/L (136-145)
[2021-06-26] MEDS: Haloperidol 5 MG TAB PO SCH ×2 (08:59→20:04)
[2021-06-26] MEDS: Benztropine 1 MG TAB PO SCH ×2 (09:00→20:04)
[2021-06-26] MEDS: Aripiprazole 10 MG TAB PO SCH ×2 (09:00→20:05)
[2021-06-26] MEDS: Spironolactone 25 MG TAB PO SCH ×2 (09:01→17:19)
[2021-06-26] MEDS: Divalproex Sodium DR 500 MG TAB PO SCH ×2 (09:01→20:25)
[2021-06-26] MEDS: Magnesium Oxide 400 MG TAB PO SCH (09:01)
[2021-06-26] MEDS: Ferrous Sulfate 325 MG TAB PO SCH (09:01)
[2021-06-26] MEDS ORDERED: Iron, Sodium Ferric Gluconate 250 MG in Sodium Chloride 0.9% 250 ML 250 ML IVPB SCH (10:00)
[2021-06-26] MEDS: HumaLOG 300 UNITS/3 ML VIAL SC PRN (17:42)
[2021-06-26] MEDS ORDERED: Nortriptyline 10 MG CAP ONE (19:40)
[2021-06-26] MEDS ORDERED: Dextrose 50% Abboject 50 ML SYRINGE SLOW IVP PRN (20:07)
[2021-06-26] MEDS ORDERED: Dextrose 5% in Water 1,000 ML IV PRN (20:07)
[2021-06-26] MEDS: Lantus 1000 UNITS/10 ML VIAL SC SCH (20:44)
[2021-06-27 08:05] VITALS: TEMP 98.4
[2021-06-27] MEDS: Ferrous Sulfate 325 MG TAB PO SCH (08:24)
[2021-06-27] MEDS: Haloperidol 5 MG TAB PO SCH (08:24)
[2021-06-27] MEDS: Spironolactone 25 MG TAB PO SCH (08:25)
[2021-06-27] MEDS: Magnesium Oxide 400 MG TAB PO SCH (08:25)
[2021-06-27] MEDS: Aripiprazole 10 MG TAB PO SCH (08:26)
[2021-06-27] MEDS: Benztropine 1 MG TAB PO SCH (08:26)
[2021-06-27] MEDS: Divalproex Sodium DR 500 MG TAB PO SCH (08:26)
[2021-06-27] MEDS ORDERED: Furosemide 20 MG TAB PO SCH (09:00)
[2021-06-27 09:14] VITALS: BP 159/68
== END 2021-06-27 10:20 | disposition home or self-care (01) | DRG 291 ==
LOC: ERS 11:32 → ERHOLD 16:12 → CCU 17:37 → 2NO 06-24 21:52
PROVIDERS: ADMIT Student in an Organized Health Care Education/Training Program; ATTEND Internal Medicine
DX: I11.0 Hypertensive heart disease with heart failure (principal); J96.01 Acute respiratory failure with hypoxia; G93.41 Metabolic encephalopathy; N17.9 Acute kidney failure, unspecified; I50.23 Acute on chronic systolic (congestive) heart failure; F20.9 Schizophrenia, unspecified; R56.9 Unspecified convulsions; D64.9 Anemia, unspecified; E11.9 Type 2 diabetes mellitus without complications; I42.9 Cardiomyopathy, unspecified; Z20.822 Contact with and (suspected) exposure to COVID-19; E78.5 Hyperlipidemia, unspecified; M19.90 Unspecified osteoarthritis, unspecified site; Z79.4 Long term (current) use of insulin; Z79.82 Long term (current) use of aspirin; Z79.899 Other long term (current) drug therapy
CPT/HCPCS: 36415; 36416; 71045; 74177; 80048; 80053; 82140; 82728; 83605; 83880; 84484; 85025; 93005; 93306; 96374; J0360; J1815; J1940; J2405; J2916; J7050; Q9967; U0002

== ENCOUNTER 2021-10-06 14:40 | Outpatient (CLI) | payer OTHER | END 2021-10-06 14:41 | disposition home or self-care (01) | LOC: BICULT 14:40 | PROVIDERS: ATTEND Internal Medicine Nephrology | DX: N18.30 Chronic kidney disease, stage 3 unspecified (principal); N28.9 Disorder of kidney and ureter, unspecified | CPT/HCPCS: 76770 ==

== ENCOUNTER 2022-04-08 12:25 | Outpatient (CLI) | payer OTHER | END 2022-04-08 12:26 | disposition home or self-care (01) | LOC: BICMAMMO 12:25 | PROVIDERS: ATTEND Family Medicine | DX: Z12.31 Encounter for screening mammogram for malignant neoplasm of breast (principal) | CPT/HCPCS: 77067 ==

== ENCOUNTER 2022-05-18 07:36 | Outpatient (CLI) | payer OTHER | END 2022-05-18 07:37 | disposition home or self-care (01) | LOC: BICULT 07:36 | PROVIDERS: ATTEND Internal Medicine Nephrology | DX: N18.4 Chronic kidney disease, stage 4 (severe) (principal); N28.1 Cyst of kidney, acquired | CPT/HCPCS: 76770; 93975 ==

== ENCOUNTER 2022-06-23 14:38 | Outpatient (CLI) | payer OTHER | END 2022-06-23 14:39 | disposition home or self-care (01) | LOC: BICRAD 14:38 | PROVIDERS: ATTEND Family Medicine | DX: J94.2 Hemothorax (principal); J90 Pleural effusion, not elsewhere classified; J98.11 Atelectasis; R09.89 Other specified symptoms and signs involving the circulatory and respiratory systems | CPT/HCPCS: 71046 ==

== ENCOUNTER 2022-09-07 09:05 | Emergency (ER) | payer OTHER ==
[2022-09-07 13:16] LABS: #Eosinphils 0.1 thou/uL (0.0-0.7); #Lymphocytes 1.3 thou/uL (1.20-3.40); #Monocytes 0.6 thou/uL (0.11-0.59); #Neutrophils 3.3 thou/uL (1.40-6.50); %Basophils 0.5 % (0.0-1.0); %Eosinophils 1.3 % (0.0-10.0); %Lymphocytes 24.4 % (21.0-51.0); %Monocytes 10.9 % (0.0-10.0); %Neutrophils 62.8 % (42.0-75.0); Hemoglobin 8.3 g/dL (12.0-16.0); Mean Corpuscular HGB CONC 31.3 g/dL (32.0-36.0); Mean Corpuscular Hemoglobin 31.6 pg (27.0-31.0); Platelet Count 190 10x3/uL (130-400); RBC Distribution Width 15.4 % (11.5-14.5); Red Blood Cell (RBC) Count 2.63 mill/uL (4.20-5.40); White Blood Cell (WBC) Count 5.3 10x3/uL (4.8-10.8)
[2022-09-07 13:39] LABS: ALT (SGPT) 20 U/L (8-55); AST (SGOT) 12 U/L (5-34); Albumin 3.2 g/dL (3.4-4.8); Alkaline Phosphatase 173 U/L (40-110); Anion Gap 8 mmol/L (10-20); BUN (Urea Nitrogen) 42 mg/dL (9.8-20.1); Bilirubin, Total 0.3 mg/dL (0.2-1.2); CK (CPK) 69 U/L (29-168); Calc. Creatinine Clearance 0 mL/min (70-130); Carbon Dioxide 30 mmol/L (23-31); Chloride 108 mmol/L (98-107); Estimated GFR 35; Globulin 4.3 g/dL (2.4-3.5); Glucose 64 mg/dL (80-115); Potassium 4.6 mmol/L (3.5-5.1); Protein, Total 7.5 g/dL (5.8-8.1); Sodium 141 mmol/L (136-145)
== END 2022-09-07 14:30 ==
LOC: ERS 09:05
DX: L03.115 Cellulitis of right lower limb (principal); I50.9 Heart failure, unspecified; R06.00 Dyspnea, unspecified; W19.XXXA Unspecified fall, initial encounter; E11.9 Type 2 diabetes mellitus without complications; I10 Essential (primary) hypertension; E78.5 Hyperlipidemia, unspecified; Z79.899 Other long term (current) drug therapy; Z79.4 Long term (current) use of insulin; Z79.82 Long term (current) use of aspirin
CPT/HCPCS: 36415; 70450; 71045; 72125; 72170; 80053; 82550; 83880; 84484; 85025; 93005

== ENCOUNTER 2022-09-15 18:08 | Inpatient (IN) | payer OTHER ==
[2022-09-15 18:43] LABS: #Eosinphils 0.1 thou/uL (0.0-0.7); #Lymphocytes 1.4 thou/uL (1.20-3.40); #Monocytes 0.7 thou/uL (0.11-0.59); #Neutrophils 5.7 thou/uL (1.40-6.50); %Basophils 0.5 % (0.0-1.0); %Eosinophils 1.6 % (0.0-10.0); %Lymphocytes 17.4 % (21.0-51.0); %Monocytes 8.9 % (0.0-10.0); %Neutrophils 71.6 % (42.0-75.0); Hemoglobin 8.2 g/dL (12.0-16.0); Mean Corpuscular HGB CONC 30.7 g/dL (32.0-36.0); Mean Corpuscular Hemoglobin 29.5 pg (27.0-31.0); Mean Corpuscular Volume 96.3 fl (78.0-98.0); Mean Platelet Volume 6.8 fL (7.4-10.4); Platelet Count 322 10x3/uL (130-400); RBC Distribution Width 14.7 % (11.5-14.5); Red Blood Cell (RBC) Count 2.79 mill/uL (4.20-5.40); White Blood Cell (WBC) Count 7.9 10x3/uL (4.8-10.8)
[2022-09-15 18:59] LABS: PTT 31.8 sec (22.9-36.1); Prothrombin Time 13.4 sec (12.0-14.7)
[2022-09-15 19:19] LABS: ALT (SGPT) 8 U/L (8-55); AST (SGOT) 30 U/L (5-34); Albumin 2.8 g/dL (3.4-4.8); Alkaline Phosphatase 138 U/L (40-110); Anion Gap 13 mmol/L (10-20); BUN (Urea Nitrogen) 34 mg/dL (9.8-20.1); Bilirubin, Total 0.3 mg/dL (0.2-1.2); Calc. Creatinine Clearance 0 mL/min (70-130); Calcium 8.7 mg/dL (7.8-10.44); Carbon Dioxide 29 mmol/L (23-31); Chloride 101 mmol/L (98-107); Estimated GFR 37; Globulin 4.9 g/dL (2.4-3.5); Glucose 156 mg/dL (80-115); Potassium 5.4 mmol/L (3.5-5.1); Protein, Total 7.7 g/dL (5.8-8.1); Sodium 138 mmol/L (136-145)
[2022-09-15] MEDS ORDERED: Vancomycin 1 GM/200 ML (FROZEN) BAG ONE (19:35)
[2022-09-15] MEDS ORDERED: Cefepime 2 GM VIAL ONE (19:35)
[2022-09-15] MEDS ORDERED: Furosemide 40 MG/4 ML VIAL ONE ×2 (19:47→19:49)
[2022-09-15] MEDS ORDERED: Dextrose 50% Abboject 50 ML SYRINGE SLOW IVP PRN (20:37)
[2022-09-15] MEDS ORDERED: Dextrose 5% in Water 1,000 ML IV PRN (20:37)
[2022-09-15] MEDS: Heparin 5,000 UNITS/ML VIAL SC SCH (21:48)
[2022-09-15 23:13] LABS: Troponin I 0.018 ng/mL (< 0.028)
[2022-09-16] MEDS: Ondansetron PF 4 MG/2 ML Vial IVP PRN (03:30)
[2022-09-16 03:50] LABS: #Eosinphils 0.1 thou/uL (0.0-0.7); #Lymphocytes 1.4 thou/uL (1.20-3.40); #Monocytes 0.9 thou/uL (0.11-0.59); #Neutrophils 5.4 thou/uL (1.40-6.50); %Basophils 0.3 % (0.0-1.0); %Eosinophils 1.3 % (0.0-10.0); %Lymphocytes 17.8 % (21.0-51.0); %Monocytes 11.2 % (0.0-10.0); %Neutrophils 69.5 % (42.0-75.0); Hemoglobin 8.3 g/dL (12.0-16.0); Mean Corpuscular Hemoglobin 31.8 pg (27.0-31.0); Mean Corpuscular Volume 96.6 fl (78.0-98.0); Mean Platelet Volume 6.5 fL (7.4-10.4); Platelet Count 314 10x3/uL (130-400); RBC Distribution Width 15.1 % (11.5-14.5); White Blood Cell (WBC) Count 7.8 10x3/uL (4.8-10.8)
[2022-09-16 04:12] LABS: Anion Gap 12 mmol/L (10-20); BUN (Urea Nitrogen) 32 mg/dL (9.8-20.1); Calc. Creatinine Clearance 68 mL/min (70-130); Calcium 9.1 mg/dL (7.8-10.44); Carbon Dioxide 31 mmol/L (23-31); Chloride 100 mmol/L (98-107); Estimated GFR 43; Glucose 128 mg/dL (80-115); Potassium 4.4 mmol/L (3.5-5.1); Sodium 139 mmol/L (136-145)
[2022-09-16] MEDS: Furosemide 40 MG/4 ML VIAL SLOW IVP SCH ×2 (05:06→15:25)
[2022-09-16] MEDS: Aspirin 81 mg Enteric Coated Tablet PO SCH (10:21)
[2022-09-16] MEDS: Divalproex Sodium DR 500 MG TAB PO SCH (10:21)
[2022-09-16] MEDS: Benztropine 1 MG TAB PO SCH ×2 (10:21→20:12)
[2022-09-16] MEDS: Carvedilol 6.25 MG TAB PO SCH ×2 (10:22→17:49)
[2022-09-16] MEDS: NIFEdipine XL 60 MG TAB PO SCH ×2 (10:22→20:12)
[2022-09-16] MEDS: Ferrous Sulfate 325 MG TAB PO SCH (10:22)
[2022-09-16] MEDS: Senokot S 8.6-50 MG TAB PO SCH ×2 (10:23→20:12)
[2022-09-16] MEDS: Heparin 5,000 UNITS/ML VIAL SC SCH ×2 (10:23→20:12)
[2022-09-16] MEDS: Aripiprazole 15 MG TAB PO SCH (20:11)
[2022-09-16] MEDS: Atorvastatin Calcium 10 MG TAB PO SCH (20:12)
[2022-09-17 04:01] LABS: #Eosinphils 0.2 thou/uL (0.0-0.7); #Lymphocytes 1.3 thou/uL (1.20-3.40); #Monocytes 0.7 thou/uL (0.11-0.59); #Neutrophils 3.3 thou/uL (1.40-6.50); %Basophils 0.4 % (0.0-1.0); %Eosinophils 2.7 % (0.0-10.0); %Lymphocytes 23.4 % (21.0-51.0); %Neutrophils 60.4 % (42.0-75.0); Hemoglobin 7.3 g/dL (12.0-16.0); Mean Corpuscular HGB CONC 30.8 g/dL (32.0-36.0); Mean Corpuscular Hemoglobin 30.1 pg (27.0-31.0); Mean Corpuscular Volume 97.8 fl (78.0-98.0); Mean Platelet Volume 6.7 fL (7.4-10.4); Platelet Count 302 10x3/uL (130-400); RBC Distribution Width 14.9 % (11.5-14.5); Red Blood Cell (RBC) Count 2.43 mill/uL (4.20-5.40); White Blood Cell (WBC) Count 5.5 10x3/uL (4.8-10.8)
[2022-09-17 04:22] LABS: Anion Gap 13 mmol/L (10-20); BUN (Urea Nitrogen) 39 mg/dL (9.8-20.1); Calc. Creatinine Clearance 66 mL/min (70-130); Calcium 8.6 mg/dL (7.8-10.44); Carbon Dioxide 30 mmol/L (23-31); Chloride 99 mmol/L (98-107); Estimated GFR 42; Glucose 167 mg/dL (80-115); Potassium 4.8 mmol/L (3.5-5.1); Sodium 137 mmol/L (136-145)
[2022-09-17] MEDS: Furosemide 40 MG/4 ML VIAL SLOW IVP SCH ×2 (05:32→13:57)
[2022-09-17] MEDS: Ondansetron PF 4 MG/2 ML Vial IVP PRN (05:43)
[2022-09-17] MEDS: HumaLOG 300 UNITS/3 ML VIAL SC PRN (05:51)
[2022-09-17] MEDS: Benztropine 1 MG TAB PO SCH ×2 (08:02→21:39)
[2022-09-17] MEDS: Carvedilol 6.25 MG TAB PO SCH ×2 (08:02→17:28)
[2022-09-17] MEDS: Spironolactone 25 MG TAB PO SCH (08:02)
[2022-09-17] MEDS: Aspirin 81 mg Enteric Coated Tablet PO SCH (08:02)
[2022-09-17] MEDS: Divalproex Sodium DR 500 MG TAB PO SCH (08:03)
[2022-09-17] MEDS: Heparin 5,000 UNITS/ML VIAL SC SCH ×2 (08:03→21:44)
[2022-09-17] MEDS: Ferrous Sulfate 325 MG TAB PO SCH (08:03)
[2022-09-17] MEDS: Empagliflozin 10 MG TAB PO SCH (08:03)
[2022-09-17] MEDS: Senokot S 8.6-50 MG TAB PO SCH ×2 (08:03→21:39)
[2022-09-17] MEDS: NIFEdipine XL 60 MG TAB PO SCH ×2 (08:03→21:39)
[2022-09-17] MEDS: Atorvastatin Calcium 10 MG TAB PO SCH (21:39)
[2022-09-17] MEDS: Aripiprazole 15 MG TAB PO SCH (21:39)
[2022-09-18 03:51] LABS: #Eosinphils 0.1 thou/uL (0.0-0.7); #Lymphocytes 1.4 thou/uL (1.20-3.40); #Monocytes 0.7 thou/uL (0.11-0.59); #Neutrophils 5.4 thou/uL (1.40-6.50); %Basophils 0.1 % (0.0-1.0); %Eosinophils 1.8 % (0.0-10.0); %Lymphocytes 17.9 % (21.0-51.0); %Monocytes 9.7 % (0.0-10.0); %Neutrophils 70.5 % (42.0-75.0); Hemoglobin 8.6 g/dL (12.0-16.0); Mean Corpuscular HGB CONC 32.3 g/dL (32.0-36.0); Mean Corpuscular Hemoglobin 31.6 pg (27.0-31.0); Mean Corpuscular Volume 97.8 fl (78.0-98.0); Mean Platelet Volume 6.5 fL (7.4-10.4); Platelet Count 359 10x3/uL (130-400); Red Blood Cell (RBC) Count 2.72 mill/uL (4.20-5.40); White Blood Cell (WBC) Count 7.6 10x3/uL (4.8-10.8)
[2022-09-18 04:13] LABS: Anion Gap 15 mmol/L (10-20); BUN (Urea Nitrogen) 41 mg/dL (9.8-20.1); Calc. Creatinine Clearance 66 mL/min (70-130); Calcium 9.3 mg/dL (7.8-10.44); Carbon Dioxide 29 mmol/L (23-31); Chloride 99 mmol/L (98-107); Estimated GFR 44; Glucose 131 mg/dL (80-115); Potassium 4.9 mmol/L (3.5-5.1); Sodium 138 mmol/L (136-145)
[2022-09-18] MEDS: Furosemide 40 MG/4 ML VIAL SLOW IVP SCH ×2 (05:44→13:05)
[2022-09-18] MEDS: HumaLOG 300 UNITS/3 ML VIAL SC PRN (05:53)
[2022-09-18] MEDS: Spironolactone 25 MG TAB PO SCH (09:16)
[2022-09-18] MEDS: Carvedilol 6.25 MG TAB PO SCH ×2 (09:16→18:11)
[2022-09-18] MEDS: Divalproex Sodium DR 500 MG TAB PO SCH (09:17)
[2022-09-18] MEDS: NIFEdipine XL 60 MG TAB PO SCH ×2 (09:17→20:25)
[2022-09-18] MEDS: Aspirin 81 mg Enteric Coated Tablet PO SCH (09:17)
[2022-09-18] MEDS: Ferrous Sulfate 325 MG TAB PO SCH (09:17)
[2022-09-18] MEDS: Empagliflozin 10 MG TAB PO SCH (09:17)
[2022-09-18] MEDS: Benztropine 1 MG TAB PO SCH ×2 (09:17→20:25)
[2022-09-18] MEDS: Heparin 5,000 UNITS/ML VIAL SC SCH ×2 (09:17→20:24)
[2022-09-18] MEDS: Senokot S 8.6-50 MG TAB PO SCH ×2 (09:17→20:25)
[2022-09-18] MEDS ORDERED: Carvedilol 6.25 MG TAB PO SCH (12:15)
[2022-09-18] MEDS: Atorvastatin Calcium 10 MG TAB PO SCH (20:25)
[2022-09-18] MEDS: Aripiprazole 15 MG TAB PO SCH (20:25)
[2022-09-19 04:05] LABS: #Eosinphils 0.1 thou/uL (0.0-0.7); #Lymphocytes 1.5 thou/uL (1.20-3.40); #Monocytes 0.7 thou/uL (0.11-0.59); #Neutrophils 4.9 thou/uL (1.40-6.50); %Basophils 0.1 % (0.0-1.0); %Eosinophils 1.2 % (0.0-10.0); %Lymphocytes 21.3 % (21.0-51.0); %Monocytes 9.7 % (0.0-10.0); %Neutrophils 67.8 % (42.0-75.0); Hemoglobin 7.5 g/dL (12.0-16.0); Mean Corpuscular HGB CONC 32.7 g/dL (32.0-36.0); Mean Corpuscular Hemoglobin 31.8 pg (27.0-31.0); Mean Corpuscular Volume 97.2 fl (78.0-98.0); Mean Platelet Volume 6.5 fL (7.4-10.4); Platelet Count 362 10x3/uL (130-400); RBC Distribution Width 15.2 % (11.5-14.5); Red Blood Cell (RBC) Count 2.36 mill/uL (4.20-5.40); White Blood Cell (WBC) Count 7.2 10x3/uL (4.8-10.8)
[2022-09-19 04:34] LABS: Anion Gap 14 mmol/L (10-20); BUN (Urea Nitrogen) 48 mg/dL (9.8-20.1); Calc. Creatinine Clearance 64 mL/min (70-130); Carbon Dioxide 34 mmol/L (23-31); Chloride 97 mmol/L (98-107); Estimated GFR 42; Glucose 146 mg/dL (80-115); Potassium 4.8 mmol/L (3.5-5.1); Sodium 140 mmol/L (136-145)
[2022-09-19] MEDS: Furosemide 40 MG/4 ML VIAL SLOW IVP SCH (05:10)
[2022-09-19] MEDS ORDERED: Spironolactone 25 MG TAB PO SCH (10:00)
[2022-09-19] MEDS: Carvedilol 6.25 MG TAB PO SCH ×2 (10:15→19:10)
[2022-09-19] MEDS: Aspirin 81 mg Enteric Coated Tablet PO SCH (10:15)
[2022-09-19] MEDS: Spironolactone 25 MG TAB PO SCH (10:15)
[2022-09-19] MEDS: Heparin 5,000 UNITS/ML VIAL SC SCH ×2 (10:16→20:56)
[2022-09-19] MEDS: Benztropine 1 MG TAB PO SCH ×2 (10:16→20:55)
[2022-09-19] MEDS: Divalproex Sodium DR 500 MG TAB PO SCH (10:16)
[2022-09-19] MEDS: Ferrous Sulfate 325 MG TAB PO SCH (10:16)
[2022-09-19] MEDS: NIFEdipine XL 60 MG TAB PO SCH ×2 (10:17→20:55)
[2022-09-19] MEDS: Senokot S 8.6-50 MG TAB PO SCH ×2 (10:17→20:56)
[2022-09-19] MEDS: Empagliflozin 10 MG TAB PO SCH (10:18)
[2022-09-19] MEDS: Aripiprazole 15 MG TAB PO SCH (20:55)
[2022-09-19] MEDS: Atorvastatin Calcium 10 MG TAB PO SCH (20:56)
[2022-09-20 04:10] LABS: #Basophils 0.1 thou/uL (0.0-0.2); #Eosinphils 0.2 thou/uL (0.0-0.7); #Lymphocytes 1.5 thou/uL (1.20-3.40); #Monocytes 0.7 thou/uL (0.11-0.59); %Basophils 0.5 % (0.0-1.0); %Eosinophils 1.8 % (0.0-10.0); %Lymphocytes 16.2 % (21.0-51.0); %Monocytes 7.7 % (0.0-10.0); %Neutrophils 73.7 % (42.0-75.0); Hemoglobin 7.8 g/dL (12.0-16.0); Mean Corpuscular HGB CONC 31.6 g/dL (32.0-36.0); Mean Corpuscular Hemoglobin 30.7 pg (27.0-31.0); Mean Corpuscular Volume 97.1 fl (78.0-98.0); Mean Platelet Volume 6.6 fL (7.4-10.4); Platelet Count 422 10x3/uL (130-400); RBC Distribution Width 15.5 % (11.5-14.5); Red Blood Cell (RBC) Count 2.53 mill/uL (4.20-5.40); White Blood Cell (WBC) Count 9.5 10x3/uL (4.8-10.8)
[2022-09-20 04:56] LABS: Anion Gap 14 mmol/L (10-20); BUN (Urea Nitrogen) 40 mg/dL (9.8-20.1); Calc. Creatinine Clearance 68 mL/min (70-130); Calcium 9.3 mg/dL (7.8-10.44); Carbon Dioxide 30 mmol/L (23-31); Chloride 99 mmol/L (98-107); Estimated GFR 46; Glucose 179 mg/dL (80-115); Potassium 4.5 mmol/L (3.5-5.1); Sodium 138 mmol/L (136-145)
[2022-09-20] MEDS: Furosemide 40 MG/4 ML VIAL SLOW IVP SCH ×2 (06:31→15:56)
[2022-09-20] MEDS ORDERED: Spironolactone 100 MG TAB PO SCH (08:00)
[2022-09-20] MEDS: Carvedilol 6.25 MG TAB PO SCH ×2 (09:02→15:56)
[2022-09-20] MEDS: NIFEdipine XL 60 MG TAB PO SCH ×2 (09:03→20:22)
[2022-09-20] MEDS: Empagliflozin 10 MG TAB PO SCH (09:03)
[2022-09-20] MEDS: Aspirin 81 mg Enteric Coated Tablet PO SCH (09:03)
[2022-09-20] MEDS: Benztropine 1 MG TAB PO SCH ×2 (09:03→20:23)
[2022-09-20] MEDS: Heparin 5,000 UNITS/ML VIAL SC SCH ×2 (09:03→20:23)
[2022-09-20] MEDS: Ferrous Sulfate 325 MG TAB PO SCH (09:03)
[2022-09-20] MEDS: Senokot S 8.6-50 MG TAB PO SCH ×2 (09:03→20:33)
[2022-09-20] MEDS: Divalproex Sodium DR 500 MG TAB PO SCH (09:03)
[2022-09-20] MEDS ORDERED: Spironolactone 25 MG TAB PO SCH (17:00)
[2022-09-20] MEDS: Bumetanide 1 MG TAB PO SCH (20:21)
[2022-09-20] MEDS: Aripiprazole 15 MG TAB PO SCH (20:22)
[2022-09-20] MEDS: Sacubitril 49 MG/Valsartan 51 MG TABLET PO SCH (20:22)
[2022-09-20] MEDS: Atorvastatin Calcium 10 MG TAB PO SCH (20:23)
[2022-09-21 06:34] LABS: Anion Gap 11 mmol/L (10-20); BUN (Urea Nitrogen) 36 mg/dL (9.8-20.1); Calc. Creatinine Clearance 64 mL/min (70-130); Carbon Dioxide 30 mmol/L (23-31); Chloride 98 mmol/L (98-107); Estimated GFR 45; Glucose 229 mg/dL (80-115); Potassium 4.4 mmol/L (3.5-5.1); Sodium 135 mmol/L (136-145)
[2022-09-21 06:35] LABS: Hemoglobin 7.7 g/dL (12.0-16.0); Mean Corpuscular HGB CONC 31.4 g/dL (32.0-36.0); Mean Corpuscular Hemoglobin 30.6 pg (27.0-31.0); Mean Corpuscular Volume 97.2 fl (78.0-98.0); Mean Platelet Volume 6.4 fL (7.4-10.4); Platelet Count 477 10x3/uL (130-400); RBC Distribution Width 15.5 % (11.5-14.5); Red Blood Cell (RBC) Count 2.53 mill/uL (4.20-5.40); White Blood Cell (WBC) Count 8.6 10x3/uL (4.8-10.8)
[2022-09-21] MEDS: Acetaminophen 325 MG TAB PO PRN (09:18)
[2022-09-21] MEDS: Spironolactone 25 MG TAB PO SCH (09:18)
[2022-09-21] MEDS: Aspirin 81 mg Enteric Coated Tablet PO SCH (09:19)
[2022-09-21] MEDS: Divalproex Sodium DR 500 MG TAB PO SCH (09:19)
[2022-09-21] MEDS: Benztropine 1 MG TAB PO SCH ×2 (09:19→20:28)
[2022-09-21] MEDS: Sacubitril 49 MG/Valsartan 51 MG TABLET PO SCH ×2 (09:19→20:28)
[2022-09-21] MEDS: NIFEdipine XL 60 MG TAB PO SCH ×2 (09:19→20:28)
[2022-09-21] MEDS: Senokot S 8.6-50 MG TAB PO SCH ×2 (09:20→20:28)
[2022-09-21] MEDS: Empagliflozin 10 MG TAB PO SCH (09:20)
[2022-09-21] MEDS: Carvedilol 6.25 MG TAB PO SCH ×2 (09:20→17:13)
[2022-09-21] MEDS: Bumetanide 1 MG TAB PO SCH ×2 (09:20→20:28)
[2022-09-21] MEDS: Ferrous Sulfate 325 MG TAB PO SCH (09:20)
[2022-09-21] MEDS: Heparin 5,000 UNITS/ML VIAL SC SCH ×2 (09:21→20:28)
[2022-09-21 10:04] LABS: Band 7 % (5-11); Eosinophils 1 % (0-10); Hypochromia SLIGHT = 6-15 cells (100X) (0-5/hpf); Lymphocytes 15 % (21-51); MDiff Complete? YES; Monocytes 6 % (0-10); Neutrophil 71 % (42-75); Platelet Morphology Comment Appears Increased; Polychromasia SLIGHT = 2-3 cells (100X) (0-2/hpf); Rouleaux Formation SLIGHT = 1-5 cells (100X) (None Seen)
[2022-09-21] MEDS: HumaLOG 300 UNITS/3 ML VIAL SC PRN (17:16)
[2022-09-21] MEDS: Aripiprazole 15 MG TAB PO SCH (20:27)
[2022-09-21] MEDS: Atorvastatin Calcium 10 MG TAB PO SCH (20:28)
[2022-09-22] MEDS: NIFEdipine XL 60 MG TAB PO SCH ×2 (09:39→21:34)
[2022-09-22] MEDS: Carvedilol 6.25 MG TAB PO SCH ×2 (09:39→17:38)
[2022-09-22] MEDS: Benztropine 1 MG TAB PO SCH ×2 (09:39→21:34)
[2022-09-22] MEDS: Divalproex Sodium DR 500 MG TAB PO SCH (09:39)
[2022-09-22] MEDS: Acetaminophen 325 MG TAB PO PRN (09:40)
[2022-09-22] MEDS: Empagliflozin 10 MG TAB PO SCH (09:40)
[2022-09-22] MEDS: Spironolactone 25 MG TAB PO SCH (09:41)
[2022-09-22] MEDS: Ferrous Sulfate 325 MG TAB PO SCH (09:41)
[2022-09-22] MEDS: Aspirin 81 mg Enteric Coated Tablet PO SCH (09:41)
[2022-09-22] MEDS: Sacubitril 49 MG/Valsartan 51 MG TABLET PO SCH ×2 (09:41→21:34)
[2022-09-22] MEDS: Heparin 5,000 UNITS/ML VIAL SC SCH ×2 (09:41→21:34)
[2022-09-22] MEDS: Bumetanide 1 MG TAB PO SCH ×2 (09:45→21:34)
[2022-09-22] MEDS: Senokot S 8.6-50 MG TAB PO SCH ×2 (10:46→21:34)
[2022-09-22] MEDS: HumaLOG 300 UNITS/3 ML VIAL SC PRN ×2 (13:40→21:34)
[2022-09-22] MEDS: Atorvastatin Calcium 10 MG TAB PO SCH (21:34)
[2022-09-22] MEDS: Aripiprazole 15 MG TAB PO SCH (21:34)
[2022-09-23] MEDS: HumaLOG 300 UNITS/3 ML VIAL SC PRN ×3 (05:37→17:30)
[2022-09-23] MEDS: Ferrous Sulfate 325 MG TAB PO SCH (09:41)
[2022-09-23] MEDS: Empagliflozin 10 MG TAB PO SCH (09:41)
[2022-09-23] MEDS: Benztropine 1 MG TAB PO SCH ×2 (09:41→20:24)
[2022-09-23] MEDS: Spironolactone 25 MG TAB PO SCH (09:42)
[2022-09-23] MEDS: Aspirin 81 mg Enteric Coated Tablet PO SCH (09:42)
[2022-09-23] MEDS: Bumetanide 1 MG TAB PO SCH ×2 (09:42→20:24)
[2022-09-23] MEDS: Sacubitril 49 MG/Valsartan 51 MG TABLET PO SCH ×2 (09:43→20:23)
[2022-09-23] MEDS: NIFEdipine XL 60 MG TAB PO SCH ×2 (09:43→20:24)
[2022-09-23] MEDS: Divalproex Sodium DR 500 MG TAB PO SCH (09:43)
[2022-09-23] MEDS: Carvedilol 6.25 MG TAB PO SCH ×2 (09:43→17:31)
[2022-09-23] MEDS: Heparin 5,000 UNITS/ML VIAL SC SCH ×2 (09:44→20:23)
[2022-09-23] MEDS: Senokot S 8.6-50 MG TAB PO SCH ×2 (09:44→20:24)
[2022-09-23] MEDS: Aripiprazole 15 MG TAB PO SCH (20:24)
[2022-09-23] MEDS: Atorvastatin Calcium 10 MG TAB PO SCH (20:25)
[2022-09-24] MEDS: HumaLOG 300 UNITS/3 ML VIAL SC PRN ×3 (06:40→22:42)
[2022-09-24 07:38] LABS: #Eosinphils 0.2 thou/uL (0.0-0.7); #Lymphocytes 1.7 thou/uL (1.20-3.40); #Monocytes 1.2 thou/uL (0.11-0.59); %Basophils 0.4 % (0.0-1.0); %Eosinophils 1.7 % (0.0-10.0); %Lymphocytes 14.2 % (21.0-51.0); %Monocytes 9.5 % (0.0-10.0); %Neutrophils 74.2 % (42.0-75.0); Hemoglobin 8.2 g/dL (12.0-16.0); Mean Corpuscular HGB CONC 31.6 g/dL (32.0-36.0); Mean Corpuscular Hemoglobin 31.2 pg (27.0-31.0); Mean Corpuscular Volume 98.6 fl (78.0-98.0); Mean Platelet Volume 6.6 fL (7.4-10.4); Platelet Count 485 10x3/uL (130-400); RBC Distribution Width 15.4 % (11.5-14.5); Red Blood Cell (RBC) Count 2.64 mill/uL (4.20-5.40); White Blood Cell (WBC) Count 12.2 10x3/uL (4.8-10.8)
[2022-09-24 07:58] LABS: Anion Gap 15 mmol/L (10-20); BUN (Urea Nitrogen) 42 mg/dL (9.8-20.1); Calc. Creatinine Clearance 58 mL/min (70-130); Calcium 9.3 mg/dL (7.8-10.44); Carbon Dioxide 24 mmol/L (23-31); Chloride 100 mmol/L (98-107); Estimated GFR 41; Glucose 210 mg/dL (80-115); Potassium 4.8 mmol/L (3.5-5.1); Sodium 134 mmol/L (136-145)
[2022-09-24] MEDS: Carvedilol 6.25 MG TAB PO SCH ×2 (09:33→17:59)
[2022-09-24] MEDS: Sacubitril 49 MG/Valsartan 51 MG TABLET PO SCH ×2 (09:34→20:35)
[2022-09-24] MEDS: Senokot S 8.6-50 MG TAB PO SCH ×2 (09:34→20:48)
[2022-09-24] MEDS: NIFEdipine XL 60 MG TAB PO SCH ×2 (09:34→20:36)
[2022-09-24] MEDS: Spironolactone 25 MG TAB PO SCH (09:34)
[2022-09-24] MEDS: Benztropine 1 MG TAB PO SCH ×2 (09:34→20:35)
[2022-09-24] MEDS: Divalproex Sodium DR 500 MG TAB PO SCH (09:34)
[2022-09-24] MEDS: Ferrous Sulfate 325 MG TAB PO SCH (09:34)
[2022-09-24] MEDS: Bumetanide 1 MG TAB PO SCH ×2 (09:34→20:35)
[2022-09-24] MEDS: Aspirin 81 mg Enteric Coated Tablet PO SCH (09:34)
[2022-09-24] MEDS: Empagliflozin 10 MG TAB PO SCH (09:35)
[2022-09-24] MEDS: Heparin 5,000 UNITS/ML VIAL SC SCH ×2 (09:35→20:36)
[2022-09-24] MEDS: Aripiprazole 15 MG TAB PO SCH (20:35)
[2022-09-24] MEDS: Atorvastatin Calcium 10 MG TAB PO SCH (20:36)
[2022-09-25 05:23] LABS: #Eosinphils 0.2 thou/uL (0.0-0.7); #Lymphocytes 1.5 thou/uL (1.20-3.40); #Monocytes 1.2 thou/uL (0.11-0.59); #Neutrophils 8.6 thou/uL (1.40-6.50); %Basophils 0.2 % (0.0-1.0); %Eosinophils 1.5 % (0.0-10.0); %Lymphocytes 13.3 % (21.0-51.0); %Monocytes 10.3 % (0.0-10.0); %Neutrophils 74.7 % (42.0-75.0); Hemoglobin 7.5 g/dL (12.0-16.0); Mean Corpuscular HGB CONC 32.1 g/dL (32.0-36.0); Mean Corpuscular Volume 96.5 fl (78.0-98.0); Mean Platelet Volume 6.8 fL (7.4-10.4); Platelet Count 402 10x3/uL (130-400); RBC Distribution Width 15.4 % (11.5-14.5); Red Blood Cell (RBC) Count 2.41 mill/uL (4.20-5.40); White Blood Cell (WBC) Count 11.5 10x3/uL (4.8-10.8)
[2022-09-25 05:41] LABS: Anion Gap 14 mmol/L (10-20); BUN (Urea Nitrogen) 39 mg/dL (9.8-20.1); Calc. Creatinine Clearance 65 mL/min (70-130); Carbon Dioxide 25 mmol/L (23-31); Chloride 99 mmol/L (98-107); Estimated GFR 47; Glucose 183 mg/dL (80-115); Potassium 4.5 mmol/L (3.5-5.1); Sodium 133 mmol/L (136-145)
[2022-09-25] MEDS: HumaLOG 300 UNITS/3 ML VIAL SC PRN ×3 (05:58→20:12)
[2022-09-25] MEDS: Benztropine 1 MG TAB PO SCH ×2 (09:58→20:19)
[2022-09-25] MEDS: Bumetanide 1 MG TAB PO SCH ×2 (09:58→20:19)
[2022-09-25] MEDS: Empagliflozin 10 MG TAB PO SCH (09:59)
[2022-09-25] MEDS: Heparin 5,000 UNITS/ML VIAL SC SCH ×2 (09:59→20:12)
[2022-09-25] MEDS: Spironolactone 25 MG TAB PO SCH (09:59)
[2022-09-25] MEDS: Divalproex Sodium DR 500 MG TAB PO SCH (09:59)
[2022-09-25] MEDS: Ferrous Sulfate 325 MG TAB PO SCH (09:59)
[2022-09-25] MEDS: Aspirin 81 mg Enteric Coated Tablet PO SCH (09:59)
[2022-09-25] MEDS: Sacubitril 49 MG/Valsartan 51 MG TABLET PO SCH ×2 (09:59→20:19)
[2022-09-25] MEDS: Carvedilol 6.25 MG TAB PO SCH ×2 (09:59→18:07)
[2022-09-25] MEDS: NIFEdipine XL 60 MG TAB PO SCH ×2 (09:59→20:12)
[2022-09-25] MEDS: Senokot S 8.6-50 MG TAB PO SCH ×2 (10:00→20:20)
[2022-09-25] MEDS: Aripiprazole 15 MG TAB PO SCH (20:19)
[2022-09-25] MEDS: Atorvastatin Calcium 10 MG TAB PO SCH (20:19)
[2022-09-26] MEDS: HumaLOG 300 UNITS/3 ML VIAL SC PRN ×3 (06:23→17:24)
[2022-09-26] MEDS: Carvedilol 6.25 MG TAB PO SCH ×2 (09:01→17:21)
[2022-09-26] MEDS: Ferrous Sulfate 325 MG TAB PO SCH (09:01)
[2022-09-26] MEDS: Aspirin 81 mg Enteric Coated Tablet PO SCH (09:01)
[2022-09-26] MEDS: Senokot S 8.6-50 MG TAB PO SCH ×2 (09:01→20:36)
[2022-09-26] MEDS: Spironolactone 25 MG TAB PO SCH (09:01)
[2022-09-26] MEDS: Heparin 5,000 UNITS/ML VIAL SC SCH ×2 (09:02→20:57)
[2022-09-26] MEDS: NIFEdipine XL 60 MG TAB PO SCH ×2 (09:02→20:37)
[2022-09-26] MEDS: Bumetanide 1 MG TAB PO SCH ×2 (09:07→20:36)
[2022-09-26] MEDS: Sacubitril 49 MG/Valsartan 51 MG TABLET PO SCH ×2 (09:07→20:36)
[2022-09-26] MEDS: Divalproex Sodium DR 500 MG TAB PO SCH (09:07)
[2022-09-26] MEDS: Benztropine 1 MG TAB PO SCH ×2 (09:07→20:36)
[2022-09-26] MEDS: Empagliflozin 10 MG TAB PO SCH (11:42)
[2022-09-26] MEDS: Aripiprazole 15 MG TAB PO SCH (20:36)
[2022-09-26] MEDS: Atorvastatin Calcium 10 MG TAB PO SCH (20:37)
[2022-09-27] MEDS: HumaLOG 300 UNITS/3 ML VIAL SC PRN ×3 (07:00→21:25)
[2022-09-27] MEDS: Carvedilol 6.25 MG TAB PO SCH ×2 (10:23→18:17)
[2022-09-27] MEDS: Sacubitril 49 MG/Valsartan 51 MG TABLET PO SCH ×2 (10:23→21:24)
[2022-09-27] MEDS: Bumetanide 1 MG TAB PO SCH ×2 (10:23→21:25)
[2022-09-27] MEDS: Spironolactone 25 MG TAB PO SCH (10:23)
[2022-09-27] MEDS: Ferrous Sulfate 325 MG TAB PO SCH (10:24)
[2022-09-27] MEDS: NIFEdipine XL 60 MG TAB PO SCH ×2 (10:24→21:24)
[2022-09-27] MEDS: Benztropine 1 MG TAB PO SCH ×2 (10:24→21:25)
[2022-09-27] MEDS: Divalproex Sodium DR 500 MG TAB PO SCH (10:24)
[2022-09-27] MEDS: Heparin 5,000 UNITS/ML VIAL SC SCH ×2 (10:25→21:25)
[2022-09-27] MEDS: Senokot S 8.6-50 MG TAB PO SCH ×2 (10:25→21:26)
[2022-09-27] MEDS: Aspirin 81 mg Enteric Coated Tablet PO SCH (10:25)
[2022-09-27] MEDS: Empagliflozin 10 MG TAB PO SCH (10:50)
[2022-09-27] MEDS: Atorvastatin Calcium 10 MG TAB PO SCH (21:24)
[2022-09-27] MEDS: Aripiprazole 15 MG TAB PO SCH (21:24)
[2022-09-28] MEDS: Acetaminophen 325 MG TAB PO PRN (03:32)
[2022-09-28 06:13] LABS: #Basophils 0.1 thou/uL (0.0-0.2); #Eosinphils 0.1 thou/uL (0.0-0.7); #Lymphocytes 1.6 thou/uL (1.20-3.40); #Neutrophils 7.4 thou/uL (1.40-6.50); %Basophils 0.5 % (0.0-1.0); %Eosinophils 1.3 % (0.0-10.0); %Lymphocytes 15.3 % (21.0-51.0); %Monocytes 10.1 % (0.0-10.0); %Neutrophils 72.8 % (42.0-75.0); Hemoglobin 8.2 g/dL (12.0-16.0); Mean Corpuscular HGB CONC 32.6 g/dL (32.0-36.0); Mean Corpuscular Hemoglobin 31.4 pg (27.0-31.0); Mean Corpuscular Volume 96.4 fl (78.0-98.0); Mean Platelet Volume 7.2 fL (7.4-10.4); Platelet Count 363 10x3/uL (130-400); RBC Distribution Width 15.3 % (11.5-14.5); White Blood Cell (WBC) Count 10.1 10x3/uL (4.8-10.8)
[2022-09-28] MEDS: HumaLOG 300 UNITS/3 ML VIAL SC PRN ×3 (06:26→16:37)
[2022-09-28 06:33] LABS: Anion Gap 12 mmol/L (10-20); BUN (Urea Nitrogen) 42 mg/dL (9.8-20.1); Calc. Creatinine Clearance 55 mL/min (70-130); Carbon Dioxide 29 mmol/L (23-31); Chloride 101 mmol/L (98-107); Estimated GFR 40; Glucose 180 mg/dL (80-115); Potassium 4.6 mmol/L (3.5-5.1); Sodium 137 mmol/L (136-145)
[2022-09-28] MEDS: Spironolactone 25 MG TAB PO SCH (09:02)
[2022-09-28] MEDS: Carvedilol 6.25 MG TAB PO SCH ×2 (09:02→16:33)
[2022-09-28] MEDS: Benztropine 1 MG TAB PO SCH ×2 (09:02→21:19)
[2022-09-28] MEDS: Senokot S 8.6-50 MG TAB PO SCH ×2 (09:02→21:19)
[2022-09-28] MEDS: Sacubitril 49 MG/Valsartan 51 MG TABLET PO SCH ×2 (09:02→21:18)
[2022-09-28] MEDS: Bumetanide 1 MG TAB PO SCH ×2 (09:02→21:18)
[2022-09-28] MEDS: Ferrous Sulfate 325 MG TAB PO SCH (09:03)
[2022-09-28] MEDS: Heparin 5,000 UNITS/ML VIAL SC SCH ×2 (09:03→21:20)
[2022-09-28] MEDS: Aspirin 81 mg Enteric Coated Tablet PO SCH (09:03)
[2022-09-28] MEDS: Divalproex Sodium DR 500 MG TAB PO SCH (09:03)
[2022-09-28] MEDS: NIFEdipine XL 60 MG TAB PO SCH ×2 (09:03→21:18)
[2022-09-28] MEDS: Empagliflozin 10 MG TAB PO SCH (09:24)
[2022-09-28] MEDS: Aripiprazole 15 MG TAB PO SCH (21:18)
[2022-09-28] MEDS: Atorvastatin Calcium 10 MG TAB PO SCH (21:19)
[2022-09-29] MEDS: HumaLOG 300 UNITS/3 ML VIAL SC PRN ×4 (05:48→21:29)
[2022-09-29] MEDS: Heparin 5,000 UNITS/ML VIAL SC SCH ×2 (10:09→21:03)
[2022-09-29] MEDS: Aspirin 81 mg Enteric Coated Tablet PO SCH (10:10)
[2022-09-29] MEDS: Empagliflozin 10 MG TAB PO SCH (10:10)
[2022-09-29] MEDS: Spironolactone 25 MG TAB PO SCH (10:10)
[2022-09-29] MEDS: Bumetanide 1 MG TAB PO SCH ×2 (10:11→21:02)
[2022-09-29] MEDS: NIFEdipine XL 60 MG TAB PO SCH ×2 (10:11→21:02)
[2022-09-29] MEDS: Benztropine 1 MG TAB PO SCH ×2 (10:11→21:02)
[2022-09-29] MEDS: Carvedilol 6.25 MG TAB PO SCH ×2 (10:11→17:15)
[2022-09-29] MEDS: Divalproex Sodium DR 500 MG TAB PO SCH (10:11)
[2022-09-29] MEDS: Ferrous Sulfate 325 MG TAB PO SCH (10:11)
[2022-09-29] MEDS: Sacubitril 49 MG/Valsartan 51 MG TABLET PO SCH ×2 (10:11→21:02)
[2022-09-29] MEDS: Senokot S 8.6-50 MG TAB PO SCH ×2 (10:11→21:02)
[2022-09-29] MEDS: Acetaminophen 325 MG TAB PO PRN (18:10)
[2022-09-29] MEDS: Atorvastatin Calcium 10 MG TAB PO SCH (21:02)
[2022-09-29] MEDS: Aripiprazole 15 MG TAB PO SCH (21:02)
[2022-09-30] MEDS: HumaLOG 300 UNITS/3 ML VIAL SC PRN ×3 (05:46→20:32)
[2022-09-30 07:27] LABS: #Eosinphils 0.1 thou/uL (0.0-0.7); #Lymphocytes 1.4 thou/uL (1.20-3.40); #Monocytes 0.7 thou/uL (0.11-0.59); #Neutrophils 5.7 thou/uL (1.40-6.50); %Basophils 0.3 % (0.0-1.0); %Eosinophils 1.6 % (0.0-10.0); %Lymphocytes 17.3 % (21.0-51.0); %Monocytes 9.1 % (0.0-10.0); %Neutrophils 71.8 % (42.0-75.0); Hemoglobin 8.1 g/dL (12.0-16.0); Mean Corpuscular HGB CONC 31.7 g/dL (32.0-36.0); Mean Corpuscular Hemoglobin 30.3 pg (27.0-31.0); Mean Corpuscular Volume 95.7 fl (78.0-98.0); Mean Platelet Volume 6.8 fL (7.4-10.4); Platelet Count 315 10x3/uL (130-400); RBC Distribution Width 15.1 % (11.5-14.5); Red Blood Cell (RBC) Count 2.67 mill/uL (4.20-5.40); White Blood Cell (WBC) Count 7.9 10x3/uL (4.8-10.8)
[2022-09-30 07:54] LABS: Anion Gap 13 mmol/L (10-20); BUN (Urea Nitrogen) 42 mg/dL (9.8-20.1); Calc. Creatinine Clearance 55 mL/min (70-130); Calcium 9.3 mg/dL (7.8-10.44); Carbon Dioxide 25 mmol/L (23-31); Chloride 99 mmol/L (98-107); Estimated GFR 40; Glucose 252 mg/dL (80-115); Potassium 4.2 mmol/L (3.5-5.1); Sodium 133 mmol/L (136-145)
[2022-09-30] MEDS: Heparin 5,000 UNITS/ML VIAL SC SCH ×2 (08:45→20:22)
[2022-09-30] MEDS: Aspirin 81 mg Enteric Coated Tablet PO SCH (08:48)
[2022-09-30] MEDS: NIFEdipine XL 60 MG TAB PO SCH ×2 (08:48→20:21)
[2022-09-30] MEDS: Sacubitril 49 MG/Valsartan 51 MG TABLET PO SCH ×2 (08:48→20:21)
[2022-09-30] MEDS: Carvedilol 6.25 MG TAB PO SCH ×2 (08:48→17:28)
[2022-09-30] MEDS: Spironolactone 25 MG TAB PO SCH (08:49)
[2022-09-30] MEDS: Divalproex Sodium DR 500 MG TAB PO SCH (08:49)
[2022-09-30] MEDS: Bumetanide 1 MG TAB PO SCH ×2 (08:49→20:20)
[2022-09-30] MEDS: Empagliflozin 10 MG TAB PO SCH (08:49)
[2022-09-30] MEDS: Benztropine 1 MG TAB PO SCH ×2 (08:49→20:21)
[2022-09-30] MEDS: Ferrous Sulfate 325 MG TAB PO SCH (08:49)
[2022-09-30] MEDS: Senokot S 8.6-50 MG TAB PO SCH ×2 (08:59→20:22)
[2022-09-30] MEDS: Aripiprazole 15 MG TAB PO SCH (20:21)
[2022-09-30] MEDS: Atorvastatin Calcium 10 MG TAB PO SCH (20:22)
[2022-10-01] MEDS ORDERED: diphenhydrAMINE 25 MG CAP PO SCH (02:00)
[2022-10-01] MEDS: Acetaminophen 325 MG TAB PO PRN ×2 (02:07→13:12)
[2022-10-01] MEDS: HumaLOG 300 UNITS/3 ML VIAL SC PRN ×3 (06:56→20:17)
[2022-10-01] MEDS: Heparin 5,000 UNITS/ML VIAL SC SCH ×2 (09:09→20:14)
[2022-10-01] MEDS: Divalproex Sodium DR 500 MG TAB PO SCH (09:10)
[2022-10-01] MEDS: NIFEdipine XL 60 MG TAB PO SCH ×2 (09:10→20:11)
[2022-10-01] MEDS: Benztropine 1 MG TAB PO SCH ×2 (09:10→20:12)
[2022-10-01] MEDS: Aspirin 81 mg Enteric Coated Tablet PO SCH (09:10)
[2022-10-01] MEDS: Sacubitril 49 MG/Valsartan 51 MG TABLET PO SCH ×2 (09:10→20:13)
[2022-10-01] MEDS: Bumetanide 1 MG TAB PO SCH ×2 (09:10→20:12)
[2022-10-01] MEDS: Senokot S 8.6-50 MG TAB PO SCH ×2 (09:11→20:14)
[2022-10-01] MEDS: Spironolactone 25 MG TAB PO SCH (09:11)
[2022-10-01] MEDS: Carvedilol 6.25 MG TAB PO SCH ×2 (09:11→17:37)
[2022-10-01] MEDS: Ferrous Sulfate 325 MG TAB PO SCH (09:11)
[2022-10-01] MEDS: Empagliflozin 10 MG TAB PO SCH (09:11)
[2022-10-01] MEDS: Aripiprazole 15 MG TAB PO SCH (20:13)
[2022-10-01] MEDS: Atorvastatin Calcium 10 MG TAB PO SCH (20:13)
[2022-10-02] MEDS: HumaLOG 300 UNITS/3 ML VIAL SC PRN ×3 (06:02→18:38)
[2022-10-02] MEDS: NIFEdipine XL 60 MG TAB PO SCH ×2 (08:15→21:06)
[2022-10-02] MEDS: Heparin 5,000 UNITS/ML VIAL SC SCH ×2 (08:16→21:08)
[2022-10-02] MEDS: Sacubitril 49 MG/Valsartan 51 MG TABLET PO SCH ×2 (08:18→21:08)
[2022-10-02] MEDS: Aspirin 81 mg Enteric Coated Tablet PO SCH (08:18)
[2022-10-02] MEDS: Benztropine 1 MG TAB PO SCH ×2 (08:18→21:08)
[2022-10-02] MEDS: Bumetanide 1 MG TAB PO SCH ×2 (08:18→21:05)
[2022-10-02] MEDS: Ferrous Sulfate 325 MG TAB PO SCH (08:19)
[2022-10-02] MEDS: Carvedilol 6.25 MG TAB PO SCH ×2 (08:19→19:41)
[2022-10-02] MEDS: Divalproex Sodium DR 500 MG TAB PO SCH (08:19)
[2022-10-02] MEDS: Spironolactone 25 MG TAB PO SCH (08:19)
[2022-10-02] MEDS: Senokot S 8.6-50 MG TAB PO SCH ×2 (08:19→21:08)
[2022-10-02] MEDS: Empagliflozin 10 MG TAB PO SCH (08:32)
[2022-10-02] MEDS: Aripiprazole 15 MG TAB PO SCH (21:05)
[2022-10-02] MEDS: Atorvastatin Calcium 10 MG TAB PO SCH (21:08)
[2022-10-03] MEDS: HumaLOG 300 UNITS/3 ML VIAL SC PRN ×3 (06:35→20:45)
[2022-10-03] MEDS: NIFEdipine XL 60 MG TAB PO SCH ×2 (08:45→20:23)
[2022-10-03] MEDS: Aspirin 81 mg Enteric Coated Tablet PO SCH (08:45)
[2022-10-03] MEDS: Empagliflozin 10 MG TAB PO SCH (08:45)
[2022-10-03] MEDS: Spironolactone 25 MG TAB PO SCH (08:45)
[2022-10-03] MEDS: Senokot S 8.6-50 MG TAB PO SCH ×2 (08:45→20:22)
[2022-10-03] MEDS: Carvedilol 6.25 MG TAB PO SCH ×2 (08:45→16:08)
[2022-10-03] MEDS: Sacubitril 49 MG/Valsartan 51 MG TABLET PO SCH ×2 (08:45→20:30)
[2022-10-03] MEDS: Bumetanide 1 MG TAB PO SCH ×2 (08:45→20:29)
[2022-10-03] MEDS: Benztropine 1 MG TAB PO SCH ×2 (08:46→20:29)
[2022-10-03] MEDS: Divalproex Sodium DR 500 MG TAB PO SCH (08:46)
[2022-10-03] MEDS: Ferrous Sulfate 325 MG TAB PO SCH (08:46)
[2022-10-03] MEDS: Heparin 5,000 UNITS/ML VIAL SC SCH ×2 (08:46→20:23)
[2022-10-03] MEDS: Atorvastatin Calcium 10 MG TAB PO SCH (20:23)
[2022-10-03] MEDS: Aripiprazole 15 MG TAB PO SCH (20:29)
[2022-10-04 06:07] LABS: #Eosinphils 0.2 thou/uL (0.0-0.7); #Lymphocytes 1.7 thou/uL (1.20-3.40); #Monocytes 0.8 thou/uL (0.11-0.59); #Neutrophils 6.5 thou/uL (1.40-6.50); %Basophils 0.4 % (0.0-1.0); %Eosinophils 2.4 % (0.0-10.0); %Lymphocytes 18.2 % (21.0-51.0); Hemoglobin 8.9 g/dL (12.0-16.0); Mean Corpuscular HGB CONC 33.2 g/dL (32.0-36.0); Mean Corpuscular Hemoglobin 31.3 pg (27.0-31.0); Mean Corpuscular Volume 94.3 fl (78.0-98.0); Mean Platelet Volume 7.4 fL (7.4-10.4); Platelet Count 269 10x3/uL (130-400); RBC Distribution Width 15.3 % (11.5-14.5); Red Blood Cell (RBC) Count 2.84 mill/uL (4.20-5.40); White Blood Cell (WBC) Count 9.3 10x3/uL (4.8-10.8)
[2022-10-04] MEDS: NIFEdipine XL 60 MG TAB PO SCH ×2 (08:55→19:36)
[2022-10-04] MEDS: Aspirin 81 mg Enteric Coated Tablet PO SCH (08:55)
[2022-10-04] MEDS: Benztropine 1 MG TAB PO SCH ×2 (08:55→19:36)
[2022-10-04] MEDS: Sacubitril 49 MG/Valsartan 51 MG TABLET PO SCH ×2 (08:55→19:37)
[2022-10-04] MEDS: Carvedilol 6.25 MG TAB PO SCH ×2 (08:55→16:20)
[2022-10-04] MEDS: Spironolactone 25 MG TAB PO SCH (08:55)
[2022-10-04] MEDS: Empagliflozin 10 MG TAB PO SCH (08:56)
[2022-10-04] MEDS: Divalproex Sodium DR 500 MG TAB PO SCH (08:56)
[2022-10-04] MEDS: Heparin 5,000 UNITS/ML VIAL SC SCH ×2 (08:56→19:37)
[2022-10-04] MEDS: Ferrous Sulfate 325 MG TAB PO SCH (08:56)
[2022-10-04] MEDS: Senokot S 8.6-50 MG TAB PO SCH ×2 (08:59→19:36)
[2022-10-04] MEDS: Bumetanide 1 MG TAB PO SCH ×2 (09:03→19:36)
[2022-10-04] MEDS: HumaLOG 300 UNITS/3 ML VIAL SC PRN ×2 (11:53→16:26)
[2022-10-04 13:01] VITALS: BMI 31.0
[2022-10-04] MEDS: Atorvastatin Calcium 10 MG TAB PO SCH (19:37)
[2022-10-04] MEDS: Acetaminophen 325 MG TAB PO PRN (19:37)
[2022-10-04] MEDS: Aripiprazole 15 MG TAB PO SCH (19:37)
[2022-10-05] MEDS: Acetaminophen 325 MG TAB PO PRN (04:02)
[2022-10-05 06:32] LABS: #Eosinphils 0.1 thou/uL (0.0-0.7); #Lymphocytes 1.9 thou/uL (1.20-3.40); #Monocytes 0.9 thou/uL (0.11-0.59); #Neutrophils 6.3 thou/uL (1.40-6.50); %Eosinophils 1.5 % (0.0-10.0); %Lymphocytes 20.7 % (21.0-51.0); %Monocytes 9.4 % (0.0-10.0); %Neutrophils 68.4 % (42.0-75.0); Mean Corpuscular HGB CONC 32.4 g/dL (32.0-36.0); Mean Corpuscular Hemoglobin 30.8 pg (27.0-31.0); Mean Platelet Volume 7.5 fL (7.4-10.4); Platelet Count 274 10x3/uL (130-400); RBC Distribution Width 15.8 % (11.5-14.5); Red Blood Cell (RBC) Count 2.92 mill/uL (4.20-5.40); White Blood Cell (WBC) Count 9.2 10x3/uL (4.8-10.8)
[2022-10-05] MEDS: Bumetanide 1 MG TAB PO SCH ×2 (09:15→19:46)
[2022-10-05] MEDS: Senokot S 8.6-50 MG TAB PO SCH ×2 (09:15→19:46)
[2022-10-05] MEDS: NIFEdipine XL 60 MG TAB PO SCH ×2 (09:15→19:46)
[2022-10-05] MEDS: Carvedilol 6.25 MG TAB PO SCH ×2 (09:17→17:58)
[2022-10-05] MEDS: Benztropine 1 MG TAB PO SCH ×2 (09:17→19:45)
[2022-10-05] MEDS: Aspirin 81 mg Enteric Coated Tablet PO SCH (09:17)
[2022-10-05] MEDS: Sacubitril 49 MG/Valsartan 51 MG TABLET PO SCH ×2 (09:17→19:46)
[2022-10-05] MEDS: Ferrous Sulfate 325 MG TAB PO SCH (09:17)
[2022-10-05] MEDS: Divalproex Sodium DR 500 MG TAB PO SCH (09:18)
[2022-10-05] MEDS: Heparin 5,000 UNITS/ML VIAL SC SCH ×2 (09:18→19:46)
[2022-10-05] MEDS: Empagliflozin 10 MG TAB PO SCH (09:18)
[2022-10-05] MEDS: Spironolactone 25 MG TAB PO SCH (09:43)
[2022-10-05] MEDS: HumaLOG 300 UNITS/3 ML VIAL SC PRN (17:58)
[2022-10-05] MEDS: Aripiprazole 15 MG TAB PO SCH (19:46)
[2022-10-05] MEDS: Atorvastatin Calcium 10 MG TAB PO SCH (19:46)
[2022-10-06] MEDS: Aspirin 81 mg Enteric Coated Tablet PO SCH (09:28)
[2022-10-06] MEDS: Benztropine 1 MG TAB PO SCH ×2 (09:28→20:42)
[2022-10-06] MEDS: Divalproex Sodium DR 500 MG TAB PO SCH (09:28)
[2022-10-06] MEDS: Empagliflozin 10 MG TAB PO SCH (09:29)
[2022-10-06] MEDS: Carvedilol 6.25 MG TAB PO SCH ×2 (09:29→17:50)
[2022-10-06] MEDS: Spironolactone 25 MG TAB PO SCH (09:29)
[2022-10-06] MEDS: Sacubitril 49 MG/Valsartan 51 MG TABLET PO SCH ×2 (09:29→20:42)
[2022-10-06] MEDS: NIFEdipine XL 60 MG TAB PO SCH ×2 (09:29→20:42)
[2022-10-06] MEDS: Ferrous Sulfate 325 MG TAB PO SCH (09:29)
[2022-10-06] MEDS: Bumetanide 1 MG TAB PO SCH ×2 (09:29→20:42)
[2022-10-06] MEDS: Senokot S 8.6-50 MG TAB PO SCH ×2 (09:29→20:43)
[2022-10-06] MEDS: Heparin 5,000 UNITS/ML VIAL SC SCH ×2 (09:30→20:42)
[2022-10-06] MEDS: HumaLOG 300 UNITS/3 ML VIAL SC PRN (18:11)
[2022-10-06] MEDS: Aripiprazole 15 MG TAB PO SCH (20:41)
[2022-10-06] MEDS: Atorvastatin Calcium 10 MG TAB PO SCH (20:42)
[2022-10-07] MEDS: HumaLOG 300 UNITS/3 ML VIAL SC PRN (06:02)
[2022-10-07] MEDS: Benztropine 1 MG TAB PO SCH (09:20)
[2022-10-07] MEDS: Carvedilol 6.25 MG TAB PO SCH ×2 (09:21→16:18)
[2022-10-07] MEDS: Senokot S 8.6-50 MG TAB PO SCH (09:21)
[2022-10-07] MEDS: Sacubitril 49 MG/Valsartan 51 MG TABLET PO SCH (09:21)
[2022-10-07] MEDS: NIFEdipine XL 60 MG TAB PO SCH (09:21)
[2022-10-07] MEDS: Aspirin 81 mg Enteric Coated Tablet PO SCH (09:21)
[2022-10-07] MEDS: Bumetanide 1 MG TAB PO SCH (09:21)
[2022-10-07] MEDS: Divalproex Sodium DR 500 MG TAB PO SCH (09:22)
[2022-10-07] MEDS: Ferrous Sulfate 325 MG TAB PO SCH (09:22)
[2022-10-07] MEDS: Heparin 5,000 UNITS/ML VIAL SC SCH (09:22)
[2022-10-07] MEDS: Spironolactone 25 MG TAB PO SCH (09:22)
[2022-10-07] MEDS: Empagliflozin 10 MG TAB PO SCH (09:22)
[2022-10-07] MEDS: Insulin Regular 300 UNITS/3 ML VIAL SC PRN ×2 (12:43→16:20)
[2022-10-07 13:27] VITALS: BP 128/60; TEMP 97.1
== END 2022-10-07 17:35 | DRG 291 ==
LOC: ERS 18:08 → IMCU/EMU 20:05 → T4-A 09-22 19:03 → SJJU 09-22 20:45
PROVIDERS: ADMIT Internal Medicine; ATTEND Hospitalist
PROC: 5A09357 Assistance with Respiratory Ventilation, Less than 24 Consecutive Hours, Continuous Positive Airway Pressure (ICD-10-PCS; principal; 2022-09-15)
DX: I13.0 Hypertensive heart and chronic kidney disease with heart failure and stage 1 through stage 4 chronic kidney disease, or unspecified chronic kidney disease (principal); I50.43 Acute on chronic combined systolic (congestive) and diastolic (congestive) heart failure; J96.21 Acute and chronic respiratory failure with hypoxia; J98.11 Atelectasis; F20.9 Schizophrenia, unspecified; I42.9 Cardiomyopathy, unspecified; J44.9 Chronic obstructive pulmonary disease, unspecified; E78.5 Hyperlipidemia, unspecified; F31.9 Bipolar disorder, unspecified; E11.22 Type 2 diabetes mellitus with diabetic chronic kidney disease; E87.5 Hyperkalemia; Z20.822 Contact with and (suspected) exposure to COVID-19; N18.32 Chronic kidney disease, stage 3b; S80.829A Blister (nonthermal), unspecified lower leg, initial encounter; Z98.890 Other specified postprocedural states; Z88.8 Allergy status to other drugs, medicaments and biological substances; Z86.73 Personal history of transient ischemic attack (TIA), and cerebral infarction without residual deficits; Z79.4 Long term (current) use of insulin; Z79.82 Long term (current) use of aspirin; Z79.899 Other long term (current) drug therapy; Z87.891 Personal history of nicotine dependence; Z90.710 Acquired absence of both cervix and uterus; S82.402S Unspecified fracture of shaft of left fibula, sequela
CPT/HCPCS: 36415; 36416; 71045; 71275; 80048; 80053; 83605; 83880; 84484; 85025; 85610; 85730; 87040; 87811; 93005; 94660; 94760; 96365; 96375; 97139; J0692; J1644; J1815; J1940; J2405; J3370-JW; Q9967; U0003; U0005

== ENCOUNTER 2022-10-15 13:21 | Inpatient (IN) | payer OTHER, SELFPAY ==
[2022-10-15] MEDS ORDERED: Morphine 4 MG/ML VIAL ONE (14:32)
[2022-10-15] MEDS ORDERED: Cefepime 2 GM VIAL ONE (14:32)
[2022-10-15] MEDS ORDERED: VANCOMYCIN 2 GRAM/500 ML BAG 2 GM in Premix Bag 1 BAG IVPB SCH (14:45)
[2022-10-15 15:07] LABS: #Eosinphils 0.1 thou/uL (0.0-0.7); #Lymphocytes 1.1 thou/uL (1.20-3.40); #Monocytes 0.7 thou/uL (0.11-0.59); #Neutrophils 7.6 thou/uL (1.40-6.50); %Eosinophils 1.3 % (0.0-10.0); %Lymphocytes 11.7 % (21.0-51.0); %Monocytes 6.9 % (0.0-10.0); Hemoglobin 8.5 g/dL (12.0-16.0); Mean Corpuscular HGB CONC 31.2 g/dL (32.0-36.0); Mean Corpuscular Hemoglobin 30.1 pg (27.0-31.0); Mean Corpuscular Volume 96.6 fl (78.0-98.0); Mean Platelet Volume 7.1 fL (7.4-10.4); Platelet Count 287 10x3/uL (130-400); RBC Distribution Width 15.1 % (11.5-14.5); Red Blood Cell (RBC) Count 2.81 mill/uL (4.20-5.40); White Blood Cell (WBC) Count 9.5 10x3/uL (4.8-10.8)
[2022-10-15 15:14] LABS: ALT (SGPT) Less than 7 U/L (8-55); AST (SGOT) 10 U/L (5-34); Alkaline Phosphatase 97 U/L (40-110); Anion Gap 13 mmol/L (10-20); BUN (Urea Nitrogen) 50 mg/dL (9.8-20.1); Bilirubin, Total 0.2 mg/dL (0.2-1.2); Calc. Creatinine Clearance 0 mL/min (70-130); Calcium 8.9 mg/dL (7.8-10.44); Carbon Dioxide 26 mmol/L (23-31); Chloride 101 mmol/L (98-107); Estimated GFR 30; Globulin 5.4 g/dL (2.4-3.5); Glucose 253 mg/dL (80-115); Protein, Total 8.4 g/dL (5.8-8.1); Sodium 136 mmol/L (136-145)
[2022-10-15] MEDS ORDERED: Iopamidol-370 76% 500 ML 1 ML ONE (15:59)
[2022-10-15 16:10] LABS: Bacteria/HPF 4+ HPF (None Seen); Bilirubin Negative (Negative); Blood, Urine Trace (Negative); Clarity Turbid (Clear); Glucose, Urine (Dipstick) Greater than 1000 mg/dL (Negative); Ketone, Urine Negative (Negative); Leukocyte Negative Leu/uL (Negative); Nitrite Negative (Negative); Protein, Urine (Dipstick) 20 mg/dL (Neg-Trace); RBC/HPF 0-3 HPF (0-3); Specific Gravity, Urine 1.015 (1.002-1.036); Squamous Epithelial 0-3 HPF (0-3); Urobilinogen Normal mg/dL (Less than 2); WBC/HPF 0-3 HPF (0-3)
[2022-10-15 20:39] VITALS: BMI 38.7
[2022-10-16] MEDS: HYDROcodone/Acetaminophen 5/325 mg Tablet PO PRN ×5 (00:39→21:10)
[2022-10-16] MEDS ORDERED: Ondansetron PF 4 MG/2 ML Vial IVP PRN (01:35)
[2022-10-16] MEDS ORDERED: Dextrose 5% in Water 1,000 ML IV PRN (02:08)
[2022-10-16] MEDS ORDERED: Dextrose 50% Abboject 50 ML SYRINGE SLOW IVP PRN (02:08)
[2022-10-16] MEDS ORDERED: Vancomycin Dose by Levels Sliding Scale (Wt 71-99) FS SCH (02:45)
[2022-10-16] MEDS: Cefepime 1 GM in Sodium Chloride 0.9% 100 ML IVPB SCH ×2 (03:58→15:32)
[2022-10-16 04:26] LABS: #Eosinphils 0.2 thou/uL (0.0-0.7); #Lymphocytes 1.3 thou/uL (1.20-3.40); #Monocytes 0.6 thou/uL (0.11-0.59); #Neutrophils 6.1 thou/uL (1.40-6.50); %Eosinophils 2.3 % (0.0-10.0); %Lymphocytes 15.6 % (21.0-51.0); %Monocytes 7.3 % (0.0-10.0); %Neutrophils 74.8 % (42.0-75.0); Hemoglobin 7.5 g/dL (12.0-16.0); Mean Corpuscular HGB CONC 31.5 g/dL (32.0-36.0); Mean Corpuscular Hemoglobin 30.3 pg (27.0-31.0); Mean Corpuscular Volume 96.1 fl (78.0-98.0); Mean Platelet Volume 7.2 fL (7.4-10.4); Platelet Count 275 10x3/uL (130-400); RBC Distribution Width 15.2 % (11.5-14.5); Red Blood Cell (RBC) Count 2.48 mill/uL (4.20-5.40); White Blood Cell (WBC) Count 8.2 10x3/uL (4.8-10.8)
[2022-10-16 04:51] LABS: Anion Gap 11 mmol/L (10-20); BUN (Urea Nitrogen) 49 mg/dL (9.8-20.1); Calc. Creatinine Clearance 52 mL/min (70-130); Calcium 8.8 mg/dL (7.8-10.44); Carbon Dioxide 24 mmol/L (23-31); Chloride 104 mmol/L (98-107); Estimated GFR 33; Glucose 191 mg/dL (80-115); Potassium 4.2 mmol/L (3.5-5.1); Sodium 135 mmol/L (136-145)
[2022-10-16] MEDS: Benztropine 1 MG TAB PO SCH ×2 (09:03→21:09)
[2022-10-16] MEDS: Famotidine 20 MG TAB PO SCH (09:03)
[2022-10-16] MEDS: risperiDONE 1 MG TAB PO SCH ×2 (09:04→21:10)
[2022-10-16] MEDS: Haloperidol 5 MG TAB PO SCH ×2 (09:04→21:10)
[2022-10-16] MEDS: Ferrous Sulfate 325 MG TAB PO SCH (09:05)
[2022-10-16] MEDS: Empagliflozin 10 MG TAB PO SCH (09:05)
[2022-10-16] MEDS: Divalproex Sodium DR 500 MG TAB PO SCH (09:14)
[2022-10-16 15:36] LABS: Vancomycin, Random 19.6 ug/mL (See Comment)
[2022-10-16] MEDS ORDERED: Vancomycin HCl 500 MG in Sodium Chloride 0.9% 100 ML IV SCH (16:00)
[2022-10-16] MEDS: Aripiprazole 15 MG TAB PO SCH (21:09)
[2022-10-16] MEDS: Atorvastatin Calcium 10 MG TAB PO SCH (21:09)
[2022-10-16] MEDS: NIFEdipine XL 60 MG TAB PO SCH (21:10)
[2022-10-16] MEDS: QUEtiapine 200 MG TAB PO SCH (21:10)
[2022-10-16] MEDS: Sacubitril 49 MG/Valsartan 51 MG TABLET PO SCH (21:10)
[2022-10-17] MEDS: Cefepime 1 GM in Sodium Chloride 0.9% 100 ML IVPB SCH ×2 (03:16→15:48)
[2022-10-17 04:27] LABS: #Eosinphils 0.2 thou/uL (0.0-0.7); #Monocytes 0.5 thou/uL (0.11-0.59); #Neutrophils 4.5 thou/uL (1.40-6.50); %Basophils 0.1 % (0.0-1.0); %Eosinophils 2.8 % (0.0-10.0); %Lymphocytes 16.8 % (21.0-51.0); %Monocytes 7.8 % (0.0-10.0); %Neutrophils 72.5 % (42.0-75.0); Hemoglobin 7.6 g/dL (12.0-16.0); Mean Corpuscular HGB CONC 31.4 g/dL (32.0-36.0); Mean Corpuscular Hemoglobin 30.2 pg (27.0-31.0); Mean Platelet Volume 6.7 fL (7.4-10.4); Platelet Count 286 10x3/uL (130-400); Red Blood Cell (RBC) Count 2.52 mill/uL (4.20-5.40); White Blood Cell (WBC) Count 6.2 10x3/uL (4.8-10.8)
[2022-10-17] MEDS: HYDROcodone/Acetaminophen 5/325 mg Tablet PO PRN ×3 (04:43→20:19)
[2022-10-17 04:52] LABS: Anion Gap 10 mmol/L (10-20); BUN (Urea Nitrogen) 42 mg/dL (9.8-20.1); Calc. Creatinine Clearance 70 mL/min (70-130); Calcium 9.1 mg/dL (7.8-10.44); Carbon Dioxide 24 mmol/L (23-31); Chloride 109 mmol/L (98-107); Estimated GFR 48; Glucose 101 mg/dL (80-115); Potassium 4.1 mmol/L (3.5-5.1); Sodium 139 mmol/L (136-145)
[2022-10-17] MEDS: Divalproex Sodium DR 500 MG TAB PO SCH (09:09)
[2022-10-17] MEDS: Ferrous Sulfate 325 MG TAB PO SCH (09:09)
[2022-10-17] MEDS: Empagliflozin 10 MG TAB PO SCH (09:09)
[2022-10-17] MEDS: risperiDONE 1 MG TAB PO SCH ×2 (09:09→20:19)
[2022-10-17] MEDS: Benztropine 1 MG TAB PO SCH ×2 (09:09→20:19)
[2022-10-17] MEDS: Famotidine 20 MG TAB PO SCH (09:09)
[2022-10-17] MEDS: Haloperidol 5 MG TAB PO SCH ×2 (09:09→20:19)
[2022-10-17] MEDS: NIFEdipine XL 60 MG TAB PO SCH ×2 (09:09→20:19)
[2022-10-17] MEDS: Sacubitril 49 MG/Valsartan 51 MG TABLET PO SCH ×2 (09:09→20:19)
[2022-10-17] MEDS: HumaLOG 300 UNITS/3 ML VIAL SC PRN (13:37)
[2022-10-17 16:44] LABS: Vancomycin, Random 13.4 ug/mL (See Comment)
[2022-10-17] MEDS: Vancomycin 1.5 GRAM/300 ML BAG 1.5 GM in Premix Bag 1 BAG IVPB SCH (18:07)
[2022-10-17] MEDS: Aripiprazole 15 MG TAB PO SCH (20:16)
[2022-10-17] MEDS: Atorvastatin Calcium 10 MG TAB PO SCH (20:19)
[2022-10-17] MEDS: QUEtiapine 200 MG TAB PO SCH (20:19)
[2022-10-18] MEDS: Cefepime 1 GM in Sodium Chloride 0.9% 100 ML IVPB SCH ×2 (02:32→15:18)
[2022-10-18 04:38] LABS: #Eosinphils 0.1 thou/uL (0.0-0.7); #Lymphocytes 1.3 thou/uL (1.20-3.40); #Monocytes 0.6 thou/uL (0.11-0.59); #Neutrophils 5.4 thou/uL (1.40-6.50); %Basophils 0.1 % (0.0-1.0); %Eosinophils 1.9 % (0.0-10.0); %Lymphocytes 16.9 % (21.0-51.0); %Monocytes 8.6 % (0.0-10.0); %Neutrophils 72.5 % (42.0-75.0); Hemoglobin 8.5 g/dL (12.0-16.0); Mean Corpuscular HGB CONC 31.9 g/dL (32.0-36.0); Mean Corpuscular Hemoglobin 30.4 pg (27.0-31.0); Mean Corpuscular Volume 95.4 fl (78.0-98.0); Mean Platelet Volume 6.8 fL (7.4-10.4); Platelet Count 313 10x3/uL (130-400); RBC Distribution Width 14.6 % (11.5-14.5); White Blood Cell (WBC) Count 7.4 10x3/uL (4.8-10.8)
[2022-10-18 05:02] LABS: Anion Gap 10 mmol/L (10-20); BUN (Urea Nitrogen) 43 mg/dL (9.8-20.1); Calc. Creatinine Clearance 52 mL/min (70-130); Calcium 8.6 mg/dL (7.8-10.44); Carbon Dioxide 24 mmol/L (23-31); Chloride 106 mmol/L (98-107); Estimated GFR 33; Glucose 168 mg/dL (80-115); Potassium 4.3 mmol/L (3.5-5.1); Sodium 136 mmol/L (136-145)
[2022-10-18] MEDS: HYDROcodone/Acetaminophen 5/325 mg Tablet PO PRN ×3 (05:48→10:25)
[2022-10-18] MEDS: NIFEdipine XL 60 MG TAB PO SCH ×2 (09:12→21:30)
[2022-10-18] MEDS: Empagliflozin 10 MG TAB PO SCH (09:13)
[2022-10-18] MEDS: Haloperidol 5 MG TAB PO SCH ×2 (09:13→21:20)
[2022-10-18] MEDS: risperiDONE 1 MG TAB PO SCH ×2 (09:13→21:30)
[2022-10-18] MEDS: Benztropine 1 MG TAB PO SCH ×2 (09:13→21:30)
[2022-10-18] MEDS: Ferrous Sulfate 325 MG TAB PO SCH (09:14)
[2022-10-18] MEDS: Divalproex Sodium DR 500 MG TAB PO SCH (09:14)
[2022-10-18] MEDS: Famotidine 20 MG TAB PO SCH (09:15)
[2022-10-18] MEDS: Sacubitril 49 MG/Valsartan 51 MG TABLET PO SCH ×2 (09:16→21:20)
[2022-10-18] MEDS ORDERED: Fentanyl 250 MCG/5 ML VIAL ONE (12:26)
[2022-10-18] MEDS ORDERED: Lidocaine 1% PF 5 ML VIAL ONE (12:59)
[2022-10-18] MEDS ORDERED: PROPOFOL 200 MG/20 ML VIAL ONE (12:59)
[2022-10-18] MEDS ORDERED: Dexamethasone 20 MG/5 ML VIAL ONE (12:59)
[2022-10-18] MEDS ORDERED: Rocuronium Bromide 10 MG/ML (10ML VIAL) ONE (12:59)
[2022-10-18] MEDS ORDERED: Ondansetron PF 4 MG/2 ML Vial ONE (12:59)
[2022-10-18] MEDS ORDERED: SUGAMMADEX SODIUM 200 MG/2 ML VIAL ONE (13:40)
[2022-10-18] MEDS ORDERED: Ondansetron HCl/PF 4 MG/2 ML Vial IVP PRN (14:04)
[2022-10-18] MEDS ORDERED: Promethazine HCl 25 MG/ML VIAL IM PRN (14:04)
[2022-10-18] MEDS: Vancomycin 1.5 GRAM/300 ML BAG 1.5 GM in Premix Bag 1 BAG IVPB SCH (18:29)
[2022-10-18] MEDS: Atorvastatin Calcium 10 MG TAB PO SCH (21:30)
[2022-10-18] MEDS: QUEtiapine 200 MG TAB PO SCH (21:30)
[2022-10-18] MEDS: Aripiprazole 15 MG TAB PO SCH (21:30)
[2022-10-19] MEDS: Cefepime 1 GM in Sodium Chloride 0.9% 100 ML IVPB SCH ×2 (03:50→14:25)
[2022-10-19] MEDS: HYDROcodone/Acetaminophen 5/325 mg Tablet PO PRN ×3 (06:29→21:32)
[2022-10-19 07:07] LABS: #Monocytes 0.6 thou/uL (0.11-0.59); #Neutrophils 7.1 thou/uL (1.40-6.50); %Basophils 0.4 % (0.0-1.0); %Eosinophils 0.1 % (0.0-10.0); %Lymphocytes 11.5 % (21.0-51.0); %Monocytes 6.9 % (0.0-10.0); %Neutrophils 81.1 % (42.0-75.0); Hemoglobin 8.5 g/dL (12.0-16.0); Mean Corpuscular HGB CONC 31.6 g/dL (32.0-36.0); Mean Corpuscular Hemoglobin 30.4 pg (27.0-31.0); Mean Corpuscular Volume 96.3 fl (78.0-98.0); Mean Platelet Volume 6.9 fL (7.4-10.4); Platelet Count 343 10x3/uL (130-400); RBC Distribution Width 14.5 % (11.5-14.5); Red Blood Cell (RBC) Count 2.79 mill/uL (4.20-5.40); White Blood Cell (WBC) Count 8.8 10x3/uL (4.8-10.8)
[2022-10-19 07:09] LABS: Anion Gap 12 mmol/L (10-20); BUN (Urea Nitrogen) 48 mg/dL (9.8-20.1); CRP (Inflammatory) 8.67 mg/dL (= or < 0.5); Calc. Creatinine Clearance 61 mL/min (70-130); Calcium 8.9 mg/dL (7.8-10.44); Carbon Dioxide 22 mmol/L (23-31); Chloride 109 mmol/L (98-107); Estimated GFR 41; Glucose 163 mg/dL (80-115); Sodium 138 mmol/L (136-145)
[2022-10-19] MEDS: NIFEdipine XL 60 MG TAB PO SCH ×3 (09:00→21:28)
[2022-10-19] MEDS: risperiDONE 1 MG TAB PO SCH ×2 (09:10→21:34)
[2022-10-19] MEDS: Divalproex Sodium DR 500 MG TAB PO SCH (09:10)
[2022-10-19] MEDS: Ferrous Sulfate 325 MG TAB PO SCH (09:10)
[2022-10-19] MEDS: Benztropine 1 MG TAB PO SCH ×2 (09:10→21:32)
[2022-10-19] MEDS: Famotidine 20 MG TAB PO SCH (09:10)
[2022-10-19] MEDS: Empagliflozin 10 MG TAB PO SCH (09:10)
[2022-10-19] MEDS: Sacubitril 49 MG/Valsartan 51 MG TABLET PO SCH ×2 (09:32→21:32)
[2022-10-19] MEDS: Haloperidol 5 MG TAB PO SCH ×2 (09:32→21:32)
[2022-10-19] MEDS: Acetaminophen 325 MG TAB PO PRN (14:54)
[2022-10-19 18:22] LABS: Vancomycin, Trough 27.1 ug/mL
[2022-10-19] MEDS: Vancomycin 1.5 GRAM/300 ML BAG 1.5 GM in Premix Bag 1 BAG IVPB SCH (18:44)
[2022-10-19] MEDS: Atorvastatin Calcium 10 MG TAB PO SCH (21:33)
[2022-10-19] MEDS: QUEtiapine 200 MG TAB PO SCH (21:34)
[2022-10-19] MEDS: Aripiprazole 15 MG TAB PO SCH (21:34)
[2022-10-20] MEDS: Acetaminophen 325 MG TAB PO PRN (00:54)
[2022-10-20] MEDS: Cefepime 1 GM in Sodium Chloride 0.9% 100 ML IVPB SCH ×2 (03:00→16:36)
[2022-10-20] MEDS: HYDROcodone/Acetaminophen 5/325 mg Tablet PO PRN (03:16)
[2022-10-20] MEDS ORDERED: OLANZapine 2.5 MG TAB PO SCH (03:45)
[2022-10-20] MEDS ORDERED: OLANZapine 10 MG VIAL IM SCH (05:30)
[2022-10-20] MEDS: Benztropine 1 MG TAB PO SCH ×2 (08:34→19:51)
[2022-10-20] MEDS: NIFEdipine XL 60 MG TAB PO SCH ×2 (08:34→19:52)
[2022-10-20] MEDS: Haloperidol 5 MG TAB PO SCH ×2 (08:34→19:51)
[2022-10-20] MEDS: Empagliflozin 10 MG TAB PO SCH (08:34)
[2022-10-20] MEDS: Divalproex Sodium DR 500 MG TAB PO SCH (08:34)
[2022-10-20] MEDS: Famotidine 20 MG TAB PO SCH (08:34)
[2022-10-20] MEDS: Ferrous Sulfate 325 MG TAB PO SCH (08:34)
[2022-10-20] MEDS: risperiDONE 1 MG TAB PO SCH ×2 (08:35→19:52)
[2022-10-20] MEDS: Sacubitril 49 MG/Valsartan 51 MG TABLET PO SCH ×2 (08:35→19:52)
[2022-10-20] MEDS: Vancomycin HCl 750 MG in Sodium Chloride 0.9% 250 ML 250 ML IVPB SCH (18:37)
[2022-10-20] MEDS: Aripiprazole 15 MG TAB PO SCH (19:50)
[2022-10-20] MEDS: Atorvastatin Calcium 10 MG TAB PO SCH (19:51)
[2022-10-20] MEDS: QUEtiapine 200 MG TAB PO SCH (19:52)
[2022-10-21] MEDS: Cefepime 1 GM in Sodium Chloride 0.9% 100 ML IVPB SCH ×2 (02:12→14:55)
[2022-10-21] MEDS: HYDROcodone/Acetaminophen 5/325 mg Tablet PO PRN (03:14)
[2022-10-21] MEDS: Ferrous Sulfate 325 MG TAB PO SCH (08:45)
[2022-10-21] MEDS: Empagliflozin 10 MG TAB PO SCH (08:46)
[2022-10-21] MEDS: Famotidine 20 MG TAB PO SCH (08:46)
[2022-10-21] MEDS: Sacubitril 49 MG/Valsartan 51 MG TABLET PO SCH ×2 (08:46→20:55)
[2022-10-21] MEDS: NIFEdipine XL 60 MG TAB PO SCH ×2 (08:46→20:54)
[2022-10-21] MEDS: Haloperidol 5 MG TAB PO SCH ×2 (08:46→20:54)
[2022-10-21] MEDS: Divalproex Sodium DR 500 MG TAB PO SCH (08:46)
[2022-10-21] MEDS: Benztropine 1 MG TAB PO SCH ×2 (08:46→20:53)
[2022-10-21] MEDS: risperiDONE 1 MG TAB PO SCH ×2 (08:46→20:55)
[2022-10-21] MEDS: HumaLOG 300 UNITS/3 ML VIAL SC PRN (17:59)
[2022-10-21] MEDS: Vancomycin HCl 750 MG in Sodium Chloride 0.9% 250 ML 250 ML IVPB SCH (17:59)
[2022-10-21] MEDS: Atorvastatin Calcium 10 MG TAB PO SCH (20:53)
[2022-10-21] MEDS: Aripiprazole 15 MG TAB PO SCH (20:53)
[2022-10-21] MEDS: QUEtiapine 200 MG TAB PO SCH (20:55)
[2022-10-21] MEDS: Acetaminophen 325 MG TAB PO PRN (20:56)
[2022-10-22] MEDS: HYDROcodone/Acetaminophen 5/325 mg Tablet PO PRN (00:40)
[2022-10-22] MEDS: Cefepime 1 GM in Sodium Chloride 0.9% 100 ML IVPB SCH ×2 (03:40→15:30)
[2022-10-22] MEDS: Ferrous Sulfate 325 MG TAB PO SCH (08:48)
[2022-10-22] MEDS: risperiDONE 1 MG TAB PO SCH ×2 (08:48→20:59)
[2022-10-22] MEDS: Famotidine 20 MG TAB PO SCH (08:48)
[2022-10-22] MEDS: Benztropine 1 MG TAB PO SCH ×2 (08:48→20:45)
[2022-10-22] MEDS: NIFEdipine XL 60 MG TAB PO SCH ×2 (08:48→20:44)
[2022-10-22] MEDS: Haloperidol 5 MG TAB PO SCH ×2 (08:49→20:46)
[2022-10-22] MEDS: Empagliflozin 10 MG TAB PO SCH (08:49)
[2022-10-22] MEDS: Sacubitril 49 MG/Valsartan 51 MG TABLET PO SCH ×2 (08:49→20:46)
[2022-10-22] MEDS: Divalproex Sodium DR 500 MG TAB PO SCH (08:49)
[2022-10-22] MEDS: Vancomycin HCl 750 MG in Sodium Chloride 0.9% 250 ML 250 ML IVPB SCH (18:20)
[2022-10-22 18:31] LABS: Vancomycin, Trough 14.2 ug/mL
[2022-10-22] MEDS: Acetaminophen 325 MG TAB PO PRN (20:45)
[2022-10-22] MEDS: QUEtiapine 200 MG TAB PO SCH (20:46)
[2022-10-22] MEDS: Atorvastatin Calcium 10 MG TAB PO SCH (20:46)
[2022-10-22] MEDS: Aripiprazole 15 MG TAB PO SCH (20:47)
[2022-10-22] MEDS: HumaLOG 300 UNITS/3 ML VIAL SC PRN (21:00)
[2022-10-23] MEDS: Cefepime 1 GM in Sodium Chloride 0.9% 100 ML IVPB SCH ×2 (02:14→14:08)
[2022-10-23] MEDS: Acetaminophen 325 MG TAB PO PRN (02:15)
[2022-10-23] MEDS ORDERED: Lorazepam 2 MG/ML VIAL SLOW IVP SCH (05:45)
[2022-10-23] MEDS ORDERED: Furosemide 20 MG/2 ML VIAL SLOW IVP SCH (12:45)
[2022-10-23 12:56] LABS: Actual Bicarbonate (HCO3a) 22.3 mEq/L (22-28); Base Excess (BEa) -3.9 mEq/L (-2.0 to +3.0); Calcium, Ionized (arterial) 1.29 mmol/L (1.12-1.30); Carboxyhemoglobin (COHb) 0.7 gm% (0.0-3.0); Hemoglobin (Hb) 8.7 g/dL (12.0-16.0); O2 Tension (PaO2), arterial 91.2 mmHg (> 80.0); Potassium - ABG Lab 5.24 mmol/L (3.70-5.30)
[2022-10-23 12:57] LABS: Puncture Site RRA
[2022-10-23] MEDS: Ferrous Sulfate 325 MG TAB PO SCH (14:07)
[2022-10-23] MEDS: NIFEdipine XL 60 MG TAB PO SCH (14:07)
[2022-10-23] MEDS: risperiDONE 1 MG TAB PO SCH (14:07)
[2022-10-23] MEDS: Empagliflozin 10 MG TAB PO SCH (14:07)
[2022-10-23] MEDS: Divalproex Sodium DR 500 MG TAB PO SCH (14:07)
[2022-10-23] MEDS: Benztropine 1 MG TAB PO SCH (14:07)
[2022-10-23] MEDS: Famotidine 20 MG TAB PO SCH (14:07)
[2022-10-23] MEDS: Sacubitril 49 MG/Valsartan 51 MG TABLET PO SCH (14:16)
[2022-10-23] MEDS: Haloperidol 5 MG TAB PO SCH (14:16)
[2022-10-23] MEDS ORDERED: Carvedilol 6.25 MG TAB PO SCH (17:00)
[2022-10-23] MEDS: Carvedilol 3.125 MG TAB PO SCH (17:12)
[2022-10-23] MEDS: Vancomycin HCl 750 MG in Sodium Chloride 0.9% 250 ML 250 ML IVPB SCH (17:20)
[2022-10-24] MEDS: NIFEdipine XL 60 MG TAB PO SCH ×3 (00:34→20:18)
[2022-10-24] MEDS: Aripiprazole 15 MG TAB PO SCH ×2 (00:34→20:18)
[2022-10-24] MEDS: Sacubitril 49 MG/Valsartan 51 MG TABLET PO SCH (00:35)
[2022-10-24] MEDS: risperiDONE 1 MG TAB PO SCH ×3 (00:35→20:19)
[2022-10-24] MEDS: Benztropine 1 MG TAB PO SCH ×3 (00:35→20:18)
[2022-10-24] MEDS: QUEtiapine 200 MG TAB PO SCH ×2 (00:35→20:19)
[2022-10-24] MEDS: Haloperidol 5 MG TAB PO SCH ×3 (00:35→20:19)
[2022-10-24] MEDS: Atorvastatin Calcium 10 MG TAB PO SCH ×2 (00:36→20:19)
[2022-10-24] MEDS: Acetaminophen 325 MG TAB PO PRN (00:36)
[2022-10-24] MEDS: Cefepime 1 GM in Sodium Chloride 0.9% 100 ML IVPB SCH ×2 (02:07→14:45)
[2022-10-24 07:15] LABS: Hemoglobin 7.2 g/dL (12.0-16.0); Mean Corpuscular HGB CONC 31.7 g/dL (32.0-36.0); Mean Corpuscular Volume 97.8 fl (78.0-98.0); Mean Platelet Volume 6.7 fL (7.4-10.4); Platelet Count 281 10x3/uL (130-400); RBC Distribution Width 14.9 % (11.5-14.5); White Blood Cell (WBC) Count 7.2 10x3/uL (4.8-10.8)
[2022-10-24 07:33] LABS: Anion Gap 11 mmol/L (10-20); BUN (Urea Nitrogen) 46 mg/dL (9.8-20.1); Calc. Creatinine Clearance 69 mL/min (70-130); Calcium 8.9 mg/dL (7.8-10.44); Carbon Dioxide 21 mmol/L (23-31); Chloride 111 mmol/L (98-107); Estimated GFR 47; Glucose 139 mg/dL (80-115); Potassium 5.4 mmol/L (3.5-5.1); Sodium 138 mmol/L (136-145)
[2022-10-24] MEDS: Famotidine 20 MG TAB PO SCH (08:51)
[2022-10-24] MEDS: Ferrous Sulfate 325 MG TAB PO SCH (08:51)
[2022-10-24] MEDS: Carvedilol 3.125 MG TAB PO SCH ×2 (08:51→16:49)
[2022-10-24] MEDS: Empagliflozin 10 MG TAB PO SCH (08:51)
[2022-10-24] MEDS: Divalproex Sodium DR 500 MG TAB PO SCH (08:55)
[2022-10-24] MEDS ORDERED: Furosemide 100 MG/10 ML VIAL SLOW IVP SCH (10:00)
[2022-10-24 17:13] LABS: Vancomycin, Trough 16.4 ug/mL
[2022-10-24] MEDS: Vancomycin HCl 750 MG in Sodium Chloride 0.9% 250 ML 250 ML IVPB SCH (17:31)
[2022-10-25] MEDS: Acetaminophen 325 MG TAB PO PRN (04:49)
[2022-10-25 06:43] LABS: #Eosinphils 0.1 thou/uL (0.0-0.7); #Monocytes 0.4 thou/uL (0.11-0.59); #Neutrophils 5.1 thou/uL (1.40-6.50); %Basophils 0.1 % (0.0-1.0); %Eosinophils 1.8 % (0.0-10.0); %Monocytes 6.4 % (0.0-10.0); %Neutrophils 76.6 % (42.0-75.0); Hemoglobin 7.3 g/dL (12.0-16.0); Mean Corpuscular HGB CONC 30.8 g/dL (32.0-36.0); Mean Corpuscular Hemoglobin 30.1 pg (27.0-31.0); Mean Corpuscular Volume 97.7 fl (78.0-98.0); Mean Platelet Volume 6.8 fL (7.4-10.4); Platelet Count 307 10x3/uL (130-400); Red Blood Cell (RBC) Count 2.43 mill/uL (4.20-5.40); White Blood Cell (WBC) Count 6.7 10x3/uL (4.8-10.8)
[2022-10-25 07:07] LABS: Anion Gap 11 mmol/L (10-20); BUN (Urea Nitrogen) 56 mg/dL (9.8-20.1); Calc. Creatinine Clearance 64 mL/min (70-130); Calcium 9.1 mg/dL (7.8-10.44); Carbon Dioxide 22 mmol/L (23-31); Chloride 107 mmol/L (98-107); Estimated GFR 43; Glucose 129 mg/dL (80-115); Magnesium 2.1 mg/dL (1.6-2.6); Potassium 5.2 mmol/L (3.5-5.1); Sodium 135 mmol/L (136-145)
[2022-10-25] MEDS: risperiDONE 1 MG TAB PO SCH ×2 (08:22→20:13)
[2022-10-25] MEDS: Doxycycline 100 MG CAP PO SCH ×2 (08:22→20:14)
[2022-10-25] MEDS: Carvedilol 3.125 MG TAB PO SCH ×2 (08:23→18:29)
[2022-10-25] MEDS: Benztropine 1 MG TAB PO SCH ×2 (08:23→20:13)
[2022-10-25] MEDS: Famotidine 20 MG TAB PO SCH (08:23)
[2022-10-25] MEDS: NIFEdipine XL 60 MG TAB PO SCH ×2 (08:23→20:13)
[2022-10-25] MEDS: Ferrous Sulfate 325 MG TAB PO SCH (08:23)
[2022-10-25] MEDS: Divalproex Sodium DR 500 MG TAB PO SCH (08:23)
[2022-10-25] MEDS: Empagliflozin 10 MG TAB PO SCH (08:24)
[2022-10-25] MEDS: Haloperidol 5 MG TAB PO SCH ×2 (08:24→20:14)
[2022-10-25] MEDS ORDERED: Furosemide 40 MG/4 ML VIAL SLOW IVP SCH ×2 (09:00)
[2022-10-25] MEDS: QUEtiapine 200 MG TAB PO SCH (20:13)
[2022-10-25] MEDS: Atorvastatin Calcium 10 MG TAB PO SCH (20:13)
[2022-10-25] MEDS: Aripiprazole 15 MG TAB PO SCH (20:14)
[2022-10-26 07:12] LABS: #Eosinphils 0.1 thou/uL (0.0-0.7); #Lymphocytes 1.1 thou/uL (1.20-3.40); #Monocytes 0.5 thou/uL (0.11-0.59); #Neutrophils 5.4 thou/uL (1.40-6.50); %Basophils 0.7 % (0.0-1.0); %Eosinophils 1.4 % (0.0-10.0); %Lymphocytes 15.2 % (21.0-51.0); %Monocytes 6.3 % (0.0-10.0); %Neutrophils 76.5 % (42.0-75.0); Hemoglobin 7.6 g/dL (12.0-16.0); Mean Corpuscular HGB CONC 31.5 g/dL (32.0-36.0); Mean Corpuscular Hemoglobin 30.1 pg (27.0-31.0); Mean Corpuscular Volume 95.7 fl (78.0-98.0); Mean Platelet Volume 7.1 fL (7.4-10.4); Platelet Count 313 10x3/uL (130-400); RBC Distribution Width 15.2 % (11.5-14.5); Red Blood Cell (RBC) Count 2.51 mill/uL (4.20-5.40)
[2022-10-26 07:40] LABS: Anion Gap 8 mmol/L (10-20); BUN (Urea Nitrogen) 57 mg/dL (9.8-20.1); Calc. Creatinine Clearance 60 mL/min (70-130); Calcium 9.3 mg/dL (7.8-10.44); Carbon Dioxide 23 mmol/L (23-31); Chloride 105 mmol/L (98-107); Estimated GFR 40; Glucose 140 mg/dL (80-115); Magnesium 2.1 mg/dL (1.6-2.6); Potassium 5.2 mmol/L (3.5-5.1); Sodium 131 mmol/L (136-145)
[2022-10-26] MEDS: Benztropine 1 MG TAB PO SCH ×2 (08:38→20:28)
[2022-10-26] MEDS: Haloperidol 5 MG TAB PO SCH ×2 (08:38→20:27)
[2022-10-26] MEDS: Doxycycline 100 MG CAP PO SCH ×2 (08:39→20:37)
[2022-10-26] MEDS: Empagliflozin 10 MG TAB PO SCH (08:39)
[2022-10-26] MEDS: Famotidine 20 MG TAB PO SCH (08:39)
[2022-10-26] MEDS: Divalproex Sodium DR 500 MG TAB PO SCH (08:39)
[2022-10-26] MEDS: risperiDONE 1 MG TAB PO SCH ×2 (08:39→20:28)
[2022-10-26] MEDS: Ferrous Sulfate 325 MG TAB PO SCH (08:39)
[2022-10-26] MEDS: NIFEdipine XL 60 MG TAB PO SCH ×2 (08:39→20:29)
[2022-10-26] MEDS: Carvedilol 3.125 MG TAB PO SCH ×2 (08:42→16:53)
[2022-10-26] MEDS: Sacubitril 49 MG/Valsartan 51 MG TABLET PO SCH ×2 (08:44→20:30)
[2022-10-26] MEDS ORDERED: Furosemide 40 MG/4 ML VIAL SLOW IVP SCH ×2 (09:00→15:30)
[2022-10-26] MEDS: HYDROcodone/Acetaminophen 5/325 mg Tablet PO PRN ×2 (10:09→20:28)
[2022-10-26] MEDS ORDERED: methylPREDNISolone Sod Succ 40 MG VIAL IVP SCH (13:00)
[2022-10-26] MEDS: Ipratropium/Albuterol 3 ML NEB NEB SCH ×2 (14:54→18:30)
[2022-10-26 15:11] LABS: Actual Bicarbonate (HCO3a) 22.8 mEq/L (22-28); Base Excess (BEa) -2.5 mEq/L (-2.0 to +3.0); CO2 Tension 41.6 mmHg (35.0-45.0); Calcium, Ionized (arterial) 1.23 mmol/L (1.12-1.30); Carboxyhemoglobin (COHb) 0.9 gm% (0.0-3.0); Hemoglobin (Hb) 8.8 g/dL (12.0-16.0); pH, Arterial 7.36 (7.35-7.45)
[2022-10-26 15:23] LABS: O2 Tension (PaO2), arterial 57.2 mmHg (> 80.0)
[2022-10-26 15:24] LABS: Puncture Site LRA
[2022-10-26] MEDS: Aripiprazole 15 MG TAB PO SCH (20:27)
[2022-10-26] MEDS: Atorvastatin Calcium 10 MG TAB PO SCH (20:28)
[2022-10-26] MEDS: QUEtiapine 200 MG TAB PO SCH (20:28)
[2022-10-26] MEDS: methylPREDNISolone Sod Succ 40 MG VIAL IVP SCH (20:29)
[2022-10-26] MEDS: HumaLOG 300 UNITS/3 ML VIAL SC PRN (20:37)
[2022-10-27] MEDS: Ipratropium/Albuterol 3 ML NEB NEB SCH ×4 (07:37→19:04)
[2022-10-27 07:55] LABS: #Eosinphils 0.1 thou/uL (0.0-0.7); #Lymphocytes 0.8 thou/uL (1.20-3.40); #Monocytes 0.3 thou/uL (0.11-0.59); #Neutrophils 4.6 thou/uL (1.40-6.50); %Basophils 0.4 % (0.0-1.0); %Eosinophils 1.2 % (0.0-10.0); %Lymphocytes 14.3 % (21.0-51.0); %Monocytes 5.6 % (0.0-10.0); %Neutrophils 78.6 % (42.0-75.0); Hemoglobin 7.9 g/dL (12.0-16.0); Mean Corpuscular HGB CONC 31.2 g/dL (32.0-36.0); Mean Corpuscular Hemoglobin 29.9 pg (27.0-31.0); Mean Platelet Volume 7.1 fL (7.4-10.4); Platelet Count 352 10x3/uL (130-400); Red Blood Cell (RBC) Count 2.65 mill/uL (4.20-5.40); White Blood Cell (WBC) Count 5.9 10x3/uL (4.8-10.8)
[2022-10-27 08:08] LABS: Anion Gap 13 mmol/L (10-20); BUN (Urea Nitrogen) 77 mg/dL (9.8-20.1); Calc. Creatinine Clearance 52 mL/min (70-130); Calcium 9.5 mg/dL (7.8-10.44); Carbon Dioxide 20 mmol/L (23-31); Chloride 104 mmol/L (98-107); Estimated GFR 33; Glucose 214 mg/dL (80-115); Potassium 5.7 mmol/L (3.5-5.1); Sodium 131 mmol/L (136-145)
[2022-10-27] MEDS: Haloperidol 5 MG TAB PO SCH ×2 (09:12→19:30)
[2022-10-27] MEDS: risperiDONE 1 MG TAB PO SCH ×2 (09:12→19:31)
[2022-10-27] MEDS: Furosemide 40 MG/4 ML VIAL SLOW IVP SCH ×2 (09:12→19:36)
[2022-10-27] MEDS: methylPREDNISolone Sod Succ 40 MG VIAL IVP SCH ×2 (09:12→19:36)
[2022-10-27] MEDS: Empagliflozin 10 MG TAB PO SCH (09:12)
[2022-10-27] MEDS: NIFEdipine XL 60 MG TAB PO SCH ×2 (09:12→19:33)
[2022-10-27] MEDS: Famotidine 20 MG TAB PO SCH (09:12)
[2022-10-27] MEDS: Divalproex Sodium DR 500 MG TAB PO SCH (09:12)
[2022-10-27] MEDS: Ferrous Sulfate 325 MG TAB PO SCH (09:12)
[2022-10-27] MEDS: Carvedilol 3.125 MG TAB PO SCH ×2 (09:13→16:55)
[2022-10-27] MEDS: Sacubitril 49 MG/Valsartan 51 MG TABLET PO SCH (09:13)
[2022-10-27] MEDS: Benztropine 1 MG TAB PO SCH ×2 (09:13→19:31)
[2022-10-27] MEDS: Doxycycline 100 MG CAP PO SCH ×2 (09:13→19:31)
[2022-10-27] MEDS: HumaLOG 300 UNITS/3 ML VIAL SC PRN (19:09)
[2022-10-27] MEDS: Aripiprazole 15 MG TAB PO SCH (19:30)
[2022-10-27] MEDS: Atorvastatin Calcium 10 MG TAB PO SCH (19:30)
[2022-10-27] MEDS: QUEtiapine 200 MG TAB PO SCH (19:32)
[2022-10-27] MEDS: HYDROcodone/Acetaminophen 5/325 mg Tablet PO PRN (19:32)
[2022-10-28] MEDS: HYDROcodone/Acetaminophen 5/325 mg Tablet PO PRN (00:25)
[2022-10-28] MEDS: HumaLOG 300 UNITS/3 ML VIAL SC PRN ×4 (00:31→16:38)
[2022-10-28] MEDS: Acetaminophen 325 MG TAB PO PRN (06:06)
[2022-10-28] MEDS: Ipratropium/Albuterol 3 ML NEB NEB SCH ×4 (07:48→18:47)
[2022-10-28] MEDS: Famotidine 20 MG TAB PO SCH (08:29)
[2022-10-28] MEDS: risperiDONE 1 MG TAB PO SCH (08:29)
[2022-10-28] MEDS: Benztropine 1 MG TAB PO SCH (08:29)
[2022-10-28] MEDS: Ferrous Sulfate 325 MG TAB PO SCH (08:29)
[2022-10-28] MEDS: Haloperidol 5 MG TAB PO SCH (08:30)
[2022-10-28] MEDS: Empagliflozin 10 MG TAB PO SCH (08:30)
[2022-10-28] MEDS: Divalproex Sodium DR 500 MG TAB PO SCH (08:30)
[2022-10-28] MEDS: Carvedilol 3.125 MG TAB PO SCH ×2 (08:30→16:37)
[2022-10-28] MEDS: Furosemide 40 MG/4 ML VIAL SLOW IVP SCH (08:30)
[2022-10-28] MEDS: Doxycycline 100 MG CAP PO SCH (08:30)
[2022-10-28] MEDS: NIFEdipine XL 60 MG TAB PO SCH (08:30)
[2022-10-28] MEDS: methylPREDNISolone Sod Succ 40 MG VIAL IVP SCH (08:31)
[2022-10-28 19:39] VITALS: BP 148/75; TEMP 97.8
== END 2022-10-28 19:37 | DRG 856 ==
LOC: ERS 13:21 → 2NO 19:36 → T4-B 10-18 16:07
PROVIDERS: ADMIT Internal Medicine; ATTEND Internal Medicine
PROC: 0SPG0JZ Removal of Synthetic Substitute from Left Ankle Joint, Open Approach (ICD-10-PCS; principal; 2022-10-18)
PROC: 0QPH05Z Removal of External Fixation Device from Left Tibia, Open Approach (ICD-10-PCS; 2022-10-18)
PROC: 30233N1 Transfusion of Nonautologous Red Blood Cells into Peripheral Vein, Percutaneous Approach (ICD-10-PCS; 2022-10-18)
DX: T81.49XA Infection following a procedure, other surgical site, initial encounter (principal); I50.33 Acute on chronic diastolic (congestive) heart failure; J96.01 Acute respiratory failure with hypoxia; T81.30XA Disruption of wound, unspecified, initial encounter; I13.0 Hypertensive heart and chronic kidney disease with heart failure and stage 1 through stage 4 chronic kidney disease, or unspecified chronic kidney disease; L03.116 Cellulitis of left lower limb; N17.9 Acute kidney failure, unspecified; Z20.822 Contact with and (suspected) exposure to COVID-19; J44.9 Chronic obstructive pulmonary disease, unspecified; E78.5 Hyperlipidemia, unspecified; F20.9 Schizophrenia, unspecified; E11.22 Type 2 diabetes mellitus with diabetic chronic kidney disease; F17.210 Nicotine dependence, cigarettes, uncomplicated; Y83.8 Other surgical procedures as the cause of abnormal reaction of the patient, or of later complication, without mention of misadventure at the time of the procedure; N18.32 Chronic kidney disease, stage 3b; D63.1 Anemia in chronic kidney disease; Z88.8 Allergy status to other drugs, medicaments and biological substances; Z79.82 Long term (current) use of aspirin; Z79.899 Other long term (current) drug therapy; Z79.4 Long term (current) use of insulin; Z78.1 Physical restraint status; E87.5 Hyperkalemia
CPT/HCPCS: 36415; 36416; 36430; 36600; 51701; 71045; 71275; 80048; 80053; 80202; 81003; 81015; 82805; 83605; 83735; 83880; 84484; 85025; 85027; 86140; 86850; 86900; 86901; 87040; 87086; 87811; 93005; 93970; 94640; 96365; 96366; 96375; 97139; J0692; J1100; J1815; J1940; J2060; J2270; J2405; J2704; J2920; J3010; J3370; J3490; J7050; J7620; P9016; Q9967; U0003; U0005